=== PATIENT | male | born 1945 | race Caucasian/White ===

== ENCOUNTER 2019-09-22 09:09 | Outpatient (CLI) | payer MEDICARE, SELFPAY ==
--- NOTE | ~2019-09-22 | US_ITS ---
EXAMINATION: US venous doppler LE RT DATE: 09/22/2019 09:45 INDICATION: Right lower limb swelling. TECHNIQUE: Grayscale ultrasound images without and with compression and Doppler ultrasound images of the right lower extremity veins were obtained. COMPARISON: Ultrasound 01/22/2013 FINDINGS: The visualized portions of right common femoral vein, profunda (deep) femoral vein, femoral vein, pop liteal vein, peroneal veins, posterior tibial veins, and greater saphenous vein outflow are patent. IMPRESSION: 1. No deep venous thrombosis. Reviewed, dictated and finalized at location A.
== END 2019-09-22 09:10 | disposition home or self-care (01) ==
PROVIDERS: PCP Family Medicine; Visit Provider Internal Medicine Cardiovascular Disease
DX: M79.89 Other specified soft tissue disorders (principal); I51.89 Other ill-defined heart diseases; R60.0 Localized edema
CPT/HCPCS: 93971

== ENCOUNTER 2020-07-11 07:08 | Outpatient (CLI) | payer MEDICARE, SELFPAY ==
--- NOTE | ~2020-07-11 | XR_ITS ---
EXAMINATION: XR chest 2V DATE: 07/11/2020 07:24 INDICATION: Shortness of breath. TECHNIQUE: Frontal and lateral views of the chest were obtained. COMPARISON: Chest 2 views 07/10/2015 FINDINGS: The chest demonstrates clear lungs without pneumonia, pleural effusion, or pneumothorax. Th e heart size is normal. IMPRESSION: 1. No acute cardiopulmonary disease. Reviewed, dictated and finalized at location A. 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
== END 2020-07-11 07:09 | disposition home or self-care (01) ==
LOC: ANHIMG 07:10
PROVIDERS: PCP Family Medicine; Visit Provider Physician Assistant
DX: R06.02 Shortness of breath (principal)
CPT/HCPCS: 71046

== ENCOUNTER 2020-10-17 08:00 | Outpatient (RCR) | payer MEDICARE, SELFPAY ==
--- NOTE | 2020-08-04 10:09 | PTOPEVAL ---
PHYSICAL THERAPY EVALUATION AND PLAN OF CARE 08-04-20 Thank you for referring Odilon Lee to [facility], for the diagnosis of B LE lymphedema.? Larry is scheduled to be seen for therapy? 2 x/week for 4 weeks. Please review, sign, date and return this plan of care PACHECO. I agree with and certify that the following plan of care is medically necessary. Referring Physician Date Attending Provider: Tiffanie Forman MD PT Outpatient Evaluation Document 08/04/20 09:01 DOMINGO (Rec: 08/04/20 10:09 DOMINGO [id number]) Outpatient Past Medical History Past Medical History Source of Past Medical History Patient Neurological History Hx Neurological Disorders No Significant History Cardiovascular History Hx Hypertension Yes: meds Respiratory History Hx Chronic Obstructive Pulmonary Disease Yes: previous smoker (COPD) Gastrointestinal History Hx Hernia Yes: surgical repair hernia Hx Other Gastrointestinal Disorders Yes: part colon removed- non cancer;rupture L side abdomen? Genitourinary History Hx Genitourinary Disorders No Significant History Musculoskeletal History Hx Back Pain Yes: burning in trunk when lie in bed Hx Orthopedic Surgery Yes: R TKR 2008; R knee arthroscopy 3x; Hx Other Musculoskeletal Disorders Yes: B shoulders- rot cuff tears- limited ROM of shoulders Endocrine History Hx Endocrine Disorders No Significant History Other History Hx Other Medical Conditions Yes: obesity Evaluation Information Problem Diagnosis B LE lymphedema Onset Feb 2020 Subjective Information gradual increase in swelling Query Text:As Reported By Patient/ of legs; Family Previous Treatments Previous Treatments For This Problem no previous PT for lymphedema of legs Prior Level of Function Activity Level (Last 3 Months) Occupation retired Activity of Daily Living Ability Independent Indoor/Home Mobility Independent Community Mobility Independent Stairs Ability Independent Functional Cognition (Planning, Shopping Independent , Taking Medications) Cooking Yes Cleaning Yes Laundry Yes Shopping Yes Driving Yes Home Setting Living Situation With Spouse Support 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
--- NOTE | 2020-08-30 08:52 | PTOPEVAL ---
PHYSICAL THERAPY REEVALUATION AND UPDATED PLAN OF CARE 08-30-20 Refer to the clinical summary below for his status with today's reevaluation, compared to the initial evaluation. Continue PT treatment 2x/week for 4 weeks, or less, when L LE reduces and he is independent with and the compression garments are managing his lymphedema. Thank you for referring Odilon Lee to [facility].? Please review, sign, date and return this plan of care PACHECO. I agree with and certify that the following plan of care is medically necessary. Referring Physician Date Attending Provider: Tiffanie Forman MD Document 08/30/20 08:00 DOMINGO (Rec: 08/30/20 08:52 DOMINGO [id number]) Assessment Status Re-evaluation Subjective Information Larry reports: legs are better, Query Text:As Reported By Patient/ have cramps still- Family occassionally in bottom R foot ; doing lymph massage and wants to continue with therapy for his legs; have not ordered his knee high compression garment yet; Reviewed with him that he needs to order the compression garment, in order to progress his treatment and will need terminal operations manager to control his swelling; he voiced understanding and will order the knee high garment. Pain Assessment Timing of Pain Assessment Timing of Pain Assessment Assessment Self Report Self Report Pain Level 0 Pain Score Pain Score 0: Self Report Additional Pain Score Comments cramps in bottom of R foot 2-3 x/day, lasting 20 seconds, ease when stretch ankle/foot; Lymphedema Evaluation Skin Inspection Location Left Lower Extremity,Right Lower Extremity Palpation Findings Warm Skin Temperature Lymphedema Stage II Skin Inspection Comment R LE: slight redness over toes and lower leg; healed scab at 16 cm ~ 1 cm diameter; no redness over dorsum of foot; visible medial and lateral malleoli; lower leg tissue with good mobility/ without fibrosis or hardening of tissue; skin is not dry or flaking, except bottom of foot ; tenderness and spasm over mid-lateral lower leg;
--- NOTE | 2020-08-30 13:52 | PCPTNOTE ---
faxed request to for signature for 30-40 mmHg compression knee highs, for obtaining from [facility];
--- NOTE | 2020-09-06 11:38 | PCPTNOTE ---
order has not yet been received for signature by for compression garment; refaxed this AM;
--- NOTE | 2020-09-12 11:48 | PCPTNOTE ---
pt canceled today's appt; he came in early, at the wrong time and could not return later today, at the correct appointment time;
--- NOTE | 2020-09-28 08:58 | PTOPEVAL ---
PHYSICAL THERAPY RE-EVALUATION AND UPDATED PLAN OF CARE 09-28-20 Refer to the clinical summary below for today's status, compared to the last reevaluation. His lower legs have improved, but having issues finding a compression garment that is comfortable for him to tolerate wearing. Continue PT 1-2x/wk for 4 weeks, for further reduction of fibrotic tissue over R lower leg and for him to obtain an appropriate compression to manage his lymphedema and that is comfortable for him to wear. Thank you for referring Odilon Lee to [facility].? Please review, sign, date and return this plan of care PACHECO. I agree with and certify that the following plan of care is medically necessary. Referring Physician Date Attending Provider: Tiffanie Forman MD Assessment Status Re-evaluation Subjective Information Larry reports: fell asleep last Query Text:As Reported By Patient/ night with legs hanging down Family in chair- legs more swollen this morning; L leg is doing OK, but R leg more swollen and uncomfortable above ankle; only wearing velcro garment about half the time due to not comfortable-- burning and pressure squeezing on leg; can tolerate wearing compression anklet on L foot/ not wearing R one because have other thing on; have not been wearing foot piece (PAC band) had problems putting it on and hurt R foot; has been doing his self massage 1-2 x/ day and deep breathing more than that; have a new cream that skin gave him for legs--not sure what it is and have not started using it yet, just got from pharmacy yesterday; Pain Assessment Timing of Pain Assessment Timing of Pain Assessment Assessment Self Report Self Report Pain Level 0 Pain Score Pain Score 0: Self Report Lymphedema Evaluation Skin Inspection Location Left Lower Extremity,Right Lower Extremity Skin Observations Absence of Leg Hair,Dorsum Foot Swelling, Hyperpigmentation,Hyperplasia, Shiny, Dry, Pale Skin Palpation Findings Cool Skin Temperature Tissue Texture Firm Lymphedema Stage II Skin Inspection Comment R LE: redness over lower leg ~
--- NOTE | 2020-10-05 10:12 | PCPTNOTE ---
Pt called and cancelled today's appointment .
--- NOTE | 2020-10-17 08:59 | PTOPEVAL ---
PHYSICAL THERAPY DISCHARGE 10-17-20 Refer to the clinical summary below, for his discharge summary. Thank you for referring Odilon Lee to [facility].? Please review, sign, date and return this Discharge report PACHECO. I agree with and certify that the following plan of care is medically necessary. Referring Physician Date Attending Provider: Tiffanie Forman MD Document 10/17/20 08:05 DOMINGO (Rec: 10/17/20 08:59 DOMINGO [id number]) Assessment Status Discharge Subjective Information Larry reports: doing OK with leg Query Text:As Reported By Patient/ garments; knows how to do Family the lymph massage; is drinking lots of water; ready for discharge from PT treatments; Pain Assessment Timing of Pain Assessment Timing of Pain Assessment Assessment Self Report Self Report Pain Level 0 Pain Score Pain Score 0: Self Report Additional Pain Score Comments cramping in feet; continues to have back pain PRN--almost went to ER hurting so bad; this morning is doing OK with back; Lymphedema Evaluation Skin Inspection Location Left Lower Extremity,Right Lower Extremity Skin Observations Absence of Leg Hair,Dorsum Foot Swelling, Hyperpigmentation,Hyperplasia, Shiny, Dry, Pale Skin Palpation Findings Warm Skin Temperature Lymphedema Stage II Skin Inspection Comment minimal redness, dry, flaking skin throughout both lower legs; toes and bottom of feet red and flaking; reinforced use of lotion on legs--he has not been doing due to back pain and it increases with reaching down to legs; edema dorsum of feet and toes- no visible space between toes; pt to dept with R lower leg reduction garment intact and L lower leg with circaid juxtafit essentials lower leg piece- size L-X full calf, long length; applied correctly; - cut L garment due to leg
== END 2020-10-17 13:42 | disposition home or self-care (01) ==
LOC: ANHPT 08:00
PROVIDERS: PCP Family Medicine; Visit Provider Family Medicine
DX: I89.0 Lymphedema, not elsewhere classified (principal)
CPT/HCPCS: 29581; 97016; 97140; 97161

== ENCOUNTER 2021-03-19 09:00 | Outpatient (RCR) | payer MEDICARE, SELFPAY ==
--- NOTE | 2021-02-16 10:17 | PTOPEVAL ---
PHYSICAL THERAPY EVALUATION Thank you for referring Odilon Lee to [facility].? Larry was evaluated for the dx of right knee buckling/OA. The patient is scheduled to be seen for therapy? 2 x/week for 4 weeks. Please review, sign, date and return this plan of care PACHECO. I agree with and certify that the following plan of care is medically necessary. Referring Physician Date Attending Provider: Sun Sanford PA-C *PT Outpatient Evaluation Start: 02/16/21 08:47 Freq: Status: Active Protocol: Document 02/16/21 08:48 MLV (Rec: 02/16/21 09:45 MLV [id number]) Therapy Assessment Status Assessment Status Assessment Status Evaluation Evaluation Information Problem Diagnosis right knee pain; Onset 1 year ago Cause no new injury Additional Evaluation Detail Th patient reports increase in falls due to his right knee buckling; fallen at least 5 times in the last year. The patient reports no pain, just a sudden buckling of the right knee. The patient lives home with his and is generally sedentary because his doesn't like him to ever leave her. The patient also reports trouble with breathing for over a year and has gotten worse lately. Pt denies pain at knee or his back/other knee with activity or at rest. Pain Assessment Timing of Pain Assessment Timing of Pain Assessment Assessment Pain Scale Pain Scale Used Numeric (1 - 10) Self Report Pain Assessment Right Calf/Calves Reported Pain Level 0 Pain Description Cramping Radicular Pain Location cramps only at night or when bending knee too far Other Pain Description 9-10 cramping with knee flexion; Pain Behaviors Guarding,Moaning Pain Score Pain Score 0: Self Report Interventions Used Interventions Used By Clinicians Education,Electrical Stimulation,Ice,Position Change Pain Relief Interventions Used By Position Change Patient Cervical and Lumbar ROM Lumbar ROM Reason Not Measured WFL/Left,WFL/Right Lumbar Comments no pain with trunk motions Lower Extremity Range of Motion General Lower Extremity Range of Motion Gross Lower Extremity Range of Motion left k
--- NOTE | 2021-03-02 14:02 | PCPTNOTE ---
Patient called & cancelled scheduled appointment this date due to issues with his spouse.
--- NOTE | 2021-03-19 09:50 | PTOPEVAL ---
PHYSICAL THERAPY DISCHARGE Thank you for referring Odilon Lee to [facility].? The patient has completed 8 visits for the dx of right knee pain/instability. Goals are met, and PT DC'ed.. Please review, sign, date and return this plan of care PACHECO. I agree with and certify that the following plan of care is medically necessary. Referring Physician Date Attending Provider: Sun Sanford PA-C *PT Outpatient Discharge Start: 02/16/21 08:47 Freq: Status: Active Protocol: Document 03/19/21 09:35 MLV (Rec: 03/19/21 09:47 MLV [id number]) Therapy Assessment Status Assessment Status Assessment Status Discharge Evaluation Information Problem Diagnosis right knee pain; Onset 1 year ago Cause no new injury Additional Evaluation Detail Patient reports no recent occurrence of knees buckling and reports only a sense of weakness when challenging strength on high stepping. The pt states he is riding his stationary recumbent bike and doing his exercises w/o pain noted. The patient plans to continue his exercises and biking and see how his knee does before he decides if he needs further follow up with orthopedics. Pain Assessment Timing of Pain Assessment Timing of Pain Assessment Assessment Self Report Self Report Pain Level 0 Pain Score Pain Score 0: Self Report Lower Extremity Range of Motion General Lower Extremity Range of Motion Reason Not Measured WFL/Left,WFL/Right Gross Lower Extremity Range of Motion left knee 0-131', right knee 0 Comments -118' with flexion limited due to calf pain with motion. Ankle DF 6' phillip with right calf less painful to knee during motion; PF active motion 40' phillip. Lower Extremity Muscle Strength Testing General Lower Extremity Strength Gross Lower Extremity Strength phillip hips 4/5 isometric testing , knees 5/5 isometric, ankles 5/5 isometric. Patient 50%-75% less labored with calf raises in standing and with resisted hip motions repetitions. Pt experiences some muscle pain and visible fatigue with
== END 2021-03-20 11:49 | disposition home or self-care (01) ==
LOC: ANHPT 09:00
PROVIDERS: PCP Family Medicine; Visit Provider Physician Assistant
DX: M17.11 Unilateral primary osteoarthritis, right knee (principal)
CPT/HCPCS: 97014; 97110; 97116; 97162; G0283

== ENCOUNTER 2021-08-02 00:16 | Day surgery (SDC) | payer MEDICARE, SELFPAY ==
[2021-07-19 14:11] VITALS: BMI 32.8
--- NOTE | 2021-08-02 07:11 | WPDANESEPPF ---
Anes - Initial Pre Proc Eval Procedure: Operation Date: 08/02/21 10:30 Proposed Procedures p Colonoscopy - Hector Wolfe MD Date/Time: 08/02/21 07:11 Surgeon: Hector Wolfe MD Pre Op Diagnosis: occult GI bleed Patient Data Age: 76 Gender: M Height: 1.73 m Weight: 98 kg Allergies Allergy/AdvReac Type Severity Reaction Status Date / Time No Known Allergies Allergy Unknown Verified 08/02/21 09:55 Home Medications Medication Instructions Recorded Confirmed Type bumetanide 1 mg tablet 1 mg PO DAILY 07/06/20 07/19/21 History finasteride 5 mg tablet 5 mg PO DAILY 07/06/20 07/19/21 History losartan 100 mg tablet 100 mg PO DAILY 07/06/20 07/19/21 History metoprolol succinate 25 mg 25 mg PO DAILY 07/06/20 07/19/21 History tablet,extended release 24 hr potassium chloride 10 mEq 10 meq PO DAILY #90 tablet 08/28/20 07/19/21 Rx tablet,extended release albuterol sulfate 90 mcg/actuation 1 inh INHALATION Q4H PRN #8.5 g 04/09/21 07/19/21 Rx aerosol inhaler fluticasone propionate 50 1 spray INTRANASAL Q12H #16 g 04/09/21 07/19/21 Rx mcg/actuation nasal spray,suspension Patient hx anesthesia problems: none Family hx anesthesia problems: none Results Review: All pre-operative results and documents have been reviewed as part of the pre-operative evaluation. [facility] Past Medical History Medical History Change in bowel habit COPD (chronic obstructive pulmonary disease) CORBIN (dyspnea on exertion) Encounter for immunization Fecal occult blood test positive History of HI (myocardial infarction) Hyperlipidemia Hypertension Sleeps in sitting position due to orthopnea Surgical History Surgical History H/O umbilical hernia repair History of partial surgical removal of colon History of total right knee replacement Family History Family History Mother Carcinoma of colon Family history of malignant neoplasm of breast in first degree relative Breast cancer Sibling Malignant neoplasm of prostate Social History Social History Smoking packs per day: 1.5 Smoking cigarettes per day: 30.0 Years smoked: 52 Smoking pack-years: 78.00 Smoking status: Former smoker Tobacco type: cigarettes Smoking end date: 05/12/07 Alcohol intake: current Drinks per week: 30 Substance use: never Substance use type: does not use Living arrangements: with family Spiritual care concerns: No Anes - Eval Final PreProcedure Day of Procedure 08/02/21 07:11 Patient weight: obese Heart: regular rate and rhythm Lungs: clear to auscultation and normal air movement Airway: Mallampati scale class II Neurological: alert and oriented Last oral intake: >/= 8 hours ASA classification: IV Emergent: no Anesthetic plan: proceed Anesthesia type and monitoring: general GIVS and standard monitoring Results Review: All pre-operative results and documents have been reviewed as part of the pre-operative evaluation. Informed Consent: The patient's anesthetic plan and its attendant risks and benefits were discussed with the patient/family/POA. Questions were solicited and answers provided to the satisfaction of the patient/family/POA.
[2021-08-02 09:56] VITALS: BP 153/90; PULSE 107; RESP 28; TEMP 36.2; O2SAT 96
[2021-08-02] MEDS: LACTATED RINGERS 1,000 ML 150 ML IV CONT (10:11)
--- NOTE | 2021-08-02 10:16 | SUR.PREOP ---
DR CASTAÑEDA NOTIFIED PT EXTREMELY SHORT OF BREATH, 02 SATS RANGE FROM 88-99% ON ROOM AIR WHILE AT REST. PT STATES HE HAS BEEN SHORT OF BREATH FOR 4-5 MONTHS, DOCTOR IS WORKING HIM UP AND DOING SEVERAL TESTS. DENIES NEED FOR OXYGEN. PT ABLE TO COMMUNICATE EASILY. DR CALDERON PT.
--- NOTE | 2021-08-02 10:40 | WPDGICN ---
Assessment and Plan Assessment and plan (1) History of colon polyps: Code(s): Z86.010 - Personal history of colonic polyps Status: Acute Assessment and Plan: Patient has a history of colon polyps. Require required surgical resection of large cecal polyp several years ago. Now with occult blood in stool. Plan is for surveillance colonoscopy now. (2) Occult blood in stools: Code(s): R19.5 - Other fecal abnormalities Status: Acute Assessment and Plan: Occult blood in stool identified in primary care office. Given patient's prior history of large colon polyps. Colonoscopy will be performed to evaluate at this time. GI Consult Note Consult date/time: 08/02/21 10:40 HPI: Odilon Lee is a 76 year old male Presents for screening colonoscopy. Patient's current weight appetite bowel movements are normal. He denies abdominal pain. Recently seen in primary care office was found to have occult blood on rectal exam. Patient denies any obvious visible blood in his bowel movements. Patient's past history is significant for a large cecal colon polyps requiring surgical resection. Patient presents today for follow-up for these reasons. Review of Systems Review of Systems: All systems reviewed & are unremarkable except as noted in HPI and below PMFSH Past Medical History Medical History Change in bowel habit COPD (chronic obstructive pulmonary disease) CORBIN (dyspnea on exertion) Encounter for immunization Fecal occult blood test positive History of AL (myocardial infarction) Hyperlipidemia Hypertension Sleeps in sitting position due to orthopnea Surgical History Surgical History H/O umbilical hernia repair History of partial surgical removal of colon History of total right knee replacement Family History Family History Mother Carcinoma of colon Family history of malignant neoplasm of breast in first degree relative Breast cancer Sibling Malignant neoplasm of prostate Social History Social History Smoking packs per day: 1.5 Smoking cigarettes per day: 30.0 Years smoked: 52 Smoking pack-years: 78.00 Smoking status: Former smoker Tobacco type: cigarettes Smoking end date: 05/12/07 Alcohol intake: current Drinks per week: 30 Substance use: never Substance use type: does not use Living arrangements: with family Spiritual care concerns: No Meds Home Medications and Allergies Home Medications Medication Instructions Recorded Confirmed Type bumetanide 1 mg tablet 1 mg PO DAILY 07/06/20 07/19/21 History finasteride 5 mg tablet 5 mg PO DAILY 07/06/20 07/19/21 History losartan 100 mg tablet 100 mg PO DAILY 07/06/20 07/19/21 History metoprolol succinate 25 mg 25 mg PO DAILY 07/06/20 07/19/21 History tablet,extended release 24 hr potassium chloride 10 mEq 10 meq PO DAILY #90 tablet 08/28/20 07/19/21 Rx tablet,extended release albuterol sulfate 90 mcg/actuation 1 inh INHALATION Q4H PRN #8.5 g 04/09/21 07/19/21 Rx aerosol inhaler fluticasone propionate 50 1 spray INTRANASAL Q12H #16 g 04/09/21 07/19/21 Rx mcg/actuation nasal spray,suspension Allergies Allergy/AdvReac Type Severity Reaction Status Date / Time No Known Allergies Allergy Unknown Verified 08/02/21 09:55 Vital Signs Vital Signs - 24 hr 08/02/21 09:56 Temperature 97.1 F L Pulse Rate 107 H Respiratory Rate 28 H Blood Pressure 153/90 H Pulse Oximetry 96 Exam Narrative: Physical exam reveals patient be alert. Vital signs stable. HEENT exam is unremarkable. Patient is anicteric. Lungs are clear to auscultation and percussion. Heart is without murmur or extra sounds. Abdominal exam bowel sounds are present soft
[2021-08-02 12:21] VITALS: BP 116/63; PULSE 118; RESP 30; O2SAT 95
[2021-08-02 12:31] VITALS: BP 116/63; PULSE 105; RESP 28; O2SAT 98
[2021-08-02 12:41] VITALS: BP 117/76; PULSE 105; RESP 24; O2SAT 98
== END 2021-08-02 12:40 | disposition home or self-care (01) ==
PROVIDERS: PCP Family Medicine; Visit Provider Internal Medicine Gastroenterology
PROC: 0DJD8ZZ Inspection of Lower Intestinal Tract, Via Natural or Artificial Opening Endoscopic (ICD-10-PCS; CPT 45378; principal; 2021-08-02 10:30)
DX: Z12.11 Encounter for screening for malignant neoplasm of colon (principal); D12.3 Benign neoplasm of transverse colon; K64.8 Other hemorrhoids; R19.5 Other fecal abnormalities; Z98.0 Intestinal bypass and anastomosis status; Z90.49 Acquired absence of other specified parts of digestive tract; I10 Essential (primary) hypertension; E78.5 Hyperlipidemia, unspecified; J44.9 Chronic obstructive pulmonary disease, unspecified; I25.2 Old myocardial infarction; Z87.891 Personal history of nicotine dependence; Z79.51 Long term (current) use of inhaled steroids; E66.9 Obesity, unspecified; Z68.33 Body mass index [BMI] 33.0-33.9, adult
CPT/HCPCS: 45385; 88305; J2704; J7120

== ENCOUNTER 2021-08-21 08:17 | Outpatient (CLI) | payer MEDICARE, SELFPAY ==
--- NOTE | ~2021-08-21 | XR_ITS ---
EXAMINATION: XR chest 2V DATE: 08/21/2021 08:31 INDICATION: Shortness of breath TECHNIQUE: PA and lateral views of the chest are obtained. COMPARISON: 07/11/2020 FINDINGS: There are minimal airspace opacities of the right middle lobe. There is no pleural effusion or pneumothorax. The cardiomediastinal silhouette is normal. There are bridging osteophytes at multi ple levels in the spine, consistent with diffuse idiopathic skeletal hyperostosis (DISH). IMPRESSION: 1. Airspace opacities of the right middle lobe, likely pneumonia. Recommend followup radiographs in 1 0-14 days after appropriate therapy to evaluate for improvement/resolution. Reviewed, dictated and finalized at location A. IMPRESSION: 1. Airspace opacities of the right middle lobe, likely pneumonia. Recommend fol lowup radiographs in 10-14 days after appropriate therapy to evaluate for impro vement/resolution.
--- NOTE | ~2021-08-21 | US_ITS ---
EXAMINATION: US abdomen limited DATE: 08/21/2021 08:42 INDICATION: Hepatomegaly TECHNIQUE: Multiple grayscale and Doppler ultrasound images of the abdomen were obtained. COMPARISON: None available FINDINGS: Bowel gas obscures visualization of the pancreas. The liver is normal with normal echogenic ity and echotexture. No surface nodularity. Normal hepatopetal flow in the main portal vein. Stones a re present in the nondistended gallbladder. There is no gallbladder wall thickening or pericholecysti c fluid The normal common bile duct measures 4 mm. There was no sonographic Chopra sign. IMPRESSION: 1. Cholelithiasis without evidence of cholecystitis. Reviewed, dictated and finalized at location A.
== END 2021-08-21 08:18 | disposition home or self-care (01) ==
LOC: ANHIMG 08:18
PROVIDERS: PCP Family Medicine; Visit Provider Family Medicine
DX: R16.0 Hepatomegaly, not elsewhere classified (principal); Z72.89 Other problems related to lifestyle; R06.00 Dyspnea, unspecified; K80.20 Calculus of gallbladder without cholecystitis without obstruction; R91.8 Other nonspecific abnormal finding of lung field
CPT/HCPCS: 71046; 76705

== ENCOUNTER 2021-08-31 12:16 | Outpatient (CLI) | payer MEDICARE, SELFPAY ==
--- NOTE | ~2021-08-31 | XR_ITS ---
EXAMINATION: XR chest 2V DATE: 08/31/2021 12:36 INDICATION: Pneumonia, unspecified organism. TECHNIQUE: Frontal and lateral views of the chest were obtained on 3 radiographs. COMPARISON: Chest 2 views 08/21/2021, chest CT 01/10/2015 FINDINGS: There are airspace opacities in right middle lobe. No pleural effusion or pneumothorax. The heart size is normal. IMPRESSION: 1. Stable airspace opacities in right middle lobe, consistent with atelectasis versus pneumonia. Reviewed, dictated and finalized at location B.
== END 2021-08-31 12:17 | disposition home or self-care (01) ==
LOC: ANHIMG 12:19
PROVIDERS: PCP Family Medicine; Visit Provider Physician Assistant
DX: J18.9 Pneumonia, unspecified organism (principal); R91.8 Other nonspecific abnormal finding of lung field
CPT/HCPCS: 71046

== ENCOUNTER 2021-09-06 14:44 | Emergency (ER) | payer MEDICARE, SELFPAY ==
--- NOTE | ~2021-09-06 | XR_ITS ---
XR chest 1V portable DATE: 09/06/2021 15:14 INDICATION: Cough, shortness of breath. History of CHF, COPD, hypertension TECHNIQUE: Portable AP chest on 09/06/2021 at 1511 hours COMPARISON: 08/31/2021 PA and lateral chest FINDINGS: Stable middle lobe infiltrate and/or atelectasis since 08/31/2021. The lungs otherwise appea r clear. Normal heart size. Aortic calcification and unfolding. No pulmonary vascular congestion or pneumothorax. Osteopenia. Degenerative spurring of the thoracic spine. IMPRESSION: Persistent middle lobe infiltrate and/or atelectasis Reviewed, dictated and finalized at location A.
[2021-09-06 14:52] VITALS: BP 189/101; PULSE 90; RESP 24; TEMP 36.8; O2SAT 96
--- NOTE | 2021-09-06 14:56 | ECG_ITS ---
Measurements Intervals [place] Rate: 88 P: 49 [place]: 142 QRS: -29 QRSD: 102 T: 72 QT: 335 QTc: 406 Interpretive Statements SINUS RHYTHM BORDERLINE LEFT AXIS DEVIATION [QRS AXIS < -20] NO PREVIOUS ECG AVAILABLE FOR COMPARISON Electronically Signed On 09-06-2021 20:55:45 CDT by Shruthi Chiang M.D.
[2021-09-06 15:07] VITALS: RESP 33; O2SAT 95
[2021-09-06 15:23] LABS: Basophils Percent Auto 0.3 % (0.2-1.2); Eosinophils Absolute Auto 0.1 K/mm3 (0-0.3); Eosinophils Percent Auto 0.6 % (0-4.4); Hematocrit 51.5 % (42.0-52.0); Hemoglobin 17.7 g/dL (14.0-18.0); Immature Granulocyte Absolute 0.03 K/mm3 (0.00-0.031); Immature Granulocyte Percent A 0.3 % (0-0.5); Lymphocytes Absolute Auto 2.91 K/mm3 (0.9-3.2); Mean Corpuscular HGB Conc 34.4 g/dl (32-36); Mean Corpuscular Hemoglobin 32.5 pg (26-34); Mean Corpuscular Volume 94.5 fl (80-100); Monocytes Absolute Auto 1.1 K/mm3 (0.1-0.6); Monocytes Percent Auto 11.7 % (2.6-8.5); Neutrophils Absolute Auto 5.3 K/mm3 (1.3-6.7); Neutrophils Percent Auto 56.1 % (45.5-73.1); Platelet Count Result 258 k/mm3 (150-375); Red Blood Count 5.45 M/mm3 (4.6-6.20); Red Cell Distribution Width 15.1 % (11.5-14.5); White Blood Count 9.4 K/mm3 (4.5-10.0)
[2021-09-06 15:37] LABS: INR 1.1; Prothrombin Time 13.4 Seconds (11.1-14.7)
[2021-09-06 15:38] LABS: Alanine Aminotransferase 17 U/L (4-50); Albumin Level 4.4 g/dL (3.5-5.1); Alkaline Phosphatase 89 U/L (38-126); Anion Gap 5 mmol/L (8-16); Aspartate Amino Transferase 33 U/L (17-59); Blood Urea Nitrogen 18 mg/dL (9-20); Carbon Dioxide 32 mmol/L (22-30); Chloride 95 mmol/L (98-107); Estimated CRCL calculation 68 ml/min; Estimated Glomerular Filt Rate > 60; Glucose 91 mg/dL (65-110); Partial Thromboplastin Time 37.6 SECONDS (22.3-36.8); Potassium 4.5 mmol/L (3.4-5.0); Sodium 132 mmol/L (137-145)
[2021-09-06 15:50] LABS: NT Pro B Type Natriuretic Pept 111 pg/mL (5-100); Troponin I < 0.012 ng/mL (0.000-0.034)
--- NOTE | 2021-09-06 16:17 | ED.GENADULT ---
HPI - General Adult General Chief complaint: Recheck/Abnormal Lab/Rx Stated complaint: told me to come Time Seen by Provider: 09/06/21 14:55 History of Present Illness HPI narrative: Patient is a 76-year-old male who presents ER at the request of his PCP. Patient underwent a stress test yesterday. He had an abnormal perfusion scan. Patient has no chest pain. He has been having exertional dyspnea for months. No fevers or chills or sweats. Reports compliance with home medications. Related Data Home Medications Medication Instructions Recorded Confirmed bumetanide 1 mg tablet 1 mg PO DAILY 07/06/20 08/07/21 finasteride 5 mg tablet 5 mg PO DAILY 07/06/20 08/07/21 losartan 100 mg tablet 100 mg PO DAILY 07/06/20 08/07/21 metoprolol succinate 25 mg 25 mg PO DAILY 07/06/20 08/07/21 tablet,extended release 24 hr Allergies Allergy/AdvReac Type Severity Reaction Status Date / Time No Known Allergies Allergy Unknown Verified 09/06/21 15:09 Review of Systems Review of Systems: All systems reviewed & are unremarkable except as noted in HPI and below Constitutional: Constitutional: Denies chills, Denies fever(s) and Denies weakness ENT: Denies nasal congestion and Denies sore throat Cardiovascular: Cardiovascular: Denies chest pain, Denies rapid heart rate and Denies radiating jaw, neck or arm pain Respiratory: Respiratory: Denies cough and Denies dyspnea Comments: Dyspnea on exertion Gastrointestinal: Gastrointestinal: Denies abdominal pain, Denies nausea and Denies vomiting [facility] Past Medical History Medical History (Updated 09/06/21 @ 17:07 by Clay Farrell MD) Body mass index (BMI) of 30 to 39 in adult Change in bowel habit COPD (chronic obstructive pulmonary disease) CORBIN (dyspnea on exertion) Encounter for immunization Fecal occult blood test positive History of HI (myocardial infarction) Hyperlipidemia Hypertension Prediabetes Sleeps in sitting position due to orthopnea Surgical History Surgical History H/O umbilical hernia repair History of partial surgical removal of colon History of total right knee replacement Family History Family History Mother Carcinoma of colon Family history of malignant neoplasm of breast in first degree relative Breast cancer Sibling Malignant neoplasm of prostate Social History Social History Smoking packs per day: 1.5 Smoking cigarettes per day: 30.0 Years smoked: 52 Smoking pack-years: 78.00 Tobacco type: cigarettes Smoking end date: 05/12/07 Alcohol intake: current Drinks per week: 30 Substance use: never Substance use type: does not use Spiritual care concerns: No Exam Narrative: GENERAL: Well-appearing, well-nourished, and in no acute distress. HEAD: Normocephalic, atraumatic. EYES: PERRL and EOMI. ENT: Mucous membranes moist. CHEST: Clear to auscultation. No respiratory distress. HEART: Regular rate and rhythm. Normal peripheral pulses. ABDOMEN: Soft, nontender, nondistended. EXTREMITIES: Normal range of motion. Chronic lymphedema right lower extremity.. SKIN: Warm, dry, no rash. NEURO: Alert and oriented x3. PSYCH: Normal mood and affect. Course Course Emergency Course: Discussed case with [facility]. They do not feel patient needs admission and they typically schedule these as outpatient heart cath. The recommendation from them is to send the patient home and they will contact him to schedule his cath. Vital Signs Vital signs: Vital Signs Temperature 98.3 F 09/06/21 14:52 Pulse Rate 90 09/06/21 14:52 Respiratory Rate 24 H 09/06/21 14:52 Blood Pressure 189/101 H 09/06/21 14:52 Pulse Oximetry 96 09/06/21 14:52 Temperature 98.3 F 09/06/21 14:52 Pulse Rate 90 09/06/21 14:52 Respiratory Rate 33 H 09/06/21
[2021-09-06 17:30] VITALS: BP 144/76; PULSE 77; RESP 18; O2SAT 94
== END 2021-09-06 17:43 | disposition home or self-care (01) ==
PROVIDERS: Emergency Provider Emergency Medicine; PCP Family Medicine
DX: R94.39 Abnormal result of other cardiovascular function study (principal); J44.9 Chronic obstructive pulmonary disease, unspecified; I25.2 Old myocardial infarction; E78.5 Hyperlipidemia, unspecified; I10 Essential (primary) hypertension; R06.00 Dyspnea, unspecified; R73.03 Prediabetes; Z96.651 Presence of right artificial knee joint; Z87.891 Personal history of nicotine dependence
CPT/HCPCS: 36415; 71045; 80053; 83880; 84484; 85025; 85610; 85730; 93005; 99284

== ENCOUNTER 2021-09-18 00:12 | Day surgery (SDC) | payer MEDICARE, SELFPAY ==
[2021-09-18] VITALS (8 sets, daily range): BP systolic 127–171; BP diastolic 63–88; PULSE 73–86; RESP 22–24; TEMP 36.4–36.5; O2SAT 95–100; BMI 34.2
--- NOTE | 2021-09-18 09:44 | WPDMODSED ---
Moderate Sedation Note-Pt Data Patient Data Allergies Allergy/AdvReac Type Severity Reaction Status Date / Time No Known Allergies Allergy Unknown Verified 09/18/21 09:11 Home Medications Medication Instructions Recorded Confirmed Type bumetanide 1 mg tablet 1 mg PO DAILY 07/06/20 09/17/21 History finasteride 5 mg tablet 5 mg PO DAILY 07/06/20 09/17/21 History losartan 100 mg tablet 100 mg PO DAILY 07/06/20 09/17/21 History metoprolol succinate 25 mg 25 mg PO DAILY 07/06/20 09/17/21 History tablet,extended release 24 hr potassium chloride 10 mEq 10 meq PO DAILY #90 tablet 08/28/20 09/17/21 Rx tablet,extended release fluticasone propionate 50 1 spray INTRANASAL Q12H #16 g 04/09/21 09/17/21 Rx mcg/actuation nasal spray,suspension budesonide-formoterol HFA 160 2 puff INHALATION Q12H #10.2 g 08/07/21 09/17/21 Rx mcg-4.5 mcg/actuation aerosol inhaler albuterol sulfate 90 mcg/actuation 1 inh INHALATION Q4H PRN #8.5 g 08/30/21 09/17/21 Rx aerosol inhaler Current Medications: Active Medications Sodium Chloride (Normal Saline Iv) 500 mls @ 100 mls/hr IV CONT .Q5H ROBERT Sedation/Anesthesia: No previous sedation/anesthesia problems (including family history). [facility] Past Medical History Medical History Body mass index (BMI) of 30 to 39 in adult Change in bowel habit COPD (chronic obstructive pulmonary disease) CORBIN (dyspnea on exertion) Encounter for immunization Fecal occult blood test positive History of MN (myocardial infarction) Hyperlipidemia Hypertension Prediabetes Sleeps in sitting position due to orthopnea Surgical History Surgical History H/O umbilical hernia repair History of partial surgical removal of colon History of total right knee replacement Family History Family History Mother Carcinoma of colon Family history of malignant neoplasm of breast in first degree relative Breast cancer Sibling Malignant neoplasm of prostate Social History Social History Smoking packs per day: 1.5 Smoking cigarettes per day: 30.0 Years smoked: 52 Smoking pack-years: 78.00 Tobacco type: cigarettes Smoking end date: 05/12/07 Alcohol intake: current Drinks per week: 30 Substance use: never Substance use type: does not use Spiritual care concerns: No Mod Sed Physical Exam Physical Exam Pre Procedural Exam: Normal: Airway Hours since solid foods: 10 Hours since liquid intake: 10 Mallampati Classification: class II Internal Medicine - PN: Obj Da Vital Signs Vital Signs: Vital Signs - 24 hr 09/18/21 09:20 Temperature 36.5 C Pulse Rate 74 Respiratory Rate 24 H Blood Pressure 171/86 H Pulse Oximetry 97 Meds/Results Medications: Active Medications Generic Name Dose Route Start Last Admin Trade Name Freq PRN Reason Stop Dose Admin Sodium Chloride 500 mls @ 100 mls/hr 09/18/21 08:00 Normal Saline Iv IV CONT .Q5H [facility] ASA Classification/Sedation ASA Classification/Sedation ASA Class: III Emergent: No Risks: Risks, benefits and alternatives explained and patient/family accepted plan for sedation. Patient re-evaluated immediately prior to sedation.
--- NOTE | 2021-09-18 09:45 | WPDHPUPDATE1 ---
History and Physical Update Update Date/Time: 09/18/21 09:45 History and Physical has been reviewed, including an updated exam of the patient. There are NO changes in the patient's condition. Risks, benefits, and alternatives have been discussed and questions answered. Patient agrees to proceed with procedure.
--- NOTE | 2021-09-18 10:36 | PM.IMHP ---
H&P: HPI History of Present Illness Date/Time: 09/18/21 10:36 Chief complaint: Shortness of breath HPI: 76-year-old male with hypertension, CHF with preserved ejection fraction, COPD, history of tobacco abuse. Patient was referred by Dr. Chiang for cardiac catheterization in the setting of worsening shortness of breath and abnormal MPI. MPI from 09/05/2021 reportedly showed LVEF 58%, large, moderate to severe ischemia involving the apical, apical anterior, apical septal, mid anteroseptum, no infarction. Chief Complaint: shortness of breath PMFSH Past Medical History Medical History Body mass index (BMI) of 30 to 39 in adult Change in bowel habit COPD (chronic obstructive pulmonary disease) CORBIN (dyspnea on exertion) Encounter for immunization Fecal occult blood test positive History of MA (myocardial infarction) Hyperlipidemia Hypertension Prediabetes Sleeps in sitting position due to orthopnea Surgical History Surgical History H/O umbilical hernia repair History of partial surgical removal of colon History of total right knee replacement Family History Family History Mother Carcinoma of colon Family history of malignant neoplasm of breast in first degree relative Breast cancer Sibling Malignant neoplasm of prostate Social History Social History Smoking packs per day: 1.5 Smoking cigarettes per day: 30.0 Years smoked: 52 Smoking pack-years: 78.00 Tobacco type: cigarettes Smoking end date: 05/12/07 Alcohol intake: current Drinks per week: 30 Substance use: never Substance use type: does not use Spiritual care concerns: No Meds Home Medications and Allergies Home Medications Medication Instructions Recorded Confirmed Type bumetanide 1 mg tablet 1 mg PO DAILY 07/06/20 09/17/21 History finasteride 5 mg tablet 5 mg PO DAILY 07/06/20 09/17/21 History losartan 100 mg tablet 100 mg PO DAILY 07/06/20 09/17/21 History metoprolol succinate 25 mg 25 mg PO DAILY 07/06/20 09/17/21 History tablet,extended release 24 hr potassium chloride 10 mEq 10 meq PO DAILY #90 tablet 08/28/20 09/17/21 Rx tablet,extended release fluticasone propionate 50 1 spray INTRANASAL Q12H #16 g 04/09/21 09/17/21 Rx mcg/actuation nasal spray,suspension budesonide-formoterol HFA 160 2 puff INHALATION Q12H #10.2 g 08/07/21 09/17/21 Rx mcg-4.5 mcg/actuation aerosol inhaler albuterol sulfate 90 mcg/actuation 1 inh INHALATION Q4H PRN #8.5 g 08/30/21 09/17/21 Rx aerosol inhaler Allergies Allergy/AdvReac Type Severity Reaction Status Date / Time No Known Allergies Allergy Unknown Verified 09/18/21 09:11 Vital Signs Vital Signs - 24 hr 09/18/21 09:20 Temperature 36.5 C Pulse Rate 74 Respiratory Rate 24 H Blood Pressure 171/86 H Pulse Oximetry 97 Exam Narrative: PHYSICAL EXAMINATION: GENERAL: Alert, short of breath MENTAL STATUS: anxious EYES: Extraocular movements intact, no pallor EARS: External ears appear normal, hearing grossly normal NOSE: Normal and patent, no discharge MOUTH: Mucous membranes moist, tongue normal NECK: Supple, no JVD CHEST: diminished breath sounds HEART: Normal rate, regular rhythm ABDOMEN: Soft, nontender NEUROLOGICAL: Alert, oriented, normal speech MUSCULOSKELETAL: No major deformity, no amputation EXTREMITIES: edema SKIN: no rash on the exposed area, no cyanosis PSYCHIATRIC: Normal mood, appropriate affect Assessment and Plan Assessment and plan (1) Diastolic CHF: Code(s): I50.30 - Unspecified diastolic (congestive) heart failure Status: Acute
--- NOTE | 2021-09-18 10:45 | WPDCARDPROC ---
Cardiac Cath Procedure Note Date of procedure:: 09/18/21 Performing physician:: Samy Harrison MD Procedure Procedure note:: LEFT HEART CATHETERIZATION AND CORONARY ANGIOGRAM REPORT DATE OF PROCEDURE: 09/18/2021 INDICATION FOR PROCEDURE: shortness of breath BRIEF CLINICAL HISTORY:76-year-old male with hypertension, CHF with preserved ejection fraction, COPD, history of tobacco abuse. Patient was referred by Dr. Chiang for cardiac catheterization in the setting of worsening shortness of breath and abnormal MPI. MPI from 09/05/2021 reportedly showed LVEF 58%, large, moderate to severe ischemia involving the apical, apical anterior, apical septal, mid anteroseptum, no infarction. Benefits and risks of the procedure were discussed with the patient in depth, and informed consent was obtained prior to the procedure. Risks of the procedure include but are not limited to vascular complications including groin hematoma, retroperitoneal bleed, vessel perforation; periprocedural NM, cardiac arrhythmias, stroke, contrast induced nephropathy, and . After discussing all the benefits, risks and alternatives, patient was willing to proceed with the procedure. PROCEDURES PERFORMED: 1. Left heart catheterization- Selective left and right coronary angiogram; left ventriculogram and hemodynamic assessment 2. Selective right common femoral angiogram and deployment of Angio-Seal hemostatic device 3. Moderate sedation-CPT code 56074 MODERATE SEDATION: Midazolam 1 mg; fentanyl 25 mcg; Start time 1005 , Stop time 1024 ; Total [id number] time 19 minutes; Nidhi Fernandez RN was trained observer for moderate sedation. ACCESS SITE: Right common femoral artery PROCEDURE NOTE: After obtaining informed consent, patient was brought to catheterization lab and prepped and draped in a usual sterile manner. After local anesthesia with lidocaine, right common femoral artery access was taken with micropuncture needle followed by insertion of a 6 Hebrew sheath. Selective left and right coronary angiogram was performed using 5 Hebrew JL4 and JR4 catheters respectively. Orthogonal views were taken. Next, a 5 Hebrew pigtail catheter was advanced in the LV cavity and was flushed with normal saline. LV pressure measurement was performed. After this, left ventriculogram was performed. The catheter was flushed again, and gradient across the aortic valve was measured on the pullback of the catheter. Finally, selective right common femoral angiogram was performed followed by successful deployment of Angio-Seal vascular closure device. Patient tolerated procedure well without any immediate procedure related complications. FINDINGS: LEFT MAIN CORONARY: the left main coronary artery is a short vessel, no angiographically significant focal stenosis seen. No catheter dampening was seen. Good reflux of the contrast. The vessel bifurcates to LAD and dominant LCX. LEFT ANTERIOR DESCENDING ARTERY: The LAD is a medium caliber vessel in the proximal and mid segment, becomes smaller caliber, tortuous vessel in the distal segment. The vessel gives rise to medium caliber tortuous diagonal branch. No significant focal stenosis seen. LEFT CIRCUMFLEX ARTERY: Large caliber, dominant vessel. Vessel gives rise to medium caliber OM branches and LPDA without significant focal stenosis. RIGHT CORONARY ARTERY: A medium caliber, nondominant vessel, no significant focal stenosis. LEFT VENTRICULOGRAM: Frequent ventricular ectopy was seen during left ventriculogram, overall LV systolic function preserved with ejection fraction about 55%. LVEDP was elevated at 18 mmHg. HEMODYNAMIC ASSESSMENT: Opening pressure 127/66 mmHg , closing pressure 150/75 mmHg , LVEDP 18 mmHg , no significant gradient across aortic valve on the pullback of pigtail catheter. RIGHT COMMON FEMORAL ARTERY: Patent CONCLUSIONS: 1. No angiographically significant obstructive CAD. Dominant left coronary syste
== END 2021-09-18 14:25 | disposition home or self-care (01) ==
PROVIDERS: PCP Family Medicine; Visit Provider Internal Medicine Cardiovascular Disease
PROC: 4A023N7 Measurement of Cardiac Sampling and Pressure, Left Heart, Percutaneous Approach (ICD-10-PCS; CPT 93452; principal; 2021-09-18 09:30)
DX: R94.39 Abnormal result of other cardiovascular function study (principal); I11.0 Hypertensive heart disease with heart failure; I50.30 Unspecified diastolic (congestive) heart failure; I49.3 Ventricular premature depolarization; I77.1 Stricture of artery; J44.9 Chronic obstructive pulmonary disease, unspecified; I25.2 Old myocardial infarction; E78.5 Hyperlipidemia, unspecified; R73.03 Prediabetes; Z87.891 Personal history of nicotine dependence; Z79.82 Long term (current) use of aspirin
CPT/HCPCS: 93458; C1760; C1887; C1894; G0269; J2250; J3010; J7040

== ENCOUNTER 2021-09-29 09:17 | Outpatient (CLI) | payer MEDICARE, SELFPAY ==
--- NOTE | ~2021-09-29 | XR_ITS ---
EXAMINATION: XR chest 2V DATE: 09/29/2021 09:38 INDICATION: Dyspnea on exertion TECHNIQUE: PA and lateral views of the chest were obtained. COMPARISON: Chest radiograph dated 09/06/21 FINDINGS: Persistent mild opacities at the bilateral lung bases. No pleural effusion or pneumothorax. The cardi omediastinal silhouette is normal. IMPRESSION: 1. Persistent mild bibasilar opacities most likely atelectasis although differential includes pulmona ry edema or pneumonia. Reviewed, dictated and finalized at location A. IMPRESSION: 1. Persistent mild bibasilar opacities most likely atelectasis although differe ntial includes pulmonary edema or pneumonia.
== END 2021-09-29 09:18 | disposition home or self-care (01) ==
PROVIDERS: PCP Family Medicine; Visit Provider Internal Medicine Cardiovascular Disease
DX: R06.00 Dyspnea, unspecified (principal); R91.8 Other nonspecific abnormal finding of lung field
CPT/HCPCS: 71046

== ENCOUNTER 2021-10-23 12:42 | Outpatient (CLI) | payer MEDICARE, SELFPAY ==
--- NOTE | 2021-10-24 08:00 | WPDPFTINT ---
PFT Procedure Performed PFT Procedure Performed Plethysmography (Lung Vol) Diffusing Cap (DLCO) Flow Vol Loop Spirometry w/o Bronchodil PFT Interpretation This is a pulmonary function test with spirometry, plethysmography and diffusing capacity. The test was performed and results interpreted in accordance with the 2019 and 2005 ATS/ERS Task Force guidelines respectively using the Global Lung Function Initiative-2012 reference equations. Patient demonstrated good effort and cooperation. Reproducibility criteria were met. The quality of the spirometry maneuver was Grade B. Findings: Spirometry: There is decreased maximal expiratory airflow at low lung volumes with a mildly concave expiratory flow tracing. The contour the inspiratory flow tracing is normal. The FVC is 2.26 L, 61% predicted. The FEV1 is 1.55 L, 56% predicted. The FEV1: FVC ratio 69%. Plethysmography: The total lung capacity is 4.84 L, 73% predicted. The functional residual capacity is 3.26 L, 91% predicted. The residual volume is 2.58 L, 103% predicted. Diffusing capacity: The diffusing capacity unadjusted for hemoglobin and carboxyhemoglobin is 16.7, 71% predicted. The diffusing capacity adjusted for alveolar volume is 4.77, 125% predicted. Impression: There is a combined obstructive and restrictive ventilatory abnormality. There are no guidelines to assign the severity of obstruction and restriction with a combined abnormality. In my opinion, given the mildly concave expiratory flow tracing and mildly decreased FEV1:FVC ratio and mild restrictive abnormality I would state there is a mild obstructive abnormality and a mild restrictive abnormality resulting in a moderately severe decrease in FEV1. The diffusing capacity is normal. There are no prior studies for comparison
== END 2021-10-23 12:43 | disposition home or self-care (01) ==
PROVIDERS: PCP Family Medicine; Visit Provider Internal Medicine Cardiovascular Disease
DX: R06.00 Dyspnea, unspecified (principal); I51.89 Other ill-defined heart diseases; R94.2 Abnormal results of pulmonary function studies
CPT/HCPCS: 94375; 94726; 94729

== ENCOUNTER 2021-12-10 08:51 | Outpatient (CLI) | payer MEDICARE, SELFPAY ==
--- NOTE | ~2021-12-10 | XR_ITS ---
EXAM: XR cervical spine 4-5V DATE: 12/10/2021 09:20 HISTORY: NO INJURY NECK PAIN . COMPARISON: None available. FINDINGS: Exaggerated kyphosis centered at the cervicothoracic junction. Lower cervical spine and ce rvicothoracic junction poorly visualized in the lateral view. Craniocervical association and atlantoa xial joint are aligned, with moderate degenerative change. No prevertebral soft tissue swelling. Mini mal 2 mm retrolisthesis of C2 on C3, otherwise the vertebral bodies are aligned. Vertebral body heigh ts are maintained. Multilevel disc space narrowing in the cervical spine. Multilevel facet sclerosis in the mid and lower cervical spine. IMPRESSION: Limited lateral views. Lower cervical spine degenerative disc disease. Mid and lower cerv ical spine facet arthropathy. Grade 1 retrolisthesis of C2 on C3. Reviewed, dictated and finalized at location K. IMPRESSION: Limited lateral views. Lower cervical spine degenerative disc disea se. Mid and lower cervical spine facet arthropathy. Grade 1 retrolisthesis of C 2 on C3.
--- NOTE | ~2021-12-10 | CT_ITS ---
EXAMINATION: CT diagnostic chest wo con DATE: 12/10/2021 09:15 INDICATION: Dyspnea on exertion TECHNIQUE: Computed tomography (CT) of the chest was performed without intravenous contrast. Addition al 3D reconstructions utilizing coronal maximum intensity projection (MIP) were performed. Automated exposure control and iterative reconstruction technique were employed. The dose-length product was 51 0.80 mGy-cm. COMPARISON: 01/10/2019 FINDINGS: Mild emphysema. Is a new 12 x 8 mm right apical nodule has developed along the caudal aspect of an un changed unchanged 8 x 6 mm nodule. No interval change in a more linear nodule in the posterior right apex likely related to pleural parenchymal scarring. Bibasilar atelectasis along the diaphragm as wel l as some dependent atelectasis in the bilateral lower lobes. No pneumonia, pulmonary edema, pleural effusion or pneumothorax. Small calcified nodules in the left lower lobe along with calcified mediast inal lymph nodes consistent with old granulomatous disease. Heart size is normal. Atherosclerotic cor onary artery calcific location. No pericardial effusion. Thoracic aorta is normal in caliber. No path ologically enlarged thoracic lymphadenopathy. Calcified gallstones layering dependently in the fundus of the otherwise normal gallbladder. A few splenic calcifications consistent with old granulomatous disease. Prior partial proximal colectomy with right upper quadrant ileocolic anastomosis. There are bridging osteophytes at multiple levels in the spine, consistent with diffuse idiopathic skeletal hyp erostosis (DISH). IMPRESSION: 1. New 12 x 8 mm nodule at the right apex. The location immediately adjacent to the right subclavian artery would be challenging for biopsy and would recommend PET/CT for further evaluation. 2. Mild emphysema with scattered atelectasis in the bilateral lower lung zones.. Reviewed, dictated and finalized at location A. IMPRESSION: 1. New 12 x 8 mm nodule at the right apex. The location immediately adjacent to the right subclavian artery would be challenging for biopsy and would recommen d PET/CT for further evaluation. 2. Mild emphysema with scattered atelectasis in the bilateral lower lung zones. .
== END 2021-12-10 08:52 | disposition home or self-care (01) ==
PROVIDERS: PCP Family Medicine; Visit Provider Physician Assistant
DX: J44.9 Chronic obstructive pulmonary disease, unspecified (principal); R06.09 Other forms of dyspnea; R91.1 Solitary pulmonary nodule; M50.30 Other cervical disc degeneration, unspecified cervical region; M12.88 Other specific arthropathies, not elsewhere classified, other specified site; M53.82 Other specified dorsopathies, cervical region
CPT/HCPCS: 71250; 72050

== ENCOUNTER 2021-12-25 11:50 | Outpatient (CLI) | payer MEDICARE, SELFPAY ==
--- NOTE | ~2021-12-25 | PE_ITS ---
EXAMINATION: PET skull to mid thigh DATE: 12/25/2021 14:04 INDICATION: Right lung nodule. TECHNIQUE: Blood glucose level was 100 mg/dL. 9.386 mCi of 18-fluorodeoxyglucose (18-FDG) was adminis tered i.v. Low dose computed tomography (CT) images were acquired from the base of the brain to the p roximal thighs for attenuation correction and anatomic localization. Automated exposure control was e mployed. Dose-length product (DLP) was 996 mGy-cm. Positron emission tomography (PET) images were acq uired in the same distribution. COMPARISON: Chest CT 12/10/2021, 01/10/2015 FINDINGS: Head/neck: There is increased activity in the paraspinal muscles, glottis, nose, and oral cavity with out abnormal CT correlate, likely physiologic. There are no pathologically enlarged lymph nodes. Chest: There is a 14 mm nodule in right upper lobe with maximum SUV of 2.4. There is chronic focal sc arring in right upper lobe. There is mild atelectasis bilaterally. A calcified left lung nodule and c alcified left hilar lymph nodes consistent with old granulomatous disease. No pleural effusion. There are size is normal. There are coronary artery calcifications. No pericardial effusion. There is bila teral gynecomastia. Abdomen/pelvis/proximal thighs: The liver is normal. There are gallstones in the gallbladder, which i s normal in size. The spleen, pancreas, adrenal glands, and kidneys are normal. There is diffuse blad fab wall thickening, likely secondary to chronic outlet obstruction from the mildly enlarged prostate . There are no dilated loops of bowel. There are no pathologically enlarged lymph nodes. There is no free intraperitoneal fluid. There is increased activity in bone marrow without abnormal CT correlate, prebone marrow stimulation. IMPRESSION: 1. 14 mm nodule in right lung upper lobe with maximum SUV of 2.4. This finding is indeterminate for primary bronchogenic carcinoma. CT-guided biopsy is recommended. Reviewed, dictated and finalized at location A. IMPRESSION: 1. 14 mm nodule in right lung upper lobe with maximum SUV of 2.4. This finding is indeterminate for primary bronchogenic carcinoma. CT-guided biopsy is recom mended.
[2021-12-25 12:27] LABS: Glucose Point of Care 100 mg/dl (65-105)
== END 2021-12-25 11:51 | disposition home or self-care (01) ==
PROVIDERS: PCP Family Medicine; Visit Provider Physician Assistant
DX: R91.1 Solitary pulmonary nodule (principal)
CPT/HCPCS: 78815; A9552

== ENCOUNTER 2022-01-07 05:13 | Inpatient (IN) | payer MEDICARE, SELFPAY ==
[2022-01-07] VITALS (22 sets, daily range): BP systolic 105–145; BP diastolic 60–88; PULSE 80–118; RESP 15–41; TEMP 36.3–37.4; O2SAT 93–100; BMI 29.5
--- NOTE | 2022-01-07 | ECHO_ITS ---
Patient Info Name: Odilon Lee Age: 76 years : 1945 Gender: Male Ht: 68 in Wt: 194 lbs BSA: 2.08 m2 HR: 99 bpm BP: 145 / 88 mmHg Heart Rhythm: Sinus Rhythm Technical Quality: Poor Exam Date: 01/07/2022 4:04 PM Exam Location: [facility] Pulmonary Patient Status: Inpatient Admit Date: 01/07/2022 Staff Ordering Physician: Douglas [place] Records Management Officer: Tia Zaldivar RDCS Attending Provider: Thang Saenz MD Referring Physician: Chris SOLOMON; Exam Type: CA echo dop color flow w con Study Info Indications - edema sob Complete two-dimensional, color flow and Doppler transthoracic echocardiogram is performed with contrast to opacify the left ventricle and to improve the deliniation of the left ventricle endocardial borders. Reason for Poor Study: patient body habitus Summary 1. Left ventricular hypertrophy with normal size and hyperdynamic contractility. 2. Grade 1 diastolic noncompliance. 3. Mildly sclerotic aortic valve which is not stenotic. Left Ventricle Left ventricular chamber dimension is normal. Left ventricular systolic function is hyperdynamic, estimated at >70%. There is mild concentric increased left ventricular wall thickness. The left ventricular diastolic function is grade I diastolic dysfunction. Right Ventricle Right ventricular chamber dimension is normal. Left Atria Left atrial chamber dimension is normal. Right Atria Right atrial chamber dimension is normal. Aortic Valve The aortic valve is trileaflet. There is mild aortic valve sclerosis. Pulmonic Valve The pulmonic valve is not well visualized. Mitral Valve The mitral valve has normal leaflets. Tricuspid Valve The tricuspid valve leaflets are normal. Pericardium/Pleural The pericardium appears normal. Aorta The aortic root size at the sinus of Valsalva is normal. Left Ventricular Outflow Tract Name Value Normal LVOT 2D LVOT Diameter 2.11 cm LVOT Doppler LVOT Peak Gradient 4 mmHg LVOT Mean Gradient 2 mmHg LVOT VTI 23.78 cm LVOT VTI/AV VTI Ratio 1.25 LVOT Stroke Volume 82.77 ml LVOT CO 14.74 l/min LVOT CI 7.10 L/min/m2 Pulmonic Valve Name Value Normal PV Doppler PV Peak Gradient 3 mmHg Mitral Valve Name Value Normal MV Doppler MV Decel [place] 285.48 cm/s2 MV PHT 0 s MV Area (PHT)
--- NOTE | ~2022-01-07 | XR_ITS ---
EXAMINATION: XR chest 1V portable DATE: 01/09/2022 05:16 INDICATION: Shortness of breath. TECHNIQUE: A single frontal view of the chest was obtained. COMPARISON: Chest single view 01/07/2022, chest CT 01/07/2022 FINDINGS: The lung volumes are small. There is mild atelectasis at the lung bases. No pleural effusio n or pneumothorax. The heart size is normal. IMPRESSION: 1. Small lung volumes with mild atelectasis at the lung bases. Reviewed, dictated and finalized at location A.
--- NOTE | ~2022-01-07 | CT_ITS ---
EXAMINATION: CTA chest PE abdomen pel DATE: 01/07/2022 06:51 INDICATION: Chest pain, shortness of breath and abdominal distention. TECHNIQUE: Computed tomography (CT) pulmonary angiogram of the chest was performed with 100 mL Omnipa que-350 intravenous contrast. Additional 3D reconstructions utilizing coronal maximum intensity proje ction (MIP) were performed. CT of the abdomen and pelvis was performed with intravenous contrast util izing the same contrast bolus following a short delay. Automated exposure control and iterative recon struction technique were employed. The dose-length product was 1450.28 mGy-cm. COMPARISON: None FINDINGS: Chest: Excellent contrast opacification of the pulmonary arteries. There is mild streak artifact from dense contrast in the superior vena cava and right atrium. Mild scattered respiratory motion artifact which does not significantly limit evaluation. No pulmonary embolism. Mild emphysema. No interval change i n an 11 x 7 x 14 mm right upper lobe nodule. Additional small focus of chronic scarring in the right upper lobe. No change in more dependent and basilar atelectasis/scarring in the bilateral lower lobes . No new opacities to suggest pneumonia. No pulmonary edema or pleural effusion. A couple calcified n odules in the left lung along with calcified left hilar and mediastinal lymph nodes consistent with o ld granulomatous disease. Heart size is normal. Atherosclerotic coronary artery calcification. No per icardial effusion. Thoracic aorta is normal in caliber with no dissection. No pathologically enlarged thoracic lymphadenopathy. There are bridging osteophytes at multiple levels in the spine, consistent with diffuse idiopathic skeletal hyperostosis (DISH). Abdomen/pelvis: Calcified gallstones within the fundus of the partially decompressed otherwise normal-appearing gallb ladder. A few splenic calcific lesions consistent with old granulomatous disease. Liver, pancreas and bilateral adrenal glands are normal. Again seen is mild diffuse wall thickening of the distended melissa dder which along with mild bilateral hydronephrosis is likely related to chronic outlet obstruction f rom the mildly enlarged prostate. Postoperative change of prior partial proximal colectomy with ileoc olic anastomosis in the right abdomen. No dilated bowel to suggest obstruction. No free intraperitone al gas or fluid. No pathologically enlarged abdominal or pelvic lymphadenopathy. Moderate lumbar spon dylosis. IMPRESSION: 1. Unchanged atelectasis/scarring the bilateral lower lobes. No pulmonary embolism or other acute car diopulmonary disease. 2. Mild emphysema with 14 x 7 x 11 mm right apical nodule, indeterminate on prior PET/CT and for whic h CT guide biopsy would be recommended. 3. Diffuse mild bladder wall thickening and mild bilateral hydronephrosis post likely related to outl et obstruction from the mildly enlarged prostate. 4. Cholelithiasis. Reviewed, dictated and finalized at location A. IMPRESSION: 1. Unchanged atelectasis/scarring the bilateral lower lobes. No pulmonary embol ism or other acute cardiopulmonary disease. 2. Mild emphysema with 14 x 7 x 11 mm right apical nodule, indeterminate on celestina or PET/CT and for which CT guide biopsy would be recommended. 3. Diffuse mild bladder wall thickening and mild bilateral hydronephrosis post likely related to outlet obstruction from the mildly enlarged prostate. 4. Cholelithiasis.
--- NOTE | ~2022-01-07 | US_ITS ---
EXAMINATION: US abdomen limited DATE: 01/12/2022 08:25 INDICATION: Right upper quadrant abdominal pain. TECHNIQUE: Multiple grayscale and Doppler ultrasound images of the abdomen were obtained. COMPARISON: Ultrasound 08/21/2021, CT 01/07/2022 FINDINGS: The visualized portions of the head and body of the pancreas are normal. The liver is jonas l without focal lesion. There is normal flow in main portal vein. The gallbladder is normal in size a nd contains gallstones. Gallbladder wall thickening is noted. There was no sonographic Chopra sign. T he common duct is normal and measures 5 mm. IMPRESSION: 1. Cholelithiasis. Gallbladder wall thickening may be secondary to chronic cholecystitis. Reviewed, dictated and finalized at location A. IMPRESSION: 1. Cholelithiasis. Gallbladder wall thickening may be secondary to chronic chol ecystitis.
--- NOTE | ~2022-01-07 | XR_ITS ---
EXAMINATION: XR chest 1V portable Exam Date/Time: 01/13/2022 13:25 CDT HISTORY: dyspnea Comparison: 01/09/2022. RESULT: Lines, tubes, and devices: None. Lungs and pleura: Low lung volumes with persistent streaky bibasilar linear opacities. Cardiomediastinal silhouette: Stable. Other: No acute osseous or upper abdominal finding. IMPRESSION: Persistent low lung volumes and bibasilar scar/atelectasis. No significant interval change. Reviewed, dictated and finalized at location K. IMPRESSION: Persistent low lung volumes and bibasilar scar/atelectasis. No significant inte rval change.
--- NOTE | ~2022-01-07 | XR_ITS ---
EXAMINATION: XR chest 1V portable DATE: 01/17/2022 09:06 INDICATION: Shortness of breath. TECHNIQUE: A single frontal view of the chest was obtained. COMPARISON: Chest single view 01/13/2022, chest CT 01/07/2022 FINDINGS: There is mild atelectasis at the lung bases. No pleural effusion or pneumothorax. The heart size is normal. IMPRESSION: 1. Mild atelectasis at the lung bases. Reviewed, dictated and finalized at location A.
--- NOTE | ~2022-01-07 | XR_ITS ---
EXAMINATION: XR chest 1V portable DATE: 01/07/2022 05:58 INDICATION: Chest pain and shortness of breath TECHNIQUE: frontal view of the chest was obtained. COMPARISON: Chest radiograph dated 09/29/2021 FINDINGS: Lung volumes are decreased. Mild opacities at the bilateral lung bases. No pleural effusion or pneumo thorax. The cardiomediastinal silhouette is normal. IMPRESSION: 1. Small lung volumes with bibasilar opacities which could represent atelectasis or pneumonia. Reviewed, dictated and finalized at location A. IMPRESSION: 1. Small lung volumes with bibasilar opacities which could represent atelectasi s or pneumonia.
--- NOTE | 2022-01-07 05:16 | ECG_ITS ---
Measurements Intervals [place] Rate: 99 P: 54 VA: 154 QRS: -4 QRSD: 108 T: 69 QT: 328 QTc: 422 Interpretive Statements REDUCED DATA QUALITY BECAUSE OF BASELINE ARTIFACT SINUS RHYTHM WITH FREQUENT VENTRICULAR PREMATURE COMPLEXES NONSPECIFIC T-WAVE ABNORMALITY ABNORMAL RHYTHM ECG COMPARED TO ECG 09/06/2021 14:54:37 PVCS ARE NOW SEEN Electronically Signed On 01-07-2022 16:58:10 CDT by Thang Gaffney M.D.
[2022-01-07] MEDS: IPRATROPIUM BR 0.02% INH SOLN 0.5 MG/2.5 ML VIAL INHALATION (05:35)
[2022-01-07] MEDS: ALBUTEROL SULFATE NEB 2.5 MG/3 ML INH 5 MG INHALATION (05:35)
[2022-01-07 05:40] LABS: Basophils Percent Auto 0.3 % (0.2-1.2); Eosinophils Percent Auto 0.4 % (0-4.4); Hematocrit 45.5 % (42.0-52.0); Hemoglobin 15.1 g/dL (14.0-18.0); Immature Granulocyte Absolute 0.02 K/mm3 (0.00-0.031); Immature Granulocyte Percent A 0.3 % (0-0.5); Lymphocytes Percent Auto 35.2 % (18.3-44.2); Mean Corpuscular HGB Conc 33.2 g/dl (32-36); Mean Corpuscular Hemoglobin 30.5 pg (26-34); Mean Corpuscular Volume 91.9 fl (80-100); Mean Platelet Volume 10.2 fl (7.4-10.4); Monocytes Absolute Auto 0.8 K/mm3 (0.1-0.6); Monocytes Percent Auto 10.3 % (2.6-8.5); Neutrophils Absolute Auto 4.1 K/mm3 (1.3-6.7); Neutrophils Percent Auto 53.5 % (45.5-73.1); Platelet Count Result 206 k/mm3 (150-375); Red Blood Count 4.95 M/mm3 (4.6-6.20); Red Cell Distribution Width 13.8 % (11.5-14.5); White Blood Count 7.7 K/mm3 (4.5-10.0)
[2022-01-07 05:46] LABS: INR 1.1; Prothrombin Time 13.4 Seconds (11.1-14.7)
[2022-01-07 05:47] LABS: Partial Thromboplastin Time 33.4 SECONDS (22.3-36.8)
[2022-01-07 05:48] LABS: Alanine Aminotransferase 21 U/L (6-50); Albumin Level 3.6 g/dL (3.5-5.1); Alkaline Phosphatase 82 U/L (38-126); Anion Gap 3 mmol/L (8-16); Aspartate Amino Transferase 29 U/L (17-59); Bilirubin,Total 1.1 mg/dL (0.2-1.3); Blood Urea Nitrogen 13 mg/dL (9-20); Calcium 8.8 mg/dL (8.4-10.2); Carbon Dioxide 27 mmol/L (22-30); Chloride 95 mmol/L (98-107); Estimated CRCL calculation 72 ml/min; Estimated Glomerular Filt Rate > 60; Glucose 101 mg/dL (65-110); Lipase 136 U/L (23-300); Potassium 4.2 mmol/L (3.4-5.0); Sodium 125 mmol/L (137-145)
--- NOTE | 2022-01-07 05:49 | PC.NURSE ---
RN verified with ERP to admin nitro with BP of 127/67
[2022-01-07] MEDS: BUMETANIDE INJ 1 MG/4 ML VIAL IV PUSH (05:57)
[2022-01-07] MEDS: NITROGLYCERIN SL 0.4 MG TABLET SUBLINGUAL (05:57)
[2022-01-07 05:59] LABS: NT Pro B Type Natriuretic Pept 196 pg/mL (5-100); Troponin I < 0.012 ng/mL (0.000-0.034)
--- NOTE | 2022-01-07 06:02 | ED.GENADULT ---
HPI - General Adult General Chief complaint: Shortness of Breath/Dyspnea Stated complaint: SOB Time Seen by Provider: 01/07/22 05:20 History of Present Illness HPI narrative: Patient 76-year-old gentleman presents the emergency department with chief complaint of shortness of breath. Patient reports that he has history of COPD CHF and also was recently diagnosed with a spot on his lungs and scheduled to have a biopsy tomorrow. Patient states that last night he started getting more short of breath and ended up calling EMS. Patient reports that he does have significant peripheral edema on his lower extremities the patient denies fever denies cough. Patient reports symptoms are worse with exertion. Patient reports that he is not on oxygen at home. Patient reports his symptoms were improved when EMS placed him on oxygen. Related Data Home Medications Medication Instructions Recorded Confirmed bumetanide 1 mg tablet 2 mg PO DAILY 07/06/20 01/07/22 finasteride 5 mg tablet 10 mg PO DAILY 07/06/20 01/07/22 losartan 100 mg tablet 100 mg PO DAILY 07/06/20 01/07/22 metoprolol succinate 25 mg 25 mg PO DAILY 07/06/20 01/07/22 tablet,extended release 24 hr (Toprol XL) atorvastatin 20 mg tablet 20 mg PO DAILY 11/23/21 01/07/22 tamsulosin 0.4 mg capsule 0.4 mg PO HS 01/02/22 01/07/22 Allergies Allergy/AdvReac Type Severity Reaction Status Date / Time No Known Allergies Allergy Unknown Verified 01/02/22 15:05 Review of Systems Review of Systems: A 10 system review of systems was completed on the patient and is negative except for what is stated in the HPI. Nursing and ancillary documentation was reviewed. COUNT INCLUDES THE [facility] Past Medical History Medical History Body mass index (BMI) of 30 to 39 in adult Change in bowel habit COPD (chronic obstructive pulmonary disease) CORBIN (dyspnea on exertion) Encounter for immunization Fecal occult blood test positive History of [place] (myocardial infarction) Hyperlipidemia Hypertension Prediabetes Pulmonary nodule Sleeps in sitting position due to orthopnea Surgical History Surgical History H/O umbilical hernia repair History of partial surgical removal of colon History of total right knee replacement Family History Family History Mother Carcinoma of colon Family history of malignant neoplasm of breast in first degree relative Breast cancer Sibling Malignant neoplasm of prostate Social History Social History (Updated 01/07/22 @ 14:38 by TATO Sánchez) Social History: patient lives at home with his however his is in a rehab for breaking her ankle. Patient states that his daughter Maria Luisa is his surrogate. Patient has 1 cat. Patient wishes to be a full code at this time. 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 HEAD: Normocephalic, atraumatic. EYES: PERRLA and EOMI. ENT: Nares clear, no rhinorrhea or epistaxis. Mucous membranes moist. NECK: Supple. CHEST: Clear to auscultation. No respiratory distress. HEART: Regular rate and rhythm. No murmur heard. Normal peripheral pulses. ABDOMEN: Soft, nontender, nondistended, normal active bowel sounds. EXTREMITIES: Normal rang
[2022-01-07 08:40] LABS: Troponin I < 0.012 ng/mL (0.000-0.034)
[2022-01-07] MEDS: methylPREDNISolone SOD SUCC 125 MG VIAL IV PUSH (10:22)
[2022-01-07 10:50] LABS: SARS-CoV-2 RNA PCR Negative
[2022-01-07 12:20] LABS: Troponin I < 0.012 ng/mL (0.000-0.034)
--- NOTE | 2022-01-07 12:40 | ADMGEN ---
This patient, Odilon Lee, was admitted to [facility] Surg Room 314-01. Patient/family oriented to hospital policies and general routines including ID bracelet, bed and alarms, visiting hours, pain management, procedures, bathroom and other care routines, personal items, smoking policy, room service/diet, and visiting hours. Information on how to activate the Rapid Response Team has been discussed. Patient/Family are encouraged to report perceived risks to care and to ask questions if they do not understand what they are told or what they should do.
--- NOTE | 2022-01-07 13:00 | PM.IMHP ---
H&P: HPI History of Present Illness Date/Time: 01/07/22 1300 Chief Complaint: Shortness of breath Narrative: Patient is a 76 year old male with a past medical history of COPD, CHF, HTN, HLD who presented to the ED with complaints of increased shortness of breath. Patient stated that he had pneumonia several months ago and that is when all of this really had started. He has been having problems for the last couple of months, however, it has worsened over the last month. He stated that today was the worst though. He denies having a cough or wheezes. patient did state that he has chronic swelling in his legs and ankles and does use compression stockings on most days. He also stated that he is having burning sensation that started today and feels like someone squeezing his shoulders together. He does feel weak and lightheaded and dizzy. He did state that he feels like his appetite has decreased however he states when he is sits down to eat anything he is very short of breath just can eat. He does have some visual disturbances however it seems as if he just needs glasses. His other problem is that he has not been able to urinate lately. He states that he has that pressure however nothing comes out. He he does admit to taking his medications as prescribed. He denies any chest pain, nausea, vomiting, diarrhea, headache. He did state that he does have some constipation however he stated he had a bowel movement yesterday. Patient is being admitted to the hospitalist service as an observation Review of Systems Review of Systems: All systems reviewed & are unremarkable except as noted in HPI and below PMFSH Past Medical History Medical History Body mass index (BMI) of 30 to 39 in adult Change in bowel habit COPD (chronic obstructive pulmonary disease) CORBIN (dyspnea on exertion) Encounter for immunization Fecal occult blood test positive History of CT (myocardial infarction) Hyperlipidemia Hypertension Prediabetes Pulmonary nodule Sleeps in sitting position due to orthopnea Surgical History Surgical History H/O umbilical hernia repair History of partial surgical removal of colon History of total right knee replacement Family History Family History Mother Carcinoma of colon Family history of malignant neoplasm of breast in first degree relative Breast cancer Sibling Malignant neoplasm of prostate Social History Social History (Updated 01/07/22 @ 14:38 by TATO Sánchez) Social History: patient lives at home with his however his is in a rehab for breaking her ankle. Patient states that his daughter Maria Luisa is his surrogate. Patient has 1 cat. Patient wishes to be a full code at this time. 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 Gender identity (if verbalized by the patient): Male Sexual Orientation (if Verbalized by the Patient): Straight or Heterosexual Spiritual care concerns: No Agree to blood products: Yes Meds Home Medications and Allergies Home Medications Medication Instructions Recorded Confirmed Type bumetanide 1 mg tablet 2 mg PO DAILY 07/06/20 01/07/22 History finasteride 5 mg tablet 10 mg PO DAILY 07/06/20 01/07/22 History losartan 100 mg tablet 100 mg PO DAILY 07/06/20 01/07/22 History metoprolol succinate 25 mg 25 mg PO DAILY 07/06/20 01/07/22 History tablet,extended release 24 hr (Toprol XL) potassium chloride 10 mEq 10 meq PO DAILY #90 tabs 08/28/20 01/07/22 Rx tablet,extended release albuterol sulfa
[2022-01-07] MEDS: POTASSIUM CHLORIDE 10 MEQ TABLET.ER PO (15:13)
[2022-01-07] MEDS: METOPROLOL SUCCINATE EXT REL 25 MG TABCR PO (15:14)
[2022-01-07] MEDS: FINASTERIDE 5 MG TABLET 10 MG PO (15:14)
[2022-01-07] MEDS: LOSARTAN POTASSIUM 100 MG TABLET PO (15:15)
[2022-01-07] MEDS: ATORVASTATIN 20 MG TABLET PO (15:15)
[2022-01-07 15:33] LABS: Alveolar/Arterial O2 Gradient 28.8 mmHg; Base Excess ABG 2.2 mEq/l (+/-2.0); Carboxyhemoglobin 0.6 % THb (0-2.0); HCO3 ABG 27.1 mEq/l (22.0-26.0); Methemoglobin ABG 0.5 %THb (0-1.5); Oxygen Content ABG 21.8 %vol (16.0-22.0); Oxygen Saturation ABG 94.3 % (95.0-100.0); Oxyhemoglobin 93.1 % THb (90.0-100.0); PCO2 ABG 42.7 mmHg (35.0-45.0); PO2 ABG 69.8 mmHg (80.0-100.0); PO2 FiO2 Ratio Arterial Blood 3.32 %; Reduced Hemoglobin 5.8 %THb (0-5.0); Total Hemoglobin 16.7 g/dL (12.0-18.0)
[2022-01-07 15:34] LABS: Device NASAL CANNULA; Fractional Inspired Oxygen 28 %; Modified Allen's Test Pass; Site Drawn RIGHT RADIAL
[2022-01-07] MEDS: PERFLUTREN LIPID MICROSPHERES 1.5 ML VIAL DILUTED TO 10 ML TOTAL VOLUME IV PUSH (16:26)
--- NOTE | 2022-01-07 16:26 | IVDEFINITY ---
Prior to administration of IV Definity the patient was educated on the risks and benefits of the imaging enhancing agent including potential adverse side effects. The patient verbalized understanding. Allergies were verified. No exclusion criteria were identified and at least one of the following inclusion criteria were met: 1) physician request, 2) patient technically difficult to image (per the [place] [employer] of Echocardiography guidelines of two or more segments not discernable within the apical view), or 3) questionable left ventricular function. ?
[2022-01-07] MEDS: SODIUM CHLORIDE 0.9% IV 1,000 ML 75 ML IV CONT (17:02)
[2022-01-07] MEDS: BUMETANIDE 1 MG TABLET PO (17:03)
[2022-01-07] MEDS: methylPREDNISolone SOD SUCC 40 MG VIAL IV PUSH (17:04)
[2022-01-07] MEDS: TAMSULOSIN HCL 0.4 MG CAPSULE PO (20:39)
[2022-01-08] VITALS (18 sets, daily range): BP systolic 94–113; BP diastolic 55–66; PULSE 69–110; RESP 18–32; TEMP 36.1–36.4; O2SAT 92–97
[2022-01-08] MEDS: SODIUM CHLORIDE 0.9% IV 1,000 ML 75 ML IV CONT (05:36)
[2022-01-08 05:45] LABS: Basophils Percent Auto 0.1 % (0.2-1.2); Hematocrit 48.3 % (42.0-52.0); Hemoglobin 15.8 g/dL (14.0-18.0); Immature Granulocyte Absolute 0.05 K/mm3 (0.00-0.031); Immature Granulocyte Percent A 0.5 % (0-0.5); Lymphocytes Absolute Auto 0.56 K/mm3 (0.9-3.2); Lymphocytes Percent Auto 5.3 % (18.3-44.2); Mean Corpuscular HGB Conc 32.7 g/dl (32-36); Mean Corpuscular Hemoglobin 30.3 pg (26-34); Mean Corpuscular Volume 92.5 fl (80-100); Mean Platelet Volume 10.5 fl (7.4-10.4); Monocytes Absolute Auto 0.4 K/mm3 (0.1-0.6); Monocytes Percent Auto 3.4 % (2.6-8.5); Neutrophils Absolute Auto 9.7 K/mm3 (1.3-6.7); Neutrophils Percent Auto 90.7 % (45.5-73.1); Platelet Count Result 228 k/mm3 (150-375); Red Blood Count 5.22 M/mm3 (4.6-6.20); Red Cell Distribution Width 13.9 % (11.5-14.5); White Blood Count 10.7 K/mm3 (4.5-10.0)
[2022-01-08 05:58] LABS: INR 1.1; Prothrombin Time 13.5 Seconds (11.1-14.7)
[2022-01-08 05:59] LABS: Alanine Aminotransferase 19 U/L (6-50); Albumin Level 3.4 g/dL (3.5-5.1); Alkaline Phosphatase 74 U/L (38-126); Anion Gap 6 mmol/L (8-16); Aspartate Amino Transferase 23 U/L (17-59); Bilirubin,Total 0.5 mg/dL (0.2-1.3); Blood Urea Nitrogen 16 mg/dL (9-20); Calcium 8.3 mg/dL (8.4-10.2); Carbon Dioxide 35 mmol/L (22-30); Chloride 91 mmol/L (98-107); Estimated CRCL calculation 82 ml/min; Estimated Glomerular Filt Rate > 60; Glucose 140 mg/dL (65-110); Magnesium 2.1 mg/dL (1.6-2.3); Partial Thromboplastin Time 32.5 SECONDS (22.3-36.8); Potassium 4.1 mmol/L (3.4-5.0); Sodium 132 mmol/L (137-145)
[2022-01-08 06:13] LABS: D Dimer 0.42 ug/mL (<0.48)
[2022-01-08 07:38] LABS: INR 1.1; Prothrombin Time 13.6 Seconds (11.1-14.7)
[2022-01-08 10:42] LABS: Appearance Urine Clear (Clear); Bilirubin Urine Negative (Negative); Blood Urine 2+ (Negative); Color Urine Yellow (Yellow); Glucose Urine UA Negative (Negative); Ketones Urine 1+ mg/dL (Negative); Leukocyte Esterase Ur 2+ LEU/UL (Negative); Nitrate Urine Negative (Negative); Protein Urine Negative (Negative); Specific Grav Ur 1.015 (1.001-1.035); Urobilinogen Urine 0.2 mg/dL (<2.0)
--- NOTE | 2022-01-08 10:45 | PM.IMPN ---
Progress Note: A&P Assessment and Plan (1) Acute respiratory failure: Code(s): J96.00 - Acute respiratory failure, unspecified whether with hypoxia or hypercapnia Status: Acute Assessment and Plan: patient unable to eat, finish sentences, lay flat supplemental oxygen provided wean to maintain saturation greater than 90% CT of the chest shows emphysema incentive spirometer and [place] Therapy ABG pH 7.420, CO2 42.7, O2 69.8, HCO3 27.1, Sat 94.3 on 2 L Seems to be doing better remains on 2L at this time (2) Hyponatremia: Code(s): E87.1 - Hypo-osmolality and hyponatremia Status: Acute Assessment and Plan: sodium 125 upon admission, currently 132 urine studies trend urine output normal saline at 75 an hour, DC after procedure trend labs (3) BPH (benign prostatic hyperplasia): Code(s): N40.0 - Benign prostatic hyperplasia without lower urinary tract symptoms Status: Acute Assessment and Plan: CT indicates urinary retention with bilateral hydronephrosis urinary catheter inserted continue home tamsulosin and finasteride Trend urine output bladder scan p.r.n. (4) Pulmonary nodule: Code(s): R91.1 - Solitary pulmonary nodule Status: Acute Assessment and Plan: Biopsy cancelled due to oxygen need PT INR ok for procedure to be done CT scan revealed no significant change from 1st recognition (5) Pneumonia: Code(s): J18.9 - Pneumonia, unspecified organism Status: Acute Assessment and Plan: chest x-ray indicates bibasilar opacities CTA indicates atelectasis or scarring of the bilateral lower lobes azithromycin and ceftriaxone added for impaired therapy white blood cell count 10.7 trend labs adjust therapy as indicated Chest xray ordered for tomorrow (6) CHF (congestive heart failure): Code(s): I50.9 - Heart failure, unspecified Status: Acute Assessment and Plan: no pulmonary edema noted on the CT 2 to 4+ pitting edema on the bilateral lower extremities continue home Bumex 1 mg p.o. b.i.d. Christiano mac BNP slightly elevated at 196 does not appear to be in exacerbation however this is chronic diastolic heart failure trend urine output urinary catheter for accurate I&Os and obstruction daily weights Echo EF >70% with grade 1 DD (7) COPD (chronic obstructive pulmonary disease): Code(s): J44.9 - Chronic obstructive pulmonary disease, unspecified Status: Acute Assessment and Plan: Emphysema on the ct scan Hold home inhalers Start neb treatments Trend SPO2 Not convinced this is an exacerbation since he denies increase sputum or wheezes Supplemental oxygen Methylprednisone 40mg IV BID Consider Pulm consult Wean oxygen to maintain saturation >90% (8) Alcohol use: Code(s): Z72.89 - Other problems related to lifestyle Status: Acute Assessment and Plan: Drinks roughly 35 drinks a week Thiamine and folic acid ordered CIWA protocol Librium 10mg Q6 PRN Valium for CIWA >13 Trend score (9) Hyperlipidemia: Code(s): E78.5 - Hyperlipidemia, unspecified Status: Acute Assessment and Plan: continue home atorvastatin 20 mg p.o. daily (10) Hypertension: Code(s): I10 - Essential (primary) hypertension Status: Acute Assessment and Plan: current blood pressure 105/65 continue home losartan 100 mg p.o. daily, metoprolol 25 mg p.o. daily trend blood pressure adjust therapy as indicated (11) Bilateral hydronephrosis: Code(s): N13.30 - Unspecified hydronephrosis Status: Acute Assessment and Plan: CT shows urinary retention with bilateral hydronephrosis urinary catheter ordered trend urine output consider urology continue
--- NOTE | 2022-01-08 10:45 | P.PNIM_ITS ---
Progress Note: A&P Assessment and Plan (1) Acute respiratory failure: Code(s): J96.00 - Acute respiratory failure, unspecified whether with hypoxia or hypercapnia Status: Acute Assessment and Plan: * patient unable to eat, finish sentences, lay flat * supplemental oxygen provided * wean to maintain saturation greater than 90% * CT of the chest shows emphysema * incentive spirometer and Cornet Therapy * ABG pH 7.420, CO2 42.7, O2 69.8, HCO3 27.1, Sat 94.3 on 2 L * Seems to be doing better * remains on 2L at this time (2) Hyponatremia: Code(s): E87.1 - Hypo-osmolality and hyponatremia Status: Acute Assessment and Plan: * sodium 125 upon admission, currently 132 * urine studies * trend urine output * normal saline at 75 an hour, DC after procedure * trend labs (3) BPH (benign prostatic hyperplasia): Code(s): N40.0 - Benign prostatic hyperplasia without lower urinary tract symptoms Status: Acute Assessment and Plan: * CT indicates urinary retention with bilateral hydronephrosis * urinary catheter inserted * continue home tamsulosin and finasteride * Trend urine output * bladder scan p.r.n. (4) Pulmonary nodule: Code(s): R91.1 - Solitary pulmonary nodule Status: Acute Assessment and Plan: * Biopsy cancelled due to oxygen need * PT INR ok for procedure to be done * CT scan revealed no significant change from 1st recognition (5) Pneumonia: Code(s): J18.9 - Pneumonia, unspecified organism Status: Acute Assessment and Plan: * chest x-ray indicates bibasilar opacities * CTA indicates atelectasis or scarring of the bilateral lower lobes * azithromycin and ceftriaxone added for impaired therapy * white blood cell count 10.7 * trend labs * adjust therapy as indicated * Chest xray ordered for tomorrow (6) CHF (congestive heart failure): Code(s): I50.9 - Heart failure, unspecified Status: Acute Assessment and Plan: * no pulmonary edema noted on the CT * 2 to 4+ pitting edema on the bilateral lower extremities * continue home Bumex 1 mg p.o. b.i.d. * Christiano mac * BNP slightly elevated at 196 * does not appear to be in exacerbation however this is chronic diastolic heart failure * trend urine output * urinary catheter for accurate I&Os and obstruction * daily weights * Echo EF >70% with grade 1 DD (7) COPD (chronic obstructive pulmonary disease): Code(s): J44.9 - Chronic obstructive pulmonary disease, unspecified Status: Acute Assessment and Plan: * Emphysema on the ct scan * Hold home inhalers * Start neb treatments * Trend SPO2 * Not convinced this is an exacerbation since he denies increase sputum or wheezes * Supplemental oxygen * Methylprednisone 40mg IV BID * Consider Pulm consult * Wean oxygen to maintain saturation >90% (8) Alcohol use: Code(s): Z72.89 - Other problems related to lifestyle Status: Acute Assessment and Plan: * Drinks roughly 35 drinks a week * Thiamine and folic acid ordered * CIWA protocol * Librium 10mg Q6 PRN * Valium for CIWA >13 * Trend score (9) Hyperlipidemia: Code(s): E78.5 - Hyperlipidemia, unspecified Status: Acute Assessment and Arianna
[2022-01-08 10:48] LABS: Bacteria Urine Trace /hpf; Mucus Urine Rare /lpf; RBC Urine 21-50 /hpf (0-2); Squamous Epithelial Cell Urine Rare /hpf (Few)
[2022-01-08 10:56] LABS: Add Urine Microscopic? YES
[2022-01-08] MEDS: POTASSIUM CHLORIDE 10 MEQ TABLET.ER PO (11:44)
[2022-01-08] MEDS: FINASTERIDE 5 MG TABLET 10 MG PO (11:44)
[2022-01-08] MEDS: methylPREDNISolone SOD SUCC 40 MG VIAL IV PUSH (11:44)
[2022-01-08] MEDS: THIAMINE HCL 100 MG TABLET PO (11:44)
[2022-01-08] MEDS: BUMETANIDE 1 MG TABLET PO (11:44)
[2022-01-08] MEDS: ATORVASTATIN 20 MG TABLET PO (11:44)
[2022-01-08] MEDS: FOLIC ACID 1 MG TABLET PO (11:45)
[2022-01-08] MEDS: METOPROLOL SUCCINATE EXT REL 25 MG TABCR PO (11:45)
[2022-01-08] MEDS: LOSARTAN POTASSIUM 100 MG TABLET PO (11:45)
[2022-01-08] MEDS: IPRATROPIUM BR 0.02% INH SOLN 0.5 MG/2.5 ML VIAL INHALATION ×2 (14:20→20:09)
[2022-01-08] MEDS: ALBUTEROL SULFATE NEB 2.5 MG/3 ML INH 1.25 MG INHALATION ×2 (14:20→20:08)
[2022-01-08 19:07] LABS: Mean Platelet Volume 10.3 fl (7.4-10.4); Platelet Count Result 255 k/mm3 (150-375)
[2022-01-08] MEDS: TAMSULOSIN HCL 0.4 MG CAPSULE PO (20:19)
[2022-01-09] VITALS (18 sets, daily range): BP systolic 84–125; BP diastolic 56–82; PULSE 70–104; RESP 16–36; TEMP 36.6–36.9; O2SAT 94
[2022-01-09] MEDS: IPRATROPIUM BR 0.02% INH SOLN 0.5 MG/2.5 ML VIAL INHALATION ×4 (01:02→20:22)
[2022-01-09] MEDS: ALBUTEROL SULFATE NEB 2.5 MG/3 ML INH 1.25 MG INHALATION ×4 (01:02→20:21)
[2022-01-09 06:32] LABS: Basophils Percent Auto 0.1 % (0.2-1.2); Hematocrit 48.2 % (42.0-52.0); Hemoglobin 16.2 g/dL (14.0-18.0); Immature Granulocyte Absolute 0.05 K/mm3 (0.00-0.031); Immature Granulocyte Percent A 0.4 % (0-0.5); Lymphocytes Absolute Auto 1.71 K/mm3 (0.9-3.2); Lymphocytes Percent Auto 13.1 % (18.3-44.2); Mean Corpuscular HGB Conc 33.6 g/dl (32-36); Mean Corpuscular Hemoglobin 31.8 pg (26-34); Mean Corpuscular Volume 94.5 fl (80-100); Mean Platelet Volume 10.6 fl (7.4-10.4); Monocytes Percent Auto 7.6 % (2.6-8.5); Neutrophils Absolute Auto 10.3 K/mm3 (1.3-6.7); Neutrophils Percent Auto 78.8 % (45.5-73.1); Platelet Count Result 242 k/mm3 (150-375)
[2022-01-09 06:49] LABS: Alanine Aminotransferase 21 U/L (6-50); Albumin Level 3.8 g/dL (3.5-5.1); Alkaline Phosphatase 74 U/L (38-126); Anion Gap -1 mmol/L (8-16); Aspartate Amino Transferase 25 U/L (17-59); Bilirubin,Total 0.5 mg/dL (0.2-1.3); Blood Urea Nitrogen 18 mg/dL (9-20); Calcium 8.5 mg/dL (8.4-10.2); Carbon Dioxide 37 mmol/L (22-30); Chloride 91 mmol/L (98-107); Estimated CRCL calculation 72 ml/min; Estimated Glomerular Filt Rate > 60; Glucose 120 mg/dL (65-110); Magnesium 2.4 mg/dL (1.6-2.3); Potassium 3.7 mmol/L (3.4-5.0); Sodium 127 mmol/L (137-145)
--- NOTE | 2022-01-09 09:15 | P.PNIM_ITS ---
Progress Note: A&P Assessment and Plan (1) Acute respiratory failure: Code(s): J96.00 - Acute respiratory failure, unspecified whether with hypoxia or hypercapnia Status: Acute Assessment and Plan: * Continues to have increase work of breathing with accessory muscle use, unable to complete sentences, tripod positioning * supplemental oxygen, has been weaned to RA * wean to maintain saturation greater than 90% * CT of the chest shows emphysema * incentive spirometer and Cornet Therapy * ABG pH 7.420, CO2 42.7, O2 69.8, HCO3 27.1, Sat 94.3 on 2 L * Seems to be doing better (2) Hyponatremia: Code(s): E87.1 - Hypo-osmolality and hyponatremia Status: Acute Assessment and Plan: * sodium 125 upon admission, currently 127 * urine studies * trend urine output * Consider restarting fluids * trend labs (3) BPH (benign prostatic hyperplasia): Code(s): N40.0 - Benign prostatic hyperplasia without lower urinary tract symptoms Status: Acute Assessment and Plan: * CT indicates urinary retention with bilateral hydronephrosis * urinary catheter inserted * continue home tamsulosin and finasteride * Trend urine output * bladder scan p.r.n. (4) Pulmonary nodule: Code(s): R91.1 - Solitary pulmonary nodule Status: Acute Assessment and Plan: * Biopsy cancelled due to oxygen need * PT INR ok for procedure to be done * CT scan revealed no significant change from 1st recognition * will need to have outpatient biopsy (5) Pneumonia: Code(s): J18.9 - Pneumonia, unspecified organism Status: Acute Assessment and Plan: * chest x-ray indicates bibasilar opacities * CTA indicates atelectasis or scarring of the bilateral lower lobes * azithromycin and ceftriaxone added for impaired therapy * white blood cell count 13.0 * WBC trending up probably related to steroids * trend labs * adjust therapy as indicated * Chest xray Small lung volumes with mild atelectasis at the lung bases.\ * IS therapy as well (6) CHF (congestive heart failure): Code(s): I50.9 - Heart failure, unspecified Status: Acute Assessment and Plan: * no pulmonary edema noted on the CT * 1+ pitting edema on the bilateral lower extremities today * continue home Bumex 1 mg p.o. b.i.d. if BP can tolerate * Christiano hose * BNP slightly elevated at 196 * does not appear to be in exacerbation however this is chronic diastolic heart failure * trend urine output * urinary catheter for accurate I&Os and obstruction * daily weights * Echo EF >70% with grade 1 DD (7) COPD (chronic obstructive pulmonary disease): Code(s): J44.9 - Chronic obstructive pulmonary disease, unspecified Status: Acute Assessment and Plan: * Emphysema on the ct scan * Hold home inhalers * Start neb treatments * Trend SPO2 * Not convinced this is an exacerbation since he denies increase sputum or wheezes * Supplemental oxygen * Methylprednisone 40mg IV daily continued * Consider Pulm consult * Wean oxygen to maintain saturation >90% (8) Alcohol use: Code(s): Z72.89 - Other problems related to lifestyle Status: Acute Assessment and Plan: * Drinks roughly 35 drinks a week * Thiamine and folic acid ordered * ANNEL protoc
--- NOTE | 2022-01-09 09:15 | PM.IMPN ---
Progress Note: A&P Assessment and Plan (1) Acute respiratory failure: Code(s): J96.00 - Acute respiratory failure, unspecified whether with hypoxia or hypercapnia Status: Acute Assessment and Plan: Continues to have increase work of breathing with accessory muscle use, unable to complete sentences, tripod positioning supplemental oxygen, has been weaned to RA wean to maintain saturation greater than 90% CT of the chest shows emphysema incentive spirometer and Cornet Therapy ABG pH 7.420, CO2 42.7, O2 69.8, HCO3 27.1, Sat 94.3 on 2 L Seems to be doing better (2) Hyponatremia: Code(s): E87.1 - Hypo-osmolality and hyponatremia Status: Acute Assessment and Plan: sodium 125 upon admission, currently 127 urine studies trend urine output Consider restarting fluids trend labs (3) BPH (benign prostatic hyperplasia): Code(s): N40.0 - Benign prostatic hyperplasia without lower urinary tract symptoms Status: Acute Assessment and Plan: CT indicates urinary retention with bilateral hydronephrosis urinary catheter inserted continue home tamsulosin and finasteride Trend urine output bladder scan p.r.n. (4) Pulmonary nodule: Code(s): R91.1 - Solitary pulmonary nodule Status: Acute Assessment and Plan: Biopsy cancelled due to oxygen need PT INR ok for procedure to be done CT scan revealed no significant change from 1st recognition will need to have outpatient biopsy (5) Pneumonia: Code(s): J18.9 - Pneumonia, unspecified organism Status: Acute Assessment and Plan: chest x-ray indicates bibasilar opacities CTA indicates atelectasis or scarring of the bilateral lower lobes azithromycin and ceftriaxone added for impaired therapy white blood cell count 13.0 WBC trending up probably related to steroids trend labs adjust therapy as indicated Chest xray Small lung volumes with mild atelectasis at the lung bases.\ IS therapy as well (6) CHF (congestive heart failure): Code(s): I50.9 - Heart failure, unspecified Status: Acute Assessment and Plan: no pulmonary edema noted on the CT 1+ pitting edema on the bilateral lower extremities today continue home Bumex 1 mg p.o. b.i.d. if BP can tolerate Christiano hose BNP slightly elevated at 196 does not appear to be in exacerbation however this is chronic diastolic heart failure trend urine output urinary catheter for accurate I&Os and obstruction daily weights Echo EF >70% with grade 1 DD (7) COPD (chronic obstructive pulmonary disease): Code(s): J44.9 - Chronic obstructive pulmonary disease, unspecified Status: Acute Assessment and Plan: Emphysema on the ct scan Hold home inhalers Start neb treatments Trend SPO2 Not convinced this is an exacerbation since he denies increase sputum or wheezes Supplemental oxygen Methylprednisone 40mg IV daily continued Consider Pulm consult Wean oxygen to maintain saturation >90% (8) Alcohol use: Code(s): Z72.89 - Other problems related to lifestyle Status: Acute Assessment and Plan: Drinks roughly 35 drinks a week Thiamine and folic acid ordered CIWA protocol Librium 10mg Q6 PRN Valium for CIWA >13 Trend score (9) Hyperlipidemia: Code(s): E78.5 - Hyperlipidemia, unspecified Status: Acute Assessment and Plan: continue home atorvastatin 20 mg p.o. daily (10) Hypertension: Code(s): I10 - Essential (primary) hypertension Status: Acute Assessment and Plan: current blood pressure 125/82 continue home losartan 100 mg p.o. daily, metoprolol 25 mg p.o. daily trend blood pressure adjust therapy as indicated (11) Bilateral hydronephrosis: Code(s): N13.30
[2022-01-09] MEDS: ATORVASTATIN 20 MG TABLET PO (10:09)
[2022-01-09] MEDS: FINASTERIDE 5 MG TABLET 10 MG PO (10:09)
[2022-01-09] MEDS: BUMETANIDE 1 MG TABLET PO ×2 (10:09→17:15)
[2022-01-09] MEDS: ENOXAPARIN 40 MG/0.4 ML SYRINGE SUB-Q (10:09)
[2022-01-09] MEDS: POTASSIUM CHLORIDE 10 MEQ TABLET.ER PO (10:10)
[2022-01-09] MEDS: METOPROLOL SUCCINATE EXT REL 25 MG TABCR PO (10:10)
[2022-01-09] MEDS: FOLIC ACID 1 MG TABLET PO (10:10)
[2022-01-09] MEDS: THIAMINE HCL 100 MG TABLET PO (10:10)
[2022-01-09] MEDS: LOSARTAN POTASSIUM 100 MG TABLET PO (10:11)
[2022-01-09] MEDS: methylPREDNISolone SOD SUCC 40 MG VIAL IV PUSH (10:11)
[2022-01-09 17:39] LABS: Creatinine Urine 158.9 mg/dL; Urea Random Urine 1131 MG/DL
[2022-01-09 17:46] LABS: Sodium Urine Random < 5 meq/L
[2022-01-09] MEDS: TAMSULOSIN HCL 0.4 MG CAPSULE PO (21:42)
[2022-01-10] VITALS (19 sets, daily range): BP systolic 110–116; BP diastolic 60–80; PULSE 70–105; RESP 16–20; TEMP 36.6–37.1; O2SAT 93–100
--- NOTE | 2022-01-10 00:14 | PC.NURSE ---
Discontinued CIWA assessments after 24 hours with a score of <8.
[2022-01-10] MEDS: ALBUTEROL SULFATE NEB 2.5 MG/3 ML INH 1.25 MG INHALATION ×4 (02:18→19:54)
[2022-01-10] MEDS: IPRATROPIUM BR 0.02% INH SOLN 0.5 MG/2.5 ML VIAL INHALATION ×4 (02:18→19:54)
[2022-01-10 06:22] LABS: Basophils Percent Auto 0.2 % (0.2-1.2); Hematocrit 46.9 % (42.0-52.0); Hemoglobin 15.7 g/dL (14.0-18.0); Immature Granulocyte Absolute 0.04 K/mm3 (0.00-0.031); Immature Granulocyte Percent A 0.4 % (0-0.5); Lymphocytes Absolute Auto 1.72 K/mm3 (0.9-3.2); Lymphocytes Percent Auto 15.7 % (18.3-44.2); Mean Corpuscular HGB Conc 33.5 g/dl (32-36); Mean Corpuscular Volume 92.5 fl (80-100); Mean Platelet Volume 10.3 fl (7.4-10.4); Monocytes Absolute Auto 1.1 K/mm3 (0.1-0.6); Monocytes Percent Auto 10.2 % (2.6-8.5); Neutrophils Absolute Auto 8.1 K/mm3 (1.3-6.7); Neutrophils Percent Auto 73.5 % (45.5-73.1); Platelet Count Result 209 k/mm3 (150-375); Red Blood Count 5.07 M/mm3 (4.6-6.20); Red Cell Distribution Width 14.1 % (11.5-14.5)
[2022-01-10 06:30] LABS: Alanine Aminotransferase 17 U/L (6-50); Albumin Level 3.3 g/dL (3.5-5.1); Alkaline Phosphatase 69 U/L (38-126); Anion Gap 6 mmol/L (8-16); Aspartate Amino Transferase 26 U/L (17-59); Bilirubin,Total 0.4 mg/dL (0.2-1.3); Blood Urea Nitrogen 21 mg/dL (9-20); Calcium 8.4 mg/dL (8.4-10.2); Carbon Dioxide 35 mmol/L (22-30); Chloride 91 mmol/L (98-107); Estimated CRCL calculation 64 ml/min; Estimated Glomerular Filt Rate > 60; Glucose 109 mg/dL (65-110); Magnesium 2.5 mg/dL (1.6-2.3); Potassium 3.5 mmol/L (3.4-5.0); Sodium 132 mmol/L (137-145)
[2022-01-10] MEDS: LOSARTAN POTASSIUM 100 MG TABLET PO (09:02)
[2022-01-10] MEDS: BUMETANIDE 1 MG TABLET PO ×2 (09:02→17:36)
[2022-01-10] MEDS: FOLIC ACID 1 MG TABLET PO (09:02)
[2022-01-10] MEDS: POTASSIUM CHLORIDE 10 MEQ TABLET.ER PO (09:02)
[2022-01-10] MEDS: ATORVASTATIN 20 MG TABLET PO (09:03)
[2022-01-10] MEDS: ENOXAPARIN 40 MG/0.4 ML SYRINGE SUB-Q (09:03)
[2022-01-10] MEDS: THIAMINE HCL 100 MG TABLET PO (09:03)
[2022-01-10] MEDS: FINASTERIDE 5 MG TABLET 10 MG PO (09:04)
[2022-01-10] MEDS: METOPROLOL SUCCINATE EXT REL 25 MG TABCR PO (09:04)
[2022-01-10] MEDS: methylPREDNISolone SOD SUCC 40 MG VIAL IV PUSH (09:05)
--- NOTE | 2022-01-10 10:06 | PCNFU ---
Nutrition Follow-Up Complete: Suboptimal po intake related to GI discomfort as evidenced by pt report and noted wt loss prior to admission Goal:PO intake 50% or greater most meals. Pt is meeting current goal. Continue with same goal Pt current nutrition is Heart healthy, Ensure compact BID. Nutrition recommendation: Continue with current plan of care. Last recorded weight is 87.6 kg - stable at this time. Bowel Motility: Pt reports being constipated Labs Reviewed: Alb: 3.3, Na:132, BUN:21 Meds Noted: Lovenox, Bumex, KCL, solumedrol Skin: WNL Additional Notes: Pt continues on a heart healthy diet, intake improved to 50-75% most meals. Ensure compact in place BID. Agree with diet order. Monitor intake, wt, labs. Follow up in 7 days.
--- NOTE | 2022-01-10 13:55 | P.PNIM_ITS ---
Progress Note: A&P Assessment and Plan (1) Acute respiratory failure: Code(s): J96.00 - Acute respiratory failure, unspecified whether with hypoxia or hypercapnia Status: Acute Assessment and Plan: * Breathing has some interval improvement as compared to yesterday's exam in comparison. * supplemental oxygen, has been weaned to RA * wean to maintain saturation greater than 90% * CT of the chest shows emphysema * incentive spirometer and Cornet Therapy * Currently on day #4 of abx therapy. * Anticipate that patient will be able to discharge tomorrow. (2) Hyponatremia: Code(s): E87.1 - Hypo-osmolality and hyponatremia Status: Resolved Assessment and Plan: * Sodium level is 132 today. (3) BPH (benign prostatic hyperplasia): Code(s): N40.0 - Benign prostatic hyperplasia without lower urinary tract symptoms Status: Acute Assessment and Plan: * CT indicates urinary retention with bilateral hydronephrosis * Posey catheter order to be removed in preparation for likely discharge tomorrow in the setting of retention for a voiding trial. (4) Pulmonary nodule: Code(s): R91.1 - Solitary pulmonary nodule Status: Acute Assessment and Plan: * Biopsy cancelled due to oxygen need * PT INR ok for procedure to be done * CT scan revealed no significant change from 1st recognition * will need to have outpatient biopsy (5) Pneumonia: Code(s): J18.9 - Pneumonia, unspecified organism Status: Acute Assessment and Plan: * chest x-ray indicates bibasilar opacities * CTA indicates atelectasis or scarring of the bilateral lower lobes * azithromycin and ceftriaxone added for impaired therapy * white blood cell count now near normal at 11.0. * WBC trending up probably related to steroids * trend labs * adjust therapy as indicated * Chest xray Small lung volumes with mild atelectasis at the lung bases.\ * IS therapy as well * Day #4 of IV abx. * Will need follow up with PCP at discharge. (6) CHF (congestive heart failure): Code(s): I50.9 - Heart failure, unspecified Status: Acute Assessment and Plan: * no pulmonary edema noted on the CT * 1+ pitting edema on the bilateral lower extremities today * continue home Bumex 1 mg p.o. b.i.d. if BP can tolerate * Christiano mac * BNP slightly elevated at 196 * does not appear to be in exacerbation however this is chronic diastolic heart failure * trend urine output * daily weights * Echo EF >70% with grade 1 DD * 01/10/22: Edema still remains, 1+ pitting without any open areas or weeping. (7) COPD (chronic obstructive pulmonary disease): Code(s): J44.9 - Chronic obstructive pulmonary disease, unspecified Status: Acute Assessment and Plan: * Pt. does not appear to be in acute COPD exacerbation. His symptoms and appearance most closely resemble PNA. * Emphysema on the ct scan * Hold home inhalers * Start neb treatments * Trend SPO2 * Not convinced this is an exacerbation since he denies increase sputum or wheezes * Supplemental oxygen * Methylprednisone 40mg IV daily discontinued and oral Prednisone 40 mg scheduled to start in AM for easier transition to oral prednisone dosing for home. (8) Alcohol use: Code(s): Z72.89 - Other problems related to lifestyle Status: Acute Assessment and Plan: * Drinks roughly 35 drinks a week * Thiamine and folic acid ordered * [facility] protocol * Librium 10mg Q
--- NOTE | 2022-01-10 13:55 | PM.IMPN ---
Progress Note: A&P Assessment and Plan (1) Acute respiratory failure: Code(s): J96.00 - Acute respiratory failure, unspecified whether with hypoxia or hypercapnia Status: Acute Assessment and Plan: Breathing has some interval improvement as compared to yesterday's exam in comparison. supplemental oxygen, has been weaned to RA wean to maintain saturation greater than 90% CT of the chest shows emphysema incentive spirometer and Cornet Therapy Currently on day #4 of abx therapy. Anticipate that patient will be able to discharge tomorrow. (2) Hyponatremia: Code(s): E87.1 - Hypo-osmolality and hyponatremia Status: Resolved Assessment and Plan: Sodium level is 132 today. (3) BPH (benign prostatic hyperplasia): Code(s): N40.0 - Benign prostatic hyperplasia without lower urinary tract symptoms Status: Acute Assessment and Plan: CT indicates urinary retention with bilateral hydronephrosis Posey catheter order to be removed in preparation for likely discharge tomorrow in the setting of retention for a voiding trial. (4) Pulmonary nodule: Code(s): R91.1 - Solitary pulmonary nodule Status: Acute Assessment and Plan: Biopsy cancelled due to oxygen need PT INR ok for procedure to be done CT scan revealed no significant change from 1st recognition will need to have outpatient biopsy (5) Pneumonia: Code(s): J18.9 - Pneumonia, unspecified organism Status: Acute Assessment and Plan: chest x-ray indicates bibasilar opacities CTA indicates atelectasis or scarring of the bilateral lower lobes azithromycin and ceftriaxone added for impaired therapy white blood cell count now near normal at 11.0. WBC trending up probably related to steroids trend labs adjust therapy as indicated Chest xray Small lung volumes with mild atelectasis at the lung bases.\ IS therapy as well Day #4 of IV abx. Will need follow up with PCP at discharge. (6) CHF (congestive heart failure): Code(s): I50.9 - Heart failure, unspecified Status: Acute Assessment and Plan: no pulmonary edema noted on the CT 1+ pitting edema on the bilateral lower extremities today continue home Bumex 1 mg p.o. b.i.d. if BP can tolerate Christiano hose BNP slightly elevated at 196 does not appear to be in exacerbation however this is chronic diastolic heart failure trend urine output daily weights Echo EF >70% with grade 1 DD 01/10/22: Edema still remains, 1+ pitting without any open areas or weeping. (7) COPD (chronic obstructive pulmonary disease): Code(s): J44.9 - Chronic obstructive pulmonary disease, unspecified Status: Acute Assessment and Plan: Pt. does not appear to be in acute COPD exacerbation. His symptoms and appearance most closely resemble PNA. Emphysema on the ct scan Hold home inhalers Start neb treatments Trend SPO2 Not convinced this is an exacerbation since he denies increase sputum or wheezes Supplemental oxygen Methylprednisone 40mg IV daily discontinued and oral Prednisone 40 mg scheduled to start in AM for easier transition to oral prednisone dosing for home. (8) Alcohol use: Code(s): Z72.89 - Other problems related to lifestyle Status: Acute Assessment and Plan: Drinks roughly 35 drinks a week Thiamine and folic acid ordered CIWA protocol Librium 10mg Q6 PRN Valium for CIWA >13 Trend score (9) Hyperlipidemia: Code(s): E78.5 - Hyperlipidemia, unspecified Status: Acute Assessment and Plan: continue home atorvastatin 20 mg p.o. daily (10) Hypertension: Code(s): I10 - Essential (primary) hypertension Status: Acute Assessment and Plan: current blood pressure is well controlled. continue home losartan 100 mg p.o. daily, metoprolol 25 mg p.o. daily trend blood pressure
[2022-01-10] MEDS: DOCUSATE SODIUM 100 MG CAPSULE PO (17:47)
[2022-01-10] MEDS: TAMSULOSIN HCL 0.4 MG CAPSULE PO (20:08)
[2022-01-11] VITALS (20 sets, daily range): BP systolic 85–126; BP diastolic 57–70; PULSE 72–98; RESP 16–22; TEMP 36.6–36.9; O2SAT 91–96
[2022-01-11] MEDS: IPRATROPIUM BR 0.02% INH SOLN 0.5 MG/2.5 ML VIAL INHALATION ×4 (01:39→20:22)
[2022-01-11] MEDS: ALBUTEROL SULFATE NEB 2.5 MG/3 ML INH 1.25 MG INHALATION ×4 (01:39→20:21)
[2022-01-11 06:49] LABS: Basophils Percent Auto 0.1 % (0.2-1.2); Eosinophils Percent Auto 0.1 % (0-4.4); Hematocrit 49.1 % (42.0-52.0); Hemoglobin 15.9 g/dL (14.0-18.0); Immature Granulocyte Absolute 0.03 K/mm3 (0.00-0.031); Immature Granulocyte Percent A 0.3 % (0-0.5); Lymphocytes Absolute Auto 2.23 K/mm3 (0.9-3.2); Lymphocytes Percent Auto 21.6 % (18.3-44.2); Mean Corpuscular HGB Conc 32.4 g/dl (32-36); Mean Corpuscular Hemoglobin 30.2 pg (26-34); Mean Corpuscular Volume 93.2 fl (80-100); Mean Platelet Volume 10.2 fl (7.4-10.4); Neutrophils Percent Auto 67.9 % (45.5-73.1); Platelet Count Result 224 k/mm3 (150-375); Red Blood Count 5.27 M/mm3 (4.6-6.20); Red Cell Distribution Width 13.9 % (11.5-14.5); White Blood Count 10.3 K/mm3 (4.5-10.0)
[2022-01-11 07:08] LABS: Alanine Aminotransferase 20 U/L (6-50); Albumin Level 3.6 g/dL (3.5-5.1); Alkaline Phosphatase 70 U/L (38-126); Aspartate Amino Transferase 25 U/L (17-59); Bilirubin,Total 0.7 mg/dL (0.2-1.3); Blood Urea Nitrogen 22 mg/dL (9-20); Calcium 8.1 mg/dL (8.4-10.2); Carbon Dioxide > 40 mmol/L (22-30); Chloride 87 mmol/L (98-107); Estimated CRCL calculation 72 ml/min; Estimated Glomerular Filt Rate > 60; Glucose 108 mg/dL (65-110); Magnesium 2.5 mg/dL (1.6-2.3); Potassium 3.4 mmol/L (3.4-5.0); Sodium 133 mmol/L (137-145)
[2022-01-11] MEDS: predniSONE 20 MG TABLET 40 MG PO (08:36)
[2022-01-11] MEDS: ATORVASTATIN 20 MG TABLET PO (08:37)
[2022-01-11] MEDS: FINASTERIDE 5 MG TABLET 10 MG PO (08:38)
[2022-01-11] MEDS: FOLIC ACID 1 MG TABLET PO (08:38)
[2022-01-11] MEDS: ENOXAPARIN 40 MG/0.4 ML SYRINGE SUB-Q (08:38)
[2022-01-11] MEDS: BUMETANIDE 1 MG TABLET PO ×2 (08:38→15:59)
[2022-01-11] MEDS: LOSARTAN POTASSIUM 100 MG TABLET PO (08:39)
[2022-01-11] MEDS: METOPROLOL SUCCINATE EXT REL 25 MG TABCR PO (08:39)
[2022-01-11] MEDS: THIAMINE HCL 100 MG TABLET PO (08:40)
[2022-01-11] MEDS: POTASSIUM CHLORIDE 10 MEQ TABLET.ER PO (08:40)
[2022-01-11 13:50] LABS: Osmolality, Urine 592 mOsm/kg (50-1200)
--- NOTE | 2022-01-11 14:06 | ECG_ITS ---
Measurements Intervals [place] Rate: 74 P: 50 NH: 148 QRS: -3 QRSD: 101 T: 90 QT: 353 QTc: 392 Interpretive Statements SINUS RHYTHM BORDERLINE ST-T WAVE ABNORMALITY- HIGH LATERAL LEADS BASELINE ARTIFACT- I BORDERLINE ECG COMPARED TO ECG 01/07/2022 05:23:09 NO SIGNIFICANT CHANGES Electronically Signed On 01-11-2022 14:40:16 CDT by Isaac Varela D.O.
--- NOTE | 2022-01-11 14:10 | P.PNIM_ITS ---
Progress Note: A&P Assessment and Plan (1) Acute respiratory failure: Code(s): J96.00 - Acute respiratory failure, unspecified whether with hypoxia or hypercapnia Status: Acute Assessment and Plan: * Patient reports subjective improvement, adequate sats on RA * CT of the chest shows emphysema and pulmonary nodule. * incentive spirometer and Cornet Therapy * Continue antibiotic therapy for pneumonia * Continue to monitor * stable (2) Hyponatremia: Code(s): E87.1 - Hypo-osmolality and hyponatremia Status: Resolved Assessment and Plan: * Sodium level is 133. * stable (3) Bilateral hydronephrosis: Code(s): N13.30 - Unspecified hydronephrosis Status: Acute Assessment and Plan: * CT shows urinary retention with bilateral hydronephrosis * unit narrowing catheter was placed upon admission. Voiding trial was attempted the patient had PVR greater than 700 while on finasteride and tamsulosin. He reports seeing a urologist outpatient and recently started on tamsulosin. * 01/11/2022 Posey catheter reinserted, patient will be discharged with catheter and follow-up with Urology in 1-[address] for monitoring of hydronephrosis (4) BPH (benign prostatic hyperplasia): Qualifiers: Lower urinary tract symptom presence: symptoms present Lower urinary tract symptom detail: urinary retention Qualified Code(s): N40.1 - Benign pro static hyperplasia with lower urinary tract symptoms; R33.8 - Other retention of urine Code(s): N40.0 - Benign prostatic hyperplasia without lower urinary tract symptoms Status: Chronic Assessment and Plan: * CT indicates urinary retention with bilateral hydronephrosis * patient failed voiding trial. PVR today greater than 700 mL in Posey reinserted * continue tamsulosin and finasteride. Patient to follow up with Urology outpatient. He reports more recently starting tamsulosin within the past 2 weeks. (5) Pneumonia: Qualifiers: Pneumonia type: due to unspecified organism Laterality: bilateral Lung location: lower lobe of lung Qualified Code(s): J18.9 - Pneumonia, unspecified organism Code(s): J18.9 - Pneumonia, unspecified organism Status: Acute Assessment and Plan: * chest x-ray indicates bibasilar opacities * CTA indicates atelectasis or scarring of the bilateral lower lobes * azithromycin and ceftriaxone IV empiric therapy started 01/06 - 01/10; 01/11 transition to oral cefuroxime 500 mg p.o. b.i.d. x3 more days. * Leukocytosis improving and afebrile. * consider repeat chest x-ray if patient's breathing worsens. * Continue management for COPD exacerbation (6) COPD (chronic obstructive pulmonary disease): Code(s): J44.9 - Chronic obstructive pulmonary disease, unspecified Status: Acute Assessment and Plan: * patient presented to the hospital with acute shortness of breath. Chest x- ray consistent with bibasilar opacities concerning for pneumonia and CT scan shows emphysema. Patient treated with empiric antibiotics as above. * may be underlying acute COPD exacerbation contributing to dyspnea * Continue neb treatments scheduled * supplemental oxygen as needed to keep O2 sats greater than 90% * 01/10/2022 Methylprednisone 40mg IV daily discontinued and oral Prednisone 40 mg started for 01/11/2022 will continue x5 days total (7) Pulmonary nodule: Code(s): R91.1 - Solitary pulmonary nodule Status: Acute Assessment and Plan:
--- NOTE | 2022-01-11 14:10 | PM.IMPN ---
Progress Note: A&P Assessment and Plan (1) Acute respiratory failure: Code(s): J96.00 - Acute respiratory failure, unspecified whether with hypoxia or hypercapnia Status: Acute Assessment and Plan: Patient reports subjective improvement, adequate sats on RA CT of the chest shows emphysema and pulmonary nodule. incentive spirometer and Cornet Therapy Continue antibiotic therapy for pneumonia Continue to monitor stable (2) Hyponatremia: Code(s): E87.1 - Hypo-osmolality and hyponatremia Status: Resolved Assessment and Plan: Sodium level is 133. stable (3) Bilateral hydronephrosis: Code(s): N13.30 - Unspecified hydronephrosis Status: Acute Assessment and Plan: CT shows urinary retention with bilateral hydronephrosis unit narrowing catheter was placed upon admission. Voiding trial was attempted the patient had PVR greater than 700 while on finasteride and tamsulosin. He reports seeing a urologist outpatient and recently started on tamsulosin. 01/11/2022 Posey catheter reinserted, patient will be discharged with catheter and follow-up with Urology in 1-[address] for monitoring of hydronephrosis (4) BPH (benign prostatic hyperplasia): Qualifiers: Lower urinary tract symptom presence: symptoms present Lower urinary tract symptom detail: urinary retention Qualified Code(s): N40.1 - Benign prostatic hyperplasia with lower urinary tract symptoms; R33.8 - Other retention of urine Code(s): N40.0 - Benign prostatic hyperplasia without lower urinary tract symptoms Status: Chronic Assessment and Plan: CT indicates urinary retention with bilateral hydronephrosis patient failed voiding trial. PVR today greater than 700 mL in Posey reinserted continue tamsulosin and finasteride. Patient to follow up with Urology outpatient. He reports more recently starting tamsulosin within the past 2 weeks. (5) Pneumonia: Qualifiers: Pneumonia type: due to unspecified organism Laterality: bilateral Lung location: lower lobe of lung Qualified Code(s): J18.9 - Pneumonia, unspecified organism Code(s): J18.9 - Pneumonia, unspecified organism Status: Acute Assessment and Plan: chest x-ray indicates bibasilar opacities CTA indicates atelectasis or scarring of the bilateral lower lobes azithromycin and ceftriaxone IV empiric therapy started 01/06 - 01/10; 01/11 transition to oral cefuroxime 500 mg p.o. b.i.d. x3 more days. Leukocytosis improving and afebrile. consider repeat chest x-ray if patient's breathing worsens. Continue management for COPD exacerbation (6) COPD (chronic obstructive pulmonary disease): Code(s): J44.9 - Chronic obstructive pulmonary disease, unspecified Status: Acute Assessment and Plan: patient presented to the hospital with acute shortness of breath. Chest x-ray consistent with bibasilar opacities concerning for pneumonia and CT scan shows emphysema. Patient treated with empiric antibiotics as above. may be underlying acute COPD exacerbation contributing to dyspnea Continue neb treatments scheduled supplemental oxygen as needed to keep O2 sats greater than 90% 01/10/2022 Methylprednisone 40mg IV daily discontinued and oral Prednisone 40 mg started for 01/11/2022 will continue x5 days total (7) Pulmonary nodule: Code(s): R91.1 - Solitary pulmonary nodule Status: Acute Assessment and Plan: Biopsy deferred due to oxygen need PT INR ok for procedure to be done CT scan revealed no significant change from 1st recognition will need to have outpatient biopsy- patient has been educated on the need for this outpatient. (8) CHF (congestive heart failure): Qualifiers: Heart failure type: diastolic Heart failure chronicity: chronic Qualified Code(s): I50.32 - Chronic diastolic (congestiv
[2022-01-11 14:51] LABS: NT Pro B Type Natriuretic Pept 138 pg/mL (5-100)
[2022-01-11] MEDS: BISACODYL 10 MG SUPPOSITORY RECTAL (15:02)
[2022-01-11 15:28] LABS: Creatine Kinase 40 U/L (55-170); Troponin I < 0.012 ng/mL (0.000-0.034)
[2022-01-11] MEDS: BELLADONNA ALK/PHENOB ELIX 10 ML, MAG HYDROX/ALUMINUM HYD/SIMETH 30 ML, LIDOCAINE HCL 2... PO (15:51)
[2022-01-11] MEDS: PANTOPRAZOLE SODIUM IV 40 MG VIAL IV PUSH (15:52)
[2022-01-11 16:02] LABS: Lipase 53 U/L (23-300)
[2022-01-11 17:51] LABS: Troponin I < 0.012 ng/mL (0.000-0.034)
[2022-01-11 20:53] LABS: Troponin I < 0.012 ng/mL (0.000-0.034)
[2022-01-11] MEDS: TAMSULOSIN HCL 0.4 MG CAPSULE PO (21:30)
[2022-01-11] MEDS: CEFUROXIME AXETIL 250 MG TABLET 500 MG PO (21:30)
[2022-01-12] VITALS (19 sets, daily range): BP systolic 96–123; BP diastolic 50–72; PULSE 75–112; RESP 18–26; TEMP 36.3–37.1; O2SAT 88–96
[2022-01-12] MEDS: ALBUTEROL SULFATE NEB 2.5 MG/3 ML INH 1.25 MG INHALATION ×4 (01:21→20:20)
[2022-01-12] MEDS: IPRATROPIUM BR 0.02% INH SOLN 0.5 MG/2.5 ML VIAL INHALATION ×4 (01:21→20:20)
[2022-01-12 06:08] LABS: Basophils Percent Auto 0.2 % (0.2-1.2); Eosinophils Percent Auto 0.2 % (0-4.4); Hematocrit 47.5 % (42.0-52.0); Hemoglobin 15.7 g/dL (14.0-18.0); Immature Granulocyte Absolute 0.04 K/mm3 (0.00-0.031); Immature Granulocyte Percent A 0.4 % (0-0.5); Lymphocytes Absolute Auto 2.28 K/mm3 (0.9-3.2); Lymphocytes Percent Auto 23.1 % (18.3-44.2); Mean Corpuscular HGB Conc 33.1 g/dl (32-36); Mean Corpuscular Hemoglobin 30.3 pg (26-34); Mean Corpuscular Volume 91.7 fl (80-100); Mean Platelet Volume 10.3 fl (7.4-10.4); Monocytes Percent Auto 9.7 % (2.6-8.5); Neutrophils Absolute Auto 6.6 K/mm3 (1.3-6.7); Neutrophils Percent Auto 66.4 % (45.5-73.1); Platelet Count Result 229 k/mm3 (150-375); Red Blood Count 5.18 M/mm3 (4.6-6.20); Red Cell Distribution Width 13.8 % (11.5-14.5); White Blood Count 9.9 K/mm3 (4.5-10.0)
[2022-01-12 06:14] LABS: Alanine Aminotransferase 20 U/L (6-50); Albumin Level 3.5 g/dL (3.5-5.1); Alkaline Phosphatase 65 U/L (38-126); Anion Gap 6 mmol/L (8-16); Aspartate Amino Transferase 22 U/L (17-59); Bilirubin,Total 0.8 mg/dL (0.2-1.3); Blood Urea Nitrogen 24 mg/dL (9-20); Carbon Dioxide 39 mmol/L (22-30); Chloride 87 mmol/L (98-107); Estimated CRCL calculation 64 ml/min; Estimated Glomerular Filt Rate > 60; Glucose 98 mg/dL (65-110); Potassium 3.4 mmol/L (3.4-5.0); Sodium 132 mmol/L (137-145)
[2022-01-12] MEDS: predniSONE 20 MG TABLET 40 MG PO (09:28)
[2022-01-12] MEDS: FINASTERIDE 5 MG TABLET 10 MG PO (09:29)
[2022-01-12] MEDS: ATORVASTATIN 20 MG TABLET PO (09:29)
[2022-01-12] MEDS: POTASSIUM CHLORIDE 10 MEQ TABLET.ER PO (09:29)
[2022-01-12] MEDS: BUMETANIDE 1 MG TABLET PO ×2 (09:29→16:22)
[2022-01-12] MEDS: FOLIC ACID 1 MG TABLET PO (09:30)
[2022-01-12] MEDS: THIAMINE HCL 100 MG TABLET PO (09:30)
[2022-01-12] MEDS: CEFUROXIME AXETIL 250 MG TABLET 500 MG PO ×2 (09:30→21:26)
[2022-01-12] MEDS: ENOXAPARIN 40 MG/0.4 ML SYRINGE SUB-Q (09:31)
[2022-01-12] MEDS: METOPROLOL SUCCINATE EXT REL 25 MG TABCR PO (09:31)
[2022-01-12] MEDS: LOSARTAN POTASSIUM 50 MG TABLET PO (09:31)
[2022-01-12] MEDS: polyethylene glycoL 3350 17 GM POWD.PACK PO (09:32)
[2022-01-12] MEDS: PANTOPRAZOLE SODIUM IV 40 MG VIAL IV PUSH (09:32)
--- NOTE | 2022-01-12 12:50 | P.PNIM_ITS ---
Progress Note: A&P Assessment and Plan (1) Acute respiratory failure: Code(s): J96.00 - Acute respiratory failure, unspecified whether with hypoxia or hypercapnia Status: Acute Assessment and Plan: * Patient reports subjective improvement, adequate sats on RA * CT of the chest shows emphysema and pulmonary nodule. * incentive spirometer and Cornet Therapy * Continue antibiotic therapy for pneumonia * Resolved (2) Hyponatremia: Code(s): E87.1 - Hypo-osmolality and hyponatremia Status: Resolved Assessment and Plan: * Stable. (3) Bilateral hydronephrosis: Code(s): N13.30 - Unspecified hydronephrosis Status: Acute Assessment and Plan: * CT shows urinary retention with bilateral hydronephrosis * unit narrowing catheter was placed upon admission. Voiding trial was attempted the patient had PVR greater than 700 while on finasteride and tamsulosin. He reports seeing a urologist outpatient and recently started on tamsulosin. * 01/11/2022 Posey catheter reinserted, patient will be discharged with catheter and follow-up with Urology in 1-[address] for monitoring of hydronephrosis (4) BPH (benign prostatic hyperplasia): Qualifiers: Lower urinary tract symptom detail: urinary retention Lower urinary tract symptom presence: symptoms present Qualified Code(s): N40.1 - Benign prostatic hyperplasia with lower urinary tract symptoms; R33.8 - Other retention of urine Code(s): N40.0 - Benign prostatic hyperplasia without lower urinary tract symptoms Status: Chronic Assessment and Plan: * CT indicates urinary retention with bilateral hydronephrosis * patient failed voiding trial. PVR greater than 700 mL in Posey reinserted 01/11/22 * continue tamsulosin and finasteride. Patient to follow up with Urology outpatient. He reports more recently starting tamsulosin within the past 2 weeks. (5) Pneumonia: Qualifiers: Laterality: bilateral Lung location: lower lobe of lung Pneumonia type: due to unspecified organism Qualified Code(s): J18.9 - Pneumonia, unspecified organism Code(s): J18.9 - Pneumonia, unspecified organism Status: Acute Assessment and Plan: * chest x-ray indicates bibasilar opacities * CTA indicates atelectasis or scarring of the bilateral lower lobes * azithromycin and ceftriaxone IV empiric therapy started 01/06 - 01/10; 01/11 transition to oral cefuroxime 500 mg p.o. b.i.d. x3 more days. * Leukocytosis improving and afebrile. * consider repeat chest x-ray if patient's breathing worsens. * Continue management for COPD exacerbation * Stable. (6) COPD (chronic obstructive pulmonary disease): Code(s): J44.9 - Chronic obstructive pulmonary disease, unspecified Status: Acute Assessment and Plan: * patient presented to the hospital with acute shortness of breath. Chest x-r ay consistent with bibasilar opacities concerning for pneumonia and CT scan shows emphysema. Patient treated with empiric antibiotics as above. * may be underlying acute COPD exacerbation contributing to dyspnea * Continue neb treatments scheduled * supplemental oxygen as needed to keep O2 sats greater than 90% * 01/10/2022 Methylprednisone 40mg IV daily discontinued and oral Prednisone 40 mg started for 01/11/2022 will continue x5 days total * 01/12/22 stable. (7) Pulmonary nodule: Code(s): R91.1 - Solitary pulmonary nodule Status: Acute Assessment and Plan: * Biopsy deferred
--- NOTE | 2022-01-12 12:50 | PM.IMPN ---
Progress Note: A&P Assessment and Plan (1) Acute respiratory failure: Code(s): J96.00 - Acute respiratory failure, unspecified whether with hypoxia or hypercapnia Status: Acute Assessment and Plan: Patient reports subjective improvement, adequate sats on RA CT of the chest shows emphysema and pulmonary nodule. incentive spirometer and Cornet Therapy Continue antibiotic therapy for pneumonia Resolved (2) Hyponatremia: Code(s): E87.1 - Hypo-osmolality and hyponatremia Status: Resolved Assessment and Plan: Stable. (3) Bilateral hydronephrosis: Code(s): N13.30 - Unspecified hydronephrosis Status: Acute Assessment and Plan: CT shows urinary retention with bilateral hydronephrosis unit narrowing catheter was placed upon admission. Voiding trial was attempted the patient had PVR greater than 700 while on finasteride and tamsulosin. He reports seeing a urologist outpatient and recently started on tamsulosin. 01/11/2022 Posey catheter reinserted, patient will be discharged with catheter and follow-up with Urology in 1-[address] for monitoring of hydronephrosis (4) BPH (benign prostatic hyperplasia): Qualifiers: Lower urinary tract symptom detail: urinary retention Lower urinary tract symptom presence: symptoms present Qualified Code(s): N40.1 - Benign prostatic hyperplasia with lower urinary tract symptoms; R33.8 - Other retention of urine Code(s): N40.0 - Benign prostatic hyperplasia without lower urinary tract symptoms Status: Chronic Assessment and Plan: CT indicates urinary retention with bilateral hydronephrosis patient failed voiding trial. PVR greater than 700 mL in Posey reinserted 01/11/22 continue tamsulosin and finasteride. Patient to follow up with Urology outpatient. He reports more recently starting tamsulosin within the past 2 weeks. (5) Pneumonia: Qualifiers: Laterality: bilateral Lung location: lower lobe of lung Pneumonia type: due to unspecified organism Qualified Code(s): J18.9 - Pneumonia, unspecified organism Code(s): J18.9 - Pneumonia, unspecified organism Status: Acute Assessment and Plan: chest x-ray indicates bibasilar opacities CTA indicates atelectasis or scarring of the bilateral lower lobes azithromycin and ceftriaxone IV empiric therapy started 01/06 - 01/10; 01/11 transition to oral cefuroxime 500 mg p.o. b.i.d. x3 more days. Leukocytosis improving and afebrile. consider repeat chest x-ray if patient's breathing worsens. Continue management for COPD exacerbation Stable. (6) COPD (chronic obstructive pulmonary disease): Code(s): J44.9 - Chronic obstructive pulmonary disease, unspecified Status: Acute Assessment and Plan: patient presented to the hospital with acute shortness of breath. Chest x-ray consistent with bibasilar opacities concerning for pneumonia and CT scan shows emphysema. Patient treated with empiric antibiotics as above. may be underlying acute COPD exacerbation contributing to dyspnea Continue neb treatments scheduled supplemental oxygen as needed to keep O2 sats greater than 90% 01/10/2022 Methylprednisone 40mg IV daily discontinued and oral Prednisone 40 mg started for 01/11/2022 will continue x5 days total 01/12/22 stable. (7) Pulmonary nodule: Code(s): R91.1 - Solitary pulmonary nodule Status: Acute Assessment and Plan: Biopsy deferred due to oxygen need PT INR ok for procedure to be done CT scan revealed no significant change from 1st recognition will need to have outpatient biopsy- patient has been educated on the need for this outpatient. (8) CHF (congestive heart failure): Qualifiers: Heart failure chronicity: chronic Heart failure type: diastolic Qualified Code(s): I50.32 - Chronic diastolic (congestive) heart failure
[2022-01-12] MEDS: POTASSIUM CHLORIDE 20 MEQ TABLET PO (15:59)
[2022-01-12] MEDS: TAMSULOSIN HCL 0.4 MG CAPSULE PO (21:26)
[2022-01-13] VITALS (16 sets, daily range): BP systolic 97–122; BP diastolic 61–73; PULSE 66–100; RESP 16–22; TEMP 35.7–36.3; O2SAT 94–96
[2022-01-13] MEDS: ALBUTEROL SULFATE NEB 2.5 MG/3 ML INH 1.25 MG INHALATION ×4 (03:03→20:34)
[2022-01-13] MEDS: IPRATROPIUM BR 0.02% INH SOLN 0.5 MG/2.5 ML VIAL INHALATION ×4 (03:03→20:34)
[2022-01-13 06:32] LABS: Potassium 3.6 mmol/L (3.4-5.0)
[2022-01-13] MEDS: predniSONE 20 MG TABLET 40 MG PO (08:50)
[2022-01-13] MEDS: ATORVASTATIN 20 MG TABLET PO (08:50)
[2022-01-13] MEDS: CEFUROXIME AXETIL 250 MG TABLET 500 MG PO (08:51)
[2022-01-13] MEDS: BUMETANIDE 1 MG TABLET PO (08:51)
[2022-01-13] MEDS: ENOXAPARIN 40 MG/0.4 ML SYRINGE SUB-Q (08:54)
[2022-01-13] MEDS: FINASTERIDE 5 MG TABLET 10 MG PO (08:54)
[2022-01-13] MEDS: FOLIC ACID 1 MG TABLET PO (08:55)
[2022-01-13] MEDS: METOPROLOL SUCCINATE EXT REL 25 MG TABCR PO (08:56)
[2022-01-13] MEDS: LOSARTAN POTASSIUM 50 MG TABLET PO (08:56)
[2022-01-13] MEDS: PANTOPRAZOLE SODIUM IV 40 MG VIAL IV PUSH (09:01)
[2022-01-13] MEDS: polyethylene glycoL 3350 17 GM POWD.PACK PO (09:02)
[2022-01-13] MEDS: POTASSIUM CHLORIDE 10 MEQ TABLET.ER 20 MEQ PO (09:03)
[2022-01-13] MEDS: THIAMINE HCL 100 MG TABLET PO (09:04)
--- NOTE | 2022-01-13 12:06 | P.PNIM_ITS ---
Progress Note: A&P Assessment and Plan (1) Acute respiratory failure: Code(s): J96.00 - Acute respiratory failure, unspecified whether with hypoxia or hypercapnia Status: Acute Assessment and Plan: * Patient reports subjective improvement, adequate sats on RA * CT of the chest shows emphysema and pulmonary nodule. * incentive spirometer and Cornet Therapy * Continue antibiotic therapy for pneumonia * Patient with 2L O2 now and c/o SOB - check cxr (2) Hyponatremia: Code(s): E87.1 - Hypo-osmolality and hyponatremia Status: Resolved Assessment and Plan: * Sodium 132. Monitor. (3) Bilateral hydronephrosis: Code(s): N13.30 - Unspecified hydronephrosis Status: Acute Assessment and Plan: * CT shows urinary retention with bilateral hydronephrosis * unit narrowing catheter was placed upon admission. Voiding trial was attempted the patient had PVR greater than 700 while on finasteride and tamsul osin. He reports seeing a urologist outpatient and recently started on tamsulosin. * 01/11/2022 Posey catheter reinserted, patient will be discharged with catheter and follow-up with Urology in 1-[address] for monitoring of hydronephrosis (4) BPH (benign prostatic hyperplasia): Qualifiers: Lower urinary tract symptom detail: urinary retention Lower urinary tract symptom presence: symptoms present Qualified Code(s): N40.1 - Benign prostatic hyperplasia with lower urinary tract symptoms; R33.8 - Other retention of urine Code(s): N40.0 - Benign prostatic hyperplasia without lower urinary tract symptoms Status: Chronic Assessment and Plan: * CT indicates urinary retention with bilateral hydronephrosis * patient failed voiding trial. PVR greater than 700 mL in Posey reinserted 01/11/22 * continue tamsulosin and finasteride. Patient to follow up with Urology outpatient. He reports more recently starting tamsulosin 2 weeks prior to admission. (5) Pneumonia: Qualifiers: Laterality: bilateral Lung location: lower lobe of lung Pneumonia type: due to unspecified organism Qualified Code(s): J18.9 - Pneumonia, unspecified organism Code(s): J18.9 - Pneumonia, unspecified organism Status: Acute Assessment and Plan: * chest x-ray indicates bibasilar opacities * CTA indicates atelectasis or scarring of the bilateral lower lobes * azithromycin and ceftriaxone IV empiric therapy started 01/06 - 01/10; 01/11- 01/13 oral cefuroxime 500 mg p.o. b.i.d. 01/13/22 stopped start levaquin & metronidazole for acute worsening of chronic cholecystitis. * No leukocytosis and afebrile. * 01/13/22 Repeat CXR pending * Continue management for COPD exacerbation (6) COPD (chronic obstructive pulmonary disease): Code(s): J44.9 - Chronic obstructive pulmonary disease, unspecified Status: Acute Assessment and Plan: * patient presented to the hospital with acute shortness of breath. Chest x- ray consistent with bibasilar opacities concerning for pneumonia and CT scan shows emphysema. Patient treated with empiric antibiotics as above. * may be underlying acute COPD exacerbation contributing to dyspnea * Continue neb treatments scheduled * supplemental oxygen as needed to keep O2 sats greater than 90% * 01/10/2022 Methylprednisone 40mg IV daily discontinued and oral Prednisone 40 mg started for 01/11/2022 will continue x5 days total * 01/12/22 stable. * 01/13/22 as above. Prednisone completed. (7) Pulmonary nodule: Code(s):
--- NOTE | 2022-01-13 12:06 | PM.IMPN ---
Progress Note: A&P Assessment and Plan (1) Acute respiratory failure: Code(s): J96.00 - Acute respiratory failure, unspecified whether with hypoxia or hypercapnia Status: Acute Assessment and Plan: Patient reports subjective improvement, adequate sats on RA CT of the chest shows emphysema and pulmonary nodule. incentive spirometer and Cornet Therapy Continue antibiotic therapy for pneumonia Patient with 2L O2 now and c/o SOB - check cxr (2) Hyponatremia: Code(s): E87.1 - Hypo-osmolality and hyponatremia Status: Resolved Assessment and Plan: Sodium 132. Monitor. (3) Bilateral hydronephrosis: Code(s): N13.30 - Unspecified hydronephrosis Status: Acute Assessment and Plan: CT shows urinary retention with bilateral hydronephrosis unit narrowing catheter was placed upon admission. Voiding trial was attempted the patient had PVR greater than 700 while on finasteride and tamsulosin. He reports seeing a urologist outpatient and recently started on tamsulosin. 01/11/2022 Posey catheter reinserted, patient will be discharged with catheter and follow-up with Urology in 1-[address] for monitoring of hydronephrosis (4) BPH (benign prostatic hyperplasia): Qualifiers: Lower urinary tract symptom detail: urinary retention Lower urinary tract symptom presence: symptoms present Qualified Code(s): N40.1 - Benign prostatic hyperplasia with lower urinary tract symptoms; R33.8 - Other retention of urine Code(s): N40.0 - Benign prostatic hyperplasia without lower urinary tract symptoms Status: Chronic Assessment and Plan: CT indicates urinary retention with bilateral hydronephrosis patient failed voiding trial. PVR greater than 700 mL in Posey reinserted 01/11/22 continue tamsulosin and finasteride. Patient to follow up with Urology outpatient. He reports more recently starting tamsulosin 2 weeks prior to admission. (5) Pneumonia: Qualifiers: Laterality: bilateral Lung location: lower lobe of lung Pneumonia type: due to unspecified organism Qualified Code(s): J18.9 - Pneumonia, unspecified organism Code(s): J18.9 - Pneumonia, unspecified organism Status: Acute Assessment and Plan: chest x-ray indicates bibasilar opacities CTA indicates atelectasis or scarring of the bilateral lower lobes azithromycin and ceftriaxone IV empiric therapy started 01/06 - 01/10; 01/11-01/13 oral cefuroxime 500 mg p.o. b.i.d. 01/13/22 stopped start levaquin & metronidazole for acute worsening of chronic cholecystitis. No leukocytosis and afebrile. 01/13/22 Repeat CXR pending Continue management for COPD exacerbation (6) COPD (chronic obstructive pulmonary disease): Code(s): J44.9 - Chronic obstructive pulmonary disease, unspecified Status: Acute Assessment and Plan: patient presented to the hospital with acute shortness of breath. Chest x-ray consistent with bibasilar opacities concerning for pneumonia and CT scan shows emphysema. Patient treated with empiric antibiotics as above. may be underlying acute COPD exacerbation contributing to dyspnea Continue neb treatments scheduled supplemental oxygen as needed to keep O2 sats greater than 90% 01/10/2022 Methylprednisone 40mg IV daily discontinued and oral Prednisone 40 mg started for 01/11/2022 will continue x5 days total 01/12/22 stable. 01/13/22 as above. Prednisone completed. (7) Pulmonary nodule: Code(s): R91.1 - Solitary pulmonary nodule Status: Acute Assessment and Plan: Biopsy deferred due to oxygen need PT INR ok for procedure to be done CT scan revealed no significant change from 1st recognition will need to have outpatient biopsy- patient has been educated on the need for this outpatient. (8) CHF (congestive heart failure): Qualifiers: Heart failure chronicity
[2022-01-13 12:31] LABS: Basophils Percent Auto 0.2 % (0.2-1.2); Eosinophils Percent Auto 0.2 % (0-4.4); Hematocrit 45.4 % (42.0-52.0); Hemoglobin 15.2 g/dL (14.0-18.0); Immature Granulocyte Absolute 0.02 K/mm3 (0.00-0.031); Immature Granulocyte Percent A 0.2 % (0-0.5); Lymphocytes Absolute Auto 2.27 K/mm3 (0.9-3.2); Lymphocytes Percent Auto 23.4 % (18.3-44.2); Mean Corpuscular HGB Conc 33.5 g/dl (32-36); Mean Corpuscular Hemoglobin 32.6 pg (26-34); Mean Corpuscular Volume 97.4 fl (80-100); Mean Platelet Volume 10.8 fl (7.4-10.4); Monocytes Absolute Auto 1.1 K/mm3 (0.1-0.6); Monocytes Percent Auto 10.9 % (2.6-8.5); Neutrophils Absolute Auto 6.3 K/mm3 (1.3-6.7); Neutrophils Percent Auto 65.1 % (45.5-73.1); Platelet Count Result 196 k/mm3 (150-375); Red Blood Count 4.66 M/mm3 (4.6-6.20); Red Cell Distribution Width 14.2 % (11.5-14.5); White Blood Count 9.7 K/mm3 (4.5-10.0)
--- NOTE | 2022-01-13 12:33 | PCPTNOTE ---
pt refused PT due to SOB, abdominal pressure and pain; stated dr told him they are checking his gall bladder. Reinforced with pt to perform LE exercises as able when in bed or sitting. He has written HEP.
[2022-01-13 12:39] LABS: Alanine Aminotransferase 21 U/L (6-50); Albumin Level 3.1 g/dL (3.5-5.1); Alkaline Phosphatase 62 U/L (38-126); Anion Gap 3 mmol/L (8-16); Aspartate Amino Transferase 24 U/L (17-59); Bilirubin,Total 0.6 mg/dL (0.2-1.3); Blood Urea Nitrogen 27 mg/dL (9-20); Calcium 8.6 mg/dL (8.4-10.2); Carbon Dioxide 37 mmol/L (22-30); Chloride 92 mmol/L (98-107); Estimated CRCL calculation 72 ml/min; Estimated Glomerular Filt Rate > 60; Glucose 96 mg/dL (65-110); Potassium 3.5 mmol/L (3.4-5.0); Sodium 132 mmol/L (137-145)
--- NOTE | 2022-01-13 13:23 | PM.CNGS ---
Assessment and Plan Assessment and plan (1) Cholecystitis with cholelithiasis: Code(s): K80.10 - Calculus of gallbladder with chronic cholecystitis without obstruction Status: Acute Assessment and Plan: long discussion with patient regarding cholecystectomy, patient would like to proceed with cholecystectomy as soon as possible, will start low fat diet for now and plan for cholecystectomy early next week (2) Acute exacerbation of chronic obstructive pulmonary disease: Code(s): J44.1 - Chronic obstructive pulmonary disease with (acute) exacerbation Status: Acute Assessment and Plan: improved, management per primary team (3) Diastolic CHF: Code(s): I50.30 - Unspecified diastolic (congestive) heart failure Status: Acute Assessment and Plan: stable, management per primary team (4) Body mass index (BMI) of 30 to 39 in adult: Status: Acute Assessment and Plan: dietary and lifestyle modifications (5) Hypertension: Qualifiers: Hypertension type: primary hypertension Qualified Code(s): I10 - Essential (primary) hypertension Code(s): I10 - Essential (primary) hypertension Status: Chronic Assessment and Plan: stable, management per primary team History of Present Illness Consult details Consult date: 01/13/22 Reason for consult: gallstones Requesting physician: Yanique Price, AMADOR Narrative: The patient is a 76-year-old male with multiple medical issues including COPD, recently found to have chronic cholecystitis with cholelithiasis. The patient was being worked up for a variety of medical issues and started complaining of some postprandial upper abdominal pain. Workup, including imaging, is significant for gallbladder wall thickening, cholelithiasis. Patient reports that over the last month he has been experiencing postprandial epigastric and right upper quadrant abdominal pain. The patient reports associated bloating, nausea, poor appetite. Review of Systems Constitutional: Constitutional: Reports as per HPI, Denies anorexia, Denies chills, Reports fatigue, Denies fever(s), Reports lethargy, Reports malaise, Reports poor appetite, Reports weakness, Denies weight gain and Denies weight loss Eyes: Eyes: Reports no additional eye complaints ENT: Reports system reviewed and no additional complaints, except as documented Cardiovascular: Cardiovascular: Denies chest pain, Reports dyspnea and Reports dyspnea on exertion Respiratory: Respiratory: Reports dyspnea and Reports dyspnea on exertion Gastrointestinal: Gastrointestinal: Reports as per HPI, Reports abdominal pain, Reports bloating, Reports GI cramping, Reports early satiety and Reports nausea Genitourinary: Genitourinary: Reports no additional male genitourinary complaints Musculoskeletal: Musculoskeletal: Reports no additional musculoskeletal complaints Integumentary/Breasts: Skin/Breast: Reports system reviewed and no additional complaints, except as docu Neurologic: Reports system reviewed and no additional complaints, except as documented Psychiatric: Psychiatric: Reports no additional psychiatric complaints Endocrine: Endocrine: Reports no additional endocrine complaints Hematologic/Lymphatic: Hematologic/Lymphatic: Reports no additional hematologic/lymphatic complaints Allergic/Immunologic: Allergic/Immunologic: Reports no additional allergic/immunologic complaints [facility] Past Medical History Medical History Body mass index (BMI) of 30 to 39 in adult Change in bowel habit COPD (chronic obstructive pulmonary disease) CORBIN (dyspnea on exertion) Encounter for immunization Fecal occult blood test positive History of [place] (myocardial infarction) Hyperlipidemia Hypertension Prediabetes Pulmonary nodule Sleeps in sitting position due to orthopnea Surgical History Surgical History (Reviewed 01/13/22 @ 13:27 b
[2022-01-13] MEDS: metroNIDAZOLE 500 MG/ISO 100ML 500 MG/100 ML BAG 100 MG IVPB ×2 (14:49→23:20)
[2022-01-13] MEDS: TAMSULOSIN HCL 0.4 MG CAPSULE PO (20:43)
[2022-01-14] VITALS (10 sets, daily range): BP systolic 91–123; BP diastolic 62–78; PULSE 65–88; RESP 16–20; TEMP 36.1–36.6; O2SAT 90–99
[2022-01-14] MEDS: ALBUTEROL SULFATE NEB 2.5 MG/3 ML INH 1.25 MG INHALATION ×2 (03:06→08:26)
[2022-01-14] MEDS: IPRATROPIUM BR 0.02% INH SOLN 0.5 MG/2.5 ML VIAL INHALATION ×2 (03:07→08:26)
[2022-01-14] MEDS: metroNIDAZOLE 500 MG/ISO 100ML 500 MG/100 ML BAG 100 MG IVPB ×3 (05:26→21:57)
[2022-01-14 06:04] LABS: Hematocrit 47.8 % (42.0-52.0); Mean Corpuscular HGB Conc 31.4 g/dl (32-36); Mean Corpuscular Hemoglobin 29.9 pg (26-34); Mean Corpuscular Volume 95.2 fl (80-100); Mean Platelet Volume 10.2 fl (7.4-10.4); Platelet Count Result 182 k/mm3 (150-375); Red Blood Count 5.02 M/mm3 (4.6-6.20); Red Cell Distribution Width 13.7 % (11.5-14.5); White Blood Count 9.6 K/mm3 (4.5-10.0)
[2022-01-14 06:21] LABS: Alanine Aminotransferase 28 U/L (6-50); Alkaline Phosphatase 65 U/L (38-126); Aspartate Amino Transferase 29 U/L (17-59); Bilirubin,Total 0.6 mg/dL (0.2-1.3); Blood Urea Nitrogen 22 mg/dL (9-20); Calcium 8.1 mg/dL (8.4-10.2); Carbon Dioxide > 40 mmol/L (22-30); Chloride 90 mmol/L (98-107); Estimated CRCL calculation 72 ml/min; Estimated Glomerular Filt Rate > 60; Glucose 96 mg/dL (65-110); Phosphorus 3.2 mg/dL (2.5-4.5); Potassium 3.7 mmol/L (3.4-5.0); Sodium 136 mmol/L (137-145)
[2022-01-14] MEDS: POTASSIUM CHLORIDE 10 MEQ TABLET.ER 20 MEQ PO (08:23)
[2022-01-14] MEDS: PANTOPRAZOLE SODIUM IV 40 MG VIAL IV PUSH (08:23)
[2022-01-14] MEDS: THIAMINE HCL 100 MG TABLET PO (08:23)
[2022-01-14] MEDS: FINASTERIDE 5 MG TABLET 10 MG PO (08:23)
[2022-01-14] MEDS: METOPROLOL SUCCINATE EXT REL 25 MG TABCR PO (08:24)
[2022-01-14] MEDS: ATORVASTATIN 20 MG TABLET PO (08:24)
[2022-01-14] MEDS: polyethylene glycoL 3350 17 GM POWD.PACK PO (08:24)
[2022-01-14] MEDS: LOSARTAN POTASSIUM 50 MG TABLET PO (08:24)
[2022-01-14] MEDS: FOLIC ACID 1 MG TABLET PO (08:24)
--- NOTE | 2022-01-14 12:06 | P.PNIM_ITS ---
Progress Note: A&P Assessment and Plan (1) Acute respiratory failure: Code(s): J96.00 - Acute respiratory failure, unspecified whether with hypoxia or hypercapnia Status: Acute Assessment and Plan: * Patient reports subjective improvement, adequate sats on RA * CT of the chest shows emphysema and pulmonary nodule. * incentive spirometer and Cornet Therapy * Continue antibiotic therapy for pneumonia * Patient with 2L O2 now and c/o SOB - 02/01/2022 repeat cxr- continues to show low lung volumes but otherwise unchanged. * Continue to monitor respiratory status (2) Bilateral hydronephrosis: Code(s): N13.30 - Unspecified hydronephrosis Status: Acute Assessment and Plan: * CT shows urinary retention with bilateral hydronephrosis * unit narrowing catheter was placed upon admission. Voiding trial was attempted the patient had PVR greater than 700 while on finasteride and tamsulosin. He reports seeing a urologist outpatient and recently started on tamsulosin. * 01/11/2022 Posey catheter reinserted, patient will be discharged with catheter and follow-up with Urology in 1-[address] for monitoring of hydronephrosis * stable (3) BPH (benign prostatic hyperplasia): Qualifiers: Lower urinary tract symptom detail: urinary retention Lower urinary tract symptom presence: symptoms present Qualified Code(s): N40.1 - Benign prostatic hyperplasia with lower urinary tract symptoms; R33.8 - Other retention of urine Code(s): N40.0 - Benign prostatic hyperplasia without lower urinary tract symptoms Status: Acute Assessment and Plan: Chronic with acute urinary retention this hospital stay. * CT indicates urinary retention with bilateral hydronephrosis * patient failed voiding trial. PVR greater than 700 mL in Posey reinserted 01/11/22 * continue tamsulosin and finasteride. Patient to follow up with Urology outpatient. He reports more recently starting tamsulosin 2 weeks prior to admission. * continue Posey catheter at discharge. The patient can follow-up with his urologist outpatient for removal in a few weeks. (4) Pneumonia: Qualifiers: Laterality: bilateral Lung location: lower lobe of lung Pneumonia type: due to unspecified organism Qualified Code(s): J18.9 - Pneumonia, unspecified organism Code(s): J18.9 - Pneumonia, unspecified organism Status: Acute Assessment and Plan: chest x-ray indicates bibasilar opacities. CTA indicates atelectasis or scarring of the bilateral lower lobes * azithromycin and ceftriaxone IV empiric therapy started 01/06 - 01/10; 01/11-01/13 oral cefuroxime 500 mg p.o. b.i.d. * 01/13/22 stopped cefuroxime d/t starting levaquin & metronidazole for acute worsening of chronic cholecystitis. * No leukocytosis and afebrile. * 01/13/22 Repeat CXR- continues to show low lung volumes and essentially unchanged from previous * Continue management for COPD exacerbation (5) Cholelithiasis: Qualifiers: Biliary obstruction: without biliary obstruction Cholecystitis presence: without cholecystitis Cholelithiasis location: gallbladder Qualified Code(s): K80.20 - Calculus of gallbladder without cholecystitis without obstruction Code(s): K80.20 - Calculus of gallbladder without cholecystitis without obstruction Status: Acute Assessment and Plan: * noted on CT scan, incidental finding. Patient now with epigastric and right upper quadrant pain. * 01/12/22 right upper quadrant ultrasound evidence of cholelithiasis with gallbla
--- NOTE | 2022-01-14 12:06 | PM.IMPN ---
Progress Note: A&P Assessment and Plan (1) Acute respiratory failure: Code(s): J96.00 - Acute respiratory failure, unspecified whether with hypoxia or hypercapnia Status: Acute Assessment and Plan: Patient reports subjective improvement, adequate sats on RA CT of the chest shows emphysema and pulmonary nodule. incentive spirometer and Cornet Therapy Continue antibiotic therapy for pneumonia Patient with 2L O2 now and c/o SOB - 02/01/2022 repeat cxr- continues to show low lung volumes but otherwise unchanged. Continue to monitor respiratory status (2) Bilateral hydronephrosis: Code(s): N13.30 - Unspecified hydronephrosis Status: Acute Assessment and Plan: CT shows urinary retention with bilateral hydronephrosis unit narrowing catheter was placed upon admission. Voiding trial was attempted the patient had PVR greater than 700 while on finasteride and tamsulosin. He reports seeing a urologist outpatient and recently started on tamsulosin. 01/11/2022 Posey catheter reinserted, patient will be discharged with catheter and follow-up with Urology in 1-[address] for monitoring of hydronephrosis stable (3) BPH (benign prostatic hyperplasia): Qualifiers: Lower urinary tract symptom detail: urinary retention Lower urinary tract symptom presence: symptoms present Qualified Code(s): N40.1 - Benign prostatic hyperplasia with lower urinary tract symptoms; R33.8 - Other retention of urine Code(s): N40.0 - Benign prostatic hyperplasia without lower urinary tract symptoms Status: Acute Assessment and Plan: Chronic with acute urinary retention this hospital stay. CT indicates urinary retention with bilateral hydronephrosis patient failed voiding trial. PVR greater than 700 mL in Posey reinserted 01/11/22 continue tamsulosin and finasteride. Patient to follow up with Urology outpatient. He reports more recently starting tamsulosin 2 weeks prior to admission. continue Posey catheter at discharge. The patient can follow-up with his urologist outpatient for removal in a few weeks. (4) Pneumonia: Qualifiers: Laterality: bilateral Lung location: lower lobe of lung Pneumonia type: due to unspecified organism Qualified Code(s): J18.9 - Pneumonia, unspecified organism Code(s): J18.9 - Pneumonia, unspecified organism Status: Acute Assessment and Plan: chest x-ray indicates bibasilar opacities. CTA indicates atelectasis or scarring of the bilateral lower lobes azithromycin and ceftriaxone IV empiric therapy started 01/06 - 01/10; 01/11-01/13 oral cefuroxime 500 mg p.o. b.i.d. 01/13/22 stopped cefuroxime d/t starting levaquin & metronidazole for acute worsening of chronic cholecystitis. No leukocytosis and afebrile. 01/13/22 Repeat CXR- continues to show low lung volumes and essentially unchanged from previous Continue management for COPD exacerbation (5) Cholelithiasis: Qualifiers: Biliary obstruction: without biliary obstruction Cholecystitis presence: without cholecystitis Cholelithiasis location: gallbladder Qualified Code(s): K80.20 - Calculus of gallbladder without cholecystitis without obstruction Code(s): K80.20 - Calculus of gallbladder without cholecystitis without obstruction Status: Acute Assessment and Plan: noted on CT scan, incidental finding. Patient now with epigastric and right upper quadrant pain. 01/12/22 right upper quadrant ultrasound evidence of cholelithiasis with gallbladder wall thickening concerning for chronic cholelithiasis. 01/13/22 Consult General Surgery, as patient is now c/o bloating, diaphoresis, RUQ pain after eating. Make NPO. Start IV Levaquin 750 mg Q24 hours and IV Metronidazole 500 mg Q8 hours. 01/14/2022 NPO after midnight for cholecystectomy; hold lovenox preop (6) COPD (chronic obstructive pulmonary disease): Qualifiers:
--- NOTE | 2022-01-14 12:23 | PM.PNGS ---
Progress Note: A&P Assessment and Plan (1) Cholecystitis with cholelithiasis: Code(s): K80.10 - Calculus of gallbladder with chronic cholecystitis without obstruction Status: Acute Assessment and Plan: cont to have symptoms, will plan for cholecystectomy tomorrow Subjective Subjective Date/Time Seen: 01/14/22 12:33 pm still c/o upper abd pain, martha after eating, teodora low fat diet Review of Systems Review of Systems: All systems reviewed & are unremarkable except as noted in HPI and below Exam Const: General: cooperative, comfortable, no acute distress and tired appearing Resp: Auscultation: clear to auscultation bilaterally Cardio: Rate: regular rate Rhythm: regular rhythm GI: Inspection: normal to inspection and distended GI Palp: Yes abdominal tenderness, Yes Soft to palpation, Yes Tenderness to palpation present (GI), No Guarding due to palpation present (GI) and No Rigid due to palpation Objective Data Vital Signs Vital Signs: Vital Signs - 24 hr 01/13/22 13:19 01/13/22 13:31 01/13/22 14:00 Temperature 36.2 C L Pulse Rate 68 66 79 Respiratory Rate 20 20 22 H Blood Pressure 111/61 Pulse Oximetry 95 Oxygen Delivery Oxygen Flow Rate Fraction of Inspired Oxygen 01/13/22 16:49 01/13/22 16:53 01/13/22 20:35 Temperature Pulse Rate 83 Respiratory Rate 16 Blood Pressure 97/65 L 97/65 L Pulse Oximetry 96 Oxygen Delivery Nasal Cannula Oxygen Flow Rate 1 Fraction of Inspired Oxygen 01/13/22 20:35 01/13/22 20:56 01/13/22 21:13 Temperature 36.3 C L Pulse Rate 83 83 86 Respiratory Rate 16 16 18 Blood Pressure 110/67 Pulse Oximetry 94 Oxygen Delivery Oxygen Flow Rate Fraction of Inspired Oxygen 01/13/22 20:00 01/14/22 03:07 01/14/22 05:44 Temperature 36.1 C L Pulse Rate 86 75 88 Respiratory Rate 18 16 18 Blood Pressure 123/78 Pulse Oximetry 94 96 Oxygen Delivery Nasal Cannula Oxygen Flow Rate 2 Fraction of Inspired Oxygen 2 01/14/22 08:24 01/14/22 08:27 01/14/22 08:31 Temperature Pulse Rate 88 85 Respiratory Rate 20 Blood Pressure Pulse Oximetry 90 Oxygen Delivery Room Air Oxygen Flow Rate Fraction of Inspired Oxygen 01/14/22 08:41 01/14/22 08:00 Temperature Pulse Rate 82 Respiratory Rate 18 Blood Pressure Pulse Oximetry 92 Oxygen Delivery Nasal Cannula Oxygen Flow Rate 1 Fraction of Inspired Oxygen Intake/Output Intake/Output: Intake & Output 01/11/22 01/12/22 01/13/22 01/14/22 23:59 23:59 23:59 23:59 Intake Total 2300 540 1100 780 Output Total 2150 1850 1825 400 Balance 150 1310 -725 380 Meds/Results Medications: Active Medications Generic Name Dose Route Start Last Admin Trade Name Freq PRN Reason Stop Dose Admin Albuterol 1.25 mg 01/08/22 14:00 01/14/22 08:26 Albuterol Sulfate Neb 2.5 Mg/3 Ml Inh INHALATION 1.25 mg Q6HRT ROBERT Administration Atorvastatin Calcium 20 mg 01/07/22 09:00 01/14/22 08:24 Atorvastatin 20 Mg Tablet PO 20 mg DAILY ROBERT Administration Bumetanide 1 mg 01/07/22 17:00 01/13/22 16:48 Bumetanide 1 Mg Tablet PO Not Given BID ROBERT Chlordiazepoxide HCl 10 mg 01/08/22 08:35 Chlordiazepoxide (*Crx) 10 Mg Capsule PO Q6H PRN Anxiety Diazepam 5 mg 01/08/22 13:30 Diazepam Inj (*Crx) 10 Mg/2 Ml Syringe IV PUSH Q6H PRN Alcohol Withdrawal Docusate Sodium 100 mg 01/10/22 17:40 01/10/22 17:47 Docusate Sodium 100 Mg Capsule PO 100 mg Q12H PRN Administration Constipation Enoxaparin Sodium 40 mg 01/08/22 09:00 01/13/22 08:54 Enoxaparin 40 Mg/0.4 Ml Syringe SUB-Q 40 mg DAILY ROBERT Administration Finasteride 10 mg 01/07/22 09:00 01/14/22 08:23 Finasteride 5 Mg Tablet PO 10 mg DAILY ROBERT Administration Folic Acid 1 mg 01/08/22 09:00 01/14/22 08:24 Folic Acid 1 Mg Tablet PO 1 mg DAILY ROBERT Administration Levofloxacin/Dextrose
[2022-01-14] MEDS: FLUTICASONE/UMECLIDIN/VILANTER 100-62.5-25 MCG ELLIPTA 1 PUFF INHALATION (15:26)
[2022-01-14] MEDS: SENNA/DOCUSATE SODIUM TABLET 1 TAB PO (17:55)
[2022-01-14] MEDS: TAMSULOSIN HCL 0.4 MG CAPSULE PO (21:58)
[2022-01-15] VITALS (9 sets, daily range): BP systolic 110–129; BP diastolic 72–80; PULSE 80–89; RESP 16–18; TEMP 36.5–36.9; O2SAT 91–97
[2022-01-15] MEDS: metroNIDAZOLE 500 MG/ISO 100ML 500 MG/100 ML BAG 100 MG IVPB ×3 (05:49→22:58)
[2022-01-15 05:55] LABS: Hematocrit 45.4 % (42.0-52.0); Hemoglobin 14.8 g/dL (14.0-18.0); Mean Corpuscular HGB Conc 32.6 g/dl (32-36); Mean Corpuscular Hemoglobin 30.2 pg (26-34); Mean Corpuscular Volume 92.7 fl (80-100); Mean Platelet Volume 10.1 fl (7.4-10.4); Platelet Count Result 187 k/mm3 (150-375); Red Cell Distribution Width 13.5 % (11.5-14.5); White Blood Count 9.2 K/mm3 (4.5-10.0)
[2022-01-15 06:02] LABS: INR 1.1; Prothrombin Time 13.5 Seconds (11.1-14.7)
[2022-01-15 06:03] LABS: Partial Thromboplastin Time 32.8 SECONDS (22.3-36.8)
[2022-01-15 06:08] LABS: Alanine Aminotransferase 36 U/L (6-50); Albumin Level 2.8 g/dL (3.5-5.1); Alkaline Phosphatase 59 U/L (38-126); Anion Gap 1 mmol/L (8-16); Aspartate Amino Transferase 37 U/L (17-59); Bilirubin,Total 0.8 mg/dL (0.2-1.3); Blood Urea Nitrogen 18 mg/dL (9-20); Calcium 8.1 mg/dL (8.4-10.2); Carbon Dioxide 36 mmol/L (22-30); Chloride 93 mmol/L (98-107); Estimated CRCL calculation 82 ml/min; Estimated Glomerular Filt Rate > 60; Glucose 86 mg/dL (65-110); Potassium 3.9 mmol/L (3.4-5.0); Sodium 130 mmol/L (137-145)
--- NOTE | 2022-01-15 08:20 | P.PNIM_ITS ---
Progress Note: A&P Assessment and Plan (1) Acute respiratory failure: Code(s): J96.00 - Acute respiratory failure, unspecified whether with hypoxia or hypercapnia Status: Acute Assessment and Plan: Patient reports subjective improvement, adequate sats on RA * CT of the chest shows emphysema and pulmonary nodule. * incentive spirometer and Cornet Therapy * Continue antibiotic therapy for for acute vs chronic cholecystectomy- Levaquin will cover resp pathogens. * Patient with 2L O2 now and c/o SOB - 01/12/2022 repeat cxr- continues to show low lung volumes but otherwise unchanged. * Continue to monitor respiratory status - wean O2 * 01/14/22 Trelegy added. * He will need home O2 eval if unable to wean prior to discharge. (2) Bilateral hydronephrosis: Code(s): N13.30 - Unspecified hydronephrosis Status: Acute Assessment and Plan: * CT shows urinary retention with bilateral hydronephrosis * catheter was placed upon admission. Voiding trial was attempted the patient had PVR greater than 700 while on finasteride and tamsulosin. He reports seeing a urologist outpatient and recently started on tamsulosin. * 01/11/2022 Posey catheter reinserted, patient will be discharged with catheter and follow-up with Urology in 1-[address] for monitoring of hydronephrosis * stable (3) BPH (benign prostatic hyperplasia): Qualifiers: Lower urinary tract symptom detail: urinary retention Lower urinary tract symptom presence: symptoms present Qualified Code(s): N40.1 - Benign prostatic hyperplasia with lower urinary tract symptoms; R33.8 - Other retention of urine Code(s): N40.0 - Benign prostatic hyperplasia without lower urinary tract symptoms Status: Acute Assessment and Plan: Chronic with acute urinary retention this hospital stay. * CT indicates urinary retention with bilateral hydronephrosis * patient failed voiding trial. PVR greater than 700 mL in Posey reinserted 01/11/22 * continue tamsulosin and finasteride. Patient to follow up with Urology outpatient. He reports more recently starting tamsulosin 2 weeks prior to admission. * continue Posey catheter at discharge. The patient can follow-up with his urologist outpatient for removal in a few weeks. (4) Pneumonia: Qualifiers: Laterality: bilateral Lung location: lower lobe of lung Pneumonia type: due to unspecified organism Qualified Code(s): J18.9 - Pneumonia, un specified organism Code(s): J18.9 - Pneumonia, unspecified organism Status: Acute Assessment and Plan: chest x-ray indicates bibasilar opacities. CTA indicates atelectasis or scarring of the bilateral lower lobes * azithromycin and ceftriaxone IV empiric therapy started 01/06 - 01/10; 01/11-01/13 oral cefuroxime 500 mg p.o. b.i.d. * 01/13/22 stopped cefuroxime d/t starting levaquin & metronidazole for acute worsening of chronic cholecystitis. * No leukocytosis and afebrile. * 01/13/22 Repeat CXR- continues to show low lung volumes and essentially unchanged from previous * Continue management for COPD exacerbation (5) Cholelithiasis: Qualifiers: Biliary obstruction: without biliary obstruction Cholecystitis presence: without cholecystitis Cholelithiasis location: gallbladder Qualified Code(s): K80.20 - Calculus of gallbladder without cholecystitis without obstruction Code(s): K80.20 - Calculus of gallbladder without cholecystitis without obstruction Status: Acute Assessment and Plan: * noted on CT scan, incidental finding.
--- NOTE | 2022-01-15 08:20 | PM.IMPN ---
Progress Note: A&P Assessment and Plan (1) Acute respiratory failure: Code(s): J96.00 - Acute respiratory failure, unspecified whether with hypoxia or hypercapnia Status: Acute Assessment and Plan: Patient reports subjective improvement, adequate sats on RA CT of the chest shows emphysema and pulmonary nodule. incentive spirometer and Cornet Therapy Continue antibiotic therapy for for acute vs chronic cholecystectomy- Levaquin will cover resp pathogens. Patient with 2L O2 now and c/o SOB - 01/12/2022 repeat cxr- continues to show low lung volumes but otherwise unchanged. Continue to monitor respiratory status - wean O2 01/14/22 Trelegy added. He will need home O2 eval if unable to wean prior to discharge. (2) Bilateral hydronephrosis: Code(s): N13.30 - Unspecified hydronephrosis Status: Acute Assessment and Plan: CT shows urinary retention with bilateral hydronephrosis catheter was placed upon admission. Voiding trial was attempted the patient had PVR greater than 700 while on finasteride and tamsulosin. He reports seeing a urologist outpatient and recently started on tamsulosin. 01/11/2022 Posey catheter reinserted, patient will be discharged with catheter and follow-up with Urology in 1-[address] for monitoring of hydronephrosis stable (3) BPH (benign prostatic hyperplasia): Qualifiers: Lower urinary tract symptom detail: urinary retention Lower urinary tract symptom presence: symptoms present Qualified Code(s): N40.1 - Benign prostatic hyperplasia with lower urinary tract symptoms; R33.8 - Other retention of urine Code(s): N40.0 - Benign prostatic hyperplasia without lower urinary tract symptoms Status: Acute Assessment and Plan: Chronic with acute urinary retention this hospital stay. CT indicates urinary retention with bilateral hydronephrosis patient failed voiding trial. PVR greater than 700 mL in Posey reinserted 01/11/22 continue tamsulosin and finasteride. Patient to follow up with Urology outpatient. He reports more recently starting tamsulosin 2 weeks prior to admission. continue Posey catheter at discharge. The patient can follow-up with his urologist outpatient for removal in a few weeks. (4) Pneumonia: Qualifiers: Laterality: bilateral Lung location: lower lobe of lung Pneumonia type: due to unspecified organism Qualified Code(s): J18.9 - Pneumonia, unspecified organism Code(s): J18.9 - Pneumonia, unspecified organism Status: Acute Assessment and Plan: chest x-ray indicates bibasilar opacities. CTA indicates atelectasis or scarring of the bilateral lower lobes azithromycin and ceftriaxone IV empiric therapy started 01/06 - 01/10; 01/11-01/13 oral cefuroxime 500 mg p.o. b.i.d. 01/13/22 stopped cefuroxime d/t starting levaquin & metronidazole for acute worsening of chronic cholecystitis. No leukocytosis and afebrile. 01/13/22 Repeat CXR- continues to show low lung volumes and essentially unchanged from previous Continue management for COPD exacerbation (5) Cholelithiasis: Qualifiers: Biliary obstruction: without biliary obstruction Cholecystitis presence: without cholecystitis Cholelithiasis location: gallbladder Qualified Code(s): K80.20 - Calculus of gallbladder without cholecystitis without obstruction Code(s): K80.20 - Calculus of gallbladder without cholecystitis without obstruction Status: Acute Assessment and Plan: noted on CT scan, incidental finding. Patient now with epigastric and right upper quadrant pain. 01/12/22 right upper quadrant ultrasound evidence of cholelithiasis with gallbladder wall thickening concerning for chronic cholelithiasis. 01/13/22 Consult General Surgery, as patient is now c/o bloating, diaphoresis, RUQ pain after eating. Make NPO. Start IV Levaquin 750 mg Q24 hours and IV Metronidazole 500 mg Q8 hours.
[2022-01-15] MEDS: FLUTICASONE/UMECLIDIN/VILANTER 100-62.5-25 MCG ELLIPTA 1 PUFF INHALATION (08:39)
[2022-01-15] MEDS: METOPROLOL SUCCINATE EXT REL 25 MG TABCR PO (10:04)
[2022-01-15] MEDS: PANTOPRAZOLE SODIUM IV 40 MG VIAL IV PUSH (10:05)
--- NOTE | 2022-01-15 16:34 | PM.PNGS ---
Progress Note: A&P Assessment and Plan (1) Cholecystitis with cholelithiasis: Code(s): K80.10 - Calculus of gallbladder with chronic cholecystitis without obstruction Status: Acute Assessment and Plan: will plan for OR tomorrow, low fat diet for now, NPO p MN Subjective Subjective Date/Time Seen: 01/15/22 16:34 feels ok, still c/o bloating, nausea, upper abd discomfort, teodora some low fat diet but poor appetite Review of Systems Review of Systems: All systems reviewed & are unremarkable except as noted in HPI and below Exam Const: General: cooperative, no acute distress and ill appearing Resp: Auscultation: diminished lung sounds Cardio: Rate: regular rate Rhythm: regular rhythm GI: Inspection: normal to inspection and distended GI Palp: Yes abdominal tenderness, Yes Soft to palpation, Yes Tenderness to palpation present (GI), No Guarding due to palpation present (GI) and No Rigid due to palpation Objective Data Vital Signs Vital Signs: Vital Signs - 24 hr 01/14/22 21:46 01/14/22 20:40 01/15/22 06:00 Temperature 36.6 C 36.8 C Pulse Rate 76 76 83 Respiratory Rate 17 17 17 Blood Pressure 114/71 129/80 Pulse Oximetry 96 96 96 Oxygen Delivery Room Air Oxygen Flow Rate Fraction of Inspired Oxygen 2 01/15/22 08:41 01/15/22 08:42 01/15/22 08:45 Temperature Pulse Rate 89 89 89 Respiratory Rate 16 18 16 Blood Pressure Pulse Oximetry 91 Oxygen Delivery Nasal Cannula Oxygen Flow Rate 1 Fraction of Inspired Oxygen 01/15/22 08:00 01/15/22 14:00 Temperature 36.9 C Pulse Rate 89 83 Respiratory Rate 16 16 Blood Pressure 110/72 Pulse Oximetry 91 97 Oxygen Delivery Nasal Cannula Oxygen Flow Rate 2 Fraction of Inspired Oxygen 2 Intake/Output Intake/Output: Intake & Output 01/12/22 01/13/22 01/14/22 01/15/22 23:59 23:59 23:59 23:59 Intake Total 540 1100 1610 100 Output Total 1850 1825 9396 606 Balance -4463 -742 460 -298 Meds/Results Medications: Active Medications Generic Name Dose Route Start Last Admin Trade Name Freq PRN Reason Stop Dose Admin Albuterol 1.25 mg 01/14/22 12:39 Albuterol Sulfate Neb 2.5 Mg/3 Ml Inh INHALATION Q6HRT PRN Shortness Of Breath Or Wheezing Atorvastatin Calcium 20 mg 01/07/22 09:00 01/14/22 08:24 Atorvastatin 20 Mg Tablet PO 20 mg DAILY ROBERT Administration Bumetanide 1 mg 01/07/22 17:00 01/13/22 16:48 Bumetanide 1 Mg Tablet PO Not Given BID ROBERT Chlordiazepoxide HCl 10 mg 01/08/22 08:35 Chlordiazepoxide (*Crx) 10 Mg Capsule PO Q6H PRN Anxiety Diazepam 5 mg 01/08/22 13:30 Diazepam Inj (*Crx) 10 Mg/2 Ml Syringe IV PUSH Q6H PRN Alcohol Withdrawal Docusate Sodium 100 mg 01/10/22 17:40 01/10/22 17:47 Docusate Sodium 100 Mg Capsule PO 100 mg Q12H PRN Administration Constipation Enoxaparin Sodium 40 mg 01/08/22 09:00 01/13/22 08:54 Enoxaparin 40 Mg/0.4 Ml Syringe SUB-Q 40 mg DAILY ROBERT Administration Finasteride 10 mg 01/07/22 09:00 01/14/22 08:23 Finasteride 5 Mg Tablet PO 10 mg DAILY ROBERT Administration Fluticasone/Umeclidinium/Vilanterol 1 puff 01/14/22 13:00 01/15/22 08:39 Fluticasone/Umeclidin/Vilanter 100-62.5-25 Mcg Ellipta INHALATION 1 puff DAILYRT ROBERT Administration Folic Acid 1 mg 01/08/22 09:00 01/14/22 08:24 Folic Acid 1 Mg Tablet PO 1 mg DAILY ROBERT Administration Levofloxacin/Dextrose 750 mg in 150 mls @ 100 mls/hr 01/13/22 12:00 01/15/22 12:48 Levaquin 750 Mg/D5w 150 Ml IVPB 100 mls/hr NOON ROBERT Administration Metronidazole 500 mg in 100 mls @ 100 mls/hr 01/13/22 14:00 01/15/22 15:33 Flagyl 500 Mg/Iso Soln 100 Ml IVPB 100 mls/hr Q8HR ROBERT Administration Lactated Ringer's 1,000 mls @ 30 mls/hr 01/15/22 11:05 Lr - Lactated Ringers Iv IV CONT .Q24H [facility] Ipratropium [place] 0.5 mg 01/14/22 12:39 Ipratropium Br 0.02% Inh Soln 0.5 Mg/2.5 Ml
[2022-01-15] MEDS: LACTATED RINGERS 1,000 ML 30 ML IV CONT (20:37)
[2022-01-15] MEDS: TAMSULOSIN HCL 0.4 MG CAPSULE PO (20:37)
[2022-01-16] VITALS (28 sets, daily range): BP systolic 97–143; BP diastolic 58–112; PULSE 76–102; RESP 16–37; TEMP 35.7–36.6; O2SAT 94–100
[2022-01-16] MEDS: metroNIDAZOLE 500 MG/ISO 100ML 500 MG/100 ML BAG 100 MG IVPB ×3 (05:47→22:26)
[2022-01-16 05:57] LABS: Hematocrit 47.2 % (42.0-52.0); Hemoglobin 15.2 g/dL (14.0-18.0); Mean Corpuscular HGB Conc 32.2 g/dl (32-36); Mean Corpuscular Hemoglobin 29.8 pg (26-34); Mean Corpuscular Volume 92.5 fl (80-100); Mean Platelet Volume 9.9 fl (7.4-10.4); Platelet Count Result 178 k/mm3 (150-375); Red Cell Distribution Width 13.3 % (11.5-14.5); White Blood Count 9.5 K/mm3 (4.5-10.0)
[2022-01-16 06:07] LABS: Alanine Aminotransferase 42 U/L (6-50); Albumin Level 3.2 g/dL (3.5-5.1); Alkaline Phosphatase 64 U/L (38-126); Anion Gap 10 mmol/L (8-16); Aspartate Amino Transferase 44 U/L (17-59); Bilirubin,Total 0.8 mg/dL (0.2-1.3); Blood Urea Nitrogen 21 mg/dL (9-20); Carbon Dioxide 32 mmol/L (22-30); Chloride 90 mmol/L (98-107); Estimated CRCL calculation 73 ml/min; Estimated Glomerular Filt Rate > 60; Glucose 94 mg/dL (65-110); Potassium 4.1 mmol/L (3.4-5.0); Sodium 132 mmol/L (137-145)
--- NOTE | 2022-01-16 08:07 | PC.NURSE ---
Spoke with Natalie is pre-op. She states it is okay for patient to receive metoprolol 25 mg before surgery, but to hold the rest of his medications until after. Will give other medications as ordered after surgery today
[2022-01-16] MEDS: METOPROLOL SUCCINATE EXT REL 25 MG TABCR PO (08:12)
[2022-01-16] MEDS: FLUTICASONE/UMECLIDIN/VILANTER 100-62.5-25 MCG ELLIPTA 1 PUFF INHALATION (08:27)
--- NOTE | 2022-01-16 09:30 | PM.IMPN ---
Progress Note: A&P Assessment and Plan (1) Acute respiratory failure: Code(s): J96.00 - Acute respiratory failure, unspecified whether with hypoxia or hypercapnia Status: Acute Assessment and Plan: Patient reports subjective improvement, adequate sats on RA CT of the chest shows emphysema and pulmonary nodule. incentive spirometer and Cornet Therapy Continue antibiotic therapy for for acute vs chronic cholecystectomy- Levaquin will cover resp pathogens. Patient with 2L O2 now and c/o SOB - 01/12/2022 repeat cxr- continues to show low lung volumes but otherwise unchanged. Continue to monitor respiratory status - wean O2 01/14/22 Trelegy added. He will need home O2 eval if unable to wean prior to discharge. (2) Bilateral hydronephrosis: Code(s): N13.30 - Unspecified hydronephrosis Status: Acute Assessment and Plan: CT shows urinary retention with bilateral hydronephrosis Catheter was placed upon admission. Voiding trial was attempted the patient had PVR greater than 700 while on finasteride and tamsulosin. He reports seeing a urologist outpatient and recently started on tamsulosin. 01/11/2022 Posey catheter reinserted, patient will be discharged with catheter and follow-up with Urology in 1-[address] for monitoring of hydronephrosis Stable (3) BPH (benign prostatic hyperplasia): Qualifiers: Lower urinary tract symptom detail: urinary retention Lower urinary tract symptom presence: symptoms present Qualified Code(s): N40.1 - Benign prostatic hyperplasia with lower urinary tract symptoms; R33.8 - Other retention of urine Code(s): N40.0 - Benign prostatic hyperplasia without lower urinary tract symptoms Status: Acute Assessment and Plan: Chronic with acute urinary retention this hospital stay. CT indicates urinary retention with bilateral hydronephrosis patient failed voiding trial. PVR greater than 700 mL in Posey reinserted 01/11/22 continue tamsulosin and finasteride. Patient to follow up with Urology outpatient. He reports more recently starting tamsulosin 2 weeks prior to admission. continue Posey catheter at discharge. The patient can follow-up with his urologist outpatient for removal in a few weeks. (4) Pneumonia: Qualifiers: Laterality: bilateral Lung location: lower lobe of lung Pneumonia type: due to unspecified organism Qualified Code(s): J18.9 - Pneumonia, unspecified organism Code(s): J18.9 - Pneumonia, unspecified organism Status: Acute Assessment and Plan: chest x-ray indicates bibasilar opacities. CTA indicates atelectasis or scarring of the bilateral lower lobes azithromycin and ceftriaxone IV empiric therapy started 01/06 - 01/10; 01/11-01/13 oral cefuroxime 500 mg p.o. b.i.d. 01/13/22 stopped cefuroxime d/t starting Levaquin & metronidazole for acute worsening of chronic cholecystitis. No leukocytosis and afebrile. 01/13/22 Repeat CXR- continues to show low lung volumes and essentially unchanged from previous Continue management for COPD exacerbation (5) Cholelithiasis: Qualifiers: Biliary obstruction: without biliary obstruction Cholecystitis presence: without cholecystitis Cholelithiasis location: gallbladder Qualified Code(s): K80.20 - Calculus of gallbladder without cholecystitis without obstruction Code(s): K80.20 - Calculus of gallbladder without cholecystitis without obstruction Status: Acute Assessment and Plan: POD [address] scan, incidental finding. Patient now with epigastric and right upper quadrant pain. 01/12/22 right upper quadrant ultrasound evidence of cholelithiasis with gallbladder wall thickening concerning for chronic cholelithiasis. 01/13/22 Consult General Surgery, as patient is now c/o bloating, diaphoresis, RUQ pain after eating. Make NPO. Start IV Levaquin 750 mg Q24 hours and IV Metronidazo
--- NOTE | 2022-01-16 09:30 | P.PNIM_ITS ---
Progress Note: A&P Assessment and Plan (1) Acute respiratory failure: Code(s): J96.00 - Acute respiratory failure, unspecified whether with hypoxia or hypercapnia Status: Acute Assessment and Plan: * Patient reports subjective improvement, adequate sats on RA * CT of the chest shows emphysema and pulmonary nodule. * incentive spirometer and Cornet Therapy * Continue antibiotic therapy for for acute vs chronic cholecystectomy- Levaquin will cover resp pathogens. * Patient with 2L O2 now and c/o SOB - 01/12/2022 repeat cxr- continues to show low lung volumes but otherwise unchanged. * Continue to monitor respiratory status - wean O2 * 01/14/22 Trelegy added. * He will need home O2 eval if unable to wean prior to discharge. (2) Bilateral hydronephrosis: Code(s): N13.30 - Unspecified hydronephrosis Status: Acute Assessment and Plan: * CT shows urinary retention with bilateral hydronephrosis * Catheter was placed upon admission. Voiding trial was attempted the patient had PVR greater than 700 while on finasteride and tamsulosin. He reports see ing a urologist outpatient and recently started on tamsulosin. * 01/11/2022 Posey catheter reinserted, patient will be discharged with catheter and follow-up with Urology in 1-[address] for monitoring of hydronephrosis * Stable (3) BPH (benign prostatic hyperplasia): Qualifiers: Lower urinary tract symptom detail: urinary retention Lower urinary tract symptom presence: symptoms present Qualified Code(s): N40.1 - Benign pros tatic hyperplasia with lower urinary tract symptoms; R33.8 - Other retention of urine Code(s): N40.0 - Benign prostatic hyperplasia without lower urinary tract symptoms Status: Acute Assessment and Plan: * Chronic with acute urinary retention this hospital stay. * CT indicates urinary retention with bilateral hydronephrosis * patient failed voiding trial. PVR greater than 700 mL in Posey reinserted 01/11/22 * continue tamsulosin and finasteride. Patient to follow up with Urology outpatient. He reports more recently starting tamsulosin 2 weeks prior to admission. * continue Posey catheter at discharge. The patient can follow-up with his urologist outpatient for removal in a few weeks. (4) Pneumonia: Qualifiers: Laterality: bilateral Lung location: lower lobe of lung Pneumonia type: due to unspecified organism Qualified Code(s): J18.9 - Pneumonia, unspecified organism Code(s): J18.9 - Pneumonia, unspecified organism Status: Acute Assessment and Plan: * chest x-ray indicates bibasilar opacities. * CTA indicates atelectasis or scarring of the bilateral lower lobes * azithromycin and ceftriaxone IV empiric therapy started 01/06 - 01/10; 01/11-01/13 oral cefuroxime 500 mg p.o. b.i.d. * 01/13/22 stopped cefuroxime d/t starting Levaquin & metronidazole for acute worsening of chronic cholecystitis. * No leukocytosis and afebrile. * 01/13/22 Repeat CXR- continues to show low lung volumes and essentially unchanged from previous * Continue management for COPD exacerbation (5) Cholelithiasis: Qualifiers: Biliary obstruction: without biliary obstruction Cholecystitis presence: without cholecystitis Cholelithiasis location: gallbladder Qualified Code(s): K80.20 - Calculus of gallbladder without cholecystitis without ob struction Code(s): K80.20 - Calculus of gallbladder without cholecystitis without obstruction Status: Acute Assessment and Plan:
[2022-01-16] MEDS: LACTATED RINGERS 1,000 ML 30 ML IV CONT (10:10)
--- NOTE | 2022-01-16 10:13 | WPDANESEPPF ---
Anes - Initial Pre Proc Eval Procedure: Operation Date: 01/16/22 11:00 Proposed Procedures p Laparoscopic Cholecystectomy - Anamika Izquierdo MD Date/Time: 01/16/22 10:13 Surgeon: TATO Boothe Pre Op Diagnosis: COPD exacerbation Patient Data Age: 76 Gender: M Height: 1.73 m Weight: 91.3 kg Last Vital Signs Temp 36.2 C L 01/16/22 08:10 Pulse 80 01/16/22 08:12 Resp 16 01/16/22 08:10 BP 110/68 01/16/22 08:10 Pulse Ox 94 01/16/22 08:27 O2 Del Method Nasal Cannula 01/16/22 08:27 O2 Flow Rate 2 01/16/22 08:27 FiO2 2 01/15/22 08:00 Allergies Allergy/AdvReac Type Severity Reaction Status Date / Time No Known Allergies Allergy Unknown Verified 01/02/22 15:05 Home Medications Medication Instructions Recorded Confirmed Type bumetanide 1 mg tablet 2 mg PO DAILY 07/06/20 01/07/22 History finasteride 5 mg tablet 10 mg PO DAILY 07/06/20 01/07/22 History losartan 100 mg tablet 100 mg PO DAILY 07/06/20 01/07/22 History metoprolol succinate 25 mg 25 mg PO DAILY 07/06/20 01/07/22 History tablet,extended release 24 hr (Toprol XL) potassium chloride 10 mEq 10 meq PO DAILY #90 tabs 08/28/20 01/07/22 Rx tablet,extended release albuterol sulfate 90 mcg/actuation See Rx Instructions .Route 10/25/21 01/07/22 Rx aerosol inhaler .COMPLEX #8.5 grams atorvastatin 20 mg tablet 20 mg PO DAILY 11/23/21 01/07/22 History budesonide 160 mcg-glycopyr 9 2 inh inhalation BID #10.7 grams 12/31/21 01/07/22 Rx mcg-formot 4.8 mcg/actuation HFA inhaler (Breztri Aerosphere) tamsulosin 0.4 mg capsule 0.4 mg PO HS 01/02/22 01/07/22 History Laboratory Tests 01/16/22 01/16/22 05:44 05:44 WBC 9.5 K/mm3 K/mm3 (4.5-10.0) RBC 5.10 M/mm3 M/mm3 (4.6-6.20) Hgb 15.2 g/dL g/dL (14.0-18.0) Hct 47.2 % % (42.0-52.0) MCV 92.5 fl fl (80-100) MCH 29.8 pg pg (26-34) MCHC 32.2 g/dl g/dl (32-36) RDW 13.3 % % (11.5-14.5) Plt Count 178 k/mm3 k/mm3 (150-375) MPV 9.9 fl fl (7.4-10.4) Sodium 132 mmol/L L mmol/L (137-145) Potassium 4.1 mmol/L mmol/L (3.4-5.0) Chloride 90 mmol/L L mmol/L (98-107) Carbon Dioxide 32 mmol/L H mmol/L (22-30) Anion Gap 10 mmol/L mmol/L (8-16) BUN 21 mg/dL H mg/dL (9-20) Creatinine 0.80 mg/dL mg/dL (0.7-1.3) Estim Creat Clear Calc 73 ml/min ml/min Estimated GFR > 60 (59 - ) Glucose 94 mg/dL mg/dL (65-110) Calcium 8.0 mg/dL L mg/dL (8.4-10.2) Total Bilirubin 0.8 mg/dL mg/dL (0.2-1.3) AST 44 U/L U/L (17-59) ALT 42 U/L U/L (6-50) Alkaline Phosphatase 64 U/L U/L (38-126) Total Protein 6.0 g/dL L g/dL (6.3-8.2) Albumin 3.2 g/dL L g/dL (3.5-5.1) Patient hx anesthesia problems: none Family hx anesthesia problems: none Results Review: All pre-operative results and documents have been reviewed as part of the pre-operative evaluation. [facility] Past Medical History Medical History Body mass index (BMI) of 30 to 39 in adult Change in bowel habit COPD (chronic obstructive pulmonary disease) CORBIN (dyspnea on exertion) Encounter for immunization Fecal occult blood test positive History of MN (myocardial infarction) Hyperlipidemia Hypertension Prediabetes Pulmonary nodule Sleeps in sitting position due to orthopnea Surgical History Surgical History H/O umbilical hernia repair History of partial surgical removal of colon History of total right knee replacement Family History Family History Mother Carcinoma of colon Family history of malignant neoplasm of breast in first degree relative Breast cancer Sibling Malignant neoplasm of prostate Social History Social History
--- NOTE | 2022-01-16 10:13 | WPDHPUPDATE1 ---
History and Physical Update Update Date/Time: 01/16/22 10:13 History and Physical has been reviewed, including an updated exam of the patient. There are NO changes in the patient's condition. Risks, benefits, and alternatives have been discussed and questions answered. Patient agrees to proceed with procedure.
[2022-01-16] MEDS: BUPIVACAINE/EPINEPHRINE 0.25% 50 ML VIAL 30 ML INFILTRATE (11:00)
--- NOTE | 2022-01-16 11:30 | W.PM.PROC2 ---
Procedure Note - Detailed Date of Procedure 01/16/22 Pre-op Diagnosis cholecystitis, cholelithiasis Post-op Diagnosis Same Procedure Performed Laparoscopic cholecystectomy Surgeon Anamika Izquierdo MD Anesthesia General Indications 76-year-old female presented to the hospital complaining of postprandial right upper quadrant abdominal pain associated with nausea and vomiting. Workup including imaging significant for cholecystitis, cholelithiasis. Findings Cholecystitis with cholelithiasis Description of Procedure The patient was taken to the operating room placed in the supine position. After adequate induction of general anesthesia, the patient was prepped and draped in normal sterile fashion. A time-out was then performed to verify the patient's identity as well as the procedure being performed. I then made a 5 mm incision in the infraumbilical region. Through this, a Veress needle was placed into the peritoneal cavity and CO2 gas was then insufflated. After adequate pneumoperitoneum was achieved, the Veress needle was removed and a 5 mm optiview trocar was placed through this incision under direct visualization. I then placed the laparoscope through this trocar site and under direct visualization placed a further 12 mm subxiphoid port as well as 2 additional 5 mm ports in the right upper abdomen. There was noted to be adhesions to the anterior abdominal wall but we were able to visualize around these attachments. The gallbladder was then identified and was noted to be moderately inflamed, contracted, distended, and full of gallstones. I was able to place a grasper at the dome of the gallbladder and this was retracted anterior and cephalad up over the liver. A 2nd retractor was then placed at the infundibulum and retracted laterally, this allowed visualization of the triangle of Calot. I began by taking down the omental attachments to the gallbladder. I then was able to visualize the cystic duct in its entirety from its proximal insertion into the gallbladder, to its distal junction with the common hepatic/common bile duct junction. At this point, I carefully skeletonized the proximal cystic duct with the [place] dissector. I then clipped and transected the proximal cystic duct. Next I visualized the cystic artery. Again the artery was skeletonized, clipped, and transected. I then used the Bovie cautery to take down the peritoneal attachments of the gallbladder off the liver bed. This was somewhat difficult given the amount of inflammation in the posterior space. Once the gallbladder specimen was completely detached, an endo-pouch was placed through the 12 mm port site. I then placed the gallbladder specimen into the Endo pouch and removed the endo-pouch from the 12 mm port site. The specimen will now be sent to pathology for further review. I then copiously irrigated the right upper quadrant. Hemostasis was noted in the liver bed, the clips were noted to be in good position on both the cystic duct stump and the cystic artery stump. No other pathology was noted in the right upper quadrant. I then moved the laparoscope to the subxiphoid port. No iatrogenic injury or other pathology was noted in the lower abdomen. I then closed the 12 mm trocar site under direct visualization using the Chato cone and 0 Vicryl suture. At this point, the abdomen was desufflated and all ports removed. All port sites were then closed with 4.O Monocryl subcuticular sutures. Dermabond was placed on each incision. The patient tolerated the procedure well, was extubated in the operating room postoperative and will be transferred to the recovery room in stable condition Estimated Blood Loss 5 Drains No Packing No Pathology Yes Complications No immediate complications Condition Stable Disposition PACU [facility] Billing Surgery - Charge Forward: Surgery Billing
--- NOTE | 2022-01-16 11:48 | SUR.PHASEI ---
1135- PT ARRIVED TO PACU AT 1120. SITTING UP IN BED. LABORED BREATHING. RESP. RATE 38, OXYGEN LEVELS 93%. ON SIMPLE FACE MASK AT 10 L. PT STATED HE NEEDED TO SIT UP AND CAN NOT BREATH. DR. ROSA AT BEDSIDE. CALLED [facility] FOR PRN TREATMENT. PT UP TO RECLINER X 2 NURSES. TREATMENT GIVEN PER [facility].
--- NOTE | 2022-01-16 11:52 | PCPTNOTE ---
The patient treatment was not able to be completed on 01/16/22 due to patient out of room for procedure. Will plan to continue treatment per plan of care.
[2022-01-16] MEDS: fentaNYL CITRATE INJ (*CRX) 100 MCG/2 ML VIAL 25 MCG IV PUSH ×2 (12:00→12:08)
[2022-01-16] MEDS: FOLIC ACID 1 MG TABLET PO (14:00)
[2022-01-16] MEDS: THIAMINE HCL 100 MG TABLET PO (14:00)
[2022-01-16] MEDS: ATORVASTATIN 20 MG TABLET PO (14:00)
[2022-01-16] MEDS: FINASTERIDE 5 MG TABLET 10 MG PO (14:00)
[2022-01-16] MEDS: POTASSIUM CHLORIDE 10 MEQ TABLET.ER 20 MEQ PO (14:00)
[2022-01-16] MEDS: PANTOPRAZOLE SODIUM IV 40 MG VIAL IV PUSH (14:00)
--- NOTE | 2022-01-16 14:45 | PC.NURSE ---
This patient, Odilon Lee, was received from [facility] on 01/16/22 at 1330. Patient/family oriented to unit policies and routines. Report received from Patrizia
[2022-01-16] MEDS: SENNA/DOCUSATE SODIUM TABLET 1 TAB PO (17:00)
[2022-01-16] MEDS: TAMSULOSIN HCL 0.4 MG CAPSULE PO (22:28)
[2022-01-17] VITALS (18 sets, daily range): BP systolic 90–105; BP diastolic 58–65; PULSE 63–96; RESP 16–18; TEMP 36.1–36.9; O2SAT 93–100
[2022-01-17] MEDS: metroNIDAZOLE 500 MG/ISO 100ML 500 MG/100 ML BAG 100 MG IVPB (06:08)
[2022-01-17 06:14] LABS: Hematocrit 48.7 % (42.0-52.0); Hemoglobin 15.3 g/dL (14.0-18.0); Mean Corpuscular HGB Conc 31.4 g/dl (32-36); Mean Corpuscular Hemoglobin 30.4 pg (26-34); Mean Corpuscular Volume 96.8 fl (80-100); Mean Platelet Volume 10.3 fl (7.4-10.4); Platelet Count Result 189 k/mm3 (150-375); Red Blood Count 5.03 M/mm3 (4.6-6.20); Red Cell Distribution Width 13.7 % (11.5-14.5); White Blood Count 11.8 K/mm3 (4.5-10.0)
[2022-01-17 06:24] LABS: Alanine Aminotransferase 54 U/L (6-50); Albumin Level 3.3 g/dL (3.5-5.1); Alkaline Phosphatase 68 U/L (38-126); Anion Gap 6 mmol/L (8-16); Aspartate Amino Transferase 61 U/L (17-59); Bilirubin,Total 0.5 mg/dL (0.2-1.3); Blood Urea Nitrogen 20 mg/dL (9-20); Calcium 8.1 mg/dL (8.4-10.2); Carbon Dioxide 33 mmol/L (22-30); Chloride 93 mmol/L (98-107); Estimated CRCL calculation 81 ml/min; Estimated Glomerular Filt Rate > 60; Glucose 112 mg/dL (65-110); Magnesium 2.3 mg/dL (1.6-2.3); Potassium 4.9 mmol/L (3.4-5.0); Sodium 132 mmol/L (137-145)
[2022-01-17] MEDS: FLUTICASONE/UMECLIDIN/VILANTER 100-62.5-25 MCG ELLIPTA 1 PUFF INHALATION (07:16)
[2022-01-17] MEDS: ENOXAPARIN 40 MG/0.4 ML SYRINGE SUB-Q (08:05)
[2022-01-17] MEDS: FOLIC ACID 1 MG TABLET PO (08:05)
[2022-01-17] MEDS: FINASTERIDE 5 MG TABLET 10 MG PO (08:05)
[2022-01-17] MEDS: BUMETANIDE 1 MG TABLET PO (08:05)
[2022-01-17] MEDS: ATORVASTATIN 20 MG TABLET PO (08:05)
[2022-01-17] MEDS: LOSARTAN POTASSIUM 50 MG TABLET PO (08:05)
[2022-01-17] MEDS: PANTOPRAZOLE SODIUM IV 40 MG VIAL IV PUSH (08:06)
[2022-01-17] MEDS: THIAMINE HCL 100 MG TABLET PO (08:06)
[2022-01-17] MEDS: SENNA/DOCUSATE SODIUM TABLET 1 TAB PO ×2 (08:06→17:07)
[2022-01-17] MEDS: polyethylene glycoL 3350 17 GM POWD.PACK PO (08:06)
[2022-01-17] MEDS: POTASSIUM CHLORIDE 10 MEQ TABLET.ER 20 MEQ PO (08:06)
[2022-01-17] MEDS: METOPROLOL SUCCINATE EXT REL 25 MG TABCR PO (08:08)
--- NOTE | 2022-01-17 09:00 | PM.IMPN ---
Progress Note: A&P Assessment and Plan (1) Acute respiratory failure: Code(s): J96.00 - Acute respiratory failure, unspecified whether with hypoxia or hypercapnia Status: Acute Assessment and Plan: Patient reports subjective improvement, adequate sats on RA CT of the chest shows emphysema and pulmonary nodule. incentive spirometer and Cornet Therapy Continue antibiotic therapy for for acute vs chronic cholecystectomy- Levaquin will cover resp pathogens. Patient with 2L O2 now and c/o SOB - 01/12/2022 repeat cxr- continues to show low lung volumes but otherwise unchanged. Continue to monitor respiratory status - wean O2 to maintain saturation 01/14/22 Trelegy added. He will need home O2 eval if unable to wean prior to discharge. (2) Bilateral hydronephrosis: Code(s): N13.30 - Unspecified hydronephrosis Status: Acute Assessment and Plan: CT shows urinary retention with bilateral hydronephrosis Catheter was placed upon admission. Voiding trial was attempted the patient had PVR greater than 700 while on finasteride and tamsulosin. He reports seeing a urologist outpatient and recently started on tamsulosin. 01/11/2022 Posey catheter reinserted, patient will be discharged with catheter and follow-up with Urology in 1-[address] for monitoring of hydronephrosis Stable (3) BPH (benign prostatic hyperplasia): Qualifiers: Lower urinary tract symptom presence: symptoms present Lower urinary tract symptom detail: urinary retention Qualified Code(s): N40.1 - Benign prostatic hyperplasia with lower urinary tract symptoms; R33.8 - Other retention of urine Code(s): N40.0 - Benign prostatic hyperplasia without lower urinary tract symptoms Status: Acute Assessment and Plan: Chronic with acute urinary retention this hospital stay. CT indicates urinary retention with bilateral hydronephrosis patient failed voiding trial. PVR greater than 700 mL in Posey reinserted 01/11/22 continue tamsulosin and finasteride. Patient to follow up with Urology outpatient. He reports more recently starting tamsulosin 2 weeks prior to admission. continue Posey catheter at discharge. The patient can follow-up with his urologist outpatient for removal in a few weeks. (4) Pneumonia: Qualifiers: Pneumonia type: due to unspecified organism Laterality: bilateral Lung location: lower lobe of lung Qualified Code(s): J18.9 - Pneumonia, unspecified organism Code(s): J18.9 - Pneumonia, unspecified organism Status: Acute Assessment and Plan: chest x-ray indicates bibasilar opacities. CTA indicates atelectasis or scarring of the bilateral lower lobes azithromycin and ceftriaxone IV empiric therapy started 01/06 - 01/10; 01/11-01/13 oral cefuroxime 500 mg p.o. b.i.d. 01/13/22 stopped cefuroxime d/t starting Levaquin & metronidazole for acute worsening of chronic cholecystitis. No leukocytosis and afebrile. 01/13/22 Repeat CXR- continues to show low lung volumes and essentially unchanged from previous Continue management for COPD exacerbation (5) Cholelithiasis: Qualifiers: Cholelithiasis location: gallbladder Cholecystitis presence: without cholecystitis Biliary obstruction: without biliary obstruction Qualified Code(s): K80.20 - Calculus of gallbladder without cholecystitis without obstruction Code(s): K80.20 - Calculus of gallbladder without cholecystitis without obstruction Status: Acute Assessment and Plan: POD [address] scan, incidental finding. Patient now with epigastric and right upper quadrant pain. 01/12/22 right upper quadrant ultrasound evidence of cholelithiasis with gallbladder wall thickening concerning for chronic cholelithiasis. 01/13/22 Consult General Surgery, as patient is now c/o bloating, diaphoresis, RUQ pain after eating. Make NPO. Start IV Levaquin 750 mg Q24
--- NOTE | 2022-01-17 09:00 | P.PNIM_ITS ---
Progress Note: A&P Assessment and Plan (1) Acute respiratory failure: Code(s): J96.00 - Acute respiratory failure, unspecified whether with hypoxia or hypercapnia Status: Acute Assessment and Plan: * Patient reports subjective improvement, adequate sats on RA * CT of the chest shows emphysema and pulmonary nodule. * incentive spirometer and Cornet Therapy * Continue antibiotic therapy for for acute vs chronic cholecystectomy- Levaquin will cover resp pathogens. * Patient with 2L O2 now and c/o SOB - 01/12/2022 repeat cxr- continues to show low lung volumes but otherwise unchanged. * Continue to monitor respiratory status - wean O2 to maintain saturation * 01/14/22 Trelegy added. * He will need home O2 eval if unable to wean prior to discharge. (2) Bilateral hydronephrosis: Code(s): N13.30 - Unspecified hydronephrosis Status: Acute Assessment and Plan: * CT shows urinary retention with bilateral hydronephrosis * Catheter was placed upon admission. Voiding trial was attempted the patient had PVR greater than 700 while on finasteride and tamsulosin. He reports seeing a urologist outpatient and recently started on tamsulosin. * 01/11/2022 Posey catheter reinserted, patient will be discharged with catheter and follow-up with Urology in 1-[address] for monitoring of hydronephrosis * Stable (3) BPH (benign prostatic hyperplasia): Qualifiers: Lower urinary tract symptom presence: symptoms present Lower urinary tract symptom detail: urinary retention Qualified Code(s): N40.1 - Benign prostatic hyperplasia with lower urinary tract symptoms; R33.8 - Other retention of urine Code(s): N40.0 - Benign prostatic hyperplasia without lower urinary tract symptoms Status: Acute Assessment and Plan: * Chronic with acute urinary retention this hospital stay. * CT indicates urinary retention with bilateral hydronephrosis * patient failed voiding trial. PVR greater than 700 mL in Posey reinserted 01/11/22 * continue tamsulosin and finasteride. Patient to follow up with Urology outpatient. He reports more recently starting tamsulosin 2 weeks prior to admission. * continue Posey catheter at discharge. The patient can follow-up with his urologist outpatient for removal in a few weeks. (4) Pneumonia: Qualifiers: Pneumonia type: due to unspecified organism Laterality: bilateral Lung location: lower lobe of lung Qualified Code(s): J18.9 - Pneumonia, unspecified organism Code(s): J18.9 - Pneumonia, unspecified organism Status: Acute Assessment and Plan: * chest x-ray indicates bibasilar opacities. * CTA indicates atelectasis or scarring of the bilateral lower lobes * azithromycin and ceftriaxone IV empiric therapy started 01/06 - 01/10; 01/11-01/13 oral cefuroxime 500 mg p.o. b.i.d. * 01/13/22 stopped cefuroxime d/t starting Levaquin & metronidazole for acute worsening of chronic cholecystitis. * No leukocytosis and afebrile. * 01/13/22 Repeat CXR- continues to show low lung volumes and essentially unchanged from previous * Continue management for COPD exacerbation (5) Cholelithiasis: Qualifiers: Cholelithiasis location: gallbladder Cholecystitis presence: without cholecystitis Biliary obstruction: without biliary obstruction Qualified Code(s): K80.20 - Calculus of gallbladder without cholecystitis without obstruction Code(s): K80.20 - Calculus of gallbladder without cholecystitis without obstruction Status: Acute Ass
--- NOTE | 2022-01-17 09:49 | PM.PNGS ---
Progress Note: A&P Assessment and Plan (1) Cholecystitis with cholelithiasis: Code(s): K80.10 - Calculus of gallbladder with chronic cholecystitis without obstruction Status: Acute Assessment and Plan: doing well, cont diet, encourage OOB/IS, ok to dc from surgical standpoint once medically stable Subjective Subjective Date/Time Seen: 01/17/22 09:49 feels pretty good, teodora low fat diet, breathing improved Review of Systems Review of Systems: All systems reviewed & are unremarkable except as noted in HPI and below Exam Const: General: cooperative, comfortable, no acute distress and ill appearing Resp: Auscultation: diminished lung sounds Cardio: Rate: regular rate Rhythm: regular rhythm GI: Inspection: normal to inspection, distended and incision GI Palp: Yes abdominal tenderness, Yes Soft to palpation, Yes Tenderness to palpation present (GI), No Guarding due to palpation present (GI) and No Rigid due to palpation Objective Data Vital Signs Vital Signs: Vital Signs - 24 hr 01/16/22 10:09 01/16/22 11:26 01/16/22 11:41 Temperature 36.5 C 36.6 C Pulse Rate 76 96 95 Respiratory Rate 20 25 H 35 H Blood Pressure 128/67 143/112 H 127/98 H Pulse Oximetry 100 98 100 Oxygen Delivery Nasal Cannula Simple Face Mask Simple Face Mask Oxygen Flow Rate 2 10 10 Fraction of Inspired Oxygen 01/16/22 11:56 01/16/22 12:11 01/16/22 11:45 Temperature Pulse Rate 91 93 94 Respiratory Rate 33 H 31 H 30 H Blood Pressure 129/98 H 103/64 Pulse Oximetry 100 98 Oxygen Delivery Simple Face Mask Simple Face Mask Oxygen Flow Rate 10 8 Fraction of Inspired Oxygen 01/16/22 12:00 01/16/22 12:26 01/16/22 12:41 Temperature Pulse Rate 90 97 98 Respiratory Rate 35 H 37 H 31 H Blood Pressure 104/66 99/63 L Pulse Oximetry 95 95 Oxygen Delivery Nasal Cannula Nasal Cannula Oxygen Flow Rate 4 4 Fraction of Inspired Oxygen 01/16/22 12:56 01/16/22 13:11 01/16/22 14:48 Temperature Pulse Rate 100 102 H Respiratory Rate 30 H Blood Pressure 97/63 L Pulse Oximetry 95 96 99 Oxygen Delivery Nasal Cannula Nasal Cannula Oxygen Flow Rate 4 4 Fraction of Inspired Oxygen 01/16/22 14:00 01/16/22 15:24 01/16/22 16:00 Temperature 36.3 C L 36.3 C L Pulse Rate 97 98 83 Respiratory Rate 22 H 22 H Blood Pressure 103/67 102/67 Pulse Oximetry 96 97 Oxygen Delivery Oxygen Flow Rate Fraction of Inspired Oxygen 01/16/22 16:53 01/16/22 16:55 01/16/22 19:55 Temperature 36.6 C Pulse Rate 80 89 Respiratory Rate 16 18 Blood Pressure 102/60 99/69 L Pulse Oximetry 98 98 99 Oxygen Delivery Nasal Cannula Oxygen Flow Rate 3 Fraction of Inspired Oxygen 01/16/22 22:00 01/16/22 20:00 01/16/22 20:00 Temperature 36.6 C Pulse Rate 88 77 88 Respiratory Rate 19 19 Blood Pressure 103/61 Pulse Oximetry 95 95 Oxygen Delivery Nasal Cannula Oxygen Flow Rate 2 Fraction of Inspired Oxygen 2 01/17/22 00:00 01/17/22 04:00 01/17/22 05:45 Temperature 36.9 C Pulse Rate 87 82 86 Respiratory Rate 17 Blood Pressure 101/65 Pulse Oximetry 100 Oxygen Delivery Oxygen Flow Rate Fraction of Inspired Oxygen 01/17/22 07:18 01/17/22 07:18 01/17/22 07:23 Temperature Pulse Rate 80 85 85 Respiratory Rate 16 18 18 Blood Pressure Pulse Oximetry 95 Oxygen Delivery Nasal Cannula Oxygen Flow Rate 3 Fraction of Inspired Oxygen 01/17/22 07:35 01/17/22 08:08 01/17/22 08:00 Temperature 36.1 C L Pulse Rate 88 77 Respiratory Rate 16 Blood Pressure 105/58 L Pulse Oximetry 99 95 Oxygen Delivery Nasal Cannula Oxygen Flow Rate 2 Fraction of Inspired Oxygen Intake/Output Intake/Output: Intake & Output 01/14/22 01/15/22 01/16/22 01/17/22 23:59 23:59 23:59 23:59 Intake Total 1610 833 675 240 Output Total 9595 8707 656 600 Balance 678 -556 -75 -712 Meds/Results Medications: Active Medications Gener
--- NOTE | 2022-01-17 11:29 | PCPTNOTE ---
Addendum entered by Pema Deluca, PT 01/17/22 16:41: Attempted PT re-eval at 16:00 and patient refused stating they say I get to go home today. Hospitalist contacted and aware of refusal both times today. Per hospitalist, discharge destination must be figured out prior to discharge. RN made aware of refusals. Will Follow. Original Note: Attempted PT evaluation, pt stated I can't. Pt explained he just got back to bed and is SOB - RN aware. Pt requested therapist return this afternoon. Will Follow.
[2022-01-17] MEDS: HYDROcodone/acetaminophen (*CRX) 5-325 MG TABLET 1 TAB PO ×3 (12:15→22:41)
[2022-01-17] MEDS: IPRATROPIUM BR 0.02% INH SOLN 0.5 MG/2.5 ML VIAL INHALATION (13:06)
[2022-01-17] MEDS: ALBUTEROL SULFATE NEB 2.5 MG/3 ML INH 1.25 MG INHALATION (13:06)
--- NOTE | 2022-01-17 13:09 | P.DS_ITS ---
DS: Admitting Diagnosis Discharge Date 01/17/22 0900 Admitting Diagnosis Acute respiratory failure, hydronephrosis, urinary retention, PNA, Cholecystitis with cholelithiasis DS: Discharge Diagnosis Discharge Diagnosis (1) Acute respiratory failure: Code(s): J96.00 - Acute respiratory failure, unspecified whether with hypoxia or hypercapnia Status: Acute Assessment and Plan: * Patient reports subjective improvement, adequate sats on RA * CT of the chest shows emphysema and pulmonary nodule. * incentive spirometer and Cornet Therapy * Continue antibiotic therapy for for acute vs chronic cholecystectomy- Levaquin will cover resp pathogens. * Patient with 2L O2 now and c/o SOB - 01/12/2022 repeat cxr- continues to show low lung volumes but otherwise unchanged. * Continue to monitor respiratory status - wean O2 * 01/14/22 Trelegy added. * He will need home O2 eval if unable to wean prior to discharge. (2) Bilateral hydronephrosis: Code(s): N13.30 - Unspecified hydronephrosis Status: Acute Assessment and Plan: * CT shows urinary retention with bilateral hydronephrosis * Catheter was placed upon admission. Voiding trial was attempted the patient had PVR greater than 700 while on finasteride and tamsulosin. He reports seeing a urologist outpatient and recently started on tamsulosin. * 01/11/2022 Posey catheter reinserted, patient will be discharged with catheter and follow-up with Urology in 1-[address] for monitoring of hydronephrosis * Stable (3) BPH (benign prostatic hyperplasia): Qualifiers: Lower urinary tract symptom detail: urinary retention Lower urinary tract symptom presence: symptoms present Qualified Code(s): N40.1 - Benign prostatic hyperplasia with lower urinary tract symptoms; R33.8 - Other retention of urine Code(s): N40.0 - Benign prostatic hyperplasia without lower urinary tract symptoms Status: Acute Assessment and Plan: * Chronic with acute urinary retention this hospital stay. * CT indicates urinary retention with bilateral hydronephrosis * patient failed voiding trial. PVR greater than 700 mL in Posey reinserted 01/11/22 * continue tamsulosin and finasteride. Patient to follow up with Urology outpatient. He reports more recently starting tamsulosin 2 weeks prior to a dmission. * continue Posey catheter at discharge. The patient can follow-up with his urologist outpatient for removal in a few weeks. (4) Pneumonia: Qualifiers: Laterality: bilateral Lung location: lower lobe of lung Pneumonia type: due to unspecified organism Qualified Code(s): J18.9 - Pneumonia, unspecified organism Code(s): J18.9 - Pneumonia, unspecified organism Status: Acute Assessment and Plan: * chest x-ray indicates bibasilar opacities. * CTA indicates atelectasis or scarring of the bilateral lower lobes * azithromycin and ceftriaxone IV empiric therapy started 01/06 - 01/10; 01/11-01/13 oral cefuroxime 500 mg p.o. b.i.d. * 01/13/22 stopped cefuroxime d/t starting Levaquin & metronidazole for acute worsening of chronic cholecystitis. * No leukocytosis and afebrile. * 01/13/22 Repeat CXR- continues to show low lung volumes and essentially unc hanged from previous * Continue management for COPD exacerbation (5) Cholelithiasis: Qualifiers: Biliary obstruction: without biliary obstruction Cholecystitis presence: without cholecystitis Cholelithiasis location: gallbladder Qualified Code(s): K80.20 - Calculus of gallblad
--- NOTE | 2022-01-17 13:09 | PM.DS ---
DS: Admitting Diagnosis Discharge Date 01/17/22 0900 Admitting Diagnosis Acute respiratory failure, hydronephrosis, urinary retention, PNA, Cholecystitis with cholelithiasis DS: Discharge Diagnosis Discharge Diagnosis (1) Acute respiratory failure: Code(s): J96.00 - Acute respiratory failure, unspecified whether with hypoxia or hypercapnia Status: Acute Assessment and Plan: Patient reports subjective improvement, adequate sats on RA CT of the chest shows emphysema and pulmonary nodule. incentive spirometer and Cornet Therapy Continue antibiotic therapy for for acute vs chronic cholecystectomy- Levaquin will cover resp pathogens. Patient with 2L O2 now and c/o SOB - 01/12/2022 repeat cxr- continues to show low lung volumes but otherwise unchanged. Continue to monitor respiratory status - wean O2 01/14/22 Trelegy added. He will need home O2 eval if unable to wean prior to discharge. (2) Bilateral hydronephrosis: Code(s): N13.30 - Unspecified hydronephrosis Status: Acute Assessment and Plan: CT shows urinary retention with bilateral hydronephrosis Catheter was placed upon admission. Voiding trial was attempted the patient had PVR greater than 700 while on finasteride and tamsulosin. He reports seeing a urologist outpatient and recently started on tamsulosin. 01/11/2022 Posey catheter reinserted, patient will be discharged with catheter and follow-up with Urology in 1-[address] for monitoring of hydronephrosis Stable (3) BPH (benign prostatic hyperplasia): Qualifiers: Lower urinary tract symptom detail: urinary retention Lower urinary tract symptom presence: symptoms present Qualified Code(s): N40.1 - Benign prostatic hyperplasia with lower urinary tract symptoms; R33.8 - Other retention of urine Code(s): N40.0 - Benign prostatic hyperplasia without lower urinary tract symptoms Status: Acute Assessment and Plan: Chronic with acute urinary retention this hospital stay. CT indicates urinary retention with bilateral hydronephrosis patient failed voiding trial. PVR greater than 700 mL in Posey reinserted 01/11/22 continue tamsulosin and finasteride. Patient to follow up with Urology outpatient. He reports more recently starting tamsulosin 2 weeks prior to admission. continue Posey catheter at discharge. The patient can follow-up with his urologist outpatient for removal in a few weeks. (4) Pneumonia: Qualifiers: Laterality: bilateral Lung location: lower lobe of lung Pneumonia type: due to unspecified organism Qualified Code(s): J18.9 - Pneumonia, unspecified organism Code(s): J18.9 - Pneumonia, unspecified organism Status: Acute Assessment and Plan: chest x-ray indicates bibasilar opacities. CTA indicates atelectasis or scarring of the bilateral lower lobes azithromycin and ceftriaxone IV empiric therapy started 01/06 - 01/10; 01/11-01/13 oral cefuroxime 500 mg p.o. b.i.d. 01/13/22 stopped cefuroxime d/t starting Levaquin & metronidazole for acute worsening of chronic cholecystitis. No leukocytosis and afebrile. 01/13/22 Repeat CXR- continues to show low lung volumes and essentially unchanged from previous Continue management for COPD exacerbation (5) Cholelithiasis: Qualifiers: Biliary obstruction: without biliary obstruction Cholecystitis presence: without cholecystitis Cholelithiasis location: gallbladder Qualified Code(s): K80.20 - Calculus of gallbladder without cholecystitis without obstruction Code(s): K80.20 - Calculus of gallbladder without cholecystitis without obstruction Status: Acute Assessment and Plan: POD [address] scan, incidental finding. Patient now with epigastric and right upper quadrant pain. 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
--- NOTE | 2022-01-17 13:27 | WPDANESPN ---
Anes - Prog Note Post-Op Date/Time: 01/17/22 13:27 Vital Signs: Last Vital Signs Temp 36.1 C L 01/17/22 07:35 Pulse 83 01/17/22 12:00 Resp 16 01/17/22 07:35 BP 105/58 L 01/17/22 07:35 Pulse Ox 95 01/17/22 08:00 O2 Del Method Nasal Cannula 01/17/22 08:00 O2 Flow Rate 2 01/17/22 08:00 FiO2 2 01/16/22 20:00 Pain Score (VAS): 3-4 (oral medication controlling pain at an acceptable level) I/O: Intake & Output 01/16/22 01/17/22 01/17/22 23:59 07:59 15:59 Intake Total 425 100 240 Output Total 400 600 500 Balance 25 500 -260 Laboratory Tests 01/17/22 05:49 01/17/22 05:49 01/17/22 01/17/22 05:49 05:49 WBC 11.8 H RBC 5.03 Hgb 15.3 Hct 48.7 MCV 96.8 MCH 30.4 MCHC 31.4 L RDW 13.7 Plt Count 189 MPV 10.3 Sodium 132 L Potassium 4.9 Chloride 93 L Carbon Dioxide 33 H Anion Gap 6 L BUN 20 Creatinine 0.70 Estim Creat Clear Calc 81 Estimated GFR > 60 Glucose 112 H Calcium 8.1 L Magnesium 2.3 Total Bilirubin 0.5 AST 61 H ALT 54 H Alkaline Phosphatase 68 Total Protein 6.0 L Albumin 3.3 L Patient Feedback: Patient satisfied with anesthetic care.
--- NOTE | 2022-01-17 14:24 | PCRCNOTE ---
HOME O2 EVAL COMPLETE, NO REQUIREMENTS
[2022-01-17] MEDS: AMOXICILLIN/CLAVULANATE K 875-125 MG TAB 1 TABLET PO (20:23)
[2022-01-17] MEDS: TAMSULOSIN HCL 0.4 MG CAPSULE PO (20:23)
[2022-01-18] VITALS (12 sets, daily range): BP systolic 94–106; BP diastolic 55–71; PULSE 89–124; RESP 18–22; TEMP 36.1–36.3; O2SAT 90–96
[2022-01-18 05:45] LABS: Hematocrit 43.4 % (42.0-52.0); Hemoglobin 14.1 g/dL (14.0-18.0); Mean Corpuscular HGB Conc 32.5 g/dl (32-36); Mean Corpuscular Hemoglobin 29.7 pg (26-34); Mean Corpuscular Volume 91.4 fl (80-100); Mean Platelet Volume 10.1 fl (7.4-10.4); Platelet Count Result 167 k/mm3 (150-375); Red Blood Count 4.75 M/mm3 (4.6-6.20); Red Cell Distribution Width 13.3 % (11.5-14.5); White Blood Count 8.1 K/mm3 (4.5-10.0)
[2022-01-18 07:50] LABS: Alanine Aminotransferase 46 U/L (6-50); Albumin Level 2.8 g/dL (3.5-5.1); Alkaline Phosphatase 74 U/L (38-126); Anion Gap 7 mmol/L (8-16); Aspartate Amino Transferase 44 U/L (17-59); Bilirubin,Total 0.6 mg/dL (0.2-1.3); Blood Urea Nitrogen 16 mg/dL (9-20); Carbon Dioxide 33 mmol/L (22-30); Chloride 92 mmol/L (98-107); Estimated CRCL calculation 72 ml/min; Estimated Glomerular Filt Rate > 60; Glucose 89 mg/dL (65-110); Potassium 4.1 mmol/L (3.4-5.0); Sodium 132 mmol/L (137-145)
[2022-01-18] MEDS: FLUTICASONE/UMECLIDIN/VILANTER 100-62.5-25 MCG ELLIPTA 1 PUFF INHALATION (08:10)
[2022-01-18] MEDS: ATORVASTATIN 20 MG TABLET PO (08:54)
[2022-01-18] MEDS: FOLIC ACID 1 MG TABLET PO (08:54)
[2022-01-18] MEDS: BUMETANIDE 1 MG TABLET PO ×2 (08:54→16:21)
[2022-01-18] MEDS: SENNA/DOCUSATE SODIUM TABLET 1 TAB PO ×2 (08:54→16:20)
[2022-01-18] MEDS: LOSARTAN POTASSIUM 50 MG TABLET PO (08:54)
[2022-01-18] MEDS: FINASTERIDE 5 MG TABLET 10 MG PO (08:54)
[2022-01-18] MEDS: AMOXICILLIN/CLAVULANATE K 875-125 MG TAB 1 TABLET PO ×2 (08:54→20:04)
[2022-01-18] MEDS: polyethylene glycoL 3350 17 GM POWD.PACK PO (08:55)
[2022-01-18] MEDS: POTASSIUM CHLORIDE 10 MEQ TABLET.ER 20 MEQ PO (08:55)
[2022-01-18] MEDS: THIAMINE HCL 100 MG TABLET PO (08:55)
[2022-01-18] MEDS: ENOXAPARIN 40 MG/0.4 ML SYRINGE SUB-Q (08:55)
[2022-01-18] MEDS: PANTOPRAZOLE SODIUM IV 40 MG VIAL IV PUSH (08:55)
[2022-01-18] MEDS: METOPROLOL SUCCINATE EXT REL 25 MG TABCR PO (09:16)
--- NOTE | 2022-01-18 10:15 | P.PNIM_ITS ---
Progress Note: A&P Assessment and Plan (1) Acute respiratory failure: Code(s): J96.00 - Acute respiratory failure, unspecified whether with hypoxia or hypercapnia Status: Acute Assessment and Plan: * Patient reports subjective improvement, adequate sats on RA * CT of the chest shows emphysema and pulmonary nodule. * incentive spirometer and Cornet Therapy * Continue antibiotic therapy for for acute vs chronic cholecystectomy- Levaquin will cover resp pathogens. * Patient with 2L O2 now and c/o SOB - 01/17/2022 repeat cxr- Mild atelectasis at the lung bases. * Continue to monitor respiratory status - wean O2 to maintain saturation * 01/14/22 Trelegy added. * home O2 evaluation was performed and he did not need any oxygen (2) Bilateral hydronephrosis: Code(s): N13.30 - Unspecified hydronephrosis Status: Acute Assessment and Plan: * CT shows urinary retention with bilateral hydronephrosis * Catheter was placed upon admission. Voiding trial was attempted the patient had PVR greater than 700 while on finasteride and tamsulosin. He reports seeing a urologist outpatient and recently started on tamsulosin. * 01/11/2022 Posey catheter reinserted, patient will be discharged with catheter and follow-up with Urology in 1-2 weeks. * Consider repeat CT for monitoring of hydronephrosis * Stable (3) BPH (benign prostatic hyperplasia): Qualifiers: Lower urinary tract symptom presence: symptoms present Lower urinary tract symptom detail: urinary retention Qualified Code(s): N40.1 - Benign prostatic hyperplasia with lower urinary tract symptoms; R33.8 - Other retention of urine Code(s): N40.0 - Benign prostatic hyperplasia without lower urinary tract symptoms Status: Acute Assessment and Plan: * Chronic with acute urinary retention this hospital stay. * CT indicates urinary retention with bilateral hydronephrosis * patient failed voiding trial. PVR greater than 700 mL in Posey reinserted 01/11/22 * continue tamsulosin and finasteride. Patient to follow up with Urology outpatient. He reports more recently starting tamsulosin 2 weeks prior to admission. * continue Posey catheter at discharge. The patient can follow-up with his urologist outpatient for removal in a few weeks. (4) Pneumonia: Qualifiers: Pneumonia type: due to unspecified organism Laterality: bilateral Lung location: lower lobe of lung Qualified Code(s): J18.9 - Pneumonia, unspecified organism Code(s): J18.9 - Pneumonia, unspecified organism Status: Acute Assessment and Plan: * Resolved * chest x-ray indicates bibasilar opacities. * CTA indicates atelectasis or scarring of the bilateral lower lobes * azithromycin and ceftriaxone IV empiric therapy started 01/06 - 01/10; 01/11-01/13 oral cefuroxime 500 mg p.o. b.i.d. * 01/13/22 stopped cefuroxime d/t starting Levaquin & metronidazole for acute worsening of chronic cholecystitis. * No leukocytosis and afebrile. * 01/13/22 Repeat CXR- continues to show low lung volumes and essentially unchanged from previous * Continue management for COPD exacerbation (5) Cholelithiasis: Qualifiers: Cholelithiasis location: gallbladder Cholecystitis presence: without cholecystitis Biliary obstruction: without biliary obstruction Qualified Code(s): K80.20 - Calculus of gallbladder without cholecystitis without obstruction Code(s): K80.20 - Calculus of gallbladder without cholecystitis without obstruction Status: Acute Assessment
--- NOTE | 2022-01-18 10:15 | PM.IMPN ---
Progress Note: A&P Assessment and Plan (1) Acute respiratory failure: Code(s): J96.00 - Acute respiratory failure, unspecified whether with hypoxia or hypercapnia Status: Acute Assessment and Plan: Patient reports subjective improvement, adequate sats on RA CT of the chest shows emphysema and pulmonary nodule. incentive spirometer and Cornet Therapy Continue antibiotic therapy for for acute vs chronic cholecystectomy- Levaquin will cover resp pathogens. Patient with 2L O2 now and c/o SOB - 01/17/2022 repeat cxr- Mild atelectasis at the lung bases. Continue to monitor respiratory status - wean O2 to maintain saturation 01/14/22 Trelegy added. home O2 evaluation was performed and he did not need any oxygen (2) Bilateral hydronephrosis: Code(s): N13.30 - Unspecified hydronephrosis Status: Acute Assessment and Plan: CT shows urinary retention with bilateral hydronephrosis Catheter was placed upon admission. Voiding trial was attempted the patient had PVR greater than 700 while on finasteride and tamsulosin. He reports seeing a urologist outpatient and recently started on tamsulosin. 01/11/2022 Posey catheter reinserted, patient will be discharged with catheter and follow-up with Urology in 1-[address] for monitoring of hydronephrosis Stable (3) BPH (benign prostatic hyperplasia): Qualifiers: Lower urinary tract symptom presence: symptoms present Lower urinary tract symptom detail: urinary retention Qualified Code(s): N40.1 - Benign prostatic hyperplasia with lower urinary tract symptoms; R33.8 - Other retention of urine Code(s): N40.0 - Benign prostatic hyperplasia without lower urinary tract symptoms Status: Acute Assessment and Plan: Chronic with acute urinary retention this hospital stay. CT indicates urinary retention with bilateral hydronephrosis patient failed voiding trial. PVR greater than 700 mL in Posey reinserted 01/11/22 continue tamsulosin and finasteride. Patient to follow up with Urology outpatient. He reports more recently starting tamsulosin 2 weeks prior to admission. continue Posey catheter at discharge. The patient can follow-up with his urologist outpatient for removal in a few weeks. (4) Pneumonia: Qualifiers: Pneumonia type: due to unspecified organism Laterality: bilateral Lung location: lower lobe of lung Qualified Code(s): J18.9 - Pneumonia, unspecified organism Code(s): J18.9 - Pneumonia, unspecified organism Status: Acute Assessment and Plan: Resolved chest x-ray indicates bibasilar opacities. CTA indicates atelectasis or scarring of the bilateral lower lobes azithromycin and ceftriaxone IV empiric therapy started 01/06 - 01/10; 01/11-01/13 oral cefuroxime 500 mg p.o. b.i.d. 01/13/22 stopped cefuroxime d/t starting Levaquin & metronidazole for acute worsening of chronic cholecystitis. No leukocytosis and afebrile. 01/13/22 Repeat CXR- continues to show low lung volumes and essentially unchanged from previous Continue management for COPD exacerbation (5) Cholelithiasis: Qualifiers: Cholelithiasis location: gallbladder Cholecystitis presence: without cholecystitis Biliary obstruction: without biliary obstruction Qualified Code(s): K80.20 - Calculus of gallbladder without cholecystitis without obstruction Code(s): K80.20 - Calculus of gallbladder without cholecystitis without obstruction Status: Acute Assessment and Plan: POD [address] scan, incidental finding. Patient now with epigastric and right upper quadrant pain. 01/12/22 right upper quadrant ultrasound evidence of cholelithiasis with gallbladder wall thickening concerning for chronic cholelithiasis. 01/13/22 Consult General Surgery, as patient is now c/o bloating, diaphoresis, RUQ pain after eating. Make NPO. Start IV Levaquin 750 mg Q24 hours and IV
[2022-01-18] MEDS: DOCUSATE SODIUM 100 MG CAPSULE PO (10:33)
[2022-01-18] MEDS: HYDROcodone/acetaminophen (*CRX) 5-325 MG TABLET 1 TAB PO ×2 (10:33→20:07)
--- NOTE | 2022-01-18 10:51 | PM.PNGS ---
Progress Note: A&P Assessment and Plan (1) Cholecystitis with cholelithiasis: Code(s): K80.10 - Calculus of gallbladder with chronic cholecystitis without obstruction Status: Acute Assessment and Plan: doing well, ok to dc home, f/u 2 wks Subjective Subjective Date/Time Seen: 01/18/22 10:51 feels ok, SOB improved, no abd pain, teodora diet Review of Systems Review of Systems: All systems reviewed & are unremarkable except as noted in HPI and below Exam Const: General: cooperative, comfortable and ill appearing GI: Inspection: normal to inspection, distended and incision GI Palp: No abdominal tenderness and Yes Soft to palpation Objective Data Vital Signs Vital Signs: Vital Signs - 24 hr 01/17/22 12:00 01/17/22 13:56 01/17/22 13:50 Temperature 36.3 C L Pulse Rate 83 81 77 Respiratory Rate 16 Blood Pressure 90/62 L Pulse Oximetry 96 96 Oxygen Delivery Room Air 01/17/22 13:55 01/17/22 14:05 01/17/22 14:32 Temperature Pulse Rate 96 80 Respiratory Rate Blood Pressure 100/60 Pulse Oximetry 95 93 Oxygen Delivery Room Air Room Air 01/17/22 16:00 01/17/22 20:00 01/17/22 20:00 Temperature Pulse Rate 80 80 Respiratory Rate Blood Pressure Pulse Oximetry Oxygen Delivery Room Air 01/17/22 21:13 01/17/22 23:03 01/18/22 03:11 Temperature 36.5 C Pulse Rate 63 82 102 H Respiratory Rate 18 Blood Pressure 100/61 Pulse Oximetry 95 Oxygen Delivery 01/18/22 05:47 01/18/22 08:12 01/18/22 09:16 Temperature 36.3 C L Pulse Rate 100 97 124 H Respiratory Rate 18 Blood Pressure 105/57 L Pulse Oximetry 90 96 Oxygen Delivery Room Air Intake/Output Intake/Output: Intake & Output 01/15/22 01/16/22 01/17/22 01/18/22 23:59 23:59 23:59 23:59 Intake Total 710 825 750 440 Output Total 6580 146 3718 400 Balance -640 75 -500 40 Meds/Results Medications: Active Medications Generic Name Dose Route Start Last Admin Trade Name Freq PRN Reason Stop Dose Admin Hydrocodone Bitart/Acetaminophen 1 tab 01/16/22 13:24 01/18/22 10:33 Hydrocodone/Acetaminophen (*Crx) 5-325 Mg Tablet PO 1 tab Q4H PRN Administration Pain Rated 4-6 Albuterol 1.25 mg 01/14/22 12:39 01/17/22 13:06 Albuterol Sulfate Neb 2.5 Mg/3 Ml Inh INHALATION 1.25 mg Q6HRT PRN Administration Shortness Of Breath Or Wheezing Amoxicillin/Clavulanate Potassium 1 tablet 01/17/22 21:00 01/18/22 08:54 Amoxicillin/Clavulanate K 875-125 Mg Tab PO 1 tablet Q12HR ROBERT Administration Atorvastatin Calcium 20 mg 01/07/22 09:00 01/18/22 08:54 Atorvastatin 20 Mg Tablet PO 20 mg DAILY ROBERT Administration Bumetanide 1 mg 01/07/22 17:00 01/18/22 08:54 Bumetanide 1 Mg Tablet PO 1 mg BID ROBERT Administration Docusate Sodium 100 mg 01/10/22 17:40 01/18/22 10:33 Docusate Sodium 100 Mg Capsule PO 100 mg Q12H PRN Administration Constipation Enoxaparin Sodium 40 mg 01/08/22 09:00 01/18/22 08:55 Enoxaparin 40 Mg/0.4 Ml Syringe SUB-Q 40 mg DAILY ROBERT Administration Finasteride 10 mg 01/07/22 09:00 01/18/22 08:54 Finasteride 5 Mg Tablet PO 10 mg DAILY ROBERT Administration Fluticasone/Umeclidinium/Vilanterol 1 puff 01/14/22 13:00 01/18/22 08:10 Fluticasone/Umeclidin/Vilanter 100-62.5-25 Mcg Ellipta INHALATION 1 puff DAILYRT ROBERT Administration Folic Acid 1 mg 01/08/22 09:00 01/18/22 08:54 Folic Acid 1 Mg Tablet PO 1 mg DAILY ROBERT Administration Ipratropium [place] 0.5 mg 01/14/22 12:39 01/17/22 13:06 Ipratropium Br 0.02% Inh Soln 0.5 Mg/2.5 Ml Vial INHALATION 0.5 mg Q6HRT PRN Administration Shortness Of Breath Or Wheezing Losartan Potassium 50 mg 01/12/22 09:00 01/18/22 08:54 Losartan Potassium 50 Mg Tablet PO 50 mg DAILY ROBERT Administration Metoprolol Succinate 25 mg 01/07/22 09:00 01/18/22 09:16 Metoprolol Succinate Ext Rel 25 Mg Tabcr PO 25
--- NOTE | 2022-01-18 13:42 | PCNFU ---
Nutrition Follow-Up Complete: Suboptimal po intake related to GI discomfort as evidenced by pt report and noted wt loss prior to admission Goal:PO intake 50% or greater most meals. - Goal is being met Pt current nutrition is Heart healthy, Ensure compact BID. Meal intakes: 75,50,0,10.. Nutrition recommendation: Continue current diet and supplement orders Last recorded weight is 86.7 kg. Bowel Motility: Last BM recorded was 01/12/22 Labs Reviewed:Alb 2.8, Na 132 Meds Noted: Lovenox, solumedrol, Bumex Skin: WNL Additional Notes: Had lap quentin 01/15/22, tolerating diet. Okayed to discharge by surgery. No recommendations. Continue current care plan. Monitor intake, wt, labs. Follow up in 5 days.
--- NOTE | 2022-01-18 15:47 | PCPTNOTE ---
Attempted PT re-evaluation 2x this date (once in AM and once in PM). Patient refused both time due to pain, feeling tired and now requiring oxygen. RN aware. Will follow.
[2022-01-18] MEDS: TAMSULOSIN HCL 0.4 MG CAPSULE PO (20:04)
[2022-01-19] VITALS (11 sets, daily range): BP systolic 98–111; BP diastolic 63–73; PULSE 90–108; RESP 16–20; TEMP 35.9–36.3; O2SAT 93–96
[2022-01-19 06:55] LABS: Hematocrit 48.6 % (42.0-52.0); Hemoglobin 15.7 g/dL (14.0-18.0); Mean Corpuscular HGB Conc 32.3 g/dl (32-36); Mean Corpuscular Hemoglobin 29.5 pg (26-34); Mean Corpuscular Volume 91.4 fl (80-100); Mean Platelet Volume 10.2 fl (7.4-10.4); Platelet Count Result 206 k/mm3 (150-375); Red Blood Count 5.32 M/mm3 (4.6-6.20); Red Cell Distribution Width 13.5 % (11.5-14.5); White Blood Count 8.8 K/mm3 (4.5-10.0)
[2022-01-19 06:57] LABS: Alanine Aminotransferase 45 U/L (6-50); Albumin Level 3.3 g/dL (3.5-5.1); Alkaline Phosphatase 92 U/L (38-126); Anion Gap 6 mmol/L (8-16); Aspartate Amino Transferase 39 U/L (17-59); Bilirubin,Total 0.8 mg/dL (0.2-1.3); Blood Urea Nitrogen 15 mg/dL (9-20); Calcium 8.4 mg/dL (8.4-10.2); Carbon Dioxide 33 mmol/L (22-30); Chloride 92 mmol/L (98-107); Estimated CRCL calculation 72 ml/min; Estimated Glomerular Filt Rate > 60; Glucose 100 mg/dL (65-110); Potassium 3.8 mmol/L (3.4-5.0); Sodium 131 mmol/L (137-145)
[2022-01-19] MEDS: POTASSIUM CHLORIDE 10 MEQ TABLET.ER 20 MEQ PO (08:00)
[2022-01-19] MEDS: ATORVASTATIN 20 MG TABLET PO (08:00)
[2022-01-19] MEDS: BUMETANIDE 1 MG TABLET PO ×2 (08:00→16:19)
[2022-01-19] MEDS: AMOXICILLIN/CLAVULANATE K 875-125 MG TAB 1 TABLET PO ×2 (08:00→20:22)
[2022-01-19] MEDS: FINASTERIDE 5 MG TABLET 10 MG PO (08:00)
[2022-01-19] MEDS: THIAMINE HCL 100 MG TABLET PO (08:00)
[2022-01-19] MEDS: SENNA/DOCUSATE SODIUM TABLET 1 TAB PO ×2 (08:00→16:19)
[2022-01-19] MEDS: FOLIC ACID 1 MG TABLET PO (08:00)
[2022-01-19] MEDS: METOPROLOL SUCCINATE EXT REL 25 MG TABCR PO (08:01)
[2022-01-19] MEDS: ENOXAPARIN 40 MG/0.4 ML SYRINGE SUB-Q (08:01)
[2022-01-19] MEDS: polyethylene glycoL 3350 17 GM POWD.PACK PO (08:01)
[2022-01-19] MEDS: LOSARTAN POTASSIUM 50 MG TABLET PO (08:02)
--- NOTE | 2022-01-19 09:56 | PC.NURSE ---
okayed for patient to keep IV out.
--- NOTE | 2022-01-19 11:31 | PCRCNOTE ---
Window of time for administration has passed. See next scheduled administration.
--- NOTE | 2022-01-19 13:22 | P.PNIM_ITS ---
Progress Note: A&P Assessment and Plan (1) Acute respiratory failure: Code(s): J96.00 - Acute respiratory failure, unspecified whether with hypoxia or hypercapnia Status: Acute Assessment and Plan: * Patient reports subjective improvement, adequate sats on RA * CT of the chest shows emphysema and pulmonary nodule. * incentive spirometer and Cornet Therapy * Continue antibiotic therapy for for acute vs chronic cholecystectomy- Levaquin will cover resp pathogens. * Patient with 2L O2 now and c/o SOB - 01/17/2022 repeat cxr- Mild atelectasis at the lung bases. * Continue to monitor respiratory status - wean O2 to maintain saturation * 01/14/22 Trelegy added. * home O2 evaluation was performed and he did not need any oxygen - 01/19/22: Pt. continues to have some dyspnea. He was placed back on oxygen today after working with PT. Oxygen saturations are ranging 92-95% with 1L oxygen. His respiratory rate is normal. He likely has a new baseline for his Chronic Respiratory Failure. (2) Bilateral hydronephrosis: Code(s): N13.30 - Unspecified hydronephrosis Status: Acute Assessment and Plan: * CT shows urinary retention with bilateral hydronephrosis * Catheter was placed upon admission. Voiding trial was attempted the patient had PVR greater than 700 while on finasteride and tamsulosin. He reports seeing a urologist outpatient and recently started on tamsulosin. * 01/11/2022 Posey catheter reinserted, patient will be discharged with catheter and follow-up with Urology in 1-2 weeks. * Consider repeat CT for monitoring of hydronephrosis * Stable - 01/19/22: Urinary catheter is still in place and at discharge, will follow up with Urology in 1-2 weeks. (3) BPH (benign prostatic hyperplasia): Qualifiers: Lower urinary tract symptom presence: symptoms present Lower urinary tract symptom detail: urinary retention Qualified Code(s): N40.1 - Benign prostatic hyperplasia with lower urinary tract symptoms; R33.8 - Other retention of urine Code(s): N40.0 - Benign prostatic hyperplasia without lower urinary tract symptoms Status: Acute Assessment and Plan: * Chronic with acute urinary retention this hospital stay. * CT indicates urinary retention with bilateral hydronephrosis * patient failed voiding trial. PVR greater than 700 mL in Posey reinserted 01/11/22 * continue tamsulosin and finasteride. Patient to follow up with Urology outpatient. He reports more recently starting tamsulosin 2 weeks prior to admission. * continue Posey catheter at discharge. The patient can follow-up with his urologist outpatient for removal in a few weeks. (4) Pneumonia: Qualifiers: Pneumonia type: due to unspecified organism Laterality: bilateral Lung location: lower lobe of lung Qualified Code(s): J18.9 - Pneumonia, unspecified organism Code(s): J18.9 - Pneumonia, unspecified organism Status: Acute Assessment and Plan: * Resolved * chest x-ray indicates bibasilar opacities. * CTA indicates atelectasis or scarring of the bilateral lower lobes * azithromycin and ceftriaxone IV empiric therapy started 01/06 - 01/10; 01/11-01/13 oral cefuroxime 500 mg p.o. b.i.d. * 01/13/22 stopped cefuroxime d/t starting Levaquin & metronidazole for acute worsening of chronic cholecystitis. * No leukocytosis and afebrile. * 01/13/22 Repeat CXR- continues to show low lung volumes and essentially unchanged from previous * Continue management for COPD exacerbation - 01/19/22: Pt. is on day #3 of Augmentin therapy f
--- NOTE | 2022-01-19 13:22 | PM.IMPN ---
Progress Note: A&P Assessment and Plan (1) Acute respiratory failure: Code(s): J96.00 - Acute respiratory failure, unspecified whether with hypoxia or hypercapnia Status: Acute Assessment and Plan: Patient reports subjective improvement, adequate sats on RA CT of the chest shows emphysema and pulmonary nodule. incentive spirometer and Cornet Therapy Continue antibiotic therapy for for acute vs chronic cholecystectomy- Levaquin will cover resp pathogens. Patient with 2L O2 now and c/o SOB - 01/17/2022 repeat cxr- Mild atelectasis at the lung bases. Continue to monitor respiratory status - wean O2 to maintain saturation 01/14/22 Trelegy added. home O2 evaluation was performed and he did not need any oxygen - 01/19/22: Pt. continues to have some dyspnea. He was placed back on oxygen today after working with PT. Oxygen saturations are ranging 92-95% with 1L oxygen. His respiratory rate is normal. He likely has a new baseline for his Chronic Respiratory Failure. (2) Bilateral hydronephrosis: Code(s): N13.30 - Unspecified hydronephrosis Status: Acute Assessment and Plan: CT shows urinary retention with bilateral hydronephrosis Catheter was placed upon admission. Voiding trial was attempted the patient had PVR greater than 700 while on finasteride and tamsulosin. He reports seeing a urologist outpatient and recently started on tamsulosin. 01/11/2022 Posey catheter reinserted, patient will be discharged with catheter and follow-up with Urology in 1-[address]. [address] for monitoring of hydronephrosis Stable - 01/19/22: Urinary catheter is still in place and at discharge, will follow up with Urology in 1-2 weeks. (3) BPH (benign prostatic hyperplasia): Qualifiers: Lower urinary tract symptom presence: symptoms present Lower urinary tract symptom detail: urinary retention Qualified Code(s): N40.1 - Benign prostatic hyperplasia with lower urinary tract symptoms; R33.8 - Other retention of urine Code(s): N40.0 - Benign prostatic hyperplasia without lower urinary tract symptoms Status: Acute Assessment and Plan: Chronic with acute urinary retention this hospital stay. CT indicates urinary retention with bilateral hydronephrosis patient failed voiding trial. PVR greater than 700 mL in Posey reinserted 01/11/22 continue tamsulosin and finasteride. Patient to follow up with Urology outpatient. He reports more recently starting tamsulosin 2 weeks prior to admission. continue Posey catheter at discharge. The patient can follow-up with his urologist outpatient for removal in a few weeks. (4) Pneumonia: Qualifiers: Pneumonia type: due to unspecified organism Laterality: bilateral Lung location: lower lobe of lung Qualified Code(s): J18.9 - Pneumonia, unspecified organism Code(s): J18.9 - Pneumonia, unspecified organism Status: Acute Assessment and Plan: Resolved chest x-ray indicates bibasilar opacities. CTA indicates atelectasis or scarring of the bilateral lower lobes azithromycin and ceftriaxone IV empiric therapy started 01/06 - 01/10; 01/11-01/13 oral cefuroxime 500 mg p.o. b.i.d. 01/13/22 stopped cefuroxime d/t starting Levaquin & metronidazole for acute worsening of chronic cholecystitis. No leukocytosis and afebrile. 01/13/22 Repeat CXR- continues to show low lung volumes and essentially unchanged from previous Continue management for COPD exacerbation - 01/19/22: Pt. is on day #3 of Augmentin therapy for respiratory infection treatment as well as it being appropriate for his Acute Cholecystitis. (5) Cholelithiasis: Qualifiers: Cholelithiasis location: gallbladder Cholecystitis presence: without cholecystitis Biliary obstruction: without biliary obstruction Qualified Code(s): K80.20 - Calculus of gallbladder without cholecystitis without obstruction Code(s): K80.20
[2022-01-19] MEDS: TAMSULOSIN HCL 0.4 MG CAPSULE PO (20:21)
[2022-01-19] MEDS: HYDROcodone/acetaminophen (*CRX) 5-325 MG TABLET 1 TAB PO (20:21)
[2022-01-20] VITALS: PULSE 101
[2022-01-20 04:00] VITALS: PULSE 88
[2022-01-20 06:00] VITALS: BP 105/69; PULSE 93; RESP 16; TEMP 36.2; O2SAT 92
[2022-01-20 08:00] VITALS: PULSE 102; PULSE 52; O2SAT 99
[2022-01-20] MEDS: FLUTICASONE/UMECLIDIN/VILANTER 100-62.5-25 MCG ELLIPTA 1 PUFF INHALATION (08:07)
[2022-01-20] MEDS: FOLIC ACID 1 MG TABLET PO (08:36)
[2022-01-20] MEDS: ENOXAPARIN 40 MG/0.4 ML SYRINGE SUB-Q (08:36)
[2022-01-20] MEDS: polyethylene glycoL 3350 17 GM POWD.PACK PO (08:36)
[2022-01-20] MEDS: POTASSIUM CHLORIDE 10 MEQ TABLET.ER 20 MEQ PO (08:36)
[2022-01-20 08:37] VITALS: PULSE 52
[2022-01-20] MEDS: METOPROLOL SUCCINATE EXT REL 25 MG TABCR PO (08:37)
[2022-01-20] MEDS: AMOXICILLIN/CLAVULANATE K 875-125 MG TAB 1 TABLET PO (08:37)
[2022-01-20] MEDS: SENNA/DOCUSATE SODIUM TABLET 1 TAB PO (08:37)
[2022-01-20] MEDS: BUMETANIDE 1 MG TABLET PO (08:37)
[2022-01-20] MEDS: PANTOPRAZOLE 40 MG TABLET PO (08:37)
[2022-01-20] MEDS: THIAMINE HCL 100 MG TABLET PO (08:37)
[2022-01-20] MEDS: ATORVASTATIN 20 MG TABLET PO (08:37)
[2022-01-20] MEDS: FINASTERIDE 5 MG TABLET 10 MG PO (08:37)
[2022-01-20] MEDS: LOSARTAN POTASSIUM 50 MG TABLET PO (08:37)
--- NOTE | 2022-01-20 09:01 | PM.DS ---
DS: Admitting Diagnosis Discharge Date 01/20/2022 Admitting Diagnosis Acute respiratory failure Hyponatremia BPH Pulmonary nodule PNA CHF COPD Alcohol use HLD HTN Bilateral Hydronephrosis DS: Discharge Diagnosis Discharge Diagnosis (1) Acute respiratory failure: Code(s): J96.00 - Acute respiratory failure, unspecified whether with hypoxia or hypercapnia Status: Acute Assessment and Plan: Patient reports subjective improvement, adequate sats on RA CT of the chest shows emphysema and pulmonary nodule. incentive spirometer and Cornet Therapy Continue antibiotic therapy for for acute vs chronic cholecystectomy- Levaquin will cover resp pathogens. Patient with 2L O2 now and c/o SOB - 01/17/2022 repeat cxr- Mild atelectasis at the lung bases. Continue to monitor respiratory status - wean O2 to maintain saturation 01/14/22 Trelegy added. home O2 evaluation was performed and he did not need any oxygen - 01/19/22: Pt. continues to have some dyspnea. He was placed back on oxygen today after working with PT. Oxygen saturations are ranging 92-95% with 1L oxygen. His respiratory rate is normal. He likely has a new baseline for his Chronic Respiratory Failure. -01/20/22: Date of discharge - Pt. with stable respiratory pattern. He had home oxygen evaluation and does not appear to need supplemental oxygen at home. He is stable for discharge at this time. (2) Bilateral hydronephrosis: Code(s): N13.30 - Unspecified hydronephrosis Status: Acute Assessment and Plan: CT shows urinary retention with bilateral hydronephrosis Catheter was placed upon admission. Voiding trial was attempted the patient had PVR greater than 700 while on finasteride and tamsulosin. He reports seeing a urologist outpatient and recently started on tamsulosin. 01/11/2022 Posey catheter reinserted, patient will be discharged with catheter and follow-up with Urology in 1-[address]. [address] for monitoring of hydronephrosis Stable - 01/19/22: Urinary catheter is still in place and at discharge, will follow up with Urology in 1-2 weeks. -01/20/22: OK to discharge today with catheter in place with a leg bag storage. Pt. will follow up with Urology in 1-2 weeks. (3) BPH (benign prostatic hyperplasia): Qualifiers: Lower urinary tract symptom detail: urinary retention Lower urinary tract symptom presence: symptoms present Qualified Code(s): N40.1 - Benign prostatic hyperplasia with lower urinary tract symptoms; R33.8 - Other retention of urine Code(s): N40.0 - Benign prostatic hyperplasia without lower urinary tract symptoms Status: Acute Assessment and Plan: Chronic with acute urinary retention this hospital stay. CT indicates urinary retention with bilateral hydronephrosis patient failed voiding trial. PVR greater than 700 mL in Posey reinserted 01/11/22 continue tamsulosin and finasteride. Patient to follow up with Urology outpatient. He reports more recently starting tamsulosin 2 weeks prior to admission. continue Posey catheter at discharge. The patient can follow-up with his urologist outpatient for removal in a few weeks. 01/20/22: Date of discharge - See plan for follow up with Urologist in problem #2. (4) Pneumonia: Qualifiers: Laterality: bilateral Lung location: lower lobe of lung Pneumonia type: due to unspecified organism Qualified Code(s): J18.9 - Pneumonia, unspecified organism Code(s): J18.9 - Pneumonia, unspecified organism Status: Acute Assessment and Plan: Resolved chest x-ray indicates bibasilar opacities. CTA indicates atelectasis or scarring of the bilateral lower lobes azithromycin and ceftriaxone IV empiric therapy started 01/06 - 01/10; 01/11-01/13 oral cefuroxime 500 mg p.o. b.i.d. 01/13/22 stopped cefuroxime d/t starting Levaquin & metronidazole for acute worsening of chronic cholecystitis. No leukocytos
[2022-01-20 10:42] VITALS: O2SAT 98
== END 2022-01-20 11:18 | disposition home health service (06) | DRG 988 ==
LOC: ANHED 10:47 → ANH3MEDSUR 11:57
PROVIDERS: Emergency Medicine; Nurse Practitioner; Nurse Practitioner Family; Radiology Diagnostic Radiology; Surgery; Admitting Provider Chiropractor; Emergency Provider Emergency Medicine; PCP Family Medicine; Visit Provider Nurse Practitioner Adult Health
PROC: 0FT44ZZ Resection of Gallbladder, Percutaneous Endoscopic Approach (ICD-10-PCS; CPT 47562; principal; 2022-01-16 11:00)
DX: J18.9 Pneumonia, unspecified organism (principal); E87.1 Hypo-osmolality and hyponatremia; N13.30 Unspecified hydronephrosis; I50.32 Chronic diastolic (congestive) heart failure; K80.10 Calculus of gallbladder with chronic cholecystitis without obstruction; J43.9 Emphysema, unspecified; N40.1 Benign prostatic hyperplasia with lower urinary tract symptoms; R33.8 Other retention of urine; K21.9 Gastro-esophageal reflux disease without esophagitis; Z20.822 Contact with and (suspected) exposure to COVID-19; K59.00 Constipation, unspecified; E78.5 Hyperlipidemia, unspecified; R91.1 Solitary pulmonary nodule; I11.0 Hypertensive heart disease with heart failure; Z96.651 Presence of right artificial knee joint; Z72.89 Other problems related to lifestyle; Z87.891 Personal history of nicotine dependence; I25.2 Old myocardial infarction
CPT/HCPCS: 36415; 36600; 71045; 71275; 74177; 76705; 80053; 81001; 82375; 82550; 82553; 82570; 82805; 83050; 83690; 83735; 83880; 83935; 84100; 84132; 84300; 84484; 84540; 85025; 85027; 85049; 85380; 85610; 85730; 87040; 87086; 88304; 93005; 93306; 94618; 94640; 96361; 96365; 96366; 96367; 96372; 96375; 96376; 97110; 97161; 97165; 97530; 99285; A9270; C8929; C9113; C9803; G0378; J0330; J0456; J0696; J1100; J1650; J1956; J2370; J2405; J2704; J2710; J2920; J2930; J3010; J7030; J7120; J7512; Q9957; Q9967; U0003; U0005

== ENCOUNTER 2022-01-27 06:41 | Inpatient (IN) | payer MEDICARE, SELFPAY ==
[2022-01-27] VITALS (30 sets, daily range): BP systolic 109–134; BP diastolic 62–85; PULSE 92–122; RESP 12–39; TEMP 36.2–36.8; O2SAT 95–99
--- NOTE | ~2022-01-27 | XR_ITS ---
EXAMINATION: XR chest 1V portable DATE: 02/04/2022 05:32 INDICATION: Right-sided pneumothorax. TECHNIQUE: A single frontal view of the chest was obtained. COMPARISON: Chest single view 02/03/2022 FINDINGS: The lung volumes are small. There are airspace opacities in the mid and lower lung zones wi th a basilar predominance. No pleural effusion. There is a small right apical pneumothorax. The heart size is normal. IMPRESSION: 1. Small right apical pneumothorax. 2. Small lung volumes with airspace opacities in the mid and lower lung zones, likely atelectasis. Reviewed, dictated and finalized at location A.
--- NOTE | ~2022-01-27 | US_ITS ---
EXAMINATION: [facility] DATE: 02/11/2022 17:41 INDICATION: Intermittent edema. TECHNIQUE: Grayscale ultrasound images without and with compression and Doppler ultrasound images of the bilateral upper extremity veins were obtained. COMPARISON: None.. FINDINGS: The visualized portions of the bilateral internal jugular vein, subclavian vein, axillary vein, brach ial veins, basilic vein, cephalic vein, radial vein, and ulnar vein are patent. IMPRESSION: 1. No deep venous thrombosis. Reviewed, dictated and finalized at location K.
--- NOTE | ~2022-01-27 | XR_ITS ---
XR chest 1V portable 02/01/2022 17:49 Indication: Post right lung biopsy. Right pneumothorax. Procedure: AP portable chest Comparison: Comparison to multiple prior studies sequentially, with oldest reviewed study dated 01/30. Findings: Stable small right apical pneumothorax. Bibasilar airspace disease is present. Small right pleural effusion. Stable cardiomediastinal silhouette. No acute osseous abnormality. Impression: 1: Stable small right apical pneumothorax. 2: Persistent unchanged bibasilar airspace disease which may represent atelectasis or pneumonia. 3: Small right pleural effusion. Reviewed, dictated and finalized at location A. Impression: 1: Stable small right apical pneumothorax. 2: Persistent unchanged bibasilar airspace disease which may represent atelecta sis or pneumonia. 3: Small right pleural effusion.
--- NOTE | ~2022-01-27 | XR_ITS ---
EXAMINATION: XR sniff test with CXR2V DATE: 01/31/2022 12:02 INDICATION: Diaphragm paralysis. TECHNIQUE: I performed fluoroscopy of the chest while the patient performed normal respiration, deep respiration, and forceful sniffing. The number of images was 1218. Fluoroscopy exposure time was 0.7 seconds. Frontal and lateral views of the chest were obtained. COMPARISON: chest CT 01/27/22 FINDINGS: SNIFF TEST: There is symmetric decreased mobility of the diaphragm. No paradoxical motion. CHEST TWO VIEWS: The lung volumes are small. There is mild atelectasis at the lung bases. No pleural effusion or pneumothorax. The heart size is normal. IMPRESSION: 1. Small lung volumes with mild atelectasis at the lung bases. 2. Symmetric decreased mobility of the diaphragm with breathing tasks. No paradoxical motion. Reviewed, dictated and finalized at location A. IMPRESSION: 1. Small lung volumes with mild atelectasis at the lung bases. 2. Symmetric decreased mobility of the diaphragm with breathing tasks. No parad oxical motion.
--- NOTE | ~2022-01-27 | CT_ITS ---
EXAMINATION: CTA chest PE protocol DATE: 01/27/2022 09:18 INDICATION: Shortness of breath. TECHNIQUE: Computed tomography angiography (CTA) of the chest was performed with 100 mL Omnipaque-350 intravenous contrast timed to evaluate the pulmonary arteries. Coronal maximum intensity projection 3D-reconstructions were created by the technologist. Automated exposure control and iterative reconst ruction technique were employed. The dose-length product was 741.41 mGy-cm. COMPARISON: CT chest 01/07/2022, PET/CT 12/25/21 FINDINGS: The lung volumes are small. There is mild atelectasis in the inferior lungs. Calcified left lung nodules and calcified hilar lymph nodes are consistent with old granulomas disc disease. There is an 11 mm nodule in right upper lobe. No pleural effusion. The heart size is normal. No pericardial effusion. There is no pulmonary embolus. There are changes of cholecystectomy. There are changes of ileocolic anastomosis. There is mild thoracic spondylosis. IMPRESSION: 1. No pulmonary embolus. 2. Mild atelectasis in the inferior lungs. 3. 11 mm pulmonary nodule suspicious for primary bronchogenic carcinoma. CT-guided biopsy is recommen ded. Reviewed, dictated and finalized at location A. IMPRESSION: 1. No pulmonary embolus. 2. Mild atelectasis in the inferior lungs. 3. 11 mm pulmonary nodule suspicious for primary bronchogenic carcinoma. CT-meenakshi ded biopsy is recommended.
--- NOTE | ~2022-01-27 | XR_ITS ---
EXAMINATION: XR chest 1V DATE: 02/01/2022 15:16 INDICATION: Right lung nodule status post percutaneous biopsy. TECHNIQUE: A single frontal view of the chest was obtained. COMPARISON: Chest single view 02/01/2021 FINDINGS: The lung volumes are small. There is mild atelectasis at the lung bases. There is a nodule in right upper lobe. No pleural effusion or pneumothorax. The heart size is normal. IMPRESSION: 1. Nodule in right lung upper lobe suspicious for primary bronchogenic carcinoma. 2. Small lung volumes with mild atelectasis at the lung bases. Reviewed, dictated and finalized at location A. IMPRESSION: 1. Nodule in right lung upper lobe suspicious for primary bronchogenic carcinom a. 2. Small lung volumes with mild atelectasis at the lung bases.
--- NOTE | ~2022-01-27 | US_ITS ---
EXAMINATION:US venous doppler LE BI INDICATION:Leg edema. TECHNIQUE: Multiple grayscale, color flow and Doppler images of the right and left lower extremity de ep venous systems were obtained and reviewed. COMPARISON:Ultrasound dated 09/22/2019 FINDINGS: The common femoral, superficial femoral and popliteal veins demonstrate normal respiratory variation, augmentation and compressibility. Color flow is also seen within the posterior tibial, pe roneal, greater saphenous and profunda veins. IMPRESSION: 1: No lower extremity deep venous thrombosis. Reviewed, dictated and finalized at location A.
--- NOTE | ~2022-01-27 | XR_ITS ---
EXAMINATION: XR chest 1V portable Exam Date/Time: 01/28/2022 20:48 CDT HISTORY: SOB; hx of HTN, COPD, CHF, prev smoker Comparison: X-ray chest 01/27/2022, CTPA 01/27/2022. RESULT: Lines, tubes, and devices: Cholecystectomy clips. Lungs and pleura: Low lung volumes. Increased linear and subsegmental opacities in the right lung ba se. Right lateral costophrenic angle blunting. Cardiomediastinal silhouette: Stable. Other: No acute osseous or upper abdominal finding. IMPRESSION: Increasing right basilar atelectasis/consolidation. Small right pleural effusion. Reviewed, dictated and finalized at location K. IMPRESSION: Increasing right basilar atelectasis/consolidation. Small right pleural effusio n.
--- NOTE | ~2022-01-27 | XR_ITS ---
EXAMINATION: XR chest 1V portable DATE: 01/30/2022 05:43 INDICATION: Hypoxia. TECHNIQUE: A single frontal view of the chest was obtained. COMPARISON: Chest single view 01/28/2022, chest CT 01/27/2022 FINDINGS: The lung volumes are small. There is mild atelectasis at the lung bases. No pleural effusio n or pneumothorax. The heart size is normal. Surgical clips in the right upper quadrant are likely fr om cholecystectomy. IMPRESSION: 1. Small lung volumes with mild atelectasis at the lung bases. Reviewed, dictated and finalized at location A.
--- NOTE | ~2022-01-27 | XR_ITS ---
EXAMINATION: XR chest 1V portable DATE: 01/27/2022 07:23 INDICATION: Shortness of breath. Chest pain. TECHNIQUE: A single frontal view of the chest was obtained on 2 radiographs. COMPARISON: Chest single view 01/17/2022, chest CT 01/07/2022 FINDINGS: There is mild atelectasis in the lower lung zones. No pleural effusion or pneumothorax. The heart size is normal. Surgical clips in the right upper quadrant are likely from cholecystectomy. IMPRESSION: 1. Mild atelectasis in the lower lung zones. Reviewed, dictated and finalized at location A.
--- NOTE | ~2022-01-27 | XR_ITS ---
XR chest 1V portable 02/03/2022 06:15 Indication: Right pneumothorax Procedure: AP portable chest Comparison: Comparison to multiple prior studies sequentially, with oldest reviewed study dated 02/01. Findings: Near complete resolution of right pneumothorax. Bibasilar airspace disease. Small right ple ural effusion. Cardiomediastinal silhouette stable. There is atherosclerosis of the aorta. No acute o sseous abnormality. Impression: 1: Near-complete resolution of right pneumothorax. 2: Bibasilar airspace disease, pneumonia versus atelectasis. 3: Small right pleural effusion. Reviewed, dictated and finalized at location A. Impression: 1: Near-complete resolution of right pneumothorax. 2: Bibasilar airspace disease, pneumonia versus atelectasis. 3: Small right pleural effusion.
--- NOTE | ~2022-01-27 | XR_ITS ---
XR chest 1V portable 02/02/2022 06:04 Indication: Right pneumothorax post biopsy. Procedure: AP portable chest Comparison: Comparison to multiple prior studies sequentially, with oldest reviewed study dated 01/30. Findings: Small residual right apical pneumothorax. Bilateral airspace disease, possibly edema. Small right pleural effusion. Stable cardiomediastinal silhouette. Impression: 1: Developing bilateral airspace disease which may represent mild edema. 2: Small right apical pneumothorax. 3: Small right pleural effusion. Reviewed, dictated and finalized at location A. Impression: 1: Developing bilateral airspace disease which may represent mild edema. 2: Small right apical pneumothorax. 3: Small right pleural effusion.
--- NOTE | ~2022-01-27 | XR_ITS ---
EXAMINATION: XR chest 1V portable DATE: 02/06/2022 05:56 INDICATION: Pneumothorax. TECHNIQUE: A single frontal view of the chest was obtained. COMPARISON: Chest single view 02/04/2022 FINDINGS: The lung volumes are small. There are small pleural effusions. There are airspace opacities at the lung bases. No pneumothorax. The heart size is normal. IMPRESSION: 1. Small pleural effusions. 2. Airspace opacities at the lung bases, likely atelectasis. Reviewed, dictated and finalized at location A.
--- NOTE | ~2022-01-27 | XR_ITS ---
EXAMINATION: XR chest 1V portable DATE: 02/08/2022 05:54 INDICATION: Respiratory failure TECHNIQUE: frontal view of the chest was obtained. COMPARISON: Chest radiograph dated 02/06/2022 FINDINGS: Right rotation of the patient. Lung volumes remain small. Opacities in bilateral lung bases with blun ting at the costophrenic angles. No pneumothorax. Heart size is normal. IMPRESSION: 1. No interval change in bibasilar opacities consistent with small pleural effusions and associated a telectasis versus pneumonia. Reviewed, dictated and finalized at location A. IMPRESSION: 1. No interval change in bibasilar opacities consistent with small pleural effu sions and associated atelectasis versus pneumonia.
--- NOTE | ~2022-01-27 | CT_ITS ---
EXAMINATION: CT biopsy lung w/imaging DATE: 02/01/2022 15:18 INDICATION: Right lung nodule. TECHNIQUE: The procedure including the risks, benefits, and alternatives and possibility of chest tub e placement were discussed with the patient. Risks discussed included infection, hemorrhage, approxim ately 1/3 risk of pneumothorax, approximately 1/10 risk of pneumothorax severe enough to warrant ches t tube placement, and rarely . The patient understood the risks and agreed to proceed. The patie nt was placed prone. The skin overlying the right chest was prepped and draped in sterile fashion. Anesthetic was administered with 1% lidocaine subcutaneously. A 19 gauge outer needle was advanced u nder CT guidance to the lesion of interest. A 20 gauge core biopsy needle was then used to obtain 3 c ore biopsy specimens. The needle was removed and the entry site was cleaned and dressed. The mA was a djusted according to patient size. Iterative reconstruction technique was employed. The dose-length p roduct was 235.86 mGy-cm. There were no immediate complications. FINDINGS: CT images demonstrate the outer needle tip adjacent to an 11 mm nodule in right lung upper lobe. IMPRESSION: 1. CT-guided core needle biopsy of an 11 mm nodule in right lung upper lobe. Reviewed, dictated and finalized at location A.
--- NOTE | ~2022-01-27 | XR_ITS ---
XR chest 1V portable 02/01/2022 16:16 Indication: Post lung biopsy Procedure: AP portable chest Comparison: Comparison to multiple prior studies sequentially, with oldest reviewed study dated 01/27. Findings: There is bibasilar airspace disease. No significant effusion or pneumothorax. No acute osse ous abnormality. No acute osseous abnormality. Nonspecific bowel gas pattern in the upper abdomen. Impression: 1: Bibasilar airspace disease which may represent atelectasis or pneumonia. Reviewed, dictated and finalized at location A. Impression: 1: Bibasilar airspace disease which may represent atelectasis or pneumonia.
--- NOTE | 2022-01-27 06:56 | ECG_ITS ---
Measurements Intervals [place] Rate: 90 P: 53 CO: 144 QRS: -5 QRSD: 121 T: 84 QT: 340 QTc: 416 Interpretive Statements SINUS RHYTHM VENTRICULAR PREMATURE COMPLEX INCOMPLETE LEFT BUNDLE BRANCH BLOCK ST-T WAVE ABNORMALITY IN ANTEROLATERAL LEADS- CONSIDER ISCHEMIA BASELINE ARTIFACT- I, II, III, AVR, AVL, AVF, V1-V6 ABNORMAL ECG COMPARED TO ECG 01/11/2022 14:20:35 INCOMPLETE LEFT BUNDLE BRANCH BLOCK NOW PRESENT ST-T WAVE ABNORMALITY IN ANTEROLATERAL LEADS- CONSIDER ISCHEMIA NOW PRESENT Electronically Signed On 01-27-2022 21:34:07 CDT by Isaac Varela D.O.
[2022-01-27 07:39] LABS: Alveolar/Arterial O2 Gradient 119.4 mmHg; Base Excess ABG 6.7 mEq/l (+/-2.0); Carboxyhemoglobin 0.5 % THb (0-2.0); Fractional Inspired Oxygen 36 %; HCO3 ABG 31.7 mEq/l (22.0-26.0); Methemoglobin ABG 0.4 %THb (0-1.5); Oxygen Content ABG 20.3 %vol (16.0-22.0); Oxygen Saturation ABG 96.6 % (95.0-100.0); Oxyhemoglobin 95.4 % THb (90.0-100.0); PCO2 ABG 46.3 mmHg (35.0-45.0); PO2 ABG 83.6 mmHg (80.0-100.0); PO2 FiO2 Ratio Arterial Blood 2.32 %; Reduced Hemoglobin 3.7 %THb (0-5.0); Total Hemoglobin 15.1 g/dL (12.0-18.0); pH ABG 7.454 (7.350-7.450)
[2022-01-27 07:41] LABS: Device NASAL CANNULA; Site Drawn LEFT BRACHIAL
--- NOTE | 2022-01-27 07:48 | ED.SOB ---
HPI - SOB/Dyspnea General Chief Complaint: Shortness of Breath/Dyspnea Stated Complaint: calf pain, SOB, dk urine in bustamante catheter Time Seen by Provider: 01/27/22 07:05 Source: patient, EMS, RN notes reviewed and old records reviewed Mode of arrival: EMS History of Present Illness HPI Narrative: THis is a 76 year old male with history of COPD, CHF, hypertension who presents from home for evaluation of shortness of breath suddenly this morning. Nursing reports patient was 70% on room air and it increased to 96% on 2 L NC. Patient feels better on oxygen. He denies any chest pain, nausea, vomiting , fever or abdominal pain. Patient has history of bilateral leg edema. EMS reported calf pain but patient states he does not know if he is having calf pain. He does reports pain to his penis due to have bustamante catheter in place. Bustamante catheter has been in place for 3 weeks and it was changed on Friday. Urine has been noted to be dark. He had cholecystectomy performed 01/16/22. Related Data Home Medications Medication Instructions Recorded Confirmed finasteride 5 mg tablet 10 mg PO DAILY 07/06/20 01/27/22 losartan 100 mg tablet 100 mg PO DAILY 07/06/20 01/27/22 metoprolol succinate 25 mg 25 mg PO DAILY 07/06/20 01/27/22 tablet,extended release 24 hr (Toprol XL) atorvastatin 20 mg tablet 20 mg PO DAILY 11/23/21 01/27/22 tamsulosin 0.4 mg capsule 0.4 mg PO HS 01/02/22 01/27/22 spironolactone 25 mg tablet 25 mg PO DAILY 01/27/22 01/27/22 Allergies Allergy/AdvReac Type Severity Reaction Status Date / Time No Known Allergies Allergy Unknown Verified 01/02/22 15:05 Review of Systems Review of Systems: All systems reviewed & are unremarkable except as noted in HPI and below Constitutional: Constitutional: Denies chills, Denies fatigue and Denies fever(s) ENT: Denies nasal congestion Cardiovascular: Cardiovascular: Denies chest pain Respiratory: Respiratory: Reports dyspnea Gastrointestinal: Gastrointestinal: Denies abdominal pain, Denies nausea and Denies vomiting Genitourinary: Genitourinary: Reports penile discharge Musculoskeletal: Musculoskeletal: Denies back pain [facility] Past Medical History Medical History (Updated 01/27/22 @ 18:21 by Maria Victoria Knight MD) Alcohol abuse Alpha 1-antitrypsin PiMS phenotype Benign prostate hyperplasia Chronic obstructive pulmonary disease Diastolic congestive heart failure Former smoker Hyperlipidemia Hypertension Myocardial infarction Prediabetes Pulmonary nodule Surgical History Surgical History (Updated 01/27/22 @ 13:23 by Oma Reed PA-C) History of colonoscopy with polypectomy History of incisional hernia repair With mesh. History of right hemicolectomy For cecal polyp. History of total right knee replacement Family History Family History Mother Carcinoma of colon Family history of malignant neoplasm of breast in first degree relative Breast cancer Sibling Malignant neoplasm of prostate Social History Social History (Updated 01/27/22 @ 13:28 by Oma Reed PA-C) Social History: The patient lives in [place] with his and 1 cat. 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 He smoked a pack cigarettes a day for nearly 50 years and quit in 2005. He drinks about 5 beers a day. No illicit substance use. Surrogate medical decision maker: Kae Lee, spouse. Code status: Full code. Spiritual care concerns: No Agree to blood products: Yes Exam Const: General: alert and ill appearing Nutritional Appearance: obese Orientation/consciousness: patient oriented x3 Eyes: EOM: EOMs intact bilaterally Resp: Effort & Inspection: tachypneic Auscultation: clear to auscultation bilaterally Cardio: Rate: regular rate Rhythm: regular rhythm Heart sounds: no murmurs GI: GI Palp: Yes Soft to palpation, Yes Tenderness to palpation present (GI) (mild tenderness at inci
[2022-01-27 08:00] LABS: Basophils Percent Auto 0.6 % (0.2-1.2); Eosinophils Absolute Auto 0.2 K/mm3 (0-0.3); Eosinophils Percent Auto 2.8 % (0-4.4); Hematocrit 45.3 % (42.0-52.0); Hemoglobin 14.8 g/dL (14.0-18.0); Immature Granulocyte Absolute 0.02 K/mm3 (0.00-0.031); Immature Granulocyte Percent A 0.3 % (0-0.5); Lymphocytes Absolute Auto 1.22 K/mm3 (0.9-3.2); Lymphocytes Percent Auto 18.2 % (18.3-44.2); Mean Corpuscular HGB Conc 32.7 g/dl (32-36); Mean Corpuscular Hemoglobin 30.2 pg (26-34); Mean Corpuscular Volume 92.4 fl (80-100); Mean Platelet Volume 10.6 fl (7.4-10.4); Monocytes Absolute Auto 0.8 K/mm3 (0.1-0.6); Monocytes Percent Auto 11.2 % (2.6-8.5); Neutrophils Absolute Auto 4.5 K/mm3 (1.3-6.7); Neutrophils Percent Auto 66.9 % (45.5-73.1); Platelet Count Result 186 k/mm3 (150-375); Red Cell Distribution Width 13.6 % (11.5-14.5); White Blood Count 6.7 K/mm3 (4.5-10.0)
[2022-01-27 08:08] LABS: Alanine Aminotransferase 31 U/L (6-50); Albumin Level 3.4 g/dL (3.5-5.1); Alkaline Phosphatase 95 U/L (38-126); Anion Gap 9 mmol/L (8-16); Aspartate Amino Transferase 34 U/L (17-59); Bilirubin,Total 0.7 mg/dL (0.2-1.3); Blood Urea Nitrogen 16 mg/dL (9-20); Calcium 9.2 mg/dL (8.4-10.2); Carbon Dioxide 33 mmol/L (22-30); Chloride 92 mmol/L (98-107); Estimated CRCL calculation 84 ml/min; Estimated Glomerular Filt Rate > 60; Glucose 103 mg/dL (65-110); Potassium 3.5 mmol/L (3.4-5.0); Sodium 134 mmol/L (137-145)
[2022-01-27 08:11] LABS: Appearance Urine Cloudy (Clear); Bilirubin Urine 1+ (Negative); Blood Urine 3+ (Negative); Color Urine Amber (Yellow); Glucose Urine UA Negative (Negative); Ketones Urine Trace mg/dL (Negative); Leukocyte Esterase Ur 1+ LEU/UL (Negative); Nitrate Urine Positive (Negative); Protein Urine 1+ mg/dL (Negative); Specific Grav Ur 1.025 (1.001-1.035); Urobilinogen Urine 0.2 mg/dL (<2.0); pH Urine 5.5 (5.0-9.0)
[2022-01-27 08:22] LABS: SARS-CoV-2 RNA PCR Negative
[2022-01-27 08:23] LABS: NT Pro B Type Natriuretic Pept 452 pg/mL (5-100); Troponin I 0.044 ng/mL (0.000-0.034)
[2022-01-27 08:36] LABS: Calcium Oxalate Crystals Urine Many /hpf; Mucus Urine Heavy /lpf; RBC Urine >75 /hpf (0-2); Squamous Epithelial Cell Urine Moderate /hpf (Few); WBC Urine 51-75 /hpf
[2022-01-27 08:41] LABS: Add Urine Microscopic? YES
[2022-01-27 09:22] LABS: INR 1.1; Prothrombin Time 13.4 Seconds (11.1-14.7)
[2022-01-27 09:24] LABS: Partial Thromboplastin Time 33.2 SECONDS (22.3-36.8)
[2022-01-27] MEDS: FUROSEMIDE INJ 40 MG/4 ML VIAL IV PUSH (10:07)
[2022-01-27] MEDS: ALBUTEROL SULFATE NEB 2.5 MG/3 ML INH 5 MG INHALATION ×2 (11:11→20:20)
[2022-01-27] MEDS: IPRATROPIUM BR 0.02% INH SOLN 0.5 MG/2.5 ML VIAL INHALATION ×2 (11:11→20:20)
--- NOTE | 2022-01-27 11:15 | PC.NURSE ---
Gertrude daughter phone number [facility] line [phone] work [phone]
--- NOTE | 2022-01-27 12:16 | ADMGEN ---
This patient, Odilon Lee, was admitted to IMU Room 214-01. at 11:26 from ED. Report taken from JANE FAY. Patient/family oriented to hospital policies and general routines including ID bracelet, bed and alarms, visiting hours, pain management, procedures, bathroom and other care routines, personal items, smoking policy, room service/diet, and visiting hours. Information on how to activate the Rapid Response Team has been discussed. Patient/Family are encouraged to report perceived risks to care and to ask questions if they do not understand what they are told or what they should do.
--- NOTE | 2022-01-27 13:15 | PM.IMHP ---
H&P: HPI History of Present Illness Date/Time: 01/27/22 13:15 Chief Complaint: Severe pain related to Posey catheter. Narrative: This is a 76-year-old male with COPD, hypertension, and hyperlipidemia who presented to the emergency department earlier this morning via EMS from home for evaluation of severe pain related to Posey catheter. He was recently hospitalized with abdominal pain and he had a laparoscopic cholecystectomy. Postoperatively he had issues with urinary retention and he was discharged home with a Posey catheter after failing a voiding trial. He has had discomfort at the tip of the penis related to the catheter however this morning he was wakened from sleep with severe pain which initially led to him calling 911. He thinks that the catheter is anchored to tightly and that it is causing friction and at times the catheter is getting pulled due as there is not much slack. He was not feeling any more short of breath than usual when he called 911 however he does admit that he has chronic conversational dyspnea and as the patient puts it the audio operator asked me 10,000 questions and so did EMS so I got short of breath. This was not his main complaint which brought him to the ER, however his SpO2 was in the 70s on room air on EMS arrival. CTA of the chest done on arrival showed no evidence of pulmonary embolism. An 11 millimeter pulmonary nodule suspicious for primary bronchogenic carcinoma was again noted and patient reports that he is supposed to have a biopsy in the upcoming weeks. In any event he was noted to have marked lower extremity edema and in conjunction with the shortness of breath he is being admitted for further treatment for presumed CHF exacerbation. He has also been started on antibiotics for what appears to be urinary tract infection. At the time my evaluation he is resting comfortably and he feels like he is at his baseline. He reports chills but he has not had fever or sweats. Again, he does not feel any more short of breath than he does at baseline. He has an occasional cough which is not new. He has not had chest pain or pleuritic pain. No nausea, vomiting, or diarrhea. He has not noticed any hematuria. No suprapubic discomfort or low back pain. Review of Systems Review of Systems: Twelve systems were reviewed. No fever. No headache. No sinus congestion or sore throat. He does occasionally have issues with constipation. He is doing well postoperatively since his cholecystectomy and has no complaints in that regard. He is occasionally lightheaded upon standing. No syncope or near syncope. he has chronic orthopnea which is unchanged. It is not unusual for him to have lower extremity edema which he says is worse recently as he has been sitting more than usual. No history of venous thromboembolism. He is typically able to go to the store to get groceries though he does get short of breath when loading groceries and putting them away. Since his surgery he has not been out of the home to shop and is having them delivered. He has never had signs or symptoms of alcohol withdrawal or alcohol withdrawal seizures. Except as documented, all other systems were reviewed and are negative. [facility] Past Medical History Medical History Alcohol abuse Alpha 1-antitrypsin PiMS phenotype Benign prostate hyperplasia Chronic obstructive pulmonary disease Diastolic congestive heart failure Former smoker Hyperlipidemia Hypertension Myocardial infarction Prediabetes Pulmonary nodule Surgical History Surgical History (Updated 01/27/22 @ 13:23 by Oma Reed PA-C) History of colonoscopy with polypectomy History of incisional hernia repair With mesh. History of right hemicolectomy For cecal polyp. History of total right knee replacement Family History Family History Mother Carcinoma of colon Family history of malignan
[2022-01-27 14:25] LABS: Magnesium 1.9 mg/dL (1.6-2.3)
[2022-01-27 14:50] LABS: Troponin I 0.045 ng/mL (0.000-0.034)
[2022-01-27] MEDS: BUMETANIDE 1 MG TABLET PO (17:44)
[2022-01-27] MEDS: FOLIC ACID 1 MG TABLET PO (17:45)
[2022-01-27] MEDS: THERAPEUTIC MULTIVITAMINS/MINERALS TAB (*BKC) 1 TABLET PO (17:45)
[2022-01-27] MEDS: ENOXAPARIN 40 MG/0.4 ML SYRINGE SUB-Q (17:45)
[2022-01-27] MEDS: THIAMINE HCL 100 MG TABLET PO (17:45)
[2022-01-27] MEDS: ALBUTEROL SULFATE (*SP) AEROSOL 1 PUFF 2 PUFF INHALATION (17:52)
[2022-01-27] MEDS: AMOXICILLIN/CLAVULANATE K 875-125 MG TAB 1 TABLET PO (20:25)
[2022-01-27] MEDS: TAMSULOSIN HCL 0.4 MG CAPSULE PO (20:25)
[2022-01-28] VITALS (28 sets, daily range): BP systolic 72–112; BP diastolic 38–65; PULSE 75–125; RESP 12–24; TEMP 36.3–37.1; O2SAT 94–99; BMI 27.8
[2022-01-28] MEDS: ALBUTEROL SULFATE NEB 2.5 MG/3 ML INH 5 MG INHALATION ×4 (02:33→21:01)
[2022-01-28] MEDS: IPRATROPIUM BR 0.02% INH SOLN 0.5 MG/2.5 ML VIAL INHALATION ×4 (02:33→21:02)
[2022-01-28 05:35] LABS: Basophils Absolute Auto 0.1 K/mm3 (0.0-0.1); Basophils Percent Auto 0.7 % (0.2-1.2); Eosinophils Absolute Auto 0.3 K/mm3 (0-0.3); Eosinophils Percent Auto 3.5 % (0-4.4); Hematocrit 43.9 % (42.0-52.0); Immature Granulocyte Absolute 0.01 K/mm3 (0.00-0.031); Immature Granulocyte Percent A 0.1 % (0-0.5); Lymphocytes Absolute Auto 1.41 K/mm3 (0.9-3.2); Lymphocytes Percent Auto 19.7 % (18.3-44.2); Mean Corpuscular HGB Conc 31.9 g/dl (32-36); Mean Corpuscular Hemoglobin 29.7 pg (26-34); Mean Corpuscular Volume 93.2 fl (80-100); Mean Platelet Volume 10.6 fl (7.4-10.4); Monocytes Absolute Auto 0.8 K/mm3 (0.1-0.6); Monocytes Percent Auto 10.9 % (2.6-8.5); Neutrophils Absolute Auto 4.7 K/mm3 (1.3-6.7); Neutrophils Percent Auto 65.1 % (45.5-73.1); Platelet Count Result 190 k/mm3 (150-375); Red Blood Count 4.71 M/mm3 (4.6-6.20); Red Cell Distribution Width 13.8 % (11.5-14.5); White Blood Count 7.2 K/mm3 (4.5-10.0)
[2022-01-28 05:44] LABS: Alanine Aminotransferase 28 U/L (6-50); Alkaline Phosphatase 91 U/L (38-126); Anion Gap 8 mmol/L (8-16); Aspartate Amino Transferase 32 U/L (17-59); Bilirubin,Total 0.5 mg/dL (0.2-1.3); Blood Urea Nitrogen 13 mg/dL (9-20); Calcium 7.8 mg/dL (8.4-10.2); Carbon Dioxide 36 mmol/L (22-30); Chloride 89 mmol/L (98-107); Estimated CRCL calculation 72 ml/min; Estimated Glomerular Filt Rate > 60; Glucose 118 mg/dL (65-110); Potassium 3.2 mmol/L (3.4-5.0); Sodium 133 mmol/L (137-145)
[2022-01-28] MEDS: POTASSIUM CHLORIDE 20 MEQ TABLET 40 MEQ PO (09:09)
[2022-01-28] MEDS: ENOXAPARIN 40 MG/0.4 ML SYRINGE SUB-Q (09:10)
[2022-01-28] MEDS: SPIRONOLACTONE 25 MG TABLET PO (09:10)
[2022-01-28] MEDS: METOPROLOL SUCCINATE EXT REL 25 MG TABCR PO (09:10)
[2022-01-28] MEDS: ATORVASTATIN 20 MG TABLET PO (09:10)
[2022-01-28] MEDS: FINASTERIDE 5 MG TABLET 10 MG PO (09:10)
[2022-01-28] MEDS: THERAPEUTIC MULTIVITAMINS/MINERALS TAB (*BKC) 1 TABLET PO (09:10)
[2022-01-28] MEDS: LOSARTAN POTASSIUM 100 MG TABLET PO (09:10)
[2022-01-28] MEDS: FOLIC ACID 1 MG TABLET PO (09:10)
[2022-01-28] MEDS: THIAMINE HCL 100 MG TABLET PO (09:10)
[2022-01-28] MEDS: BUMETANIDE 1 MG TABLET PO (09:10)
[2022-01-28] MEDS: POTASSIUM CHLORIDE 10 MEQ TABLET.ER PO (09:10)
--- NOTE | 2022-01-28 10:11 | PM.IMPN ---
Progress Note: A&P Assessment and Plan (1) Acute respiratory failure with hypoxia: Code(s): J96.01 - Acute respiratory failure with hypoxia Status: Acute Assessment and Plan: Patient reports he has chronic conversational dyspnea. He denies feeling SOB but states it was be pain related to his Posey catheter that prompted his presentation to the ED. He was SOB when speaking with the field operator. He has had home O2 evaluation in the past and not required home O2. He is followed by Dr. Ray and was recently given a prescription for new inhaler which he has yet to receive. He was treated for PNA at last hospitalization and discharged on Augmentin for 7 more days. CTA chest here showing no PE and mild atelectasis. Doubt PNA. Continue nebulizer treatments. Continue Trelegy. Wean oxygen as tolerated. Add incentive spirometry (2) Elevated troponin: Code(s): R77.8 - Other specified abnormalities of plasma proteins Status: Acute Assessment and Plan: Troponins are mildly elevated and have remained flat. EKG showing iLBBB, ST-T wave changes in the anterolateral leads. These EKG findings are new but no complaints of chest pain. Echo 01/07/22 shows normal LV size, hyperdynamic contractility with EF>70%, LVH, and grade 1 diastolic dysfunction. CTA chest negative for PE this admission. Could be a type 2 PR related to hypoxia. Concern for underlying ischemia since he has EKG changes but had normal LHC on 09/18/21 so unlikely ischemia. Continue to monitor on tele. (3) Diastolic congestive heart failure: Code(s): I50.30 - Unspecified diastolic (congestive) heart failure Status: Acute Assessment and Plan: He reports increasing lower extremity edema recently. He was given a dose of furosemide 40mg IV x1 in the ER and was continued with p.o. diuretics. Venous Doppler ultrasounds of the lower legs ordered to rule out DVT. Change Bumex to IV. (4) Abnormal urinalysis: Code(s): R82.90 - Unspecified abnormal findings in urine Status: Acute Assessment and Plan: Urine is positive for nitrates and leukocyte esterase with 51-75 WBC however he is afebrile and has a normal WBC count. More than likely this indicates colonization as his history does not suggest acute infection. It sounds as though the pain he was experiencing at the tip of his penis may very well be related to the catheter getting pulled on his shorts in the middle of the night; he feels as though it is anchored too tightly and he does not have enough room to move. Abx on hold (he just finished his Augmentin). Follow up on UCx results (5) Alcohol abuse: Code(s): F10.10 - Alcohol abuse, uncomplicated Status: Acute Assessment and Plan: No issues with alcohol withdrawal last admisison. Continue CIWA protocol. Continue thiamine and folic acid supplementation. He was educated about the benefits of abstaining from alcohol. (6) Urine retention: Code(s): R33.9 - Retention of urine, unspecified Status: Acute Assessment and Plan: Patient has found to have urine retention and bilateral hydronephrosis last admission. He had a voidnig trial last week but failed. He is requesting Posey be removed again. He understands that we may need to put it back in. Will remove Foely and see how he does. Continue Flomax and Proscar. Plan DVT prophylaxis: Lovenox Code status: Full Diet: Heart healthy Subjective Date/time seen: 01/28/22 10:11 Interval history: 76yo male with COPD, CHF and HTN who was recently discharged from [place] who returns for shortness of breath. He was hospitalized here from 12/29-01/20 for acute respiratory failure, urine retention (now has chronic Posey), PNA, alcohol abuse, cholelithiasis s/p CCY 01/16 and pulmonary nodule among others. He continues to drink alcohol. He has not followed up with pulmonary for the lung biopsy yet. He did see urology on 01/24 and had Posey re
--- NOTE | 2022-01-28 14:55 | PCNSR ---
On 01/28/22, the student, Timoteo Orta, provided care and completed [facility] documentation on this patient. I have reviewed the student's documentation and agree with the findings.
[2022-01-28] MEDS: FLUTICASONE/UMECLIDIN/VILANTER 100-62.5-25 MCG ELLIPTA 1 PUFF INHALATION (15:24)
[2022-01-28] MEDS: polyethylene glycoL 3350 17 GM POWD.PACK PO (18:22)
[2022-01-28] MEDS: SODIUM CHLORIDE 0.9% IV 500 ML IV CONT ×2 (18:22→19:20)
[2022-01-28] MEDS: SODIUM CHLORIDE 0.9% IV 1,000 ML 75 ML IV CONT (18:22)
[2022-01-28] MEDS: SODIUM CHLORIDE 0.9% IV 500 ML 999 ML IV CONT (20:55)
[2022-01-28 21:02] LABS: Basophils Absolute Auto 0.1 K/mm3 (0.0-0.1); Basophils Percent Auto 0.7 % (0.2-1.2); Eosinophils Absolute Auto 0.3 K/mm3 (0-0.3); Eosinophils Percent Auto 4.6 % (0-4.4); Hematocrit 39.3 % (42.0-52.0); Hemoglobin 12.7 g/dL (14.0-18.0); Immature Granulocyte Absolute 0.01 K/mm3 (0.00-0.031); Immature Granulocyte Percent A 0.1 % (0-0.5); Lymphocytes Absolute Auto 1.83 K/mm3 (0.9-3.2); Lymphocytes Percent Auto 25.4 % (18.3-44.2); Mean Corpuscular HGB Conc 32.3 g/dl (32-36); Mean Corpuscular Hemoglobin 30.2 pg (26-34); Mean Corpuscular Volume 93.3 fl (80-100); Mean Platelet Volume 10.3 fl (7.4-10.4); Monocytes Absolute Auto 0.9 K/mm3 (0.1-0.6); Monocytes Percent Auto 11.8 % (2.6-8.5); Neutrophils Absolute Auto 4.1 K/mm3 (1.3-6.7); Neutrophils Percent Auto 57.4 % (45.5-73.1); Platelet Count Result 177 k/mm3 (150-375); Red Blood Count 4.21 M/mm3 (4.6-6.20); Red Cell Distribution Width 13.9 % (11.5-14.5); White Blood Count 7.2 K/mm3 (4.5-10.0)
[2022-01-28 21:17] LABS: Alanine Aminotransferase 21 U/L (6-50); Albumin Level 2.7 g/dL (3.5-5.1); Alkaline Phosphatase 73 U/L (38-126); Anion Gap 6 mmol/L (8-16); Aspartate Amino Transferase 24 U/L (17-59); Bilirubin,Total 0.4 mg/dL (0.2-1.3); Blood Urea Nitrogen 13 mg/dL (9-20); Calcium 7.8 mg/dL (8.4-10.2); Carbon Dioxide 36 mmol/L (22-30); Chloride 91 mmol/L (98-107); Estimated CRCL calculation 72 ml/min; Estimated Glomerular Filt Rate > 60; Glucose 119 mg/dL (65-110); Magnesium 1.9 mg/dL (1.6-2.3); Potassium 3.5 mmol/L (3.4-5.0); Sodium 133 mmol/L (137-145)
[2022-01-28 21:20] LABS: CRP 1.4 mg/dL (<1.0)
[2022-01-28 21:23] LABS: NT Pro B Type Natriuretic Pept 369 pg/mL (5-100)
[2022-01-28] MEDS: MIDODRINE HCL 10 MG TABLET PO (21:47)
[2022-01-28 21:48] LABS: Cortisol Random 7.66 ug/dL
[2022-01-28 21:57] LABS: Procalcitonin 0.2 ng/mL
[2022-01-28 22:16] LABS: Troponin I 0.051 ng/mL (0.000-0.034)
--- NOTE | 2022-01-28 22:24 | ECG_ITS ---
Measurements Intervals Pyatt Rate: 84 P: 48 NV: 152 QRS: -4 QRSD: 108 T: 216 QT: 342 QTc: 406 Interpretive Statements SINUS RHYTHM VENTRICULAR PREMATURE COMPLEX ST-T WAVE ABNORMALITY IN ANTEROLATERAL LEADS- CONSIDER ISCHEMIA BASELINE ARTIFACT- I, II, III, AVR, AVL, AVF ABNORMAL ECG COMPARED TO ECG 01/27/2022 07:02:03 NO SIGNIFICANT CHANGES Electronically Signed On 01-29-2022 6:48:15 CDT by Isaac Varela D.O.
[2022-01-29] VITALS (23 sets, daily range): BP systolic 97–111; BP diastolic 41–64; PULSE 67–100; RESP 14–24; TEMP 36.1–37.1; O2SAT 90–100
--- NOTE | 2022-01-29 | ECHO_ITS ---
Patient Info Name: Odilon Lee Age: 76 years : 1945 Gender: Male Ht: 68 in Wt: 183 lbs BSA: 2.01 m2 HR: 98 bpm BP: 97 / 41 mmHg Heart Rhythm: Sinus Rhythm Technical Quality: Fair Exam Date: 01/29/2022 1:30 PM Exam Location: [facility] Patient Status: Inpatient Admit Date: 01/27/2022 Staff Ordering Physician: Nish Martins MD Pain Management Nurse: Christiane Hidalgo RDCS Attending Provider: Tessa Esparza DO Exam Type: CA echo limited w contrast Study Info Indications - HX OF HYPOTENSION - ELEVATED TROPONIN Limited two-dimensional transthoracic echocardiogram is performed with contrast. Contrast/Agitated Saline Contrast/Ag. Saline: Definity Amount: 3.00 ml Administered By: Christiane Hidalgo RDCS Existing IV Access: Yes IV Access Condition: patent with no signs of infiltration Summary 1. Mild left ventricular enlargement with normal left ventricular thickness. Good contractility of all segments with ejection fraction 59%. No segmental wall motion abnormalities noted. Diastolic function could be assessed with this limited study. 2. Limited echo study with IV contrast to assess left ventricular function. Valves were not interrogated in any detail. 3. No pericardial effusion. 4. Normal sinus rhythm. Left Ventricle Left ventricular chamber dimension is mildly enlarged. Left ventricular systolic function is normal, estimated at Empty. There is no increased left ventricular wall thickness. Left ventricular septal wall motion is normal. The left ventricular diastolic function is indeterminate. Right Ventricle Right ventricular chamber dimension is normal. Right ventricular systolic function is normal. Left Atria Left atrial chamber dimension is normal. Right Atria Right atrial chamber dimension is normal. Aortic Valve The aortic valve is trileaflet. There is no aortic valve sclerosis. There is no aortic valve stenosis. There is no aortic valve regurgitation. Pulmonic Valve The pulmonic valve is normal. There is no pulmonic valve stenosis. There is no pulmonic regurgitation. Mitral Valve The mitral valve has normal leaflets. There is no mitral valve stenosis. There is no mitral valve regurgitation. Tricuspid Valve The tricuspid valve leaflets are normal. There is no significant tricuspid valve stenosis. There is no tricuspid valve regurgitation. No pulmonary hypertension, estimated pulmonary arterial systolic pressure is Empty. Pericardium/Pleural The pericardium appears normal. There is no pericardial effusion. Inferior Vena Cava Not well visualized inferior vena cava with >50% collapse upon inspiration consistent with Empty right atrial pressure, Empty. Aorta The aortic root size at the sinus of Valsalva is normal. The prox ascending aorta size is normal. Ventricles Name Value Normal LV Dimensions 2D/MM IVS Diastole Thickness (MM) 1.0 cm 0.6-1.0 LVID Diastole (MM) 7.5 cm 4.2-5.8 LVIW Diastolic Thickness (MM) 1.0 cm 0.6-1.0 LVID Systole (MM) 4.9 cm 2.5-4.0 LV Mass (MM Cubed) 370.64 g 88
[2022-01-29] MEDS: ALBUTEROL SULFATE NEB 2.5 MG/3 ML INH 5 MG INHALATION ×4 (02:07→20:30)
[2022-01-29] MEDS: IPRATROPIUM BR 0.02% INH SOLN 0.5 MG/2.5 ML VIAL INHALATION ×4 (02:08→20:30)
[2022-01-29 04:56] LABS: Basophils Absolute Auto 0.1 K/mm3 (0.0-0.1); Basophils Percent Auto 0.8 % (0.2-1.2); Eosinophils Absolute Auto 0.4 K/mm3 (0-0.3); Eosinophils Percent Auto 6.5 % (0-4.4); Hematocrit 41.7 % (42.0-52.0); Hemoglobin 13.1 g/dL (14.0-18.0); Immature Granulocyte Absolute 0.02 K/mm3 (0.00-0.031); Immature Granulocyte Percent A 0.3 % (0-0.5); Lymphocytes Absolute Auto 1.52 K/mm3 (0.9-3.2); Lymphocytes Percent Auto 22.9 % (18.3-44.2); Mean Corpuscular HGB Conc 31.4 g/dl (32-36); Mean Corpuscular Hemoglobin 30.3 pg (26-34); Mean Corpuscular Volume 96.5 fl (80-100); Mean Platelet Volume 10.3 fl (7.4-10.4); Monocytes Absolute Auto 0.7 K/mm3 (0.1-0.6); Monocytes Percent Auto 10.6 % (2.6-8.5); Neutrophils Absolute Auto 3.9 K/mm3 (1.3-6.7); Neutrophils Percent Auto 58.9 % (45.5-73.1); Platelet Count Result 176 k/mm3 (150-375); Red Blood Count 4.32 M/mm3 (4.6-6.20); Red Cell Distribution Width 13.8 % (11.5-14.5); White Blood Count 6.6 K/mm3 (4.5-10.0)
[2022-01-29 05:09] LABS: Albumin Level 2.6 g/dL (3.5-5.1); Anion Gap 1 mmol/L (8-16); Blood Urea Nitrogen 10 mg/dL (9-20); Calcium 7.5 mg/dL (8.4-10.2); Carbon Dioxide 36 mmol/L (22-30); Chloride 94 mmol/L (98-107); Estimated CRCL calculation 83 ml/min; Estimated Glomerular Filt Rate > 60; Glucose 111 mg/dL (65-110); Phosphorus 3.1 mg/dL (2.5-4.5); Potassium 3.9 mmol/L (3.4-5.0); Sodium 131 mmol/L (137-145)
[2022-01-29] MEDS: SODIUM CHLORIDE 0.9% IV 1,000 ML 125 ML IV CONT (05:19)
[2022-01-29] MEDS: FLUTICASONE/UMECLIDIN/VILANTER 100-62.5-25 MCG ELLIPTA 1 PUFF INHALATION (08:06)
[2022-01-29] MEDS: ATORVASTATIN 20 MG TABLET PO (08:25)
[2022-01-29] MEDS: MIDODRINE HCL 10 MG TABLET PO ×3 (08:25→16:55)
[2022-01-29] MEDS: POTASSIUM CHLORIDE 10 MEQ TABLET.ER PO (08:25)
[2022-01-29] MEDS: THIAMINE HCL 100 MG TABLET PO (08:25)
[2022-01-29] MEDS: FOLIC ACID 1 MG TABLET PO (08:25)
[2022-01-29] MEDS: THERAPEUTIC MULTIVITAMINS/MINERALS TAB (*BKC) 1 TABLET PO (08:25)
[2022-01-29] MEDS: FINASTERIDE 5 MG TABLET 10 MG PO (08:25)
[2022-01-29] MEDS: polyethylene glycoL 3350 17 GM POWD.PACK PO (08:26)
[2022-01-29] MEDS: ENOXAPARIN 40 MG/0.4 ML SYRINGE SUB-Q (08:26)
--- NOTE | 2022-01-29 11:43 | PM.IMPN ---
Progress Note: A&P Assessment and Plan (1) Hypotension: Code(s): I95.9 - Hypotension, unspecified Status: Acute Assessment and Plan: Called to the room for low BP on 01/28. Fluid bolus ordered and his anti-HTN and diuretics were held. He received a total of 1U and started on maintenance fluids. He was asymptomatic but manual BP was 77/48. Etiology unclear. Consider cardiogenic with the mildly elevated troponins. Consider sepsis. No PE by CTA. Home meds reviewed and compared to discharge meds from 01/20; Aldactone is new. Cheetah showed he was fluid responsive so repeat bolus given. midodrine started. BCx collected and abx started. EKG showing no change. Troponin flat. Cortisol okay. Continue Midodrine. Stop IV fluids. Check cXR in the morning. Continue abx at least until BCx negative for 2 days. (2) Acute respiratory failure with hypoxia: Code(s): J96.01 - Acute respiratory failure with hypoxia Status: Acute Assessment and Plan: Patient reports he has chronic conversational dyspnea. He was SOB when speaking with the shrink pit operator. He has had home O2 evaluation in the past and not required home O2. He is followed by Dr. Ray and was recently given a prescription for new inhaler which he has yet to receive. He was treated for PNA at last hospitalization and discharged on Augmentin for 7 more days. CTA chest here showing no PE and mild atelectasis. Doubt PNA. Continue nebulizer treatments. Continue Trelegy. Wean oxygen as tolerated. (3) Elevated troponin: Code(s): R77.8 - Other specified abnormalities of plasma proteins Status: Acute Assessment and Plan: Troponins are mildly elevated and have remained flat. EKG showing iLBBB, ST-T wave changes in the anterolateral leads. These EKG findings are new but no complaints of chest pain. Echo 01/07/22 shows normal LV size, hyperdynamic contractility with EF>70%, LVH, and grade 1 diastolic dysfunction. CTA chest negative for PE this admission. Could be a type 2 [place] related to hypoxia. Concern for underlying ischemia since he has EKG changes but had normal heart cath on 09/18/21 so unlikely ischemia. Continue to monitor on tele. (4) Diastolic congestive heart failure: Code(s): I50.30 - Unspecified diastolic (congestive) heart failure Status: Acute Assessment and Plan: He reports increasing lower extremity edema recently. He was given a dose of furosemide 40mg IV x1 in the ER and was continued with p.o. diuretics. Venous Doppler ultrasounds of the lower legs negative for DVT. Diuretics held due to HoTN. (5) Alcohol abuse: Code(s): F10.10 - Alcohol abuse, uncomplicated Status: Acute Assessment and Plan: No issues with alcohol withdrawal last admisison. CIWA scores are low. Continue CIWA protocol. Continue thiamine and folic acid supplementation. He was educated about the benefits of abstaining from alcohol. (6) Urine retention: Code(s): R33.9 - Retention of urine, unspecified Status: Acute Assessment and Plan: Patient has found to have urine retention and bilateral hydronephrosis last admission. He had a voidnig trial last week but failed. He requested the Posey be removed again. His was unable to void so Posey reinserted. Continue Proscar. Flomax held due to HoTN (7) Abnormal urinalysis: Code(s): R82.90 - Unspecified abnormal findings in urine Status: Acute Assessment and Plan: Urine is positive for nitrates and leukocyte esterase with 51-75 WBC however he is afebrile and has a normal WBC count. UCx negativ. UTI ruled out. Still has urine retention so Posey replaced today. Plan DVT prophylaxis: Lovenox Code status: Full Diet: Heart healthy Subjective Date/time seen: 01/29/22 11:43 Interval history: 76yo male with COPD, CHF and HTN who was recently discharged from [place] who returns for shortness of breath. Patient's blood pressure cli
[2022-01-29] MEDS: PERFLUTREN LIPID MICROSPHERES 1.5 ML VIAL DILUTED TO 10 ML TOTAL VOLUME IV PUSH (13:15)
[2022-01-30] VITALS (21 sets, daily range): BP systolic 107–118; BP diastolic 55–73; PULSE 73–98; RESP 16–35; TEMP 36.2–36.4; O2SAT 91–100
[2022-01-30] MEDS: IPRATROPIUM BR 0.02% INH SOLN 0.5 MG/2.5 ML VIAL INHALATION ×4 (02:38→20:30)
[2022-01-30] MEDS: ALBUTEROL SULFATE NEB 2.5 MG/3 ML INH 5 MG INHALATION ×3 (02:38→14:35)
[2022-01-30 05:33] LABS: Hematocrit 43.3 % (42.0-52.0); Hemoglobin 13.4 g/dL (14.0-18.0); Mean Corpuscular HGB Conc 30.9 g/dl (32-36); Mean Corpuscular Volume 97.1 fl (80-100); Mean Platelet Volume 10.4 fl (7.4-10.4); Platelet Count Result 185 k/mm3 (150-375); Red Blood Count 4.46 M/mm3 (4.6-6.20); White Blood Count 6.6 K/mm3 (4.5-10.0)
[2022-01-30 06:06] LABS: Albumin Level 2.7 g/dL (3.5-5.1); Anion Gap 5 mmol/L (8-16); Blood Urea Nitrogen 9 mg/dL (9-20); Calcium 7.9 mg/dL (8.4-10.2); Carbon Dioxide 35 mmol/L (22-30); Chloride 96 mmol/L (98-107); Estimated CRCL calculation 72 ml/min; Estimated Glomerular Filt Rate > 60; Glucose 107 mg/dL (65-110); Magnesium 2.2 mg/dL (1.6-2.3); Phosphorus 2.7 mg/dL (2.5-4.5); Potassium 4.3 mmol/L (3.4-5.0); Sodium 136 mmol/L (137-145)
[2022-01-30] MEDS: FLUTICASONE/UMECLIDIN/VILANTER 100-62.5-25 MCG ELLIPTA 1 PUFF INHALATION (08:01)
[2022-01-30] MEDS: FOLIC ACID 1 MG TABLET PO (09:04)
[2022-01-30] MEDS: FINASTERIDE 5 MG TABLET 10 MG PO (09:04)
[2022-01-30] MEDS: ENOXAPARIN 40 MG/0.4 ML SYRINGE SUB-Q (09:04)
[2022-01-30] MEDS: THERAPEUTIC MULTIVITAMINS/MINERALS TAB (*BKC) 1 TABLET PO (09:04)
[2022-01-30] MEDS: MIDODRINE HCL 10 MG TABLET PO ×3 (09:04→16:19)
[2022-01-30] MEDS: polyethylene glycoL 3350 17 GM POWD.PACK PO (09:04)
[2022-01-30] MEDS: THIAMINE HCL 100 MG TABLET PO (09:04)
[2022-01-30] MEDS: POTASSIUM CHLORIDE 10 MEQ TABLET.ER PO (09:04)
[2022-01-30] MEDS: ATORVASTATIN 20 MG TABLET PO (09:05)
[2022-01-30 10:34] LABS: Vancomycin Trough 12.3 ug/mL (10.0-20.0)
--- NOTE | 2022-01-30 13:17 | PM.IMPN ---
Progress Note: A&P Assessment and Plan (1) Hypotension: Code(s): I95.9 - Hypotension, unspecified Status: Acute Assessment and Plan: Called to the room for low BP on 01/28. Fluid bolus ordered and his anti-HTN and diuretics were held. He received a total of 1U and started on maintenance fluids. He was asymptomatic but manual BP was 77/48. Etiology unclear. Consider cardiogenic with the mildly elevated troponins. Consider sepsis. No PE by CTA. Home meds reviewed and compared to discharge meds from 01/20; Aldactone is new. Cheetah showed he was fluid responsive so repeat bolus given. midodrine started. BCx collected and abx started. EKG showing no change. Troponin flat. Cortisol okay. Continue Midodrine. Stop IV fluids. Check cXR in the morning. Continue abx at least until BCx negative for 2 days. (2) Acute respiratory failure with hypoxia: Code(s): J96.01 - Acute respiratory failure with hypoxia Status: Acute Assessment and Plan: Patient reports he has chronic conversational dyspnea. 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 He has had home O2 evaluation in the past and not required home O2. He is followed by Dr. Ray and was recently given a prescription for new inhaler which he has yet to receive. He was treated for PNA at last hospitalization and discharged on Augmentin for 7 more days. CTA chest here showing no PE and mild atelectasis. Doubt PNA. Continue nebulizer treatments. Continue Trelegy. Wean oxygen as tolerated. Still having significant hypoxia today. Will have Pulmonary evaluate the patient (3) Elevated troponin: Code(s): R77.8 - Other specified abnormalities of plasma proteins Status: Acute Assessment and Plan: Troponins are mildly elevated and have remained flat. EKG showing iLBBB, ST-T wave changes in the anterolateral leads. These EKG findings are new but no complaints of chest pain. Echo 01/07/22 shows normal LV size, hyperdynamic contractility with EF>70%, LVH, and grade 1 diastolic dysfunction. CTA chest negative for PE this admission. Could be a type 2 NH related to hypoxia. Concern for underlying ischemia since he has EKG changes but had normal heart cath on 09/18/21 so unlikely ischemia. Continue to monitor on tele. (4) Diastolic congestive heart failure: Code(s): I50.30 - Unspecified diastolic (congestive) heart failure Status: Acute Assessment and Plan: He reports increasing lower extremity edema recently. He was given a dose of furosemide 40mg IV x1 in the ER and was continued with p.o. diuretics. Venous Doppler ultrasounds of the lower legs negative for DVT. Diuretics held due to HoTN. (5) Alcohol abuse: Code(s): F10.10 - Alcohol abuse, uncomplicated Status: Acute Assessment and Plan: No issues with alcohol withdrawal last admisison. CIWA scores are low. Continue CIWA protocol. Continue thiamine and folic acid supplementation. He was educated about the benefits of abstaining from alcohol. (6) Urine retention: Code(s): R33.9 - Retention of urine, unspecified Status: Acute Assessment and Plan: Patient has found to have urine retention and bilateral hydronephrosis last admission. He had a voidnig trial last week but failed. He requested the Posey be removed again. His was unable to void so Posey reinserted. Continue Proscar. Flomax held due to HoTN (7) Abnormal urinalysis: Code(s): R82.90 - Unspecified abnormal findings in urine Status: Acute Assessment and Plan: Urine is positive for nitrates and leukocyte esterase with 51-75 WBC however he is afebrile and has a normal WBC count. UCx negativ. UTI ruled out. Still has urine retention so Posey replaced today. Plan DVT prophylaxis: Lovenox Code status: Full Diet: Heart healthy Subjective Date/time seen: 01/30/22 13:17 Still complaining of shortness of breath. Still on 4-6 L of oxygen per nasal cannula
--- NOTE | 2022-01-30 16:39 | PM.CNPUL ---
Assessment and Plan Assessment and plan (1) SOB (shortness of breath): Code(s): R06.02 - Shortness of breath Status: Acute Assessment and Plan: 76-year-old with a history of tobacco use, 49 pack years, quit in 2006, mild apical predominant centrilobular emphysema on CT angiogram of the chest on 01/27/2022, normal chest x-ray on 07/11/2020 with progressively elevated hemidiaphragms on 08/21/2021, 09/10/2021 and 01/30/2022. combined mild obstructive and mild restrictive abnormality resulting in a moderately severe decrease in FEV1 with a normal diffusing capacity on PFTs from 10/24/2021. diastolic dysfunction. recent hospitalization for COPD exacerbation, pneumonia, urinary retention requiring bustamante and status post laparoscopic cholecystectomy on 01/18/2021. The patient had a home O2 assessment on 01/17/2022 and required no oxygen. 11 mm spiculated nodule with an indeterminate PET scan awaiting lung biopsy. The patient tells me that he has had 1-2 year history of lower extremity edema, 1 year history of worsening dyspnea on exertion from 1-2 blocks to now a quarter of a block, 3 month history of shortness of breath with the inability to lay flat requiring him to sleep in a recliner. etiology of patient's shortness of breath include COPD, diaphragmatic dysfunction, and fluid overload. patient does have mild apical predominant centrilobular emphysema on his CT scan and a mild obstructive abnormality on his PFTs. I will increase his nebulized albuterol and ipratropium from q.6 hours to q.[address] him on nebulized budesonide for now. He has no wheezing. He has no change in his phlegm and I do not think he has a COPD exacerbation. do not feel a need for systemic corticosteroids. Since he is on maximal dose albuterol and ipratropium as well as inhaled corticosteroids I will discontinue the trilogy. Patient has progressively smaller lung volumes on his chest x-rays with a normal DLCO and no evidence of her interstitial lung disease on his CT scan. His PFTs do show a mild restrictive abnormality. in addition patient did have a recent laparoscopic cholecystectomy on 01/18/2021 and this can impair normal diaphragmatic function. I will order a sniff test. Currently he is off oxygen and I will order an overnight oximetry on room air to assess his oxygen requirements at night. Patient has been having lower blood pressure and he is now on midodrine and is Bumex has been held. I will check a BNP in the morning. Patient had an elevated IgE on 08/20/2021 at 6232 and I will repeat this. He had no eosinophils on admission with a white blood cell count of 6.7 and 2.8% eosinophils = 188/uL. Discussed with Dr. Saenz, will follow with you. History of Present Illness History of Present Illness Consult date: 01/30/22 Chief complaint: Acute Respiratory Failure withe Hypoxia/CHF/UTI Narrative: 01/30/2022: This is a new pulmonary consult for hypoxemia. 76-year-old with a history of tobacco use, 49 pack years, quit in 2006, mild apical predominant centrilobular emphysema on CT angiogram of the chest on 01/27/2022, normal chest x-ray on 07/11/2020 with progressively elevated hemidiaphragms on 08/21/2021, 09/10/2021 and 01/30/2022. combined mild obstructive and mild restrictive abnormality resulting in a moderately severe decrease in FEV1 with a normal diffusing capacity on PFTs from 10/24/2021. diastolic dysfunction. recent hospitalization for COPD exacerbation, pneumonia, urinary retention requiring bustamante and status post laparoscopic cholecystectomy on 01/18/2021. The patient had a home O2 assessment on 01/17/2022 and required no oxygen. 11 mm spiculated nodule with an indeterminate PET scan awaiting lung biopsy. Patient states he smoked tobacco from age [age] at 1 pack per day. He has no exposure to secondhand smoke. 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 Christelle
[2022-01-30] MEDS: ALBUTEROL SULFATE NEB 2.5 MG/3 ML INH INHALATION (20:30)
[2022-01-30] MEDS: BUDESONIDE RESPULE NEB 0.5 MG/2 ML AMP INHALATION (20:30)
[2022-01-31] VITALS (19 sets, daily range): BP systolic 122–141; BP diastolic 67–84; PULSE 75–102; RESP 20–36; TEMP 36.2–36.6; O2SAT 90–100
[2022-01-31] MEDS: ALBUTEROL SULFATE NEB 2.5 MG/3 ML INH INHALATION ×2 (04:23→08:32)
[2022-01-31] MEDS: IPRATROPIUM BR 0.02% INH SOLN 0.5 MG/2.5 ML VIAL INHALATION ×2 (04:23→08:32)
[2022-01-31 05:04] LABS: Estimated CRCL calculation 72 ml/min; Estimated Glomerular Filt Rate > 60
[2022-01-31 05:12] LABS: NT Pro B Type Natriuretic Pept 966 pg/mL (5-100)
[2022-01-31] MEDS: BUDESONIDE RESPULE NEB 0.5 MG/2 ML AMP INHALATION (08:32)
[2022-01-31 08:43] LABS: Alveolar/Arterial O2 Gradient 36.1 mmHg; Base Excess ABG 7.6 mEq/l (+/-2.0); Fractional Inspired Oxygen 21 %; HCO3 ABG 30.7 mEq/l (22.0-26.0); Oxygen Content ABG 20.2 %vol (16.0-22.0); Oxygen Saturation ABG 95.4 % (95.0-100.0); Oxyhemoglobin 94.6 % THb (90.0-100.0); PCO2 ABG 37.8 mmHg (35.0-45.0); PO2 ABG 68.4 mmHg (80.0-100.0); PO2 FiO2 Ratio Arterial Blood 3.26 %; Total Hemoglobin 15.2 g/dL (12.0-18.0)
[2022-01-31 08:44] LABS: Modified Allen's Test Pass; Site Drawn RIGHT RADIAL; pH ABG 7.527 (7.350-7.450)
[2022-01-31] MEDS: FLUTICASONE/UMECLIDIN/VILANTER 100-62.5-25 MCG ELLIPTA 1 PUFF INHALATION (08:56)
--- NOTE | 2022-01-31 09:50 | PCOTNOTE ---
Attempted to see pt. for occupational therapy evaluation. Pt. currently with respiratory therapy adjusting to BiPap and is unable to be seen at this time. Nursing alerted. Will follow.
--- NOTE | 2022-01-31 10:38 | PM.PNPUL ---
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 Elevated serum bicarbonate levels of greater than 32 since 09/06/2021 consistent with chronic hypercarbic respiratory failure. Patient has PFTs on 10/23/2021 with a restrictive ventilatory abnormality (TLC 4.84 L, 73%, FEV: FVC ratio of 69% and FEV1 of 1.55 L, 56% predicted).? Patient has been unable to lie flat for last three months. On 01/31 he has respiratory paradox on physical examination.? I placed him on noninvasive ventilation and he had immediate relief of his subjective rest shortness of breath. Patient has diaphragmatic paralysis and I will initiate Noninvasive ventilation to prevent further deterioration and future hospitalizations. He has no mediastinal abnormalities, no history of neck trauma, surgeries or stenosis. Patient does have a right upper lobe 11 mm lung nodule and I will send serologic markers for paraneoplastic conditions and myesthenia (SHADE-1 Ab, Anti Hu Ab and Acetylcholine receptor Ab).? the patient had a recent laparoscopic cholecystectomy on 01/18/2021 and may have diaphragmatic weakness from this operation. I have ordered a sniff test today and gave the clinical details to the radiologist. He could not tolerate the pressures of the straight BiPAP mode and I switched him to an AVAPS and adjusted the settings for comfort. Patient tolerated respiratory rate of 14, tidal volume 500, EPAP 4, minimal inspiratory pressure 5, maximal inspiratory pressure 25, inspiratory time 0.8, rise of 5 which is machines slowest. I will check an overnight oximetry on room air and an ABG in the morning prior to removal. Will follow with you. (2) Chronic obstructive pulmonary disease: Code(s): J44.9 - Chronic obstructive pulmonary disease, unspecified Status: Acute Assessment and Plan: patient does have mild apical predominant centrilobular emphysema on his CT scan and a mild obstructive abnormality on his PFTs.? I will increase his nebulized albuterol and ipratropium from q.6 hours to q.4 hours.? I will place him on nebulized budesonide for now. He has no wheezing. ? He has no change in his phlegm and I do not think he has a COPD exacerbation.? do not feel a need for systemic corticosteroids. Patient had an elevated IgE on 08/20/2021 at 6232 and I will repeat this.? He had no eosinophils on admission with a white blood cell count of 6.7 and 2.8% eosinophils = 188/uL. 01/31: Patient has no wheezing on exam is and I will place him on trelegy 100 inhaler and discontinue his nebulizers. He did does not require antibiotics from a pulmonary perspective. Subjective Date/time seen: 01/31/22 10:38 Interval history: 01/30/2022:? This is a new pulmonary consult for hypoxemia. ? 76-year-old with a history of tobacco use, 49 pack years, quit in 2006,? mild apical predominant centrilobular emphysema on CT angiogram of the chest on 01/27/2022,? normal chest x-ray on 07/11/2020 with progressively elevated hemidiaphragms on 08/21/2021, 09/10/2021 and 01/30/2022.? combined? mild obstructive and mild restrictive abnormality resulting in a moderately severe decrease in FEV1 with a normal diffusing capacity on PFTs from 10/24/2021.? diastolic dysfunction.? recent hospitalization for COPD exacerbation, pneumonia, urinary retention requiring bustamante and status post laparoscopic cholecystectomy on 01/18/2021.? The patient had a home O2 assessment on 01/17/2022 and required no oxygen.? 11 mm spiculated nodule with an indeterminate PET scan awaiting lung biopsy. ? Patient states he smoked tobacco from age [age] at 1 pack per day.? He has no exposure to secondhand smoke.? 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
--- NOTE | 2022-01-31 10:48 | PCNFU ---
Nutrition Follow-Up Complete: acute malnutrition related to poor appetite, secondary to increased COPD energy needs, as evidence by 21% wt loss in 3-4 months Goal: meet 50-75% intake and drink nutritional supplement TID Pt has met goal. no new goal Pt current nutrition is heart healthy diet. Nutrition recommendation: Ensure compact TID (protein: 9g, calories: 220) Last recorded weight is 86.1 kg up 3kg from admissions. Bowel Motility: BM on 01/31 Labs Reviewed:No recent labs Meds Noted:mulitivitamin, folic acid, B1, lovenox, bumex, lipitor Skin:WNL Additional Notes: Pt is eating a lot better and improved appetite, consuming 70% of meals. Is drinking ensure, but did say he is drinking half of nutritional supplement and dumping the rest. Switching pt to ensure comact 4oz (TID). Agree with diet orders. Follow up in 7 days monitor appetite, food and supplement intake, wt and labs
[2022-01-31] MEDS: ATORVASTATIN 20 MG TABLET PO (10:59)
[2022-01-31] MEDS: MIDODRINE HCL 10 MG TABLET PO ×2 (10:59→18:23)
[2022-01-31] MEDS: FOLIC ACID 1 MG TABLET PO (11:00)
[2022-01-31] MEDS: THIAMINE HCL 100 MG TABLET PO (11:00)
[2022-01-31] MEDS: FINASTERIDE 5 MG TABLET 10 MG PO (11:00)
[2022-01-31] MEDS: POTASSIUM CHLORIDE 10 MEQ TABLET.ER PO (11:00)
[2022-01-31] MEDS: THERAPEUTIC MULTIVITAMINS/MINERALS TAB (*BKC) 1 TABLET PO (11:00)
[2022-01-31] MEDS: ENOXAPARIN 40 MG/0.4 ML SYRINGE SUB-Q (11:01)
--- NOTE | 2022-01-31 11:23 | PCNSR ---
On 01/31/22, the student, Timoteo Orta, provided care and completed [facility]. I have reviewed the student's documentation and agree with the findings.
--- NOTE | 2022-01-31 11:52 | PM.IMPN ---
Progress Note: A&P Assessment and Plan (1) Hypotension: Code(s): I95.9 - Hypotension, unspecified Status: Acute Assessment and Plan: Resolved. Likely from volume depletion. Blood pressure looks good now. He is asymptomatic. Hold diuretic. Continue midodrine. (2) Acute respiratory failure with hypoxia: Code(s): J96.01 - Acute respiratory failure with hypoxia Status: Acute Assessment and Plan: Appreciate Pulmonary input. Awaiting sniff test. ApneaLink noted. Question related to diaphragmatic paralysis. Await Pulmonary recommendations I do not think the patient has sepsis or underlying pulmonary infection at this time. I will stop antibiotics. (3) Elevated troponin: Code(s): R77.8 - Other specified abnormalities of plasma proteins Status: Acute Assessment and Plan: no further workup needed at this time. (4) Diastolic congestive heart failure: Code(s): I50.30 - Unspecified diastolic (congestive) heart failure Status: Acute Assessment and Plan: Lasix and diuretics on hold. (5) Alcohol abuse: Code(s): F10.10 - Alcohol abuse, uncomplicated Status: Acute Assessment and Plan: Monitor (6) Urine retention: Code(s): R33.9 - Retention of urine, unspecified Status: Acute Assessment and Plan: Patient has found to have urine retention and bilateral hydronephrosis last admission. He had a voidnig trial last week but failed. He requested the Posey be removed again. His was unable to void so Posey reinserted. Continue Proscar. Flomax held due to HoTN (7) Abnormal urinalysis: Code(s): R82.90 - Unspecified abnormal findings in urine Status: Acute Assessment and Plan: Urine is positive for nitrates and leukocyte esterase with 51-75 WBC however he is afebrile and has a normal WBC count. UCx negativ. UTI ruled out. Still has urine retention so Posey replaced today. Subjective Date/time seen: 01/31/22 11:52 patient is not on oxygen. Reports some mild shortness of breath but overall he is improved from yesterday some. Exam Narrative: AF 97.9 110/64 90 16 100% 4L (placed on 4L so he can lay flat for Posey placement) Gen - NARD lying semi-recumbent in bed Chest - decreased BS in the bases with bronchial breath sounds and egophony. CV - RRR S1/S2. Tele showing PVCs with bigeminy Abd -soft. Positive bowel sounds. Bladder is distended. Tender to the lower abdomen Ext -trace pedal edema Psych - Nml mood and affect Skin - Warm and dry Objective Data Vital Signs Vital Signs: Vital Signs - 24 hr 01/30/22 12:00 01/30/22 12:00 01/30/22 12:00 Temperature 97.5 F L Pulse Rate 85 95 85 Respiratory Rate 24 H Blood Pressure 107/55 L Pulse Oximetry 97 95 Oxygen Delivery Nasal Cannula Oxygen Flow Rate 4 01/30/22 14:35 01/30/22 14:35 01/30/22 14:55 Temperature Pulse Rate 74 78 Respiratory Rate 20 20 Blood Pressure Pulse Oximetry 98 Oxygen Delivery Nasal Cannula Oxygen Flow Rate 4 01/30/22 14:00 01/30/22 15:57 01/30/22 16:00 Temperature 97.3 F L Pulse Rate 88 76 Respiratory Rate 18 Blood Pressure 110/73 Pulse Oximetry 96 95 Oxygen Delivery Nasal Cannula Oxygen Flow Rate 4 01/30/22 16:00 01/30/22 18:00 01/30/22 20:34 Temperature Pulse Rate 78 90 92 Respiratory Rate 20 Blood Pressure Pulse Oximetry Oxygen Delivery Oxygen Flow Rate 01/30/22 20:00 01/30/22 20:39 01/30/22 20:45 Temperature Pulse Rate 92 88 Respiratory Rate 20 20 Blood Pressure Pulse Oximetry 95 93 Oxygen Delivery Room Air Room Air Oxygen Flow Rate 01/30/22 20:00 01/30/22 20:00 01/30/22 22:00 Temperature 97.3 F L Pulse Rate 98 86 91 Respiratory Rate 20 Blood Pressure 113/61 Pulse Oximetry 91 Oxygen Delivery Oxygen Flow Rate 01/31/22 00:00 01/31/22 00:00 01/11
--- NOTE | 2022-01-31 11:55 | PCPTNOTE ---
Attempted to see patient for PT at this time, however patient out of room for testing.
--- NOTE | 2022-01-31 12:55 | PC.NURSE ---
On 01/31/22, the student, [Minerva Cohen], provided care and completed [facility] documentation on this patient. I have reviewed the student's documentation and agree with the findings.
[2022-01-31] MEDS: TAMSULOSIN HCL 0.4 MG CAPSULE PO (21:05)
[2022-02-01] VITALS (14 sets, daily range): BP systolic 108–139; BP diastolic 66–85; PULSE 81–124; RESP 18–28; TEMP 36.4–37.1; O2SAT 91–100
[2022-02-01 05:22] LABS: Alveolar/Arterial O2 Gradient 33.4 mmHg; Base Excess ABG 6.9 mEq/l (+/-2.0); Device OTHER DEVICE; Fractional Inspired Oxygen 21 %; HCO3 ABG 32.3 mEq/l (22.0-26.0); Modified Allen's Test Pass; Oxygen Content ABG 22.2 %vol (16.0-22.0); Oxygen Saturation ABG 91.7 % (95.0-100.0); Oxyhemoglobin 91.4 % THb (90.0-100.0); PCO2 ABG 47.4 mmHg (35.0-45.0); PO2 ABG 59.6 mmHg (80.0-100.0); PO2 FiO2 Ratio Arterial Blood 2.84 %; Site Drawn LEFT RADIAL; Total Hemoglobin 17.3 g/dL (12.0-18.0); pH ABG 7.451 (7.350-7.450)
[2022-02-01 05:35] LABS: Potassium 4.1 mmol/L (3.4-5.0)
[2022-02-01] MEDS: FLUTICASONE/UMECLIDIN/VILANTER 100-62.5-25 MCG ELLIPTA 1 PUFF INHALATION (08:21)
[2022-02-01] MEDS: FINASTERIDE 5 MG TABLET 10 MG PO (08:55)
[2022-02-01] MEDS: THIAMINE HCL 100 MG TABLET PO (08:56)
[2022-02-01] MEDS: THERAPEUTIC MULTIVITAMINS/MINERALS TAB (*BKC) 1 TABLET PO (08:56)
[2022-02-01] MEDS: POTASSIUM CHLORIDE 10 MEQ TABLET.ER PO (08:56)
[2022-02-01] MEDS: ATORVASTATIN 20 MG TABLET PO (08:56)
[2022-02-01] MEDS: FOLIC ACID 1 MG TABLET PO (08:56)
--- NOTE | 2022-02-01 10:06 | PM.IMPN ---
Progress Note: A&P Assessment and Plan (1) Hypotension: Code(s): I95.9 - Hypotension, unspecified Status: Acute Assessment and Plan: Resolved. Likely from volume depletion. Blood pressure looks good now. He is asymptomatic. Hold diuretic. Will hold midodrine and see how his blood pressure response. (2) Acute respiratory failure with hypoxia: Code(s): J96.01 - Acute respiratory failure with hypoxia Status: Acute Assessment and Plan: Diaphragmatic paralysis, bilateral appreciate Pulmonary help (3) Elevated troponin: Code(s): R77.8 - Other specified abnormalities of plasma proteins Status: Acute Assessment and Plan: no further workup needed at this time. (4) Diastolic congestive heart failure: Code(s): I50.30 - Unspecified diastolic (congestive) heart failure Status: Acute Assessment and Plan: Lasix and diuretics on hold. appears compensated (5) Alcohol abuse: Code(s): F10.10 - Alcohol abuse, uncomplicated Status: Acute Assessment and Plan: Monitor (6) Urine retention: Code(s): R33.9 - Retention of urine, unspecified Status: Acute Assessment and Plan: Posey, monitor (7) Abnormal urinalysis: Code(s): R82.90 - Unspecified abnormal findings in urine Status: Acute Assessment and Plan: UTI ruled out (8) Pulmonary nodule: Code(s): R91.1 - Solitary pulmonary nodule Status: Acute Subjective Date/time seen: 02/01/22 10:06 patient has no new complaints. Exam Narrative: AF 97.9 110/64 90 16 100% 4L (placed on 4L so he can lay flat for Posey placement) Gen - NARD lying semi-recumbent in bed Chest - decreased BS in the bases with bronchial breath sounds and egophony. CV - RRR S1/S2. Tele showing PVCs with bigeminy Abd -soft. Positive bowel sounds. Bladder is distended. Tender to the lower abdomen Ext -trace pedal edema Psych - Nml mood and affect Skin - Warm and dry Objective Data Vital Signs Vital Signs: Vital Signs - 24 hr 01/31/22 10:25 01/31/22 12:00 01/31/22 12:00 Temperature 97.4 F L Pulse Rate 90 Respiratory Rate 22 H Blood Pressure 132/79 Pulse Oximetry 98 Oxygen Delivery Room Air Room Air Fraction of Inspired Oxygen 01/31/22 12:00 01/31/22 14:00 01/31/22 16:00 Temperature 97.9 F Pulse Rate 100 78 99 Respiratory Rate 20 Blood Pressure 125/79 Pulse Oximetry 99 Oxygen Delivery Fraction of Inspired Oxygen 01/31/22 16:00 01/31/22 16:00 01/31/22 18:00 Temperature Pulse Rate 89 101 H Respiratory Rate Blood Pressure Pulse Oximetry Oxygen Delivery Room Air Fraction of Inspired Oxygen 01/31/22 19:56 01/31/22 20:00 01/31/22 20:00 Temperature 97.8 F Pulse Rate 75 75 75 Respiratory Rate 22 H 22 H Blood Pressure 130/67 Pulse Oximetry 94 94 Oxygen Delivery Room Air Fraction of Inspired Oxygen 01/31/22 22:00 02/01/22 00:00 02/01/22 00:00 Temperature 98.5 F Pulse Rate 92 92 89 Respiratory Rate 22 H 28 H Blood Pressure 118/71 Pulse Oximetry 94 96 Oxygen Delivery BiPAP Fraction of Inspired Oxygen 30 01/31/22 22:20 02/01/22 00:00 02/01/22 02:00 Temperature Pulse Rate 90 81 88 Respiratory Rate 24 H Blood Pressure Pulse Oximetry 97 Oxygen Delivery BiPAP Fraction of Inspired Oxygen 02/01/22 04:00 02/01/22 04:00 01/31/22 22:20 Temperature Pulse Rate 87 87 Respiratory Rate 28 H Blood Pressure Pulse Oximetry 96 94 Oxygen Delivery BiPAP Room Air Fraction of Inspired Oxygen 30 02/01/22 02:25 02/01/22 05:05 02/01/22 06:00 Temperature Pulse Rate 83 86 93 Respiratory Rate 18 18 Blood Pressure Pulse Oximetry 94 92 Oxygen Delivery BiPAP BiPAP Fraction of Inspired Oxygen 02/01/22 04:00 02/01/22 08:24 02/01/22 08:00 Temperature 97.6 F 97.5 F L Pulse Rate
--- NOTE | 2022-02-01 10:29 | PM.PNPUL ---
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 Elevated serum bicarbonate levels of greater than 32 since 09/06/2021 consistent with chronic hypercarbic respiratory failure. Patient has PFTs on 10/23/2021 with a restrictive ventilatory abnormality (TLC 4.84 L, 73%, FEV: FVC ratio of 69% and FEV1 of 1.55 L, 56% predicted).? Patient has been unable to lie flat for last three months. On 01/31 he has respiratory paradox on physical examination.? I placed him on noninvasive ventilation and he had immediate relief of his subjective rest shortness of breath. Patient has diaphragmatic paralysis and I will initiate Noninvasive ventilation to prevent further deterioration and future hospitalizations. He has no mediastinal abnormalities, no history of neck trauma, surgeries or stenosis. Patient does have a right upper lobe 11 mm lung nodule and I will send serologic markers for paraneoplastic conditions and myesthenia (SHADE-1 Ab, Anti Hu Ab and Acetylcholine receptor Ab).? the patient had a recent laparoscopic cholecystectomy on 01/18/2021 and may have diaphragmatic weakness from this operation. I have ordered a sniff test today and gave the clinical details to the radiologist. He could not tolerate the pressures of the straight BiPAP mode and I switched him to an AVAPS and adjusted the settings for comfort. Patient tolerated respiratory rate of 14, tidal volume 500, EPAP 4, minimal inspiratory pressure 5, maximal inspiratory pressure 25, inspiratory time 0.8, rise of 5 which is machines slowest. I will check an overnight oximetry on room air and an ABG in the morning prior to removal. Later in the day patient had a sniff study demonstrating bilateral small lung volumes with symmetrical decreased mobility of the diaphragms. 02/01 Patient wore the hospital noninvasive ventivlator with the AVAPS mode respiratory rate of 14, tidal volume 500, EPAP 4, minimal inspiratory pressure 5, maximal inspiratory pressure 25, inspiratory time 0.8, rise of 5 which is machines slowest on room air last night and said that he slept very well. He had no issues with the mask or the machine. He has no cough, minimal phlegm and no hemoptysis and has been out of bed walking in the room. Patient had an overnight oximetry on the above-mentioned settings with a baseline saturation 95%, lowest saturation 90%, time with saturation less than or equal to 88% was 0.0 minutes. Patient had a blood gas prior to removal of the machine with a pH of 7.45/47/60. The current settings offer adequate ventilation and oxygenation. I have sent a letter of medical necessity to [facility] his insurance company, through the [employer] requesting a noninvasive ventilator with the AVAPS mode for home use. Approval may take 3-5 days. Will follow with you. (2) Chronic obstructive pulmonary disease: Code(s): J44.9 - Chronic obstructive pulmonary disease, unspecified Status: Acute Assessment and Plan: patient does have mild apical predominant centrilobular emphysema on his CT scan and a mild obstructive abnormality on his PFTs.? I will increase his nebulized albuterol and ipratropium from q.6 hours to q.4 hours.? I will place him on nebulized budesonide for now. He has no wheezing. ? He has no change in his phlegm and I do not think he has a COPD exacerbation.? do not feel a need for systemic corticosteroids. Patient had an elevated IgE on 08/20/2021 at 6232 and I will repeat this.? He had no eosinophils on admission with a white blood cell count of 6.7 and 2.8% eosinophils = 188/uL. 01/31: Patient has no wheezing on exam is and I will place him on trelegy 100 inhaler and discontinue hi
[2022-02-01] MEDS: ALBUTEROL SULFATE (*SP) AEROSOL 1 PUFF 2 PUFF INHALATION (11:11)
[2022-02-01] MEDS: ALBUTEROL SULFATE NEB 2.5 MG/3 ML INH INHALATION (11:16)
[2022-02-01] MEDS: hydrOXYzine HCL 10 MG TABLET PO (13:11)
[2022-02-01] MEDS: TAMSULOSIN HCL 0.4 MG CAPSULE PO (20:56)
[2022-02-02] VITALS (12 sets, daily range): BP systolic 112–135; BP diastolic 64–86; PULSE 84–119; RESP 16–24; TEMP 36.4–36.9; O2SAT 92–100
[2022-02-02 05:01] LABS: Basophils Percent Auto 0.6 % (0.2-1.2); Eosinophils Absolute Auto 0.8 K/mm3 (0-0.3); Hemoglobin 13.2 g/dL (14.0-18.0); Immature Granulocyte Absolute 0.01 K/mm3 (0.00-0.031); Immature Granulocyte Percent A 0.2 % (0-0.5); Lymphocytes Absolute Auto 1.51 K/mm3 (0.9-3.2); Lymphocytes Percent Auto 23.9 % (18.3-44.2); Mean Corpuscular HGB Conc 31.4 g/dl (32-36); Mean Corpuscular Hemoglobin 30.1 pg (26-34); Mean Corpuscular Volume 95.7 fl (80-100); Mean Platelet Volume 10.2 fl (7.4-10.4); Monocytes Absolute Auto 0.8 K/mm3 (0.1-0.6); Neutrophils Absolute Auto 3.2 K/mm3 (1.3-6.7); Neutrophils Percent Auto 51.3 % (45.5-73.1); Platelet Count Result 191 k/mm3 (150-375); Red Blood Count 4.39 M/mm3 (4.6-6.20); Red Cell Distribution Width 13.9 % (11.5-14.5); White Blood Count 6.3 K/mm3 (4.5-10.0)
[2022-02-02 05:36] LABS: Anion Gap 4 mmol/L (8-16); Blood Urea Nitrogen 9 mg/dL (9-20); Calcium 8.1 mg/dL (8.4-10.2); Carbon Dioxide 34 mmol/L (22-30); Chloride 98 mmol/L (98-107); Estimated CRCL calculation 83 ml/min; Estimated Glomerular Filt Rate > 60; Glucose 101 mg/dL (65-110); Potassium 4.1 mmol/L (3.4-5.0); Sodium 136 mmol/L (137-145)
[2022-02-02] MEDS: FLUTICASONE/UMECLIDIN/VILANTER 100-62.5-25 MCG ELLIPTA 1 PUFF INHALATION (08:36)
[2022-02-02] MEDS: ENOXAPARIN 40 MG/0.4 ML SYRINGE SUB-Q (09:12)
[2022-02-02] MEDS: THIAMINE HCL 100 MG TABLET PO (09:12)
[2022-02-02] MEDS: ATORVASTATIN 20 MG TABLET PO (09:13)
[2022-02-02] MEDS: FINASTERIDE 5 MG TABLET PO (09:13)
[2022-02-02] MEDS: FOLIC ACID 1 MG TABLET PO (09:14)
[2022-02-02] MEDS: POTASSIUM CHLORIDE 10 MEQ TABLET.ER PO (09:14)
[2022-02-02] MEDS: THERAPEUTIC MULTIVITAMINS/MINERALS TAB (*BKC) 1 TABLET PO (09:14)
--- NOTE | 2022-02-02 09:54 | PM.PNPUL ---
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 Elevated serum bicarbonate levels of greater than 32 since 09/06/2021 consistent with chronic hypercarbic respiratory failure. Patient has PFTs on 10/23/2021 with a restrictive ventilatory abnormality (TLC 4.84 L, 73%, FEV: FVC ratio of 69% and FEV1 of 1.55 L, 56% predicted).? Patient has been unable to lie flat for last three months. On 01/31 he has respiratory paradox on physical examination.? I placed him on noninvasive ventilation and he had immediate relief of his subjective rest shortness of breath. Patient has diaphragmatic paralysis and I will initiate Noninvasive ventilation to prevent further deterioration and future hospitalizations. He has no mediastinal abnormalities, no history of neck trauma, surgeries or stenosis. Patient does have a right upper lobe 11 mm lung nodule and I will send serologic markers for paraneoplastic conditions and myesthenia (SHADE-1 Ab, Anti Hu Ab and Acetylcholine receptor Ab).? the patient had a recent laparoscopic cholecystectomy on 01/18/2021 and may have diaphragmatic weakness from this operation. I have ordered a sniff test today and gave the clinical details to the radiologist. He could not tolerate the pressures of the straight BiPAP mode and I switched him to an AVAPS and adjusted the settings for comfort. Patient tolerated respiratory rate of 14, tidal volume 500, EPAP 4, minimal inspiratory pressure 5, maximal inspiratory pressure 25, inspiratory time 0.8, rise of 5 which is machines slowest. I will check an overnight oximetry on room air and an ABG in the morning prior to removal. Later in the day patient had a sniff study demonstrating bilateral small lung volumes with symmetrical decreased mobility of the diaphragms. 02/01 Patient wore the hospital noninvasive ventivlator with the AVAPS mode respiratory rate of 14, tidal volume 500, EPAP 4, minimal inspiratory pressure 5, maximal inspiratory pressure 25, inspiratory time 0.8, rise of 5 which is machines slowest on room air last night and said that he slept very well. He had no issues with the mask or the machine. He has no cough, minimal phlegm and no hemoptysis and has been out of bed walking in the room. Patient had an overnight oximetry on the above-mentioned settings with a baseline saturation 95%, lowest saturation 90%, time with saturation less than or equal to 88% was 0.0 minutes. Patient had a blood gas prior to removal of the machine with a pH of 7.45/47/60. The current settings offer adequate ventilation and oxygenation. I have sent a letter of medical necessity to [facility] his insurance company, through the [employer] requesting a noninvasive ventilator with the AVAPS mode for home use. Approval may take 3-5 days. 02/02 The patient did not wear the hospital noninvasive ventilator due to his pneumothorax and has been on 4 L nasal cannula with saturations 95%. Patient stated that he has some shortness of breath but was able to sleep. Patient denies any chest pain. Chest x-ray this morning demonstrates a small apical right pneumothorax that is unchanged. White blood cell count 6.3, eosinophils 12.0%, creatinine 0.6. The patient has a right pneumothorax that is stable post CT-guided lung biopsy on 02/01. Although the patient is short of breath he is clinically stable on 4 L nasal cannula and will avoid noninvasive ventilation at this time. Will follow with you. (2) Chronic obstructive pulmonary disease: Code(s): J44.9 - Chronic obstructive pulmonary disease, unspecified Status: Acute Assessment and Plan: patient does have mild apical predominant centrilobular e
[2022-02-02 10:24] LABS: Basophils Percent Auto 0.5 % (0.2-1.2); Eosinophils Absolute Auto 0.7 K/mm3 (0-0.3); Eosinophils Percent Auto 10.6 % (0-4.4); Hematocrit 45.2 % (42.0-52.0); Hemoglobin 14.2 g/dL (14.0-18.0); Immature Granulocyte Absolute 0.01 K/mm3 (0.00-0.031); Immature Granulocyte Percent A 0.2 % (0-0.5); Lymphocytes Absolute Auto 1.11 K/mm3 (0.9-3.2); Lymphocytes Percent Auto 17.9 % (18.3-44.2); Mean Corpuscular HGB Conc 31.4 g/dl (32-36); Mean Corpuscular Hemoglobin 30.1 pg (26-34); Mean Platelet Volume 10.1 fl (7.4-10.4); Monocytes Absolute Auto 0.5 K/mm3 (0.1-0.6); Monocytes Percent Auto 8.5 % (2.6-8.5); Neutrophils Absolute Auto 3.9 K/mm3 (1.3-6.7); Neutrophils Percent Auto 62.3 % (45.5-73.1); Platelet Count Result 192 k/mm3 (150-375); Red Blood Count 4.71 M/mm3 (4.6-6.20); Red Cell Distribution Width 13.8 % (11.5-14.5); White Blood Count 6.2 K/mm3 (4.5-10.0)
--- NOTE | 2022-02-02 10:44 | PM.IMPN ---
Progress Note: A&P Assessment and Plan (1) Hypotension: Code(s): I95.9 - Hypotension, unspecified Status: Acute Assessment and Plan: Resolved. Likely from volume depletion. Blood pressure looks good now. He is asymptomatic. Hold diuretic. Will hold midodrine and see how his blood pressure response. (2) Acute respiratory failure with hypoxia: Code(s): J96.01 - Acute respiratory failure with hypoxia Status: Acute Assessment and Plan: Diaphragmatic paralysis, bilateral appreciate Pulmonary help PFTs noted Trying to get noninvasive ventilator set up for discharge. Paraneoplastic serologic markers pending. (3) Elevated troponin: Code(s): R77.8 - Other specified abnormalities of plasma proteins Status: Acute Assessment and Plan: no further workup needed at this time. (4) Diastolic congestive heart failure: Code(s): I50.30 - Unspecified diastolic (congestive) heart failure Status: Acute Assessment and Plan: Lasix and diuretics on hold. appears compensated (5) Alcohol abuse: Code(s): F10.10 - Alcohol abuse, uncomplicated Status: Acute Assessment and Plan: Monitor (6) Urine retention: Code(s): R33.9 - Retention of urine, unspecified Status: Acute Assessment and Plan: Posey, monitor (7) Abnormal urinalysis: Code(s): R82.90 - Unspecified abnormal findings in urine Status: Acute Assessment and Plan: UTI ruled out (8) Pulmonary nodule: Code(s): R91.1 - Solitary pulmonary nodule Status: Acute Subjective Date/time seen: 02/02/22 10:44 No new complaints, off oxygen. Still has subjective shortness of breath. Exam Narrative: Gen - NARD lying semi-recumbent in bed Chest - decreased BS in the bases with bronchial breath sounds and egophony. CV - RRR S1/S2. Tele showing PVCs with bigeminy Abd -soft. Positive bowel sounds. Bladder is distended. Tender to the lower abdomen Ext -trace pedal edema Psych - Nml mood and affect Skin - Warm and dry Objective Data Vital Signs Vital Signs: Vital Signs - 24 hr 02/01/22 12:00 02/01/22 16:00 02/01/22 12:00 Temperature 98.8 F 97.9 F Pulse Rate 101 H 102 H 113 H Respiratory Rate 22 H 24 H Blood Pressure 108/85 139/72 Pulse Oximetry 100 97 Oxygen Delivery Oxygen Flow Rate Fraction of Inspired Oxygen 02/01/22 16:00 02/01/22 12:00 02/01/22 16:00 Temperature Pulse Rate 98 Respiratory Rate Blood Pressure Pulse Oximetry 99 93 Oxygen Delivery Room Air Nasal Cannula Oxygen Flow Rate 3 Fraction of Inspired Oxygen 02/01/22 18:00 02/01/22 19:53 02/01/22 20:00 Temperature 98.1 F Pulse Rate 124 H 122 H 122 H Respiratory Rate 22 H 22 H Blood Pressure 115/66 Pulse Oximetry 91 91 Oxygen Delivery Nasal Cannula Oxygen Flow Rate 4 Fraction of Inspired Oxygen 02/01/22 20:00 02/01/22 22:00 02/02/22 00:00 Temperature 97.9 F Pulse Rate 106 H 100 119 H Respiratory Rate 24 H Blood Pressure 135/65 Pulse Oximetry 92 Oxygen Delivery Oxygen Flow Rate Fraction of Inspired Oxygen 02/02/22 00:00 02/02/22 00:00 02/02/22 02:00 Temperature Pulse Rate 119 H 100 99 Respiratory Rate 24 H Blood Pressure Pulse Oximetry 92 Oxygen Delivery Nasal Cannula Oxygen Flow Rate 4 Fraction of Inspired Oxygen 30 02/02/22 04:00 02/02/22 04:00 02/02/22 04:00 Temperature 97.5 F L Pulse Rate 100 97 97 Respiratory Rate 20 20 Blood Pressure 112/66 Pulse Oximetry 95 95 Oxygen Delivery Nasal Cannula Oxygen Flow Rate 4 Fraction of Inspired Oxygen 02/02/22 06:00 02/02/22 08:00 02/02/22 08:00 Temperature 97.5 F L Pulse Rate 108 H 108 H 87 Respiratory Rate 18 Blood Pressure 127/69 Pulse Oximetry 97 Oxygen Delivery Oxygen Flow Rate Fraction of Inspired Oxygen Intake/Out
--- NOTE | 2022-02-02 11:48 | PCOTNOTE ---
Patient declined treatment x2 this date due to c/o fatigue and shortness of breath with exertion. Patient stated eating breakfast and talking with the doctor wore me out
--- NOTE | 2022-02-02 14:23 | PCPTNOTE ---
The patient treatment was not able to be completed on 02/02/22 due to patient being to tired & SOB. Will plan to continue treatment per plan of care.
[2022-02-02] MEDS: TAMSULOSIN HCL 0.4 MG CAPSULE PO (20:27)
[2022-02-03] VITALS (16 sets, daily range): BP systolic 112–141; BP diastolic 62–71; PULSE 45–112; RESP 16–26; TEMP 36.4–37.1; O2SAT 96–99
[2022-02-03] MEDS: FLUTICASONE/UMECLIDIN/VILANTER 100-62.5-25 MCG ELLIPTA 1 PUFF INHALATION (08:25)
--- NOTE | 2022-02-03 09:26 | P.PNPL_ITS ---
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 Elevated serum bicarbonate levels of greater than 32 since 09/06/2021 consistent with chronic hypercarbic respiratory failure. Patient has PFTs on 10/23/2021 with a restrictive ventilatory abnormality (TLC 4.84 L, 73%, FEV: FVC ratio of 69% and FEV1 of 1.55 L, 56% predicted).? Patient has been unable to lie flat for last three months. On 01/31 he has respiratory paradox on physical examination.? I placed him on noninvasive ventilation and he had immediate relief of his subjective rest shortness of breath. Patient has diaphragmatic paralysis and I will initiate Noninvasive ventilation to prevent further deterioration and future hospitalizations. He has no mediastinal abnormalities, no history of neck trauma, surgeries or stenosis. Patient does have a right upper lobe 11 mm lung nodule and I will send serologic markers for paraneoplastic conditions and myesthenia (SHADE-1 Ab, Anti Hu Ab and Acetylcholine receptor Ab).? the patient had a recent laparoscopic cholecystectomy on 01/18/2021 and may have diaphragmatic weakness from this operation. I have ordered a sniff test today and gave the clinical details to the radiologist. He could not tolerate the pressures of the straight BiPAP mode and I switched him to an AVAPS and adjusted the settings for comfort. Patient tolerated respiratory rate of 14, tidal volume 500, EPAP 4, minimal inspiratory pressure 5, maximal inspiratory pressure 25, inspiratory time 0.8, rise of 5 which is machines slowest. I will check an overnight oximetry on room air and an ABG in the morning prior to removal. Later in the day patient had a sniff study demonstrating bilateral small lung volumes with symmetrical decreased mobility of the diaphragms. 02/01 Patient wore the hospital noninvasive ventivlator with the AVAPS mode respiratory rate of 14, tidal volume 500, EPAP 4, minimal inspiratory pressure 5, maximal inspiratory pressure 25, inspiratory time 0.8, rise of 5 which is machines slowest on room air last night and said that he slept very well. He had no issues with the mask or the machine. He has no cough, minimal phlegm and no hemoptysis and has been out of bed walking in the room. Patient had an overnight oximetry on the above-mentioned settings with a baseline saturation 95%, lowest saturation 90%, time with saturation less than or equal to 88% was 0.0 minutes. Patient had a blood gas prior to removal of the machine with a pH of 7.45/47/60. The current settings offer adequate ventilation and oxygenation. I have sent a letter of medical necessity to [facility] his insurance company, through the [employer] requesting a noninvasive ventilator with the AVAPS mode for home use. Approval may take 3-5 days. 02/02 The patient did not wear the hospital noninvasive ventilator due to his pneumothorax and has been on 4 L nasal cannula with saturations 95%. Patient stated that he has some shortness of breath but was able to sleep. Patient denies any chest pain. Chest x-ray this morning demonstrates a small apical right pneumothorax that is unchanged. White blood cell count 6.3, eosinophils 12.0%, creatinine 0.6. The patient has a right pneumothorax that is stable post CT-guided lung biopsy on 02/01. Although the patient is short of breath he is clinically stable on 4 L nasal cannula and will avoid noninvasive ventilation at this time.
[2022-02-03] MEDS: THERAPEUTIC MULTIVITAMINS/MINERALS TAB (*BKC) 1 TABLET PO (09:41)
[2022-02-03] MEDS: hydrOXYzine HCL 10 MG TABLET PO (09:41)
[2022-02-03] MEDS: POTASSIUM CHLORIDE 10 MEQ TABLET.ER PO (09:42)
[2022-02-03] MEDS: THIAMINE HCL 100 MG TABLET PO (09:42)
[2022-02-03] MEDS: FOLIC ACID 1 MG TABLET PO (09:42)
[2022-02-03] MEDS: ATORVASTATIN 20 MG TABLET PO (09:43)
[2022-02-03] MEDS: ENOXAPARIN 40 MG/0.4 ML SYRINGE SUB-Q (09:43)
[2022-02-03] MEDS: FINASTERIDE 5 MG TABLET PO (09:43)
[2022-02-03 12:47] LABS: Vancomycin Trough < 5.0 ug/mL (10.0-20.0)
--- NOTE | 2022-02-03 15:59 | PM.IMPN ---
Progress Note: A&P Assessment and Plan (1) Hypotension: Code(s): I95.9 - Hypotension, unspecified Status: Acute Assessment and Plan: Resolved. Likely from volume depletion. Blood pressure looks good now. He is asymptomatic. Hold diuretic. Will hold midodrine and see how his blood pressure response. (2) Acute respiratory failure with hypoxia: Code(s): J96.01 - Acute respiratory failure with hypoxia Status: Acute Assessment and Plan: Diaphragmatic paralysis, bilateral appreciate Pulmonary help PFTs noted Trying to get noninvasive ventilator set up for discharge. Paraneoplastic serologic markers pending. (3) Elevated troponin: Code(s): R77.8 - Other specified abnormalities of plasma proteins Status: Acute Assessment and Plan: no further workup needed at this time. (4) Diastolic congestive heart failure: Code(s): I50.30 - Unspecified diastolic (congestive) heart failure Status: Acute Assessment and Plan: Lasix and diuretics on hold. appears compensated (5) Alcohol abuse: Code(s): F10.10 - Alcohol abuse, uncomplicated Status: Acute Assessment and Plan: Monitor (6) Urine retention: Code(s): R33.9 - Retention of urine, unspecified Status: Acute Assessment and Plan: Posey, monitor (7) Abnormal urinalysis: Code(s): R82.90 - Unspecified abnormal findings in urine Status: Acute Assessment and Plan: UTI ruled out (8) Pulmonary nodule: Code(s): R91.1 - Solitary pulmonary nodule Status: Acute Assessment and Plan: sp bx w pneumothorax - now on 4L NC cxr noted today - near resolution Subjective Date/time seen: 02/03/22 15:59 no new complaints on oxygen and tolerating ok Exam Narrative: Gen - NARD lying semi-recumbent in bed Chest - decreased BS in the bases with bronchial breath sounds and egophony. CV - RRR S1/S2. Tele showing PVCs with bigeminy Abd -soft. Positive bowel sounds. Bladder is distended. Tender to the lower abdomen Ext -trace pedal edema Psych - Nml mood and affect Skin - Warm and dry Objective Data Vital Signs Vital Signs: Vital Signs - 24 hr 02/02/22 16:00 02/02/22 18:00 02/02/22 20:00 Temperature 98 F 98.5 F Pulse Rate 96 92 92 Respiratory Rate 20 16 Blood Pressure 124/86 121/74 Pulse Oximetry 100 99 Oxygen Delivery Oxygen Flow Rate 02/02/22 20:00 02/02/22 20:00 02/02/22 22:00 Temperature Pulse Rate 92 109 H 91 Respiratory Rate 16 Blood Pressure Pulse Oximetry 99 Oxygen Delivery Nasal Cannula Oxygen Flow Rate 4 02/03/22 00:00 02/03/22 00:00 02/03/22 00:00 Temperature 98.5 F Pulse Rate 92 68 96 Respiratory Rate 16 16 Blood Pressure 112/62 Pulse Oximetry 96 99 Oxygen Delivery Nasal Cannula Oxygen Flow Rate 4 02/03/22 02:00 02/03/22 03:59 02/03/22 03:28 Temperature 97.9 F Pulse Rate 90 95 95 Respiratory Rate 16 16 Blood Pressure 141/63 H Pulse Oximetry 98 98 Oxygen Delivery Nasal Cannula Oxygen Flow Rate 4 02/03/22 04:00 02/03/22 05:22 02/03/22 08:00 Temperature 98 F Pulse Rate 92 91 91 Respiratory Rate 20 Blood Pressure 117/69 Pulse Oximetry 98 Oxygen Delivery Oxygen Flow Rate 02/03/22 08:17 02/03/22 08:26 02/03/22 08:00 Temperature 97.6 F Pulse Rate 90 99 98 Respiratory Rate 20 Blood Pressure 125/68 Pulse Oximetry 98 98 Oxygen Delivery Nasal Cannula Oxygen Flow Rate 4 02/03/22 12:00 02/03/22 10:00 02/03/22 12:00 Temperature 98.4 F Pulse Rate 103 H 45 L 104 H Respiratory Rate 26 H Blood Pressure 125/69 Pulse Oximetry 98 Oxygen Delivery Oxygen Flow Rate Intake/Output Intake/Output: Intake & Output 01/31/22 02/01/22 02/02/22 02/03/22 23:59 23:59 23:59 23:59 Intake Total 8659 456 6094 480 Output Total 1325 650 525 250 Balance -35 -50
[2022-02-03] MEDS: TAMSULOSIN HCL 0.4 MG CAPSULE PO (20:59)
[2022-02-04] VITALS (13 sets, daily range): BP systolic 113–130; BP diastolic 58–73; PULSE 82–100; RESP 18–24; TEMP 36.5–36.9; O2SAT 96–100
[2022-02-04 05:32] LABS: Basophils Percent Auto 0.5 % (0.2-1.2); Eosinophils Absolute Auto 0.8 K/mm3 (0-0.3); Eosinophils Percent Auto 12.7 % (0-4.4); Hematocrit 41.8 % (42.0-52.0); Immature Granulocyte Absolute 0.01 K/mm3 (0.00-0.031); Immature Granulocyte Percent A 0.2 % (0-0.5); Lymphocytes Absolute Auto 1.39 K/mm3 (0.9-3.2); Lymphocytes Percent Auto 23.2 % (18.3-44.2); Mean Corpuscular HGB Conc 31.1 g/dl (32-36); Mean Corpuscular Hemoglobin 30.4 pg (26-34); Mean Corpuscular Volume 97.7 fl (80-100); Mean Platelet Volume 10.7 fl (7.4-10.4); Monocytes Absolute Auto 0.6 K/mm3 (0.1-0.6); Neutrophils Absolute Auto 3.2 K/mm3 (1.3-6.7); Neutrophils Percent Auto 53.4 % (45.5-73.1); Platelet Count Result 188 k/mm3 (150-375); Red Blood Count 4.28 M/mm3 (4.6-6.20); Red Cell Distribution Width 13.9 % (11.5-14.5)
[2022-02-04 05:45] LABS: Anion Gap 2 mmol/L (8-16); Blood Urea Nitrogen 12 mg/dL (9-20); Calcium 7.8 mg/dL (8.4-10.2); Carbon Dioxide 34 mmol/L (22-30); Chloride 97 mmol/L (98-107); Estimated CRCL calculation 98 ml/min; Estimated Glomerular Filt Rate > 60; Glucose 102 mg/dL (65-110); Sodium 133 mmol/L (137-145)
[2022-02-04] MEDS: FLUTICASONE/UMECLIDIN/VILANTER 100-62.5-25 MCG ELLIPTA 1 PUFF INHALATION (08:16)
[2022-02-04] MEDS: ENOXAPARIN 40 MG/0.4 ML SYRINGE SUB-Q (08:35)
[2022-02-04] MEDS: ATORVASTATIN 20 MG TABLET PO (08:35)
[2022-02-04] MEDS: polyethylene glycoL 3350 17 GM POWD.PACK PO (08:35)
[2022-02-04] MEDS: FOLIC ACID 1 MG TABLET PO (08:35)
[2022-02-04] MEDS: THIAMINE HCL 100 MG TABLET PO (08:35)
[2022-02-04] MEDS: FINASTERIDE 5 MG TABLET PO (08:35)
[2022-02-04] MEDS: THERAPEUTIC MULTIVITAMINS/MINERALS TAB (*BKC) 1 TABLET PO (08:35)
[2022-02-04] MEDS: POTASSIUM CHLORIDE 10 MEQ TABLET.ER PO (08:35)
--- NOTE | 2022-02-04 08:36 | PCRCNOTE ---
TRILOGY SET UP PENDING WITH WADE.
--- NOTE | 2022-02-04 08:47 | PCRCNOTE ---
Addendum entered by Suzie De La Cruz, POUNCING MACHINE OPERATOR 02/04/22 08:56: UPDATED DR. ESCOBAR WITH TRILOGY STATUS. Original Note: SPOKE WITH EDYTA FROM [facility] TODAY. WAITING ON INSURANCE APPROVAL. PAPERWORK WAS SUBMITTED FRIDAY. THIS WAS SUBMITTED AN URGENT REQUEST AND WITH [facility] IT COULD TAKE 3-5 DAYS. EDYTA WILL CONTACT US SOON HE HEARS WORD FROM [facility].
--- NOTE | 2022-02-04 11:48 | PM.IMPN ---
Progress Note: A&P Assessment and Plan (1) Hypotension: Code(s): I95.9 - Hypotension, unspecified Status: Acute Assessment and Plan: Resolved. Likely from volume depletion. Blood pressure looks good now. He is asymptomatic. Hold diuretic. Blood pressures improved (2) Acute respiratory failure with hypoxia: Code(s): J96.01 - Acute respiratory failure with hypoxia Status: Acute Assessment and Plan: Diaphragmatic paralysis, bilateral appreciate Pulmonary help PFTs noted may possibly need noninvasive ventilator on discharge Paraneoplastic serologic markers pending. further workup per pulmonology (3) Elevated troponin: Code(s): R77.8 - Other specified abnormalities of plasma proteins Status: Acute Assessment and Plan: no further workup needed at this time. (4) Diastolic congestive heart failure: Code(s): I50.30 - Unspecified diastolic (congestive) heart failure Status: Acute Assessment and Plan: Lasix and diuretics on hold. appears compensated (5) Alcohol abuse: Code(s): F10.10 - Alcohol abuse, uncomplicated Status: Acute Assessment and Plan: Monitor (6) Urine retention: Code(s): R33.9 - Retention of urine, unspecified Status: Acute Assessment and Plan: Posey, monitor (7) Abnormal urinalysis: Code(s): R82.90 - Unspecified abnormal findings in urine Status: Acute Assessment and Plan: UTI ruled out (8) Pulmonary nodule: Code(s): R91.1 - Solitary pulmonary nodule Status: Acute Assessment and Plan: sp bx w pneumothorax - now on 4L NC cxr noted today - near resolution management per pulmonology Subjective Date/time seen: 02/04/22 11:48 No new complaints. Exam Narrative: Gen - NARD lying semi-recumbent in bed Chest - decreased BS in the bases with bronchial breath sounds and egophony. CV - RRR S1/S2. Tele showing PVCs with bigeminy Abd -soft. Positive bowel sounds. Bladder is distended. Tender to the lower abdomen Ext -trace pedal edema Psych - Nml mood and affect Skin - Warm and dry Objective Data Vital Signs Vital Signs: Vital Signs - 24 hr 02/03/22 12:00 02/03/22 12:00 02/03/22 14:00 Temperature 98.4 F Pulse Rate 103 H 104 H 98 Respiratory Rate 26 H Blood Pressure 125/69 Pulse Oximetry 98 Oxygen Delivery Oxygen Flow Rate 02/03/22 12:00 02/03/22 16:00 02/03/22 16:00 Temperature Pulse Rate 92 Respiratory Rate Blood Pressure Pulse Oximetry 98 96 Oxygen Delivery Nasal Cannula Nasal Cannula Oxygen Flow Rate 4 4 02/03/22 16:00 02/03/22 18:00 02/03/22 20:00 Temperature 97.8 F 98.7 F Pulse Rate 92 112 H 94 Respiratory Rate 20 20 Blood Pressure 121/71 120/66 Pulse Oximetry 97 99 Oxygen Delivery Oxygen Flow Rate 02/04/22 00:00 02/03/22 20:00 02/03/22 20:00 Temperature 97.7 F Pulse Rate 92 100 Respiratory Rate 18 Blood Pressure 118/63 Pulse Oximetry 98 99 Oxygen Delivery Nasal Cannula Oxygen Flow Rate 4 02/04/22 00:00 02/04/22 00:00 02/03/22 22:00 Temperature Pulse Rate 94 94 Respiratory Rate Blood Pressure Pulse Oximetry 98 Oxygen Delivery Nasal Cannula Oxygen Flow Rate 4 02/04/22 02:00 02/04/22 04:00 02/04/22 04:00 Temperature Pulse Rate 98 94 Respiratory Rate Blood Pressure Pulse Oximetry 97 Oxygen Delivery Nasal Cannula Oxygen Flow Rate 4 02/04/22 04:00 02/04/22 06:00 02/04/22 08:18 Temperature 98.0 F Pulse Rate 97 89 Respiratory Rate 20 Blood Pressure 113/65 Pulse Oximetry 96 97 Oxygen Delivery Nasal Cannula Oxygen Flow Rate 4 02/04/22 08:00 02/04/22 08:00 02/04/22 08:00 Temperature 98 F Pulse Rate 97 93 Respiratory Rate 18 Blood Pressure 120/61 Pulse Oximetry 96 98 Oxygen Delivery Nasal Cannula Oxygen Flow Rate 4
[2022-02-04 12:53] LABS: CRP < 0.5 mg/dL (<1.0); Creatine Kinase 25 U/L (55-170)
--- NOTE | 2022-02-04 13:02 | PM.PNPUL ---
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 Chest imaging studies have shown chronically elevated hemidiaphragms with basal atelectasis bilaterally. Patient has characteristic abdominal paradox on physical exam. Etiology of diaphragm weakness unclear at this point. I added CPK aldolase CRP for possible underlying systemic inflammatory muscle disease. Regarding the right upper lobe nodule for which he underwent CT-guided biopsy pathology is still pending. Plan patient will continue with home ventilatory support via trilogy given his chronic hypoxemic hypercapnic respiratory failure. Will consider further workup for cause of weakness including cervical spine CT to exclude radiculopathy. (2) SOB (shortness of breath): Code(s): R06.02 - Shortness of breath Status: Acute (3) Acute respiratory failure with hypoxia: Code(s): J96.01 - Acute respiratory failure with hypoxia Status: Acute (4) Chronic obstructive pulmonary disease: Code(s): J44.9 - Chronic obstructive pulmonary disease, unspecified Status: Acute (5) Pulmonary nodule: Code(s): R91.1 - Solitary pulmonary nodule Status: Acute Assessment and Plan: Right upper lobe nodule with no increased uptake on PET scan. CT-guided needle biopsy pending. (6) Elevated IgE level: Code(s): R76.8 - Other specified abnormal immunological findings in serum Status: Acute Assessment and Plan: IgE level was markedly elevated. Patient has no history of asthma or other atopic disease. repeat IgE level pending. Subjective Date/time seen: 02/04/22 13:02 This 76-year-old man presented with a chronic shortness of breath. in particular he has had orthopnea for few years. He was found to have a elevated hemidiaphragms with basal atelectasis bilaterally, Abdominal paradox all suggestive of bilateral diaphragmatic weakness. Patient also found to have a right upper lobe nodule for which he underwent CT-guided needle biopsy. Pathology pending patient developed pneumothorax post procedure. For the last few days he has been on ventilatory support via AVAPS. Currently he has no new respiratory symptoms. He denied having chest pain fever cough or sputum production. Review of Systems Review of Systems: All system review is negative except as noted in HPI and below. Exam Narrative: GENERAL APPEARANCE: Well developed, well nourished, alert and cooperative, and appears to be in mild respiratory distress while sitting up in chair SKIN: Inspection of the skin reveals no rashes, ulcerations or petechiae. HEENT: Sclerae anicteric and conjunctivae pink and moist. Extraocular movements were intact and pupils were equal, round, and reactive to light. The oral mucosa, hard and soft palate, tongue and posterior pharynx were normal. NECK: Supple. There was no thyroid enlargement, and no tenderness, or masses were felt. CHEST: Normal AP diameter and normal contour without any kyphoscoliosis. LUNGS: Auscultation of the lungs revealed normal breath sounds without any other adventitious sounds or rubs. CARDIAC: There was a regular rate and rhythm without any murmurs, gallops, rubs. ABDOMEN: Soft and nontender with normal bowel sounds. There was no organomegaly. abdominal paradox in semi recumbent position. LYMPH NODES: No lymphadenopathy was appreciated in the neck. EXTREMITIES: No cyanosis, clubbing or edema. NEUROLOGIC: Alert and oriented x 3. Normal affect. Objective Data Vital Signs Vital Signs: Vital Signs - 24 hr 02/03/22 14:00 02/03/22 16:00 02/03/22 16:00 Temperature Pulse Rate 98 92 Respiratory Rate Blood Pressure Pulse Oximetry 96 Oxygen Deliver
[2022-02-04] MEDS: TAMSULOSIN HCL 0.4 MG CAPSULE PO (21:31)
[2022-02-04] MEDS: hydrOXYzine HCL 10 MG TABLET PO (21:31)
[2022-02-05] VITALS (13 sets, daily range): BP systolic 115–132; BP diastolic 61–74; PULSE 76–103; RESP 16–20; TEMP 36.4–36.8; O2SAT 92–99
[2022-02-05 04:45] LABS: Potassium 3.7 mmol/L (3.4-5.0)
[2022-02-05] MEDS: THIAMINE HCL 100 MG TABLET PO (08:40)
[2022-02-05] MEDS: ENOXAPARIN 40 MG/0.4 ML SYRINGE SUB-Q (08:40)
[2022-02-05] MEDS: FOLIC ACID 1 MG TABLET PO (08:40)
[2022-02-05] MEDS: FINASTERIDE 5 MG TABLET PO (08:40)
[2022-02-05] MEDS: POTASSIUM CHLORIDE 10 MEQ TABLET.ER PO (08:40)
[2022-02-05] MEDS: THERAPEUTIC MULTIVITAMINS/MINERALS TAB (*BKC) 1 TABLET PO (08:40)
[2022-02-05] MEDS: ATORVASTATIN 20 MG TABLET PO (08:40)
[2022-02-05] MEDS: FLUTICASONE/UMECLIDIN/VILANTER 100-62.5-25 MCG ELLIPTA 1 PUFF INHALATION (10:02)
--- NOTE | 2022-02-05 10:50 | PM.PNPUL ---
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 Chest imaging studies have shown chronically elevated hemidiaphragms with basal atelectasis bilaterally. Patient has characteristic abdominal paradox on physical exam. Etiology of diaphragm weakness unclear at this point. There is no laboratory evidence of chronic inflammatory muscle disease as CPK and CRP not elevated. aldolase and other tests pending. Plan: Await approval of home ventilator. Await lung nodule biopsy result. Continue with current treatment for now. BiPAP support at night as ordered. Out of bed to chair. (2) SOB (shortness of breath): Code(s): R06.02 - Shortness of breath Status: Acute (3) Acute respiratory failure with hypoxia: Code(s): J96.01 - Acute respiratory failure with hypoxia Status: Acute (4) Chronic obstructive pulmonary disease: Code(s): J44.9 - Chronic obstructive pulmonary disease, unspecified Status: Acute (5) Pulmonary nodule: Code(s): R91.1 - Solitary pulmonary nodule Status: Acute Assessment and Plan: Right upper lobe nodule with no increased uptake on PET scan. CT-guided needle biopsy pending. (6) Elevated IgE level: Code(s): R76.8 - Other specified abnormal immunological findings in serum Status: Acute Assessment and Plan: IgE level was markedly elevated. Patient has no history of asthma or other atopic disease. repeat IgE level pending. Subjective Date/time seen: 02/05/22 10:50 Patient without any new respiratory symptoms. Did not use BiPAP support last night. Review of Systems Review of Systems: All system review is negative except as noted in HPI and below. Exam Narrative: GENERAL APPEARANCE: Well developed, well nourished, alert and cooperative, and appears to be in mild respiratory distress while sitting up in chair SKIN: Inspection of the skin reveals no rashes, ulcerations or petechiae. HEENT: Sclerae anicteric and conjunctivae pink and moist. Extraocular movements were intact and pupils were equal, round, and reactive to light. The oral mucosa, hard and soft palate, tongue and posterior pharynx were normal. NECK: Supple. There was no thyroid enlargement, and no tenderness, or masses were felt. CHEST: Normal AP diameter and normal contour without any kyphoscoliosis. LUNGS: Auscultation of the lungs revealed normal breath sounds without any other adventitious sounds or rubs. CARDIAC: There was a regular rate and rhythm without any murmurs, gallops, rubs. ABDOMEN: Soft and nontender with normal bowel sounds. There was no organomegaly. abdominal paradox in semi recumbent position. LYMPH NODES: No lymphadenopathy was appreciated in the neck. EXTREMITIES: No cyanosis, clubbing or edema. NEUROLOGIC: Alert and oriented x 3. Normal affect. Objective Data Vital Signs Vital Signs: Vital Signs - 24 hr 02/04/22 12:00 02/04/22 12:00 02/04/22 12:00 Temperature 36.9 C Pulse Rate 93 88 Respiratory Rate 24 H Blood Pressure 130/73 Pulse Oximetry 98 97 Oxygen Delivery Nasal Cannula Oxygen Flow Rate 4 Fraction of Inspired Oxygen 02/04/22 16:00 02/04/22 16:00 02/04/22 20:00 Temperature 36.6 C 36.6 C Pulse Rate 93 88 94 Respiratory Rate 24 H 20 Blood Pressure 130/73 114/65 Pulse Oximetry 100 100 Oxygen Delivery Oxygen Flow Rate Fraction of Inspired Oxygen 02/04/22 20:00 02/04/22 20:00 02/04/22 22:00 Temperature Pulse Rate 82 92 82 Respiratory Rate 20 Blood Pressure Pulse Oximetry 100 Oxygen Delivery Nasal Cannula Oxygen Flow Rate 4 Fraction of Inspired Oxygen 30 02/04/22 23:50 02/05/22 00:00 02/05/22 04:00 Temperature 36.5 C
--- NOTE | 2022-02-05 11:22 | PM.IMPN ---
Progress Note: A&P Assessment and Plan (1) Hypotension: Code(s): I95.9 - Hypotension, unspecified Status: Acute Assessment and Plan: Resolved. Likely from volume depletion. Blood pressure looks good now. He is asymptomatic. Hold diuretic. in holding blood pressure medications. Blood pressures improved (2) Acute respiratory failure with hypoxia: Code(s): J96.01 - Acute respiratory failure with hypoxia Status: Acute Assessment and Plan: Diaphragmatic paralysis, bilateral appreciate Pulmonary help PFTs noted may possibly need noninvasive ventilator on discharge - To be arranged by Pulmonary. Paraneoplastic serologic markers pending. Additional immunologic tests are also pending. further workup per pulmonology Question long-term plan for this gentleman. (3) Elevated troponin: Code(s): R77.8 - Other specified abnormalities of plasma proteins Status: Acute Assessment and Plan: no further workup needed at this time. (4) Diastolic congestive heart failure: Code(s): I50.30 - Unspecified diastolic (congestive) heart failure Status: Acute Assessment and Plan: Lasix and diuretics on hold. appears compensated (5) Alcohol abuse: Code(s): F10.10 - Alcohol abuse, uncomplicated Status: Acute Assessment and Plan: Monitor (6) Urine retention: Code(s): R33.9 - Retention of urine, unspecified Status: Acute Assessment and Plan: Posey, monitor Chronic (7) Abnormal urinalysis: Code(s): R82.90 - Unspecified abnormal findings in urine Status: Acute Assessment and Plan: UTI ruled out no indication for antibiotics at this time. (8) Pulmonary nodule: Code(s): R91.1 - Solitary pulmonary nodule Status: Acute Assessment and Plan: sp bx - Results pending w pneumothorax Postprocedure- on oxygen to help with resolution. cxr noted today - near resolution - Will repeat chest x-ray in the morning. management per pulmonology Subjective Date/time seen: 02/05/22 11:22 Patient reports his breathing is about the same. Exam Narrative: Gen - NARD Sitting in chair Chest - decreased BS in the bases with bronchial breath sounds and egophony. CV - RRR S1/S2. Tele showing PVCs with bigeminy Abd -soft. Positive bowel sounds. Bladder is distended. Tender to the lower abdomen Ext -trace pedal edema Psych - Nml mood and affect Skin - Warm and dry Objective Data Vital Signs Vital Signs: Vital Signs - 24 hr 02/04/22 12:00 02/04/22 12:00 02/04/22 12:00 Temperature 98.5 F Pulse Rate 93 88 Respiratory Rate 24 H Blood Pressure 130/73 Pulse Oximetry 98 97 Oxygen Delivery Nasal Cannula Oxygen Flow Rate 4 Fraction of Inspired Oxygen 02/04/22 16:00 02/04/22 16:00 02/04/22 20:00 Temperature 98 F 97.9 F Pulse Rate 93 88 94 Respiratory Rate 24 H 20 Blood Pressure 130/73 114/65 Pulse Oximetry 100 100 Oxygen Delivery Oxygen Flow Rate Fraction of Inspired Oxygen 02/04/22 20:00 02/04/22 20:00 02/04/22 22:00 Temperature Pulse Rate 82 92 82 Respiratory Rate 20 Blood Pressure Pulse Oximetry 100 Oxygen Delivery Nasal Cannula Oxygen Flow Rate 4 Fraction of Inspired Oxygen 30 02/04/22 23:50 02/05/22 00:00 02/05/22 04:00 Temperature 97.7 F Pulse Rate 100 97 98 Respiratory Rate 18 Blood Pressure 119/58 L Pulse Oximetry 99 Oxygen Delivery Oxygen Flow Rate Fraction of Inspired Oxygen 02/04/22 21:35 02/05/22 04:00 02/05/22 07:51 Temperature 97.8 F 97.6 F Pulse Rate 85 103 H Respiratory Rate 18 16 Blood Pressure 115/74 122/73 Pulse Oximetry 96 97 95 Oxygen Delivery Nasal Cannula Oxygen Flow Rate 4 Fraction of Inspired Oxygen 02/05/22 08:00 02/05/22 10:01 02/05/22 08:00 Temperature Pulse Rate 98 99 Respiratory Rate Bl
[2022-02-05] MEDS: ALBUTEROL SULFATE (*SP) AEROSOL 1 PUFF 2 PUFF INHALATION (18:26)
[2022-02-05] MEDS: hydrOXYzine HCL 10 MG TABLET PO (18:26)
[2022-02-05] MEDS: TAMSULOSIN HCL 0.4 MG CAPSULE PO (20:41)
[2022-02-06] VITALS (7 sets, daily range): BP systolic 123–144; BP diastolic 62–81; PULSE 78–111; RESP 14–32; TEMP 36.3–36.8; O2SAT 90–96
[2022-02-06] MEDS: POTASSIUM CHLORIDE 10 MEQ TABLET.ER PO (08:15)
[2022-02-06] MEDS: FLUTICASONE/UMECLIDIN/VILANTER 100-62.5-25 MCG ELLIPTA 1 PUFF INHALATION (08:16)
[2022-02-06] MEDS: FINASTERIDE 5 MG TABLET PO (08:16)
[2022-02-06] MEDS: THIAMINE HCL 100 MG TABLET PO (08:16)
[2022-02-06] MEDS: ENOXAPARIN 40 MG/0.4 ML SYRINGE SUB-Q (08:16)
[2022-02-06] MEDS: THERAPEUTIC MULTIVITAMINS/MINERALS TAB (*BKC) 1 TABLET PO (08:16)
[2022-02-06] MEDS: FOLIC ACID 1 MG TABLET PO (08:16)
[2022-02-06] MEDS: ATORVASTATIN 20 MG TABLET PO (08:16)
[2022-02-06 08:28] LABS: Alanine Aminotransferase 24 U/L (6-50); Albumin Level 3.2 g/dL (3.5-5.1); Alkaline Phosphatase 77 U/L (38-126); Anion Gap 6 mmol/L (8-16); Aspartate Amino Transferase 27 U/L (17-59); Bilirubin,Total 0.5 mg/dL (0.2-1.3); Blood Urea Nitrogen 7 mg/dL (9-20); Calcium 8.2 mg/dL (8.4-10.2); Carbon Dioxide 37 mmol/L (22-30); Chloride 92 mmol/L (98-107); Estimated CRCL calculation 83 ml/min; Estimated Glomerular Filt Rate > 60; Glucose 132 mg/dL (65-110); Hematocrit 44.3 % (42.0-52.0); Hemoglobin 13.7 g/dL (14.0-18.0); Magnesium 2.1 mg/dL (1.6-2.3); Mean Corpuscular HGB Conc 30.9 g/dl (32-36); Mean Corpuscular Hemoglobin 30.4 pg (26-34); Mean Corpuscular Volume 98.2 fl (80-100); Mean Platelet Volume 10.1 fl (7.4-10.4); Platelet Count Result 198 k/mm3 (150-375); Red Blood Count 4.51 M/mm3 (4.6-6.20); Red Cell Distribution Width 13.8 % (11.5-14.5); Sodium 135 mmol/L (137-145); White Blood Count 5.6 K/mm3 (4.5-10.0)
--- NOTE | 2022-02-06 09:00 | PCNFU ---
Nutrition Follow-Up Complete: acute malnutrition related to poor appetite, secondary to increased COPD energy needs, as evidence by 21% wt loss in 3-4 months Goal: meet 50-75% intake and drink nutritional supplement TID - goal being met Pt current nutrition is Heart healthy diet. Nutrition recommendation: Continue current diet and supplements, Heart healthy diet with Ensure Compact TID Last recorded weight is 83.2 kg. Bowel Motility: No BM charted, pt may benefit from bowel regimen if BM does not increase Labs Reviewed: Na 135, BUN 7, Creat 0.6 Meds Noted: Lipitor, Bumex, lovenox, folic acid, thiamine Skin: WNL Additional Notes: Tolerating diet, intakes are good. Mostly drinking supplements Follow up in 3 says monitor appetite, food and supplement intake, wt and labs
--- NOTE | 2022-02-06 09:34 | PCRCNOTE ---
Spoke with Blake at [facility] today. Insurance still pending. Care Coordination informed.
--- NOTE | 2022-02-06 10:32 | PM.PNPUL ---
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 Chest imaging studies have shown chronically elevated hemidiaphragms with basal atelectasis bilaterally. Patient has characteristic abdominal paradox on physical exam. Etiology of diaphragm weakness unclear at this point. There is no laboratory evidence of chronic inflammatory muscle disease as CPK and CRP not elevated. aldolase and other tests pending. Plan: Await approval of home ventilator. Will proceed with repeat apnea link on just room air as current saturation is adequate on room air. Repeat blood gases in a.m.. (2) SOB (shortness of breath): Code(s): R06.02 - Shortness of breath Status: Acute (3) Acute respiratory failure with hypoxia: Code(s): J96.01 - Acute respiratory failure with hypoxia Status: Acute (4) Chronic obstructive pulmonary disease: Code(s): J44.9 - Chronic obstructive pulmonary disease, unspecified Status: Acute (5) Pulmonary nodule: Code(s): R91.1 - Solitary pulmonary nodule Status: Acute Assessment and Plan: Right upper lobe nodule with no increased uptake on PET scan. 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 Patient had pulmonary function testing without post bronchodilator study. Judging by his FEV1 he might be a candidate for resectional surgery. However given his age, other comorbidities like congestive heart failure, respiratory disability related to diaphragm dysfunction he has a high risk for complications post surgery including increased mortality related to surgery. Discussed the option of SBRT with patient. SBRT might be a better option for this patient given his age, respiratory disability and other comorbidities. Will ask Oncology to also see the patient. (6) Elevated IgE level: Code(s): R76.8 - Other specified abnormal immunological findings in serum Status: Acute Assessment and Plan: IgE level was markedly elevated. Patient has no history of asthma or other atopic disease. repeat IgE level pending. Subjective Date/time seen: 02/06/22 10:32 Patient has no new respiratory symptoms. Has not used BiPAP support at night the last 2 days. Currently on room air. Home ventilator has not been approved as yet. CT-guided lung biopsy showed squamous carcinoma. Review of Systems Review of Systems: All system review is negative except as noted in HPI and below. Exam Narrative: GENERAL APPEARANCE: Well developed, well nourished, alert and cooperative, and appears to be in mild respiratory distress while sitting up in chair SKIN: Inspection of the skin reveals no rashes, ulcerations or petechiae. HEENT: Sclerae anicteric and conjunctivae pink and moist. Extraocular movements were intact and pupils were equal, round, and reactive to light. The oral mucosa, hard and soft palate, tongue and posterior pharynx were normal. NECK: Supple. There was no thyroid enlargement, and no tenderness, or masses were felt. CHEST: Normal AP diameter and normal contour without any kyphoscoliosis. LUNGS: Auscultation of the lungs revealed normal breath sounds without any other adventitious sounds or rubs. CARDIAC: There was a regular rate and rhythm without any murmurs, gallops, rubs. ABDOMEN: Soft and nontender with normal bowel sounds. There was no organomegaly. abdominal paradox in semi recumbent position. LYMPH NODES: No lymphadenopathy was appreciated in the neck. EXTREMITIES: No cyanosis, clubbing or edema. NEUROLOGIC: Alert and oriented x 3. Normal affect. Objective Data Vital Signs Vital Signs: Vital Signs - 24 hr
[2022-02-06] MEDS: hydrOXYzine HCL 10 MG TABLET PO (10:50)
--- NOTE | 2022-02-06 11:01 | PM.IMPN ---
Progress Note: A&P Assessment and Plan (1) Hypotension: Code(s): I95.9 - Hypotension, unspecified Status: Acute Assessment and Plan: patient developed hypotension. He given IV fluid boluses started on maintenance fluid. He was fluid responsive. Darden hypotension related to volume depletion. Antihypertensive medications were stopped. Blood pressure improved. Currently holding diuretics other antihypertensive medications. Continue to follow. (2) Acute respiratory failure with hypoxia: Code(s): J96.01 - Acute respiratory failure with hypoxia Status: Acute Assessment and Plan: Patient with bilateral diaphragmatic paralysis. Most likely the etiology of the lung findings. Appreciate Pulmonary input. Acute respiratory failure resolved. We are were awaiting a trilogy device for him. PTX post-biopsy but small. Continue Trelegy. (3) Elevated troponin: Code(s): R77.8 - Other specified abnormalities of plasma proteins Status: Acute Assessment and Plan: Elevated troponins felt related to his hypoxia. He has had a normal heart catheterization on 09/18/2021. (4) Diastolic congestive heart failure: Code(s): I50.30 - Unspecified diastolic (congestive) heart failure Status: Acute Assessment and Plan: Patient remains euvolemic. Continue to follow. (5) Alcohol abuse: Code(s): F10.10 - Alcohol abuse, uncomplicated Status: Acute Assessment and Plan: No issues with alcohol withdrawal. Continue thiamine and folate. (6) Urine retention: Code(s): R33.9 - Retention of urine, unspecified Status: Acute Assessment and Plan: Stable. Continue Flomax and Proscar. Will attempt another voiding trial since he is doing well. (7) Abnormal urinalysis: Code(s): R82.90 - Unspecified abnormal findings in urine Status: Acute Assessment and Plan: UTI ruled out. No indication for antibiotics at this time. (8) Pulmonary nodule: Code(s): R91.1 - Solitary pulmonary nodule Status: Acute Assessment and Plan: sp bx - Results showing squamous cell CA. Paraneoplastic testing in progress. Oncology consult. Postprocedure pneumothorax CXR as we small pleural effusion and atelectasis but no pneumothorax. Pneumothorax has resolved. Subjective Date/time seen: 02/06/22 11:01 Interval history: 76yo male with COPD, CHF and HTN who was recently discharged from [facility] who returns for shortness of breath. Resuming care. Chart reviewed. Patient did not use the mass last night but was only on 1 L. he was short of breath all night long . He denies cough. He still slept semi recumbent. No chest pain. Does walk in the room with therapy. Exam Narrative: AF 97.8 122/61 100 20 96% room air Gen - NARD sitting in a chair Chest - decreased breath sounds in the bases with egophony bibasilar. CV - RRR S1/S2. Tele showing one brief run of atrial tachycardia otherwise no significant dysrhythmias. Abd -soft. Positive bowel sounds. Mild diffuse tenderness. His incisions are clean, dry and intact Ext - trace pedal edema Psych - Nml mood and affect Skin - Warm and dry Objective Data Vital Signs Vital Signs: Vital Signs - 24 hr 02/05/22 12:05 02/05/22 13:45 02/05/22 15:29 Temperature 98.2 F Pulse Rate 98 Respiratory Rate 16 Blood Pressure 127/70 Pulse Oximetry 97 99 99 Oxygen Delivery Nasal Cannula Nasal Cannula Oxygen Flow Rate 2 1 Fraction of Inspired Oxygen 02/05/22 15:55 02/05/22 20:44 02/05/22 20:47 Temperature 98.2 F 98.2 F Pulse Rate 76 99 Respiratory Rate 16 20 Blood Pressure 127/66 132/64 Pulse Oximetry 97 96 96 Oxygen Delivery Nasal Cannula Oxygen Flow Rate 3 Fraction of Inspired Oxygen 02/05/22 20:00 02/05/22 23:55 02/06/22 08:00 Temperature 97.8 F Pulse Rate 99 100 Respiratory Rate 20 20 Bloo
[2022-02-06 11:07] LABS: Alveolar/Arterial O2 Gradient 33.6 mmHg; Base Excess ABG 7.7 mEq/l (+/-2.0); Fractional Inspired Oxygen 21 %; Oxygen Content ABG 18.8 %vol (16.0-22.0); Oxygen Saturation ABG 91.1 % (95.0-100.0); Oxyhemoglobin 91.9 % THb (90.0-100.0); PCO2 ABG 48.4 mmHg (35.0-45.0); PO2 ABG 58.2 mmHg (80.0-100.0); PO2 FiO2 Ratio Arterial Blood 2.77 %; Total Hemoglobin 14.6 g/dL (12.0-18.0); pH ABG 7.452 (7.350-7.450)
[2022-02-06 11:07] LABS: JO 1 Antibody <1.0
[2022-02-06 11:08] LABS: Device ROOM AIR; Modified Allen's Test Pass; Site Drawn RIGHT RADIAL
--- NOTE | 2022-02-06 14:25 | PC.NURSE ---
Pt urinated 50ml. Bladder scan performed after urination post catheter removal. Post-void residual amount on bladder scan showed 500-750. Dr. Martins notified of findings. New order to replace Posey catheter.
--- NOTE | 2022-02-06 17:09 | PC.NURSE ---
This patient, Odilon Lee, was transferred to [[id number] ] on 02/06/22 at 1709. Personal belongings sent with patient. Report given to [NYA Nelson @ 1539 ]. Appropriate documentation sent with patient. Medications sent with patient and left with charge nurse, d/t narcotics being sent
--- NOTE | 2022-02-06 17:25 | PC.NURSE ---
This patient, Odilon Lee, was received from [[facility] ] on 02/06/22 at 1720. Patient/family oriented to unit policies and routines
--- NOTE | 2022-02-06 18:50 | PDONCCN ---
HPI - Date of Consult Date/Time: 02/06/22 18:50 Requesting Physician: Tessa Esparza DO Primary Care Provider: Tiffanie Forman MD - Consult Narrative Reason for consult: Non-small cell lung cancer Narrative: Odilon Lee is a 76 year old male with history of COPD, hypertension and hyperlipidemia brought into the hospital why EMS from home with Posey catheter related severe pain. Patient recently had laparoscopic cholecystectomy for abdominal pain and postoperatively developed urinary retention. Patient has chronic shortness of breath and his O2 sat was down to 70. CT chest was performed that showed no evidence of pulmonary embolism but 11 mm pulmonary nodule. Patient had CT-guided lung biopsy of right upper lobe lung nodule performed on February 01 that showed squamous cell carcinoma. Patient also had PET-CT done on December 25 that showed 14 mm right upper lobe lung nodule with SUV of 2.4 without any evidence of metastatic disease. There was calcified left lung nodule and calcified left hilar lymphadenopathy. Patient has a history of smoking but quit 15 years ago. Review of Systems - Review of Systems All systems reviewed & are unremarkable except as noted in HPI and bel - Neurologic Reports system reviewed and no additional complaints, except as documented [facility] Medical History: Medical History (Last Updated 02/04/22 @ 13:19 by Jey Jimenez MD) Alcohol abuse Alpha 1-antitrypsin PiMS phenotype Benign prostate hyperplasia Chronic obstructive pulmonary disease Diastolic congestive heart failure Elevated IgE level Former smoker Hyperlipidemia Hypertension Myocardial infarction Prediabetes Pulmonary nodule Surgical History: Surgical History (Last Updated 01/27/22 @ 13:23 by Oma Reed PA-C) History of colonoscopy with polypectomy History of incisional hernia repair With mesh. History of right hemicolectomy For cecal polyp. History of total right knee replacement Family History: Family History (Last Reviewed 01/27/22 @ 20:30 by Oma Reed PA-C) Mother Carcinoma of colon Family history of malignant neoplasm of breast in first degree relative Breast cancer Sibling Malignant neoplasm of prostate - Social History Social History: Social History (Last Reviewed 01/27/22 @ 20:30 by Oma Reed PA-C) Others: Spiritual care concerns: No Agree to blood products: Yes Smoking Status: Approximate Smoking End Date: 2007 Exam - Vital Signs Vital Signs - 24 hr 02/05/22 20:44 02/05/22 20:47 02/05/22 20:00 Temperature 36.8 C Pulse Rate 99 99 Respiratory Rate 20 20 Blood Pressure 132/64 Pulse Oximetry 96 96 96 Oxygen Delivery Nasal Cannula Nasal Cannula Oxygen Flow Rate 3 1 Fraction of Inspired Oxygen 30 02/05/22 23:55 02/06/22 08:00 02/06/22 08:00 Temperature 36.6 C 36.3 C L Pulse Rate 100 87 Respiratory Rate 20 22 H Blood Pressure 122/61 134/80 Pulse Oximetry 92 96 96 Oxygen Delivery Room Air Oxygen Flow Rate Fraction of Inspired Oxygen 02/06/22 12:00 02/06/22 17:30 02/06/22 16:45 Temperature 36.6 C 36.8 C 36.6 C Pulse Rate 95 90 97 Respiratory Rate 24 H 24 H 18 Blood Pressure 123/62 144/77 H 129/75 Pulse Oximetry 96 96 Oxygen Delivery Oxygen Flow Rate Fraction of Inspired Oxygen - Exam HEENT: EOMI, PERRLA Neck: supple. No: JVD Lungs: clear to auscultation, normal air movement Heart: no murmurs, gallops, or rubs, regular rhythm, regular rate Abdomen: abdomen soft, non-distended, normal bowel sounds Extremities: normal pulses Integumentary: no abnormalities Neurological: normal speech Psychological: mental status NL, mood NL - Lab Results Laboratory Last Values WBC 5.6 K/mm3 (4.5-10.0) 02/06/22 08:10 RBC 4.51 M/mm3 (4.6-6.20) L 02/06/22 08:10 Hgb 13.7 g/dL (14.0-18.0) L 02/06/22 08:10 Hct 44.3 % (42.0-52.0) 02/06/22 08:10 MCV 98.2
[2022-02-06] MEDS: TAMSULOSIN HCL 0.4 MG CAPSULE PO (20:37)
--- NOTE | 2022-02-06 23:27 | PCRCNOTE ---
Pt has been sob with increased work of breathing since early evening (1800). Pt attempts to PLB and use energy conservation techiniques and this does not alleviate sob. No wheezes appreciated. Spo2 levels above 90% and pt continue to be sob with increased work of breathing. Pt placed on AVAPS and MD notified of pt's status change. Unable to perform room air apnea link tonight.
[2022-02-07] VITALS (15 sets, daily range): BP systolic 126–135; BP diastolic 75–82; PULSE 80–110; RESP 14–38; TEMP 36.3–36.7; O2SAT 91–98
[2022-02-07 04:53] LABS: Alveolar/Arterial O2 Gradient 32.7 mmHg; Base Excess ABG 11.4 mEq/l (+/-2.0); Fractional Inspired Oxygen 21 %; HCO3 ABG 37.6 mEq/l (22.0-26.0); Oxygen Content ABG 18.2 %vol (16.0-22.0); Oxyhemoglobin 89.5 % THb (90.0-100.0); PCO2 ABG 54.7 mmHg (35.0-45.0); PO2 ABG 51.5 mmHg (80.0-100.0); PO2 FiO2 Ratio Arterial Blood 2.45 %; Total Hemoglobin 14.5 g/dL (12.0-18.0); pH ABG 7.455 (7.350-7.450)
[2022-02-07 04:54] LABS: Oxygen Saturation ABG 87.4 % (95.0-100.0)
[2022-02-07 04:55] LABS: Device ROOM AIR; Modified Allen's Test Pass; Site Drawn RIGHT RADIAL
--- NOTE | 2022-02-07 05:05 | PC.NURSE ---
Pt unable to do Apnea link. Pt reports shortness of breath. Pt placed on BiPap and telemetry. Pt takes BiPap off periodically throughout the night. Pt placed back on multiple times. Pt had critical ABG reported by charge nurse to Dr. Demarco. Nothing to be done at this time. Pt currently wearing BiPap and up in chair with chair alarm. Will continue to monitor pt.
[2022-02-07 06:00] LABS: Estimated CRCL calculation 72 ml/min; Estimated Glomerular Filt Rate > 60
[2022-02-07] MEDS: FLUTICASONE/UMECLIDIN/VILANTER 100-62.5-25 MCG ELLIPTA 1 PUFF INHALATION (08:37)
[2022-02-07] MEDS: ALBUTEROL SULFATE (*SP) AEROSOL 1 PUFF 2 PUFF INHALATION (08:37)
[2022-02-07] MEDS: hydrOXYzine HCL 10 MG TABLET PO (08:39)
[2022-02-07] MEDS: THIAMINE HCL 100 MG TABLET PO (08:40)
[2022-02-07] MEDS: THERAPEUTIC MULTIVITAMINS/MINERALS TAB (*BKC) 1 TABLET PO (08:40)
[2022-02-07] MEDS: FOLIC ACID 1 MG TABLET PO (08:40)
[2022-02-07] MEDS: FINASTERIDE 5 MG TABLET PO (08:40)
[2022-02-07] MEDS: ATORVASTATIN 20 MG TABLET PO (08:40)
[2022-02-07] MEDS: ENOXAPARIN 40 MG/0.4 ML SYRINGE SUB-Q (08:41)
[2022-02-07] MEDS: METOPROLOL TARTRATE 6.25 MG TABLET PO ×2 (10:26→20:59)
--- NOTE | 2022-02-07 11:29 | PM.PNPUL ---
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 Elevated serum bicarbonate levels of greater than 32 since 09/06/2021 consistent with chronic hypercarbic respiratory failure. Patient has PFTs on 10/23/2021 with a restrictive ventilatory abnormality (TLC 4.84 L, 73%, FEV: FVC ratio of 69% and FEV1 of 1.55 L, 56% predicted).? Patient has been unable to lie flat for last three months. On 01/31 he has respiratory paradox on physical examination.? I placed him on noninvasive ventilation and he had immediate relief of his subjective rest shortness of breath. Patient has diaphragmatic paralysis and I will initiate Noninvasive ventilation to prevent further deterioration and future hospitalizations. He has no mediastinal abnormalities, no history of neck trauma, surgeries or stenosis. Patient does have a right upper lobe 11 mm lung nodule and I will send serologic markers for paraneoplastic conditions and myesthenia (SHADE-1 Ab, Anti Hu Ab and Acetylcholine receptor Ab).? the patient had a recent laparoscopic cholecystectomy on 01/18/2021 and may have diaphragmatic weakness from this operation. I have ordered a sniff test today and gave the clinical details to the radiologist. He could not tolerate the pressures of the straight BiPAP mode and I switched him to an AVAPS and adjusted the settings for comfort. Patient tolerated respiratory rate of 14, tidal volume 500, EPAP 4, minimal inspiratory pressure 5, maximal inspiratory pressure 25, inspiratory time 0.8, rise of 5 which is machines slowest. I will check an overnight oximetry on room air and an ABG in the morning prior to removal. Later in the day patient had a sniff study demonstrating bilateral small lung volumes with symmetrical decreased mobility of the diaphragms. 02/01 Patient wore the hospital noninvasive ventivlator with the AVAPS mode respiratory rate of 14, tidal volume 500, EPAP 4, minimal inspiratory pressure 5, maximal inspiratory pressure 25, inspiratory time 0.8, rise of 5 which is machines slowest on room air last night and said that he slept very well. He had no issues with the mask or the machine. He has no cough, minimal phlegm and no hemoptysis and has been out of bed walking in the room. Patient had an overnight oximetry on the above-mentioned settings with a baseline saturation 95%, lowest saturation 90%, time with saturation less than or equal to 88% was 0.0 minutes. Patient had a blood gas prior to removal of the machine with a pH of 7.45/47/60. The current settings offer adequate ventilation and oxygenation. I have sent a letter of medical necessity to [facility] his insurance company, through the [employer] requesting a noninvasive ventilator with the AVAPS mode for home use. Approval may take 3-5 days. 02/02 The patient did not wear the hospital noninvasive ventilator due to his pneumothorax and has been on 4 L nasal cannula with saturations 95%. Patient stated that he has some shortness of breath but was able to sleep. Patient denies any chest pain. Chest x-ray this morning demonstrates a small apical right pneumothorax that is unchanged. White blood cell count 6.3, eosinophils 12.0%, creatinine 0.6. The patient has a right pneumothorax that is stable post CT-guided lung biopsy on 02/01. Although the patient is short of breath he is clinically stable on 4 L nasal cannula and will avoid noninvasive ventilation at this time. 02/03 the patient did not wear than hospital noninvasive ventilator due to his pneumothorax and has been on 4 L nasal cannula with saturations this morning 98%. Patient had no pain and then started physical therapy and is complaining of right back
[2022-02-07 12:49] LABS: Glucose Point of Care 116 mg/dl (65-105)
--- NOTE | 2022-02-07 13:11 | PCRCNOTE ---
Blake from [facility] has been updated on pt discharge to SNF. [facility] is in contract with [facility] and will be able to provide a trilogy unit when he discharges to facility. [facility] insurance is still pending for home trilogy unit. Please call Blake at [facility] at when he leaves.
--- NOTE | 2022-02-07 16:19 | PDRADONCCN ---
Recommendations Recommendations: I reviewed the imaging and pathology results demonstrating a stage I NSCLC. I had a detailed discussion with him and his family regarding the treatment options for his lung cancer including lobectomy, wedge resection, external beam radiation delivered 5 days/week M-F for 6-7 weeks, stereotactic body radiation therapy (SBRT) typically delivered 2-3 times/week over approximately 2 weeks, and best supportive care. He has been told by his other treating physicians that he is not a medical candidate for surgery. Regarding the radiation options, SBRT has a superior cancer control rate and typically less toxicity than traditional 3D-REHAB AIDE. I discussed the SBRT treatment technique in detail including the 4D-CT simulation and treatment planning process, as well as the potential acute-toxicities and long-term risks. He would be premedicated with 4 mg Decadron to decrease to possibility of acute toxicity due to inflammation. All of his and his family's questions were addressed to their apparent satisfaction. He is interested in undergoing SBRT. He will call to schedule a CT planning session after he is discharged from the hospital. It is a pleasure participating in the care of your patients. Should you have any questions please do not hesitate to contact me. 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 He is felt not to be a good surgical candidate based on his age and other medical comorbidities. 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 He is seen in consultation at the request of Dr Javed for a radiation oncology opinion. He is accompanied by his and [id number]. HPI Presentation / Summary He saw her PCP in last November 2021 with complaints of shortness of breath. Chest CT on 12/10/2021 compared to imaging from 01/10/2019 demonstrated a new 12 x 8 mm nodule at the right apex. On 12/25/2021, PET/CT was performed demonstrating a 14 mm nodule in right lung upper lobe with maximum SUV of 2.4. This finding is indeterminate for primary bronchogenic carcinoma. CT-guided biopsy is recommended. Biopsy was delayed due to subsequent presentation with postprandial right upper quadrant abdominal pain associated with nausea and vomiting, diagnosis of cholecystitis, and subsequent laparoscopic cholecystectomy on 01/16/2022. On 01/27/2022, he was brought into the hospital by EMS from home with sudden onset shortness of breath and Posey catheter-related severe pain. He recently had a laparoscopic cholecystectomy for abdominal pain and postoperatively developed urinary retention. He is a prior smoker 1 ppd for nearly 50 years having quit approximately 2007, and has a history of COPD, hypertension, and hyperlipidemia. His O2 sat was down to 70% on RA, and increased to 96% on 2F NC. Chest CTA was performed demonstrating no evidence of pulmonary embolism, pleural effusion or adenopathy, but there was a 11 mm pulmonary nodule in the right upper lobe suspicious for primary bronchogenic carcinoma. LE Venous Dopplers were negative for DVTs. On 02/01/2022, he underwent a CT-guided lung biopsy of the right upper lobe lung nodule. Pathology demonstrated squamous cell carcinoma. He has been consulted on by Pulmonology. He described a 1 year history of worsening dyspnea on exertion from 1-2 blocks to now a quarter of a block, 3 month history of shortness of breath with the inability to lay flat requiring him to sleep in a recliner. The etiology of patient's shortness of
--- NOTE | 2022-02-07 17:29 | PM.IMPN ---
Progress Note: A&P Assessment and Plan (1) Acute respiratory failure with hypoxia: Code(s): J96.01 - Acute respiratory failure with hypoxia Status: Acute Assessment and Plan: Patient with bilateral diaphragmatic paralysis. Most likely the etiology of the lung exam findings. Symptoms worse today with requiring Trilogy most of the day. ABG noted. His post-procedure PTX has resolved. Continue Trelegy. Appreciate Pulmonary input. Bumex x 1 today. (2) Elevated troponin: Code(s): R77.8 - Other specified abnormalities of plasma proteins Status: Acute Assessment and Plan: Elevated troponins felt related to his hypoxia. He has had a normal heart catheterization on 09/18/2021. (3) Diastolic congestive heart failure: Code(s): I50.30 - Unspecified diastolic (congestive) heart failure Status: Acute Assessment and Plan: Patient with more pedal edema. He has been off his Bumex since early in his hospital course. Will treat with intermittent Bumex. Monitor BP closely. (4) Hypotension: Code(s): I95.9 - Hypotension, unspecified Status: Acute Assessment and Plan: Patient developed hypotension. He was given IV fluid boluses and started on maintenance fluid. He was fluid responsive. [place] hypotension related to volume depletion. Antihypertensive medications and diuretics were stopped. Blood pressure improved. Metoprolol low dose added back this morning and he has tolerated this well. Follow (5) Non-small cell cancer of right lung: Code(s): C34.91 - Malignant neoplasm of unspecified part of right bronchus or lung Status: Acute Assessment and Plan: CT showing right upper lobe mass suspicious for neoplasm. PET scan in December 2021 showing 14mm RUL nodule with indeterminate findings but no other suspicious lesions. Bx results showing squamous cell CA. Paraneoplastic testing in progress. Oncology consulted who recommended patient be evaluated by radiation oncology. He is not a surgical candidate. (6) Pneumothorax after biopsy: Code(s): J95.811 - Postprocedural pneumothorax Status: Acute Assessment and Plan: Postprocedure pneumothorax after lung biopsy. the PTX was small. Most recent CXR showing no pneumothorax. Pneumothorax has resolved. Follow (7) Alcohol abuse: Code(s): F10.10 - Alcohol abuse, uncomplicated Status: Acute Assessment and Plan: No issues with alcohol withdrawal. Continue thiamine and folate. (8) Urine retention: Code(s): R33.9 - Retention of urine, unspecified Status: Acute Assessment and Plan: Stable. Failed 2 voiding trials. Continue Flomax and Proscar. He was on Flomax 0.8mg but this was held due to HoTN. Flomax 0.4 daily resumed and he is toelrating this. Follow up with Urology after discharge (9) Pulmonary nodule: Code(s): R91.1 - Solitary pulmonary nodule Status: Acute Assessment and Plan: As above (10) Abnormal urinalysis: Code(s): R82.90 - Unspecified abnormal findings in urine Status: Acute Assessment and Plan: UTI ruled out. No indication for antibiotics at this time. Subjective Date/time seen: 02/07/22 17:29 Interval history: 76yo male with COPD, CHF and HTN who was recently discharged from [place] who returns for shortness of breath. Patient approved for the trilogy. He has been SOB all day but better with the trilogy which he has been wearing this most of the day. No CP. No cough. Symptoms worse if he lays down. Exam Narrative: AF 97.3 135/82 82 14 93% currently on trilogy unit Gen - mildly tachypneic with conversation Chest - few dry bibasilar crackles. Nml rr CV - RRR S1/S2. Tele showing PVCs and bigeminy Abd -soft. +BS. NT. incisions are healing well - Posey secured draining clear yellow urine Ext - trace-1+ pedal edema Psych - Nml mood and affect Skin - Warm a
[2022-02-07] MEDS: BUMETANIDE INJ 1 MG/4 ML VIAL IV PUSH (18:13)
[2022-02-07] MEDS: TAMSULOSIN HCL 0.4 MG CAPSULE PO (20:59)
[2022-02-08] VITALS (15 sets, daily range): BP systolic 127–128; BP diastolic 75–94; PULSE 65–101; RESP 19–36; TEMP 36.4–36.7; O2SAT 90–98
--- NOTE | 2022-02-08 03:46 | PC.NURSE ---
Pt struggled to leave BiPap on again tonight. Pt desats quickly when not on BiPap. Pt had a few runs of vent bigeminy. Charge nurse notified and stated that we should just monitor the pt at this time due to history of that during this admission. Pt educated several times on the purpose of the BiPap machine and how it works. Will continue to monitor pt.
[2022-02-08 05:00] LABS: Immunoglobulin E 4136 kU/L (<=114)
[2022-02-08 07:09] LABS: Basophils Percent Auto 0.5 % (0.2-1.2); Eosinophils Absolute Auto 0.3 K/mm3 (0-0.3); Eosinophils Percent Auto 5.5 % (0-4.4); Hematocrit 39.7 % (42.0-52.0); Hemoglobin 12.8 g/dL (14.0-18.0); Immature Granulocyte Absolute 0.01 K/mm3 (0.00-0.031); Immature Granulocyte Percent A 0.2 % (0-0.5); Lymphocytes Absolute Auto 1.87 K/mm3 (0.9-3.2); Lymphocytes Percent Auto 34.2 % (18.3-44.2); Mean Corpuscular HGB Conc 32.2 g/dl (32-36); Mean Corpuscular Hemoglobin 30.6 pg (26-34); Mean Platelet Volume 10.7 fl (7.4-10.4); Monocytes Absolute Auto 0.7 K/mm3 (0.1-0.6); Monocytes Percent Auto 12.8 % (2.6-8.5); Neutrophils Absolute Auto 2.6 K/mm3 (1.3-6.7); Neutrophils Percent Auto 46.8 % (45.5-73.1); Platelet Count Result 195 k/mm3 (150-375); Red Blood Count 4.18 M/mm3 (4.6-6.20); Red Cell Distribution Width 14.1 % (11.5-14.5); White Blood Count 5.5 K/mm3 (4.5-10.0)
[2022-02-08 07:20] LABS: Albumin Level 2.8 g/dL (3.5-5.1); Anion Gap 7 mmol/L (8-16); Blood Urea Nitrogen 8 mg/dL (9-20); Calcium 8.3 mg/dL (8.4-10.2); Carbon Dioxide 37 mmol/L (22-30); Chloride 95 mmol/L (98-107); Estimated CRCL calculation 72 ml/min; Estimated Glomerular Filt Rate > 60; Glucose 94 mg/dL (65-110); Magnesium 2.1 mg/dL (1.6-2.3); Phosphorus 3.5 mg/dL (2.5-4.5); Potassium 3.6 mmol/L (3.4-5.0); Sodium 139 mmol/L (137-145)
[2022-02-08] MEDS: METOPROLOL TARTRATE 6.25 MG TABLET PO ×2 (08:14→20:15)
[2022-02-08] MEDS: THIAMINE HCL 100 MG TABLET PO (08:14)
[2022-02-08] MEDS: FOLIC ACID 1 MG TABLET PO (08:14)
[2022-02-08] MEDS: THERAPEUTIC MULTIVITAMINS/MINERALS TAB (*BKC) 1 TABLET PO (08:14)
[2022-02-08] MEDS: polyethylene glycoL 3350 17 GM POWD.PACK PO (08:14)
[2022-02-08] MEDS: ATORVASTATIN 20 MG TABLET PO (08:14)
[2022-02-08] MEDS: ENOXAPARIN 40 MG/0.4 ML SYRINGE SUB-Q (08:14)
[2022-02-08] MEDS: FINASTERIDE 5 MG TABLET PO (08:14)
[2022-02-08] MEDS: FLUTICASONE/UMECLIDIN/VILANTER 100-62.5-25 MCG ELLIPTA 1 PUFF INHALATION (08:35)
[2022-02-08] MEDS: ALBUTEROL SULFATE (*SP) AEROSOL 1 PUFF 2 PUFF INHALATION (08:36)
--- NOTE | 2022-02-08 13:36 | PCOTNOTE ---
Attempted to see patient twice this date. Pt on continual Bi-pap due to patient having difficulty breathing and feeling anxious. RN reported patient was pretty worked up. Pt resting peacefully in bed and did not disturb for this reason.
--- NOTE | 2022-02-08 14:45 | PCPTNOTE ---
Attempted to see patient for PT this afternoon, however patient declined. Patient very anxious and short of breath sitting up in bed and reported he does not feel up for it today.
--- NOTE | 2022-02-08 15:33 | PM.IMPN ---
Progress Note: A&P Assessment and Plan (1) Acute respiratory failure with hypoxia: Code(s): J96.01 - Acute respiratory failure with hypoxia Status: Acute Assessment and Plan: Patient with bilateral diaphragmatic paralysis. Most likely the etiology of the lung exam findings. Symptoms worse with requiring Trilogy most of the day but mostly related to feeling of dyspnea. He is currently on 21% Fio2 on the trilogy. He becomes very tachypneic off the mask. CXR showing no change today. His post-procedure PTX has resolved. Continue Trelegy and wean off while awake as he toelrates. He did not qualify for rehab so plan is discharge home but not until Friday. Appreciate Pulmonary input. (2) Diastolic congestive heart failure: Code(s): I50.30 - Unspecified diastolic (congestive) heart failure Status: Acute Assessment and Plan: Patient's pedal edema better. He has been off his Bumex since early in his hospital course. Bumex once yesterday but without significant change in condition or excessive UOP. Continue to monitor. (3) Hypotension: Code(s): I95.9 - Hypotension, unspecified Status: Acute Assessment and Plan: Patient developed hypotension early in his hospital course. He was given IV fluid boluses and started on maintenance fluid. He was fluid responsive. [place] hypotension related to volume depletion. Antihypertensive medications and diuretics were stopped. Blood pressure improved. Metoprolol low dose added back and he has tolerated this well. Follow (4) Non-small cell cancer of right lung: Code(s): C34.91 - Malignant neoplasm of unspecified part of right bronchus or lung Status: Acute Assessment and Plan: CT showing right upper lobe mass suspicious for neoplasm. PET scan in December 2021 showing 14mm RUL nodule with indeterminate findings but no other suspicious lesions. Bx results showing squamous cell CA. Paraneoplastic testing in progress. Oncology consulted who recommended patient be evaluated by radiation oncology. He is not a surgical candidate. appreciate oncology input. (5) Elevated troponin: Code(s): R77.8 - Other specified abnormalities of plasma proteins Status: Acute Assessment and Plan: Elevated troponins felt related to his hypoxia. He has had a normal heart catheterization on 09/18/2021. (6) Pneumothorax after biopsy: Code(s): J95.811 - Postprocedural pneumothorax Status: Acute Assessment and Plan: Postprocedure pneumothorax after lung biopsy. the PTX was small. Most recent CXR showing no pneumothorax. Pneumothorax has resolved. Follow (7) Alcohol abuse: Code(s): F10.10 - Alcohol abuse, uncomplicated Status: Acute Assessment and Plan: No issues with alcohol withdrawal. Continue thiamine and folate. (8) Urine retention: Code(s): R33.9 - Retention of urine, unspecified Status: Acute Assessment and Plan: Stable. Failed 2 voiding trials. Continue Flomax and Proscar. He was on Flomax 0.8mg but this was held due to HoTN. Flomax 0.4 daily resumed and he is toelrating this. Follow up with Urology after discharge (9) Pulmonary nodule: Code(s): R91.1 - Solitary pulmonary nodule Status: Acute Assessment and Plan: As above (10) Abnormal urinalysis: Code(s): R82.90 - Unspecified abnormal findings in urine Status: Acute Assessment and Plan: UTI ruled out. No indication for antibiotics at this time. Subjective Date/time seen: 02/08/22 15:33 Interval history: 76yo male with COPD, CHF and HTN who was recently discharged from [place] who returns for shortness of breath. Patient states he has been wearing the trilogy most of the day today. He did wear it all night last night. He states he came off about 40 minutes this morning but became very short of breath. He remained on room air while he w
[2022-02-08] MEDS: TAMSULOSIN HCL 0.4 MG CAPSULE PO (20:15)
[2022-02-08] MEDS: busPIRone HCL 5 MG TABLET PO (20:15)
[2022-02-09] VITALS (18 sets, daily range): BP systolic 106–137; BP diastolic 62–76; PULSE 74–100; RESP 18–31; TEMP 36.3–36.9; O2SAT 91–100
[2022-02-09 04:08] LABS: Aldolase 5.9 U/L (<=8.1)
[2022-02-09] MEDS: FINASTERIDE 5 MG TABLET PO (08:01)
[2022-02-09] MEDS: METOPROLOL TARTRATE 6.25 MG TABLET PO ×2 (08:01→21:09)
[2022-02-09] MEDS: THIAMINE HCL 100 MG TABLET PO (08:01)
[2022-02-09] MEDS: THERAPEUTIC MULTIVITAMINS/MINERALS TAB (*BKC) 1 TABLET PO (08:01)
[2022-02-09] MEDS: busPIRone HCL 5 MG TABLET PO ×2 (08:01→21:09)
[2022-02-09] MEDS: FOLIC ACID 1 MG TABLET PO (08:01)
[2022-02-09] MEDS: ATORVASTATIN 20 MG TABLET PO (08:01)
[2022-02-09] MEDS: ENOXAPARIN 40 MG/0.4 ML SYRINGE SUB-Q (08:01)
[2022-02-09] MEDS: FLUTICASONE/UMECLIDIN/VILANTER 100-62.5-25 MCG ELLIPTA 1 PUFF INHALATION (09:53)
[2022-02-09] MEDS: ALBUTEROL SULFATE (*SP) AEROSOL 1 PUFF 2 PUFF INHALATION ×2 (09:53→23:22)
--- NOTE | 2022-02-09 12:06 | PM.IMPN ---
Progress Note: A&P Assessment and Plan (1) Acute respiratory failure with hypoxia: Code(s): J96.01 - Acute respiratory failure with hypoxia Status: Acute Assessment and Plan: Patient with bilateral diaphragmatic paralysis. Symptoms improving again. [facility] CXR showing no change yesterday. His post-procedure PTX has resolved. Continue Trelegy and wean off while awake as he tolerates. Buspar added for anxiety. He did not qualify for rehab so plan is discharge home but not until Friday. Appreciate Pulmonary input. (2) Diastolic congestive heart failure: Code(s): I50.30 - Unspecified diastolic (congestive) heart failure Status: Acute Assessment and Plan: Patient's pedal edema better. He has been off his Bumex since early in his hospital course. Continue intermittent Bumex. Continue to monitor. (3) Hypotension: Code(s): I95.9 - Hypotension, unspecified Status: Acute Assessment and Plan: Patient developed hypotension early in his hospital course. He was given IV fluid boluses and started on maintenance fluid. He was fluid responsive. [place] hypotension related to volume depletion. Antihypertensive medications and diuretics were stopped. Blood pressure improved. Metoprolol low dose added back and he has tolerated this well. No wheezing. Follow (4) Non-small cell cancer of right lung: Code(s): C34.91 - Malignant neoplasm of unspecified part of right bronchus or lung Status: Acute Assessment and Plan: CT showing right upper lobe mass suspicious for neoplasm. PET scan in December 2021 showing 14mm RUL nodule with indeterminate findings but no other suspicious lesions. Bx results showing squamous cell CA. Paraneoplastic testing in progress. Oncology consulted who recommended patient be evaluated by radiation oncology which was done. Plan for stereotactic body radiation therapy (SBRT). Appreciate oncology input. (5) Elevated troponin: Code(s): R77.8 - Other specified abnormalities of plasma proteins Status: Acute Assessment and Plan: Elevated troponins felt related to his hypoxia. He has had a normal heart catheterization on 09/18/2021. (6) Pneumothorax after biopsy: Code(s): J95.811 - Postprocedural pneumothorax Status: Acute Assessment and Plan: Postprocedure pneumothorax after lung biopsy. the PTX was small. Most recent CXR showing no pneumothorax. Pneumothorax has resolved. Follow (7) Alcohol abuse: Code(s): F10.10 - Alcohol abuse, uncomplicated Status: Acute Assessment and Plan: No issues with alcohol withdrawal. Continue thiamine and folate. (8) Urine retention: Code(s): R33.9 - Retention of urine, unspecified Status: Acute Assessment and Plan: Stable. Failed 2 voiding trials. Continue Flomax and Proscar. He was on Flomax 0.8mg but this was held due to HoTN. Flomax 0.4 daily resumed and he is toelrating this. Follow up with Urology after discharge (9) Pulmonary nodule: Code(s): R91.1 - Solitary pulmonary nodule Status: Acute Assessment and Plan: As above (10) Abnormal urinalysis: Code(s): R82.90 - Unspecified abnormal findings in urine Status: Acute Assessment and Plan: UTI ruled out. No indication for antibiotics at this time. Subjective Date/time seen: 02/09/22 12:06 Interval history: 76yo male with COPD, CHF and HTN who was recently discharged from [place] who returns for shortness of breath. patient was able to come off the trilogy yesterday afternoon and did well most of the rest of the day. No chest pain. Still has shortness of breath with minimal activity. Eating well. He did have some difficulty with the mask fitting well last night but that has resolved. Exam Narrative: AF 97.3 137/76 89 31 91% currently on trilogy unit Gen Elisa gonzalez
--- NOTE | 2022-02-09 12:39 | PCPTNOTE ---
The patient treatment was not able to be completed on this date due to patient stating that he was too wore out and did not think that he could do therapy today. Patient stated that he did not sleep well last night and that every time he tries to sleep he is interrupted. Patient stated that it was hard to eat his lunch due to being so tired/wore out. Will plan to continue treatment per plan of care. RN notified.
--- NOTE | 2022-02-09 14:46 | PCOTNOTE ---
Attempted to see pt for occupational therapy tx this PM. Pt refused due to not sleeping well last night and needing to rest today. Pt was educated on the importance of continued therapy participation however, pt still declined. Will continue per poc duration/frequency tomorrow.
[2022-02-09] MEDS: ACETAMINOPHEN 325 MG TABLET 650 MG PO (15:16)
[2022-02-09] MEDS: TAMSULOSIN HCL 0.4 MG CAPSULE PO (21:09)
[2022-02-10] VITALS (11 sets, daily range): BP systolic 112–120; BP diastolic 53–81; PULSE 70–105; RESP 20–42; TEMP 36.8–37; O2SAT 93–100
[2022-02-10 05:54] LABS: Hematocrit 39.5 % (42.0-52.0); Hemoglobin 12.8 g/dL (14.0-18.0); Mean Corpuscular HGB Conc 32.4 g/dl (32-36); Mean Corpuscular Hemoglobin 29.7 pg (26-34); Mean Corpuscular Volume 91.6 fl (80-100); Mean Platelet Volume 10.3 fl (7.4-10.4); Platelet Count Result 205 k/mm3 (150-375); Red Blood Count 4.31 M/mm3 (4.6-6.20); Red Cell Distribution Width 14.1 % (11.5-14.5); White Blood Count 8.1 K/mm3 (4.5-10.0)
[2022-02-10 06:40] LABS: Anion Gap 5 mmol/L (8-16); Blood Urea Nitrogen 14 mg/dL (9-20); Calcium 8.1 mg/dL (8.4-10.2); Carbon Dioxide 28 mmol/L (22-30); Chloride 101 mmol/L (98-107); Estimated CRCL calculation 72 ml/min; Estimated Glomerular Filt Rate > 60; Glucose 94 mg/dL (65-110); Potassium 3.7 mmol/L (3.4-5.0); Sodium 134 mmol/L (137-145)
[2022-02-10] MEDS: METOPROLOL TARTRATE 6.25 MG TABLET PO ×2 (08:21→20:39)
[2022-02-10] MEDS: THERAPEUTIC MULTIVITAMINS/MINERALS TAB (*BKC) 1 TABLET PO (08:21)
[2022-02-10] MEDS: THIAMINE HCL 100 MG TABLET PO (08:21)
[2022-02-10] MEDS: FOLIC ACID 1 MG TABLET PO (08:21)
[2022-02-10] MEDS: busPIRone HCL 5 MG TABLET PO ×2 (08:21→20:39)
[2022-02-10] MEDS: ATORVASTATIN 20 MG TABLET PO (08:21)
[2022-02-10] MEDS: FINASTERIDE 5 MG TABLET PO (08:21)
[2022-02-10] MEDS: ENOXAPARIN 40 MG/0.4 ML SYRINGE SUB-Q (08:21)
[2022-02-10] MEDS: FLUTICASONE/UMECLIDIN/VILANTER 100-62.5-25 MCG ELLIPTA 1 PUFF INHALATION (10:36)
--- NOTE | 2022-02-10 13:27 | PCOTNOTE ---
Attempted to see pt for occupational therapy tx. Pt refused stating I don't want to get out of breath and have to be put on the machine again. Pt is referring to the trilogy unit. Pt was educated on the importance of continued therapy to increase activity tolerance to decrease SOB, however, pt still declines to participate in therapy. Pt states I will do it tomorrow. . Will continue per poc duration/frequency tomorrow.
--- NOTE | 2022-02-10 16:24 | PM.IMPN ---
Progress Note: A&P Assessment and Plan (1) Acute respiratory failure with hypoxia: Code(s): J96.01 - Acute respiratory failure with hypoxia Status: Acute Assessment and Plan: Patient with bilateral diaphragmatic paralysis. Symptoms improving again. He is currently on 21% Fio2 on the trilogy and 2L up to the chair. His post-procedure PTX has resolved. Continue Trelegy at night, with naps and prn SOB. Buspar added for anxiety. He did not qualify for rehab so plan is discharge home tomorrow. Appreciate Pulmonary input. (2) Diastolic congestive heart failure: Code(s): I50.30 - Unspecified diastolic (congestive) heart failure Status: Acute Assessment and Plan: Patient's pedal edema better. He has been off his Bumex since early in his hospital course. Continue intermittent Bumex. Continue to monitor. (3) Hypotension: Code(s): I95.9 - Hypotension, unspecified Status: Acute Assessment and Plan: Patient developed hypotension early in his hospital course. He was given IV fluid boluses and started on maintenance fluid. He was fluid responsive. [place] hypotension related to volume depletion. Antihypertensive medications and diuretics were stopped. Blood pressure improved. Metoprolol low dose added back and he has tolerated this well. No wheezing. Follow (4) Non-small cell cancer of right lung: Code(s): C34.91 - Malignant neoplasm of unspecified part of right bronchus or lung Status: Acute Assessment and Plan: CT showing right upper lobe mass suspicious for neoplasm. PET scan in December 2021 showing 14mm RUL nodule with indeterminate findings but no other suspicious lesions. Lung Bx this admission with results showing squamous cell CA. Paraneoplastic testing in progress. Oncology consulted who recommended patient be evaluated by radiation oncology which was done. Plan for stereotactic body radiation therapy (SBRT). Appreciate oncology input. (5) Elevated troponin: Code(s): R77.8 - Other specified abnormalities of plasma proteins Status: Acute Assessment and Plan: Elevated troponins felt related to his hypoxia. He has had a normal heart catheterization on 09/18/2021. (6) Pneumothorax after biopsy: Code(s): J95.811 - Postprocedural pneumothorax Status: Acute Assessment and Plan: Postprocedure pneumothorax after lung biopsy. the PTX was small. Most recent CXR showing no pneumothorax. Pneumothorax has resolved. Follow (7) Alcohol abuse: Code(s): F10.10 - Alcohol abuse, uncomplicated Status: Acute Assessment and Plan: No issues with alcohol withdrawal. Eating okay. Will stop thiamine and folate. (8) Urine retention: Code(s): R33.9 - Retention of urine, unspecified Status: Acute Assessment and Plan: Stable. Failed 2 voiding trials. Continue Flomax and Proscar. He was on Flomax 0.8mg but this was held due to HoTN. Flomax 0.4 daily resumed and he is tolerating this. Follow up with Urology after discharge (9) Pulmonary nodule: Code(s): R91.1 - Solitary pulmonary nodule Status: Acute Assessment and Plan: As above (10) Abnormal urinalysis: Code(s): R82.90 - Unspecified abnormal findings in urine Status: Acute Assessment and Plan: UTI ruled out. No indication for antibiotics at this time. Subjective Date/time seen: 02/10/22 16:24 Interval history: 76yo male with COPD, CHF and HTN who was recently discharged from [place] who returns for shortness of breath. Patient feeling better. Able to come off the trilogy today. He is sitting up in a chair. No problems overnight. No shortness of breath. He still has a dyspnea on exertion when he was getting up to the chair. Eating okay. Positive bowel movements. Exam Narrative: 98.6 120/73 92 20 98% on 2L Gen - NARD Chest - decreased BS o/w clear. nml RR CV
[2022-02-10] MEDS: TAMSULOSIN HCL 0.4 MG CAPSULE PO (20:39)
[2022-02-11] VITALS (9 sets, daily range): BP systolic 112–127; BP diastolic 46–71; PULSE 62–107; RESP 20–30; TEMP 36.3–36.4; O2SAT 93–98
[2022-02-11 06:58] LABS: Estimated CRCL calculation 72 ml/min; Estimated Glomerular Filt Rate > 60
[2022-02-11] MEDS: FLUTICASONE/UMECLIDIN/VILANTER 100-62.5-25 MCG ELLIPTA 1 PUFF INHALATION (09:06)
[2022-02-11] MEDS: ALBUTEROL SULFATE (*SP) AEROSOL 1 PUFF 2 PUFF INHALATION (09:09)
[2022-02-11] MEDS: THERAPEUTIC MULTIVITAMINS/MINERALS TAB (*BKC) 1 TABLET PO (09:27)
[2022-02-11] MEDS: busPIRone HCL 5 MG TABLET PO ×2 (09:27→21:14)
[2022-02-11] MEDS: ENOXAPARIN 40 MG/0.4 ML SYRINGE SUB-Q (09:27)
[2022-02-11] MEDS: METOPROLOL SUCCINATE EXT REL 12.5 MG TABCR PO (09:27)
[2022-02-11] MEDS: FINASTERIDE 5 MG TABLET PO (09:27)
[2022-02-11] MEDS: ATORVASTATIN 20 MG TABLET PO (09:28)
--- NOTE | 2022-02-11 15:54 | PM.IMPN ---
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 Symptoms improving. He is currently on 21% Fio2 on the trilogy and 2L when off the NIV. His post-procedure PTX has resolved. Continue Trelegy at night, with naps and prn SOB. Buspar added for anxiety. He did not qualify for rehab so plan is discharge home but now he has decided to appeal. Appreciate Pulmonary input. (2) Diastolic congestive heart failure: Code(s): I50.30 - Unspecified diastolic (congestive) heart failure Status: Acute Assessment and Plan: Patient's pedal edema better. He has been off his Bumex since early in his hospital course. He has complaints of UE edema. Could be related to the positive pressure. Add low dose Bumex. Continue to monitor. Check Doppler since he does have CA. (3) Hypotension: Code(s): I95.9 - Hypotension, unspecified Status: Acute Assessment and Plan: Patient developed hypotension early in his hospital course. He was given IV fluid boluses and started on maintenance fluid. He was fluid responsive. [place] hypotension related to volume depletion. Antihypertensive medications and diuretics were stopped. Blood pressure improved. Low dose Metoprolol added back and he has tolerated this well. No wheezing. Follow (4) Non-small cell cancer of right lung: Code(s): C34.91 - Malignant neoplasm of unspecified part of right bronchus or lung Status: Acute Assessment and Plan: CT showing right upper lobe mass suspicious for neoplasm. PET scan in December 2021 showing 14mm RUL nodule with indeterminate findings but no other suspicious lesions. Lung Bx this admission with results showing squamous cell CA. Paraneoplastic testing negative thus far. Oncology consulted who recommended patient be evaluated by radiation oncology which was done. Plan for stereotactic body radiation therapy (SBRT). Appreciate oncology input. (5) Elevated troponin: Code(s): R77.8 - Other specified abnormalities of plasma proteins Status: Acute Assessment and Plan: Elevated troponins felt related to his hypoxia. He has had a normal heart catheterization on 09/18/2021. (6) Pneumothorax after biopsy: Code(s): J95.811 - Postprocedural pneumothorax Status: Acute Assessment and Plan: Postprocedure pneumothorax after lung biopsy. The PTX was small. Most recent CXR showing no pneumothorax. Pneumothorax has resolved. Follow (7) Alcohol abuse: Code(s): F10.10 - Alcohol abuse, uncomplicated Status: Acute Assessment and Plan: No issues with alcohol withdrawal. (8) Urine retention: Code(s): R33.9 - Retention of urine, unspecified Status: Acute Assessment and Plan: Stable. Failed 2 voiding trials. Continue Flomax and Proscar. He was on Flomax 0.8mg but this was held due to HoTN. Flomax 0.4 daily resumed and he is tolerating this. Follow up with Urology after discharge (9) Pulmonary nodule: Code(s): R91.1 - Solitary pulmonary nodule Status: Acute Assessment and Plan: As above (10) Abnormal urinalysis: Code(s): R82.90 - Unspecified abnormal findings in urine Status: Acute Assessment and Plan: UTI ruled out. No indication for antibiotics at this time. Subjective Date/time seen: 02/11/22 15:54 Interval history: 76yo male with COPD, CHF and HTN who was recently discharged from [place] who returns for shortness of breath. Had increasing edema to the upper extremities but better now. Wore the NIV all night. Up to the chair this morning and has been in eleni most of the day. Having loose stools but just one per day. No melena or hematochez
[2022-02-11] MEDS: BUMETANIDE 0.5 MG TABLET PO (17:55)
[2022-02-11] MEDS: TAMSULOSIN HCL 0.4 MG CAPSULE PO (21:14)
[2022-02-11] MEDS: hydrOXYzine HCL 10 MG TABLET PO (21:14)
[2022-02-12] VITALS (8 sets, daily range): BP systolic 118–121; BP diastolic 59–71; PULSE 80–109; RESP 14–24; TEMP 36.5; O2SAT 92–96
[2022-02-12 06:12] LABS: Hematocrit 38.2 % (42.0-52.0); Hemoglobin 12.4 g/dL (14.0-18.0); Mean Corpuscular HGB Conc 32.5 g/dl (32-36); Mean Corpuscular Hemoglobin 29.7 pg (26-34); Mean Corpuscular Volume 91.6 fl (80-100); Mean Platelet Volume 10.9 fl (7.4-10.4); Platelet Count Result 189 k/mm3 (150-375); Red Blood Count 4.17 M/mm3 (4.6-6.20); Red Cell Distribution Width 14.3 % (11.5-14.5); White Blood Count 6.2 K/mm3 (4.5-10.0)
[2022-02-12 06:44] LABS: Alanine Aminotransferase 20 U/L (6-50); Albumin Level 2.8 g/dL (3.5-5.1); Alkaline Phosphatase 73 U/L (38-126); Anion Gap 7 mmol/L (8-16); Aspartate Amino Transferase 26 U/L (17-59); Bilirubin,Total 0.6 mg/dL (0.2-1.3); Blood Urea Nitrogen 10 mg/dL (9-20); Calcium 8.2 mg/dL (8.4-10.2); Carbon Dioxide 34 mmol/L (22-30); Chloride 97 mmol/L (98-107); Estimated CRCL calculation 72 ml/min; Estimated Glomerular Filt Rate > 60; Glucose 97 mg/dL (65-110); Phosphorus 3.2 mg/dL (2.5-4.5); Sodium 138 mmol/L (137-145)
[2022-02-12] MEDS: ALBUTEROL SULFATE (*SP) AEROSOL 1 PUFF 2 PUFF INHALATION (08:29)
[2022-02-12] MEDS: FLUTICASONE/UMECLIDIN/VILANTER 100-62.5-25 MCG ELLIPTA 1 PUFF INHALATION (08:29)
[2022-02-12] MEDS: busPIRone HCL 5 MG TABLET PO (08:48)
[2022-02-12] MEDS: FINASTERIDE 5 MG TABLET PO (08:48)
[2022-02-12] MEDS: ENOXAPARIN 40 MG/0.4 ML SYRINGE SUB-Q (08:48)
[2022-02-12] MEDS: THERAPEUTIC MULTIVITAMINS/MINERALS TAB (*BKC) 1 TABLET PO (08:48)
[2022-02-12] MEDS: BUMETANIDE 0.5 MG TABLET PO (08:48)
[2022-02-12] MEDS: METOPROLOL SUCCINATE EXT REL 12.5 MG TABCR PO (08:49)
[2022-02-12] MEDS: ATORVASTATIN 20 MG TABLET PO (08:49)
--- NOTE | 2022-02-12 14:26 | PM.DS ---
DS: Admitting Diagnosis Discharge Date 02/12/22 Admitting Diagnosis Short of breath DS: Discharge Diagnosis Discharge Diagnosis (1) Acute respiratory failure with hypoxia: Code(s): J96.01 - Acute respiratory failure with hypoxia Status: Acute (2) Diastolic congestive heart failure: Code(s): I50.30 - Unspecified diastolic (congestive) heart failure Status: Acute (3) Hypotension: Code(s): I95.9 - Hypotension, unspecified Status: Acute (4) Non-small cell cancer of right lung: Code(s): C34.91 - Malignant neoplasm of unspecified part of right bronchus or lung Status: Acute (5) Elevated troponin: Code(s): R77.8 - Other specified abnormalities of plasma proteins Status: Acute (6) Pneumothorax after biopsy: Code(s): J95.811 - Postprocedural pneumothorax Status: Acute (7) Alcohol abuse: Code(s): F10.10 - Alcohol abuse, uncomplicated Status: Acute (8) Urine retention: Code(s): R33.9 - Retention of urine, unspecified Status: Acute DS: Summary Hospital Course Reason for hospitalization: 76yo male with COPD, CHF and HTN who was recently discharged from [place] who returns for shortness of breath. Please see H&P for details. Hospital Course: Patient presents with shortness of breath and found to have acute respiratory failure. He was treated with nebulizers and inhalers. Also discovered to have bilateral diaphragmatic paralysis. Symptoms improved. He was transtioned to a trilogy unit and did well with this. He was weaned to O2 at 2L when off the NIV. CT showing right upper lobe mass suspicious for neoplasm. PET scan in December 2021 showing 14mm RUL nodule with indeterminate findings but no other suspicious lesions. Lung Bx this admission with results showing squamous cell CA.? Paraneoplastic testing negative thus far. Oncology consulted who recommended patient be evaluated by radiation oncology which was done. Plan for stereotactic body radiation therapy (SBRT). Postprocedure pneumothorax occurred after lung biopsy. The PTX was small. Most recent CXR showing resolution of the PTX. Patient's pedal edema better overall. He has been off his Bumex since early in his hospital course due to HoTN. He had complaints of UE edema but doppler engative for DVT. Could be related to the positive pressure. We resumed low dose Bumex.? Patient developed hypotension early in his hospital course.? He was given IV fluid boluses and started on maintenance fluid.? He was fluid responsive.? [place] hypotension related to volume depletion.? Antihypertensive medications and diuretics were stopped. Blood pressure improved. Low dose Metoprolol and then Bumex able to be added back Patient presents with chronic Posey. He failed 2 voiding trials. We continue Flomax and Proscar. He was on Flomax 0.8mg but this was held due to HoTN. Flomax 0.4 daily resumed and he toelrated this. Follow up with Urology after discharge. Patient was accepted to rehab. We did to be discharge to rehab on 02/12/2022 Status at Discharge Cognitive/behavioral status at discharge: stable Time Spent with Patient Time attestation: Total time spent providing and/or coordinating discharge services: 38 minutes Time spent: Greater than 30 minutes Exam Narrative: AF 97.7 121/71 80 14 96% on 2L Gen - NARD Chest - clear, distant BS. nml RR CV - RRR S1/S2. Tele showing occasional PVCs Abd - Soft. Nontender. Nondistended. Positive bowel sounds. - Posey secured draining clear yellow urine Ext - trace pedal edema Psych - Nml mood and affect Skin - Warm and dry DS: Data Data Completed and Pending Labs on day of discharge: Labs from last 24 hours 02/12/22 02/12/22 05:30 05:30 WBC 6.2 RBC 4.17 L Hgb 12.4 L Hct 38.2 L MCV 91.6 MCH 29.7 MCHC 32.5 RDW 14.3 Plt Count 189 MPV 10.9 H Sodium 138 Potassium 3.0 L Chloride 97 L Carbon Dioxide 3
[2022-02-12] MEDS: POTASSIUM CHLORIDE 20 MEQ TABLET 40 MEQ PO (15:45)
[2022-02-12 16:14] LABS: EDCOVIDSCREEN Negative (Negative)
[2022-02-12 19:36] LABS: Acetylchol Receptor Binding Ab <0.30 nmol/L
--- NOTE | 2022-02-14 12:41 | PC.NURSE ---
Acet receptor Ab is WNL at <0.30
== END 2022-02-12 17:22 | DRG 180 ==
LOC: ANHED 08:14 → ANHIMU 10:48 → ANH3MEDSUR 02-06 17:20
PROVIDERS: Chiropractor; Emergency Medicine; Internal Medicine Pulmonary Disease; Physician Assistant; Admitting Provider Student in an Organized Health Care Education/Training Program; Emergency Provider General Practice; PCP Family Medicine; Visit Provider Internal Medicine
DX: C34.91 Malignant neoplasm of unspecified part of right bronchus or lung (principal); J96.01 Acute respiratory failure with hypoxia; I50.32 Chronic diastolic (congestive) heart failure; J95.811 Postprocedural pneumothorax; I11.0 Hypertensive heart disease with heart failure; J43.2 Centrilobular emphysema; I95.9 Hypotension, unspecified; J98.6 Disorders of diaphragm; R77.8 Other specified abnormalities of plasma proteins; R82.90 Unspecified abnormal findings in urine; F10.10 Alcohol abuse, uncomplicated; R33.9 Retention of urine, unspecified; Z20.822 Contact with and (suspected) exposure to COVID-19; I25.2 Old myocardial infarction; Z87.891 Personal history of nicotine dependence; Z79.899 Other long term (current) drug therapy
CPT/HCPCS: 32408; 36415; 36600; 71045; 71046; 71275; 76000; 80048; 80053; 80069; 80202; 81001; 82085; 82375; 82533; 82550; 82565; 82785; 82805; 82948; 83050; 83735; 83880; 84100; 84132; 84145; 84238; 84484; 85025; 85027; 85610; 85730; 86140; 86235; 87040; 87086; 87426; 88305; 88342; 93005; 93308; 93970; 94002; 94003; 94640; 94762; 96374; 97110; 97116; 97161; 97165; 97530; 97535; 99285; A9270; C8924; C9803; J0692; J0696; J1650; J1940; J3370; J7030; J7040; Q9957; Q9967; U0003; U0005

== ENCOUNTER 2022-02-12 22:56 | Emergency (ER) | payer MEDICARE, SELFPAY ==
--- NOTE | ~2022-02-12 | XR_ITS ---
EXAMINATION: XR chest 1V portable DATE: 02/13/2022 01:54 INDICATION: Shortness of breath TECHNIQUE: frontal view of the chest was obtained. COMPARISON: Chest radiograph dated 02/08/22 FINDINGS: Lung volumes remain mildly decreased with persistent airspace opacities in the bilateral lower lung z ones. Blunting at the inferior phrenic and right costophrenic angles consistent with small bilateral pleural effusions. No pneumothorax. The cardiomediastinal silhouette is normal. IMPRESSION: 1. Unchanged small bilateral pleural effusions with associated basilar atelectasis and/or pneumonia. Reviewed, dictated and finalized at location A. IMPRESSION: 1. Unchanged small bilateral pleural effusions with associated basilar atelecta sis and/or pneumonia.
[2022-02-12 23:04] VITALS: BP 106/88; PULSE 99; RESP 24; O2SAT 100
[2022-02-13] VITALS (17 sets, daily range): BP systolic 113–139; BP diastolic 67–91; PULSE 67–95; RESP 16–32; O2SAT 95–100
--- NOTE | 2022-02-13 00:50 | ED.GENADULT ---
HPI - General Adult General Chief complaint: Shortness of Breath/Dyspnea Stated complaint: RESP DISTRESS Time Seen by Provider: 02/12/22 23:39 History of Present Illness HPI narrative: 76-year-old male presenting the emergency department for evaluation of worsening shortness of breath. Patient was recently admitted and was discharged to the rehab facility. Patient was diagnosed with some diaphragm paralysis and does require BiPAP/ AVAPS at nighttime. When patient was discharged to the rehab facility did not have the proper oxygen set up for him and he started to have worsening shortness of breath. Related Data Home Medications Medication Instructions Recorded Confirmed finasteride 5 mg tablet 5 mg PO DAILY 07/06/20 02/01/22 atorvastatin 20 mg tablet 20 mg PO DAILY 11/23/21 01/27/22 Allergies Allergy/AdvReac Type Severity Reaction Status Date / Time No Known Allergies Allergy Unknown Verified 02/13/22 05:42 Review of Systems Review of Systems: CONSTITUTIONAL: Denies fever, chills, or sweats. EYES: Denies visual changes, redness, or discharge. ENT: Denies rhinorrhea, congestion, sore throat, or otalgia. CARDIOVASCULAR: Denies chest pain, palpitations, or edema. RESPIRATORY: Shortness of breath GASTROINTESTINAL: Denies abdominal pain, nausea, vomiting, or diarrhea. GENITOURINARY: Denies dysuria or hematuria. SKIN: Denies rash or itching. MUSCULOSKELETAL: Denies back pain, joint pain, or myalgia. NEUROLOGIC: Denies headache, numbness, or weakness. PSYCHIATRIC: Denies anxiety or depression. [facility] Past Medical History Medical History (Updated 02/14/22 @ 00:01 by Justin Bright) Alcohol abuse Alpha 1-antitrypsin PiMS phenotype Benign prostate hyperplasia Chronic obstructive pulmonary disease Diastolic congestive heart failure Elevated IgE level Former smoker Hyperlipidemia Hypertension Myocardial infarction Prediabetes Pulmonary nodule Surgical History Surgical History (Updated 02/06/22 @ 18:55 by Rene Javed MD) History of colonoscopy with polypectomy History of incisional hernia repair With mesh. History of right hemicolectomy For cecal polyp. History of total right knee replacement Family History Family History Mother Carcinoma of colon Family history of malignant neoplasm of breast in first degree relative Breast cancer Sibling Malignant neoplasm of prostate Social History Social History Social History: The patient lives in [place] with his and 1 cat. 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 He smoked a pack cigarettes a day for nearly 50 years and quit in 2005. He drinks about 5 beers a day. No illicit substance use. Surrogate medical decision maker: Kae Lee, spouse. Code status: Full code. Spiritual care concerns: No Agree to blood products: Yes Exam Narrative: APPEARANCE: Well appearing, no pain, no distress, well-nourished. HEAD: normocephalic, atraumatic. EYES: PERRLA/EOMI, conjunctivae clear. NOSE: Normal no drainage NECK: Supple. No adenopathy, no masses. RESPIRATORY: Airway patent, respirations nonlabored. Lungs are clear to auscultation. Patient is dyspneic CARDIOVASCULAR: Regular rate and rhythm without murmurs rubs or gallops. ABDOMINAL: Soft, nontender, nondistended, normal bowel sounds MUSCULOSKELETAL: Moves all extremities. Strength/ROM intact, No edema, No calf tenderness. NEURO: Alert. Cranial nerves II through XII intact. Good gait. Good coordination SKIN: Warm, dry. Normal Color Course Course Emergency Course: Care coordination consult as pending to assist with detention placement. Patient care signed out to Dr Guerra Vital Signs Vital signs: Vital Signs Pulse Rate 99 02/12/22 23:04 Respiratory Rate 24 H 02/12/22 23:04 Blood Pressure 106/88 02/12/22 23:04 Pulse Oximetry 100 02/12/22 23:04 Oxygen Se[place]
[2022-02-13 01:47] LABS: Basophils Percent Auto 0.1 % (0.2-1.2); Eosinophils Absolute Auto 0.2 K/mm3 (0-0.3); Eosinophils Percent Auto 2.3 % (0-4.4); Hematocrit 42.3 % (42.0-52.0); Hemoglobin 13.8 g/dL (14.0-18.0); Immature Granulocyte Absolute 0.02 K/mm3 (0.00-0.031); Immature Granulocyte Percent A 0.3 % (0-0.5); Lymphocytes Percent Auto 27.7 % (18.3-44.2); Mean Corpuscular HGB Conc 32.6 g/dl (32-36); Mean Corpuscular Hemoglobin 30.3 pg (26-34); Mean Corpuscular Volume 92.8 fl (80-100); Mean Platelet Volume 10.8 fl (7.4-10.4); Monocytes Percent Auto 12.7 % (2.6-8.5); Neutrophils Absolute Auto 4.5 K/mm3 (1.3-6.7); Neutrophils Percent Auto 56.9 % (45.5-73.1); Platelet Count Result 190 k/mm3 (150-375); Red Blood Count 4.56 M/mm3 (4.6-6.20); White Blood Count 7.9 K/mm3 (4.5-10.0)
[2022-02-13 01:57] LABS: Alanine Aminotransferase 25 U/L (6-50); Albumin Level 3.3 g/dL (3.5-5.1); Alkaline Phosphatase 88 U/L (38-126); Anion Gap 7 mmol/L (8-16); Aspartate Amino Transferase 30 U/L (17-59); Bilirubin,Total 0.6 mg/dL (0.2-1.3); Blood Urea Nitrogen 11 mg/dL (9-20); Calcium 8.6 mg/dL (8.4-10.2); Carbon Dioxide 36 mmol/L (22-30); Chloride 97 mmol/L (98-107); Estimated CRCL calculation 64 ml/min; Estimated Glomerular Filt Rate > 60; Glucose 104 mg/dL (65-110); Potassium 3.8 mmol/L (3.4-5.0); Sodium 140 mmol/L (137-145)
--- NOTE | 2022-02-13 06:02 | PC.NURSE ---
0600 Pt daughter called for an update. Update was given and will continue to update as needed.
--- NOTE | 2022-02-13 08:26 | PCCCNOTE ---
Addendum entered by Lay Benson RN 02/13/22 13:02: Spoke with Marisol okay to accept back but need to make sure RT can come back out with the trilogy machine. Called to Blake at [facility], he will reach out to the RT Christina and will return call. Phone call received from Blake who states that Christina set up the trilogy but the oxygen was on the portable concentrator, as the stable unit was not working, the RT advised staff over at the facility that they would need to get the stable unit working or change portable w/in 2 hours. It seems that when the portable concentrator nearly ran out, and was changed over but patient was anxious and SOB so sent to ED. Blake states that Christina the RT will go out there again before 4pm or after 6pm and the facility can notify her when he gets there [phone]. Called to Marisol, provided update, provided phone number for Christina RT. Per [facility]isol requests that ER nurse call DON at facility. Spoke w/ patient he requests that a family member drive him on a portable tank and will be returned by family. Okay by Antonietta Raya in RT as long as family knows to bring the tank back. ED Provider Dr. Guerra notified, bedside RN Tabby and patient. Patient has his cell phone and has been updating his . Agrees to call his and update and he is returning to [facility] today. Addendum entered by Lay Benson RN 02/13/22 10:23: Spoke with patient in Rm 1, ER. States that he admitted to [facility] but they could not get his trilogy machine to wall oxygen and they couldn't change the concentrator so they sent him out to the ER. Explained to patient that we are awaiting update from [facility] and then he will discharge back there. Patient verbalized understanding. Called to Marisol at [facility], requesting update-awaiting call back. ER charger operator helper updated. Addendum entered by Lay Benson RN 02/13/22 09:44: Spoke with Marisol at 0945, she isn't sure what happened last night, as it shows that he was admitted, and the Trilogy was at the facility, plus they have oxygen concentrators. She will talk with recruiting administrator and will check that all equipment is the facility to support respiratory needs and will call child care education coordinator back promptly. Original Note: Phone call received from charger operator helper Linda needing care coordination consult, Patient has been in ER through night as was discharged to [facility] last night but when he arrived to facility they did not have the oxygen that he needed. [phone] Phone call to Marisol at [facility], no answer left vm message requesting a call back. Provided contact details for a return call.
--- NOTE | 2022-02-13 12:54 | PC.NURSE ---
Attempted to call the DON of [facility] per their request with no answer.
--- NOTE | 2022-02-13 12:59 | PC.NURSE ---
attempted report to a nurse at the facility with no answer.
--- NOTE | 2022-02-13 13:08 | PC.NURSE ---
Called facility again and left message for nurse to call back. Patient has portable O2 tank to take to facility with him. Patient son to take patient back.
--- NOTE | 2022-02-13 13:14 | PC.NURSE ---
Spoke with NYA Rodriguez for report
== END 2022-02-13 13:27 ==
PROVIDERS: Emergency Medicine; Emergency Provider Emergency Medicine; PCP Family Medicine
DX: R06.02 Shortness of breath (principal); N40.0 Benign prostatic hyperplasia without lower urinary tract symptoms; J44.9 Chronic obstructive pulmonary disease, unspecified; I50.32 Chronic diastolic (congestive) heart failure; I11.0 Hypertensive heart disease with heart failure; E78.5 Hyperlipidemia, unspecified; I25.2 Old myocardial infarction; R73.03 Prediabetes; Z87.891 Personal history of nicotine dependence; Z86.010 Personal history of colon polyps; Z90.49 Acquired absence of other specified parts of digestive tract; Z96.651 Presence of right artificial knee joint
CPT/HCPCS: 36415; 71045; 80053; 85025; 94002; 99283

== ENCOUNTER 2022-03-29 12:47 | Inpatient (IN) | payer MEDICARE, SELFPAY ==
[2022-03-15 15:48] VITALS: BMI 25.9
--- NOTE | 2022-03-15 16:02 | PC.NURSE ---
Report to the Outpatient Waiting Room, entrance under the green pavilion located off [facility], at time __1 PM on date ___03/28/22____. Planned Procedure Time: ___3 PM . Time changes happen often and if your time is changed the preop area will call you the afternoon before. - You and your visitor will be asked to self-screen and do not enter if you have any COVID symptoms. - We encourage only one visitor and NO visitors under age 16 are allowed at this time. Your visitor will receive communication by the phone number that is given day of service. - The patient visitor is requested to social distance or may leave the building when not with patient due to restrictions. - A mask is required within the hospital. Patients may have clear liquids (water, carbonated beverages, clear teas, apple juice) until 3 hours prior to surgery (1200 PM)with a maximum of 20 ounces. - No food from midnight until time of surgery - Infants may have breast milk until 4 hours before surgery, infant formula 6 hours prior to surgery. - Children will be allowed to drink immediately following surgery. If applicable, please bring a bottle or sippy cup to assist with drinking. Juice, water, soda, and popsicles are readily available. For infants on formula, please bring formula the day of surgery. Pacifiers are allowed. Take the following medications with a SIP of water the morning of surgery: __METOPROLOL, BREZTRI INHALER, ALBUTEROL INHALER IF NEEDED__ Medications to discontinue per physician N/A Date to take last dose Please no make-up, nail estonian, hairspray, perfume, deodorant, or body powder the day of surgery. No jewelry (including any body piercings) or valuables the day of surgery, leave them at home. Please take a shower or bath the night before, or the morning of, surgery with an antibacterial soap. Wear comfortable, loose fitting clothing. Children are encouraged to wear pajamas. - Jewelry must be removed prior to entering the operating room. Rings and piercings that are not removed may be cut off. - The hospital will not accept responsibility for valuables. - Please leave all valuables, including medications, at home the day of surgery. If you are going home after surgery, a licensed local company hazmat driver must drive you home. - NO public transportation without another adult. - We recommend that an adult stay with you for 24 hours following discharge. - We also recommend that you do not drive, make important decision, drink alcoholic beverages, or take any drugs that were not prescribed by your health care provider for at least 24 hours after your discharge time. For Pediatric surgeries, we recommend two adults accompany the child home. Follow any additional instructions given to you from your surgeon. If you or anyone in your household have experienced Covid symptoms in the past week, please notify your surgeon or the nurse liaison at the phone number below for possible testing. Telephone instructions given to ____PT and asked if any additional questions and then verbalized understanding. Patient advised to call surgeon office or pre surgery nurse liaison [phone] if any additional questions.
--- NOTE | 2022-03-21 07:24 | PM.IMHP ---
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 He is completing therapy for that. He has had persistent urinary retention despite combination therapy for BPH. Urodynamics show findings consistent with outlet obstruction. After discussion of therapeutic options including minimally invasive procedures for BPH and a TURP he is elected for the latter. He is aware the risk including, but not limited to, adverse cardiopulmonary events, postoperative hematuria, persistent difficulty voiding and transient urinary incontinence. 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 History of right hemicolectomy For cecal polyp. History of total right knee replacement Family History Family History Mother Carcinoma of colon Family history of malignant neoplasm of breast in first degree relative Breast cancer Sibling Malignant neoplasm of prostate Social History Social History Social History: The patient lives in [place] with his and 1 cat. 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 He smoked a pack cigarettes a day for nearly 50 years and quit in 2005. He drinks about 5 beers a day. No illicit substance use. Surrogate medical decision maker: Kae Lee, spouse. Code status: Full code. Smoking packs per day: 1.5 Smoking cigarettes per day: 30.0 Years smoked: 55 Smoking pack-years: 82.50 Smoking status: Former smoker Tobacco type: cigarettes Additional smoking assessment comments: QUIT 2007 Alcohol intake: current Drinks per week: 21 Substance use: never Substance use type: does not use Spiritual care concerns: No Agree to blood products: Yes Meds Home Medications and Allergies Home Medications Medication Instructions Recorded Confirmed Type finasteride 5 mg tablet 5 mg PO DAILY 07/06/20 03/19/22 History bumetanide 1 mg tablet 0.5 mg PO DAILY #60 tabs 02/12/22 03/19/22 Rx tamsulosin 0.4 mg capsule 0.4 mg PO HS #1 cap 02/12/22 03/19/22 Rx dexamethasone 4 mg tablet 4 mg PO DAILY #6 tabs 02/28/22 03/19/22 Rx losartan 100 mg tablet 100 mg PO DAILY 03/05/22 03/19/22 History atorvastatin 20 mg tablet 20 mg PO DAILY 03/06/22 03/19/22 History metoprolol succinate 25 mg 25 mg PO DAILY 03/06/22 03/19/22 History tablet,extended release 24 hr albuterol sulfate 90 mcg/actuation 2 puff inhalation Q4-6H PRN 03/11/22 03/19/22 Rx aerosol inhaler shortness of breath or wheezing #8.5 grams budesonide 160 mcg-glycopyr 9 2 inh inhalation BID #10.7 grams 03/11/22 03/19/22 Rx mcg-formot 4.8 mcg/actuation HFA inhaler (Breztri Aerosphere) potassium chloride 10 mEq 10 meq PO DAILY 03/15/22 03/19/22 History capsule,extended release Allergies Allergy/AdvReac Type Severity Reaction Status Date / Time No Known Allergies Allergy Unkno
[2022-03-28] VITALS (10 sets, daily range): BP systolic 124–139; BP diastolic 55–90; PULSE 53–100; RESP 15–20; TEMP 36.5–37.1; O2SAT 99–100; BMI 26.9
--- NOTE | 2022-03-28 12:06 | WPDHPUPDATE1 ---
History and Physical Update Update Date/Time: 03/28/22 12:06 History and Physical has been reviewed, including an updated exam of the patient. There are NO changes in the patient's condition. Risks, benefits, and alternatives have been discussed and questions answered. Patient agrees to proceed with procedure.
[2022-03-28] MEDS: LACTATED RINGERS 1,000 ML 30 ML IV CONT (14:15)
--- NOTE | 2022-03-28 14:28 | WPDANESEPPF ---
Anes - Initial Pre Proc Eval Procedure: Operation Date: 03/28/22 15:30 Proposed Procedures p Cystoscopy, - Santana Cam MD s Trans Urethral Resection Prostate - Santana Cam MD Date/Time: 03/28/22 14:28 Surgeon: Santana Cam MD Pre Op Diagnosis: BPH Patient Data Age: 76 Gender: M Height: 1.73 m Weight: 77.27 kg Allergies Allergy/AdvReac Type Severity Reaction Status Date / Time No Known Allergies Allergy Unknown Verified 03/28/22 14:06 Home Medications Medication Instructions Recorded Confirmed Type finasteride 5 mg tablet 5 mg PO DAILY 07/06/20 03/21/22 History bumetanide 1 mg tablet 0.5 mg PO DAILY #60 tabs 02/12/22 03/21/22 Rx tamsulosin 0.4 mg capsule 0.4 mg PO HS #1 cap 02/12/22 03/21/22 Rx dexamethasone 4 mg tablet 4 mg PO DAILY #6 tabs 02/28/22 03/19/22 Rx losartan 100 mg tablet 100 mg PO DAILY 03/05/22 03/19/22 History atorvastatin 20 mg tablet 20 mg PO DAILY 03/06/22 03/19/22 History metoprolol succinate 25 mg 25 mg PO DAILY 03/06/22 03/19/22 History tablet,extended release 24 hr albuterol sulfate 90 mcg/actuation 2 puff inhalation Q4-6H PRN 03/11/22 03/19/22 Rx aerosol inhaler shortness of breath or wheezing #8.5 grams budesonide 160 mcg-glycopyr 9 2 inh inhalation BID #10.7 grams 03/11/22 03/19/22 Rx mcg-formot 4.8 mcg/actuation HFA inhaler (Breztri Aerosphere) potassium chloride 10 mEq 10 meq PO DAILY 03/15/22 03/21/22 History capsule,extended release Patient hx anesthesia problems: none Family hx anesthesia problems: none Results Review: All pre-operative results and documents have been reviewed as part of the pre-operative evaluation. 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 History of right hemicolectomy For cecal polyp. History of total right knee replacement Family History Family History Mother Carcinoma of colon Family history of malignant neoplasm of breast in first degree relative Breast cancer Sibling Malignant neoplasm of prostate Social History Social History Social History: The patient lives in [place] with his and 1 cat. 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 He smoked a pack cigarettes a day for nearly 50 years and quit in 2005. He drinks about 5 beers a day. No illicit substance use. Surrogate medical decision maker: Kaeleann Lee, spouse. Code status: Full code. Smoking packs per day: 1.5 Smoking cigarettes per day: 30.0 Years smoked: 55 Smoking pack-years: 82.50 Smoking status: Former smoker Tobacco type: cigarettes Additional smoking assessment comments: QUIT 2007 Alcohol intake: current Drinks per week: 21 Substance use: never Substance use type: does not use Living arrangements: with family Spiritual care concerns: No Agree to blood products: Yes Anes - Eval Final PreProcedure Day of Procedure 03/28/22 14:28 Patient weight: overweight Heart: regular rate and rhythm Lungs: clear to auscultation Airway: Mallampati scale class II Neurological: alert and oriented Last oral intake: >/= 8 hours ASA classification: IV Emergent: no Anesthetic plan: proceed Anesthesia type and monitoring: general LMA and standard monitoring Results Review: All pre-operative results and documents have been reviewed as part of the pre-operative evaluation. Informed Consent: The jay
[2022-03-28] MEDS: ceFAZolin 2 GM/D5W 50 ML 2 GM/50 ML BAG IVPB (14:48)
--- NOTE | 2022-03-28 15:46 | W.PM.PROC2 ---
Procedure Note - Detailed Date of Procedure 03/28/22 Pre-op Diagnosis BPH Post-op Diagnosis Same Procedure Performed TURP Surgeon Santana Cam MD Anesthesia General Description of Procedure The patient was brought to the operative suite where he is prepped and draped in routine sterile fashion while in the dorsal lithotomy position after the uneventful induction of a general LMA anesthetic. A 24 Dominican resectoscope sheath was placed into his bladder. He had no urethral strictures. The patient had trilobarhyperplasia with a large median lobe. The bladder itself was endoscopically normal, showing no mucosal hyperemia, intravesical neoplasm or foreign bodies. There was a single, orthotopic ureteral orifice bilaterally. These orifices were identified and preserved throughout the remainder of the procedure. Attention was first turned to resection of the median lobe. This resection was undertaken from the bladder neck to the verumontanum and carried out until the transverse fibers of the bladder neck were identified. The left lateral lobe was then resected starting at the 6 o'clock position, working counter clockwise to the 12 o'clock position. Again, resection was carried out from the bladder neck to the verumontanum until the capsular fibers of the prostate were identified. The right lateral lobe was resected in a similar fashion starting at the 6 o'clock position working clockwise to the 12 o'clock position and carried out until the capsular fibers of the prostate were identified. Apical tissue was then circumferentially resected. All chips were evacuated from the bladder using an [employer] evacuator. Hemostasis was obtained with electric cautery. The ureteral orifices were again inspected and found to be without injury. Estimated blood loss throughout this procedure was 200cc. The patient was taken to recovery room having tolerated this well. Estimated Blood Loss 200 Drains Yes Packing No Pathology Yes Complications No immediate complications Condition Stable
[2022-03-28] MEDS: fentaNYL CITRATE INJ (*CRX) 100 MCG/2 ML VIAL 25 MCG IV PUSH ×4 (16:12→16:50)
--- NOTE | 2022-03-28 17:59 | ADMGEN ---
This patient, Odilon Lee, was admitted to Medical Room 346-01. Patient/family oriented to hospital policies and general routines including ID bracelet, bed and alarms, visiting hours, pain management, procedures, bathroom and other care routines, personal items, smoking policy, room service/diet, and visiting hours. Information on how to activate the Rapid Response Team has been discussed. Patient/Family are encouraged to report perceived risks to care and to ask questions if they do not understand what they are told or what they should do.
[2022-03-28] MEDS: HYOSCYAMINE SULFATE 0.125 MG TABLET SUBLINGUAL (21:29)
[2022-03-28] MEDS: HYDROcodone/acetaminophen (*CRX) 5-325 MG TABLET 1 TAB PO (22:27)
[2022-03-28] MEDS: WATER FOR IRRIGATION, STERILE 1,000 ML BOTTLE 1000 ML (22:53)
[2022-03-29] VITALS (9 sets, daily range): BP systolic 98–117; BP diastolic 54–81; PULSE 84–104; RESP 14–22; TEMP 36.4–36.8; O2SAT 94–100
[2022-03-29] MEDS: ONDANSETRON INJ 4 MG/2 ML VIAL IV PUSH (01:45)
[2022-03-29 06:14] LABS: Hematocrit 31.3 % (42.0-52.0); Hemoglobin 10.2 g/dL (14.0-18.0)
[2022-03-29 06:43] LABS: Anion Gap 7 mmol/L (8-16); Blood Urea Nitrogen 17 mg/dL (9-20); Calcium 8.2 mg/dL (8.4-10.2); Carbon Dioxide 26 mmol/L (22-30); Chloride 99 mmol/L (98-107); Estimated CRCL calculation 64 ml/min; Estimated Glomerular Filt Rate > 60; Glucose 186 mg/dL (65-110); Potassium 4.2 mmol/L (3.4-5.0); Sodium 132 mmol/L (137-145)
[2022-03-29] MEDS: ATORVASTATIN 20 MG TABLET PO (08:38)
[2022-03-29] MEDS: METOPROLOL SUCCINATE EXT REL 25 MG TABCR PO (08:38)
[2022-03-29] MEDS: POTASSIUM CHLORIDE 10 MEQ TABLET.ER PO (08:38)
[2022-03-29] MEDS: LOSARTAN POTASSIUM 100 MG TABLET PO (08:38)
[2022-03-29] MEDS: BUMETANIDE 0.5 MG TABLET PO (08:38)
--- NOTE | 2022-03-29 08:46 | WPDANESPN ---
Anes - Prog Note Post-Op Date/Time: 03/29/22 08:46 Cardiovascular status: normal Respiratory status: normal Airway patency: baseline Mental status: baseline Post-Op hydration status: normal Vital Signs: Last Vital Signs Temp 36.6 C 03/29/22 05:24 Pulse 84 03/29/22 08:38 Resp 18 03/29/22 05:24 BP 98/62 L 03/29/22 05:24 Pulse Ox 100 03/29/22 05:24 O2 Del Method Nasal Cannula 03/28/22 16:45 O2 Flow Rate 2 03/28/22 16:45 Pain Score (VAS): 05/21 I/O: Intake & Output 03/28/22 03/29/22 03/29/22 23:59 07:59 15:59 Intake Total 350 400 Output Total 5600 2650 Balance -5250 -2250 Laboratory Tests 03/29/22 05:43 03/29/22 05:43 03/29/22 03/29/22 05:43 05:43 Hgb 10.2 L D Hct 31.3 L Sodium 132 L Potassium 4.2 Chloride 99 Carbon Dioxide 26 Anion Gap 7 L BUN 17 Creatinine 0.80 Estim Creat Clear Calc 64 Estimated GFR > 60 Glucose 186 H Calcium 8.2 L Post-procedural complaints: none Patient Feedback: Patient satisfied with anesthetic care.
[2022-03-29] MEDS: FLUTICASONE/UMECLIDIN/VILANTER 100-62.5-25 MCG ELLIPTA 1 PUFF INHALATION (09:43)
--- NOTE | 2022-03-29 10:00 | WPDUROPN2 ---
Progress Note: A&P Assessment and Plan (1) BPH loc w urin obs/LUTS: Code(s): N40.1 - Benign prostatic hyperplasia with lower urinary tract symptoms Status: Acute Assessment and Plan: POD #1 TURP - ongoing hematuria requiring continuation of CBI but without significant clot retention. Continue CBI for now. Subjective Subjective Date/Time Seen: 03/29/22 10:00 Hematuria overnight, clots that irrigated easily 0400 and 0630. Urine clears with light traction on catheter. Pt. comfortable and tolerating diet. Review of Systems Cardiovascular: Cardiovascular: Denies chest pain, Denies lightheadedness, Denies palpitations and Denies dyspnea Respiratory: Respiratory: Denies dyspnea Gastrointestinal: Gastrointestinal: Denies diarrhea, Denies nausea and Denies vomiting Genitourinary: Genitourinary: Denies hematuria and Denies dysuria Endocrine: Endocrine: Denies palpitations Exam Const: General: no acute distress Resp: Effort & Inspection: normal respiratory effort GI: Inspection: non-distended GI Palp: No abdominal tenderness and No Guarding due to palpation present (GI) Auscultation: normal bowel sounds Urinary Catheter: Urinary Catheter: urine red Objective Data Vital Signs Vital Signs: Vital Signs - 24 hr 03/28/22 13:30 03/28/22 15:45 03/28/22 16:00 Temperature 98.8 F 98.1 F Pulse Rate 87 63 53 L Respiratory Rate 18 15 20 Blood Pressure 139/61 127/60 125/88 Pulse Oximetry 99 100 100 Oxygen Delivery Nasal Cannula Simple Face Mask Simple Face Mask Oxygen Flow Rate 2 8 8 03/28/22 16:15 03/28/22 16:30 03/28/22 16:45 Temperature Pulse Rate 68 56 L 56 L Respiratory Rate 20 20 16 Blood Pressure 129/67 132/65 130/65 Pulse Oximetry 100 100 100 Oxygen Delivery Simple Face Mask Nasal Cannula Nasal Cannula Oxygen Flow Rate 8 2 2 03/28/22 17:20 03/28/22 17:35 03/28/22 18:05 Temperature 97.7 F 97.8 F 97.8 F Pulse Rate 82 81 80 Respiratory Rate 16 16 18 Blood Pressure 137/55 L 128/90 128/67 Pulse Oximetry 100 100 99 Oxygen Delivery Oxygen Flow Rate 03/28/22 20:50 03/29/22 00:17 03/29/22 05:24 Temperature 97.9 F 98 F 97.8 F Pulse Rate 100 89 104 H Respiratory Rate 18 Blood Pressure 124/84 100/65 98/62 L Pulse Oximetry 99 98 100 Oxygen Delivery Oxygen Flow Rate 03/29/22 08:38 Temperature Pulse Rate 84 Respiratory Rate Blood Pressure Pulse Oximetry Oxygen Delivery Oxygen Flow Rate Intake/Output Intake/Output: Intake & Output 03/26/22 03/27/22 03/28/22 03/29/22 23:59 23:59 23:59 23:59 Intake Total 1000 400 Output Total 5600 2650 Balance -4600 -2250 Meds/Results Medications: Active Medications Generic Name Dose Route Start Last Admin Trade Name Freq PRN Reason Stop Dose Admin Hydrocodone Bitart/Acetaminophen 1 tab 03/28/22 17:07 03/28/22 22:27 Hydrocodone/Acetaminophen (*Crx) 5-325 Mg Tablet PO 1 tab Q4H PRN Administration Pain Rated 1-6 Albuterol 2 puff 03/28/22 17:07 Albuterol Sulfate (*Sp) Aerosol 1 Puff INHALATION Q4-6H PRN shortness of breath or wheezing Atorvastatin Calcium 20 mg 03/29/22 09:00 03/29/22 08:38 Atorvastatin 20 Mg Tablet PO 20 mg DAILY ROBERT Administration Bumetanide 0.5 mg 03/29/22 09:00 03/29/22 08:38 Bumetanide 0.5 Mg Tablet PO 0.5 mg DAILY ROBERT Administration Cephalexin HCl 500 mg 03/29/22 13:00 Cephalexin 500 Mg Capsule PO QID ROBERT Dexamethasone 4 mg 03/29/22 09:00 03/29/22 08:44 Dexamethasone 4 Mg Tablet PO Not Given DAILY ROBERT Docusate Sodium 100 mg 03/28/22 17:07 03/29/22 08:53 Docusate Sodium 100 Mg Capsule PO Not Given BID ROBERT Fentanyl Citrate 25 mcg 03/28/22 14:36 03/28/22 16:50 Fentanyl Citrate Inj (*Crx) 100 Mcg/2 Ml Vial IV PUSH 25 mcg Q2M PRN Administration Pain Fluticasone/Umeclidinium/Vilanterol 1 puff 03/29/22 08:00 03/29/22 09:43 Fluticasone/Umeclidin/Manju
[2022-03-29] MEDS: HYOSCYAMINE SULFATE 0.125 MG TABLET SUBLINGUAL ×2 (10:21→16:21)
[2022-03-29] MEDS: WATER FOR IRRIGATION, STERILE 1,000 ML BOTTLE 1000 ML (13:30)
[2022-03-29] MEDS: CEPHALEXIN 500 MG CAPSULE PO ×3 (13:30→20:50)
[2022-03-30] VITALS (9 sets, daily range): BP systolic 93–107; BP diastolic 50–60; PULSE 69–92; RESP 16–28; TEMP 36.6–36.9; O2SAT 95–100
[2022-03-30] MEDS: HYOSCYAMINE SULFATE 0.125 MG TABLET SUBLINGUAL ×2 (05:29→19:27)
[2022-03-30] MEDS: WATER FOR IRRIGATION, STERILE 1,000 ML BOTTLE 1000 ML (06:52)
--- NOTE | 2022-03-30 06:52 | PC.NURSE ---
1990 ml of sterile water irrigation bladder was done via bustamante (cbi). There was out put of small to medium clots with pink to red color of the out put. CBI started to become more paten and flow of output became much more clear.
[2022-03-30 08:24] LABS: Hematocrit 28.3 % (42.0-52.0); Mean Corpuscular HGB Conc 31.8 g/dl (32-36); Mean Corpuscular Hemoglobin 30.9 pg (26-34); Mean Corpuscular Volume 97.3 fl (80-100); Mean Platelet Volume 10.5 fl (7.4-10.4); Platelet Count Result 174 k/mm3 (150-375); Red Blood Count 2.91 M/mm3 (4.6-6.20); Red Cell Distribution Width 14.1 % (11.5-14.5)
[2022-03-30] MEDS: BUMETANIDE 0.5 MG TABLET PO (08:29)
[2022-03-30] MEDS: CEPHALEXIN 500 MG CAPSULE PO ×4 (08:29→20:53)
[2022-03-30] MEDS: DEXAMETHASONE 4 MG TABLET PO (08:29)
[2022-03-30] MEDS: ATORVASTATIN 20 MG TABLET PO (08:29)
[2022-03-30] MEDS: LOSARTAN POTASSIUM 100 MG TABLET PO (08:29)
[2022-03-30] MEDS: METOPROLOL SUCCINATE EXT REL 25 MG TABCR PO (08:29)
[2022-03-30] MEDS: POTASSIUM CHLORIDE 10 MEQ TABLET.ER PO (08:29)
[2022-03-30] MEDS: FLUTICASONE/UMECLIDIN/VILANTER 100-62.5-25 MCG ELLIPTA 1 PUFF INHALATION (08:54)
--- NOTE | 2022-03-30 11:15 | WPDUROPN2 ---
Progress Note: A&P Assessment and Plan (1) BPH loc w urin obs/LUTS: Code(s): N40.1 - Benign prostatic hyperplasia with lower urinary tract symptoms Status: Acute Plan POD #2 TURP - ongoing hematuria without significant clot retention.? Irrigation at bedside without clots bladder. CBI turned off this morning. Will reassess later today.? Mild drop in H/H. Continue to monitor daily labs Subjective Subjective Date/Time Seen: 03/30/22 11:15 Review of Systems Review of Systems: Patient with some suprapubic pain overnight. Nursing staff states they did irrigate a few clots from his bladder earlier today. Exam Narrative: The patient is awake and alert. He is in no acute distress. His abdomen is soft and nontender. Patient's Posey catheter is in place there is dark urine in the tubing. Irrigation was performed and there were no significant clots and urine then drained clear. Objective Data Vital Signs Vital Signs: Vital Signs - 24 hr 03/29/22 14:00 03/29/22 19:51 03/29/22 22:46 Temperature 36.8 C Pulse Rate 94 98 Respiratory Rate 14 18 18 Blood Pressure 117/81 98/54 L Pulse Oximetry 96 94 03/30/22 01:52 03/30/22 03:36 03/30/22 08:29 Temperature 36.6 C Pulse Rate 80 92 92 Respiratory Rate 18 Blood Pressure 100/57 L Pulse Oximetry 95 99 Intake/Output Intake/Output: Intake & Output 03/27/22 03/28/22 03/29/22 03/30/22 23:59 23:59 23:59 23:59 Intake Total 1000 1120 340 Output Total 5600 40243 910 Balance -4600 -26686 -570 Meds/Results Medications: Active Medications Generic Name Dose Route Start Last Admin Trade Name Freq PRN Reason Stop Dose Admin Hydrocodone Bitart/Acetaminophen 1 tab 03/28/22 17:07 03/28/22 22:27 Hydrocodone/Acetaminophen (*Crx) 5-325 Mg Tablet PO 1 tab Q4H PRN Administration Pain Rated 1-6 Albuterol 2 puff 03/28/22 17:07 Albuterol Sulfate (*Sp) Aerosol 1 Puff INHALATION Q4-6H PRN shortness of breath or wheezing Atorvastatin Calcium 20 mg 03/29/22 09:00 03/30/22 08:29 Atorvastatin 20 Mg Tablet PO 20 mg DAILY [facility] Administration Bumetanide 0.5 mg 03/29/22 09:00 03/30/22 08:29 Bumetanide 0.5 Mg Tablet PO 0.5 mg DAILY [facility] Administration Cephalexin HCl 500 mg 03/29/22 13:00 03/30/22 08:29 Cephalexin 500 Mg Capsule PO 500 mg QID [facility] Administration Dexamethasone 4 mg 03/29/22 09:00 03/30/22 08:29 Dexamethasone 4 Mg Tablet PO 4 mg DAILY [facility] Administration Docusate Sodium 100 mg 03/28/22 17:07 03/30/22 08:31 Docusate Sodium 100 Mg Capsule PO Not Given BID [facility] Fentanyl Citrate 25 mcg 03/28/22 14:36 03/28/22 16:50 Fentanyl Citrate Inj (*Crx) 100 Mcg/2 Ml Vial IV PUSH 25 mcg Q2M PRN Administration Pain Fluticasone/Umeclidinium/Vilanterol 1 puff 03/29/22 08:00 03/29/22 09:43 Fluticasone/Umeclidin/Vilanter 100-62.5-25 [facility]g [facility] Hyoscyamine 0.125 mg 03/28/22 17:07 03/30/22 05:29 Hyoscyamine Sulfate 0.125 Mg Tablet SUBLINGUAL 0.125 mg Q6H PRN Administration Bladder Spasm Losartan Potassium 100 mg 03/29/22 09:00 03/30/22 08:29 Losartan Potassium 100 Mg Tablet PO 100 mg DAILY [facility] Administration Metoprolol Succinate 25 mg 03/29/22 09:00 03/30/22 08:29 Metoprolol Succinate Ext Rel 25 Mg Tabcr PO 25 mg DAILY [facility] Administration Miconazole Nitrate 1 applic 03/29/22 21:00 03/30/22 08:28 Miconazole 2% Antifungal Ointment 56 Gm TOPICAL 1 applic Q12HR [facility] Administration Morphine Sulfate 2 mg 03/28/22 17:07 Morphine Sulfate (*Crx) 2 Mg/Ml Inj IV PUSH Q2H PRN Pain Rated 7-10 Naloxone HCl 0.1 mg 03/28/22 17:07 Naloxone Hcl 0.4 Mg/Ml Vial IV PUSH Q2M PRN Opiate Reversal Ondansetron HCl 4 mg 03/28/22 14:36 Ondansetron Inj 4 Mg/2 Ml Vial IV PUSH ONCE PRN Nausea Ondansetron HCl 4 mg 03/28/22 17:0
[2022-03-30 11:47] LABS: Anion Gap 6 mmol/L (8-16); Blood Urea Nitrogen 25 mg/dL (9-20); Calcium 7.8 mg/dL (8.4-10.2); Carbon Dioxide 26 mmol/L (22-30); Chloride 101 mmol/L (98-107); Estimated CRCL calculation 64 ml/min; Estimated Glomerular Filt Rate > 60; Glucose 121 mg/dL (65-110); Potassium 3.9 mmol/L (3.4-5.0); Sodium 133 mmol/L (137-145)
[2022-03-30] MEDS: HYDROcodone/acetaminophen (*CRX) 5-325 MG TABLET 1 TAB PO (13:26)
[2022-03-31] VITALS (7 sets, daily range): BP systolic 92–104; BP diastolic 48–77; PULSE 73–105; RESP 14–20; TEMP 36.5–36.9; O2SAT 96–100
[2022-03-31] MEDS: FLUTICASONE/UMECLIDIN/VILANTER 100-62.5-25 MCG ELLIPTA 1 PUFF INHALATION (07:52)
[2022-03-31] MEDS: ATORVASTATIN 20 MG TABLET PO (09:47)
[2022-03-31] MEDS: POTASSIUM CHLORIDE 10 MEQ TABLET.ER PO (09:47)
[2022-03-31] MEDS: LOSARTAN POTASSIUM 100 MG TABLET PO (09:47)
[2022-03-31] MEDS: CEPHALEXIN 500 MG CAPSULE PO ×4 (09:47→20:50)
[2022-03-31] MEDS: METOPROLOL SUCCINATE EXT REL 25 MG TABCR PO (09:47)
[2022-03-31] MEDS: BUMETANIDE 0.5 MG TABLET PO (09:48)
[2022-03-31] MEDS: DEXAMETHASONE 4 MG TABLET PO (09:48)
[2022-03-31] MEDS: HYDROcodone/acetaminophen (*CRX) 5-325 MG TABLET 1 TAB PO (11:01)
[2022-03-31] MEDS: HYOSCYAMINE SULFATE 0.125 MG TABLET SUBLINGUAL (11:03)
--- NOTE | 2022-03-31 11:03 | WPDUROPN2 ---
Progress Note: A&P Assessment and Plan (1) BPH loc w urin obs/LUTS: Code(s): N40.1 - Benign prostatic hyperplasia with lower urinary tract symptoms Status: Acute Plan POD #3 TURP - hematuria improved. CBI turned off this morning.? ? Likely void trial tomorrow as long as urine stays clear overnight. Subjective Subjective Date/Time Seen: 03/31/22 11:03 Review of Systems Review of Systems: Patient states some shortness of breath last night. Overall feeling well. CBI was maintained overnight Exam Narrative: The patient is awake alert no acute distress. His breathing is unlabored abdomen soft nontender nondistended. The Posey catheter is in place with slow CBI draining blood-tinged urine Objective Data Vital Signs Vital Signs: Vital Signs - 24 hr 03/30/22 13:50 03/30/22 21:43 03/30/22 21:00 Temperature 36.6 C Pulse Rate 84 82 Respiratory Rate 16 28 H 20 Blood Pressure 93/50 L Pulse Oximetry 99 100 Oxygen Delivery BiPAP 03/30/22 22:00 03/31/22 06:00 03/31/22 09:43 Temperature 36.9 C 36.8 C Pulse Rate 82 88 105 H Respiratory Rate 20 18 20 Blood Pressure 107/60 102/57 L 104/58 L Pulse Oximetry 100 100 100 Oxygen Delivery 03/31/22 09:47 Temperature Pulse Rate 105 H Respiratory Rate Blood Pressure Pulse Oximetry Oxygen Delivery Intake/Output Intake/Output: Intake & Output 03/28/22 03/29/22 03/30/22 03/31/22 23:59 23:59 23:59 23:59 Intake Total 1000 1120 09334 Output Total 4940 33345 [id number] [place] [id number] Meds/Results Medications: Active Medications Generic Name Dose Route Start Last Admin Trade Name Freq PRN Reason Stop Dose Admin Hydrocodone Bitart/Acetaminophen 1 tab 03/28/22 17:07 03/30/22 13:26 Hydrocodone/Acetaminophen (*Crx) 5-325 Mg Tablet PO 1 tab Q4H PRN Administration Pain Rated 1-6 Albuterol 2 puff 03/28/22 17:07 Albuterol Sulfate (*Sp) Aerosol 1 Puff INHALATION Q4-6H PRN shortness of breath or wheezing Atorvastatin Calcium 20 mg 03/29/22 09:00 03/31/22 09:47 Atorvastatin 20 Mg Tablet PO 20 mg DAILY [facility] Administration Bumetanide 0.5 mg 03/29/22 09:00 03/31/22 09:48 Bumetanide 0.5 Mg Tablet PO 0.5 mg DAILY [facility] Administration Cephalexin HCl 500 mg 03/29/22 13:00 03/31/22 09:47 Cephalexin 500 Mg Capsule PO 500 mg QID [facility] Administration Dexamethasone 4 mg 03/29/22 09:00 03/31/22 09:48 Dexamethasone 4 Mg Tablet PO 4 mg DAILY [facility] Administration Docusate Sodium 100 mg 03/28/22 17:07 03/31/22 09:48 Docusate Sodium 100 Mg Capsule PO Not Given BID [facility] Fentanyl Citrate 25 mcg 03/28/22 14:36 03/28/22 16:50 Fentanyl Citrate Inj (*Crx) 100 Mcg/2 Ml Vial IV PUSH 25 mcg Q2M PRN Administration Pain Fluticasone/Umeclidinium/Vilanterol 1 puff 03/29/22 08:00 03/31/22 07:52 Fluticasone/Umeclidin/Vilanter 100-62.5-25 Mcg Ellipta INHALATION 1 puff DAILYRT [facility] Administration Hyoscyamine 0.125 mg 03/28/22 17:07 03/30/22 19:27 Hyoscyamine Sulfate 0.125 Mg Tablet SUBLINGUAL 0.125 mg Q6H PRN Administration Bladder Spasm Losartan Potassium 100 mg 03/29/22 09:00 03/31/22 09:47 Losartan Potassium 100 Mg Tablet PO 100 mg DAILY [facility] Administration Metoprolol Succinate 25 mg 03/29/22 09:00 03/31/22 09:47 Metoprolol Succinate Ext Rel 25 Mg Tabcr PO 25 mg DAILY [facility] Administration Miconazole Nitrate 1 applic 03/29/22 21:00 03/31/22 09:48 Miconazole 2% Antifungal Ointment 56 Gm TOPICAL 1 applic Q12HR [facility] Administration Morphine Sulfate 2 mg 03/28/22 17:07 Morphine Sulfate (*Crx) 2 Mg/Ml Inj IV PUSH Q2H PRN Pain Rated 7-10 Naloxone HCl 0.1 mg 03/28/22 17:07 Naloxone Hcl 0.4 Mg/Ml Vial IV PUSH Q2M PRN Opiate Reversal Ondansetron HCl 4 mg 03/28/22 14:36 Ondansetron Inj 4 Mg/2 Ml Vial IV PUSH ONCE PRN Nausea Ondansetron HCl 4 m
[2022-04-01] MEDS: HYOSCYAMINE SULFATE 0.125 MG TABLET SUBLINGUAL (02:58)
[2022-04-01 03:16] VITALS: PULSE 84; RESP 16; O2SAT 94
[2022-04-01 04:56] VITALS: BP 106/60; PULSE 58; RESP 20; TEMP 36.4; O2SAT 97
--- NOTE | 2022-04-01 06:35 | WPDUROPN2 ---
Progress Note: A&P Assessment and Plan (1) BPH loc w urin obs/LUTS: Code(s): N40.1 - Benign prostatic hyperplasia with lower urinary tract symptoms Status: Acute Assessment and Plan: Catheter out for voiding trial this morning. Subjective Subjective Date/Time Seen: 04/01/22 06:35 Comfortable, no complaints Exam Const: General: no acute distress Resp: Effort & Inspection: normal respiratory effort GI: Inspection: non-distended GI Palp: No abdominal tenderness and No Guarding due to palpation present (GI) Auscultation: normal bowel sounds Urinary Catheter: Urinary Catheter: patent and draining and urine clear Objective Data Vital Signs Vital Signs: Vital Signs - 24 hr 03/31/22 09:43 03/31/22 09:47 03/31/22 08:00 Temperature Pulse Rate 105 H 105 H Respiratory Rate 20 Blood Pressure 104/58 L Pulse Oximetry 100 Oxygen Delivery Room Air 03/31/22 14:10 03/31/22 20:48 03/31/22 20:50 Temperature 97.7 F 98.5 F Pulse Rate 95 73 73 Respiratory Rate 18 18 18 Blood Pressure 92/48 L 95/77 L Pulse Oximetry 97 99 99 Oxygen Delivery BiPAP 03/31/22 11:30 04/01/22 03:16 04/01/22 04:56 Temperature 97.6 F Pulse Rate 87 84 58 L Respiratory Rate 14 16 20 Blood Pressure 106/60 Pulse Oximetry 96 94 97 Oxygen Delivery Intake/Output Intake/Output: Intake & Output 03/29/22 03/30/22 03/31/22 04/01/22 23:59 23:59 23:59 23:59 Intake Total 1120 59100 960 250 Output Total 54511 [phone] 275 [facility] [phone] Meds/Results Medications: Active Medications Generic Name Dose Route Start Last Admin Trade Name Freq PRN Reason Stop Dose Admin Hydrocodone Bitart/Acetaminophen 1 tab 03/28/22 17:07 03/31/22 11:01 Hydrocodone/Acetaminophen (*Crx) 5-325 Mg Tablet PO 1 tab Q4H PRN Administration Pain Rated 1-6 Albuterol 2 puff 03/28/22 17:07 Albuterol Sulfate (*Sp) Aerosol 1 Puff INHALATION Q4-6H PRN shortness of breath or wheezing Atorvastatin Calcium 20 mg 03/29/22 09:00 03/31/22 09:47 Atorvastatin 20 Mg Tablet PO 20 mg DAILY [facility] Administration Bumetanide 0.5 mg 03/29/22 09:00 03/31/22 09:48 Bumetanide 0.5 Mg Tablet PO 0.5 mg DAILY [facility] Administration Cephalexin HCl 500 mg 03/29/22 13:00 03/31/22 20:50 Cephalexin 500 Mg Capsule PO 500 mg QID [facility] Administration Dexamethasone 4 mg 03/29/22 09:00 03/31/22 09:48 Dexamethasone 4 Mg Tablet PO 4 mg DAILY [facility] Administration Docusate Sodium 100 mg 03/28/22 17:07 03/31/22 16:15 Docusate Sodium 100 Mg Capsule PO Not Given BID [facility] Fentanyl Citrate 25 mcg 03/28/22 14:36 03/28/22 16:50 Fentanyl Citrate Inj (*Crx) 100 Mcg/2 Ml Vial IV PUSH 25 mcg Q2M PRN Administration Pain Fluticasone/Umeclidinium/Vilanterol 1 puff 03/29/22 08:00 03/31/22 07:52 Fluticasone/Umeclidin/Vilanter 100-62.5-25 Mcg Ellipta INHALATION 1 puff DAILYRT [facility] Administration Hyoscyamine 0.125 mg 03/28/22 17:07 04/01/22 02:58 Hyoscyamine Sulfate 0.125 Mg Tablet SUBLINGUAL 0.125 mg Q6H PRN Administration Bladder Spasm Losartan Potassium 100 mg 03/29/22 09:00 03/31/22 09:47 Losartan Potassium 100 Mg Tablet PO 100 mg DAILY [facility] Administration Metoprolol Succinate 25 mg 03/29/22 09:00 03/31/22 09:47 Metoprolol Succinate Ext Rel 25 Mg Tabcr PO 25 mg DAILY [facility] Administration Miconazole Nitrate 1 applic 03/29/22 21:00 03/31/22 20:49 Miconazole 2% Antifungal Ointment 56 Gm TOPICAL 1 applic Q12HR [facility] Administration Morphine Sulfate 2 mg 03/28/22 17:07 Morphine Sulfate (*Crx) 2 Mg/Ml Inj IV PUSH Q2H PRN Pain Rated 7-10 Naloxone HCl 0.1 mg 03/28/22 17:07 Naloxone Hcl 0.4 Mg/Ml Vial IV PUSH Q2M PRN Opiate Reversal Ondansetron HCl 4 mg 03/28/22 14:36 Ondansetron Inj 4 Mg/2 Ml Vial IV PUSH ONCE PRN Nausea Ondansetron HCl 4 mg 03/28/22 17:07
[2022-04-01] MEDS: ATORVASTATIN 20 MG TABLET PO (08:59)
[2022-04-01] MEDS: CEPHALEXIN 500 MG CAPSULE PO (09:00)
[2022-04-01] MEDS: DEXAMETHASONE 4 MG TABLET PO (09:00)
[2022-04-01] MEDS: BUMETANIDE 0.5 MG TABLET PO (09:00)
[2022-04-01 09:01] VITALS: PULSE 98
[2022-04-01] MEDS: POTASSIUM CHLORIDE 10 MEQ TABLET.ER PO (09:01)
[2022-04-01] MEDS: METOPROLOL SUCCINATE EXT REL 25 MG TABCR PO (09:01)
[2022-04-01 09:03] VITALS: PULSE 101; O2SAT 98
[2022-04-01 09:04] VITALS: BP 106/60
[2022-04-01] MEDS: FLUTICASONE/UMECLIDIN/VILANTER 100-62.5-25 MCG ELLIPTA 1 PUFF INHALATION (10:15)
--- NOTE | 2022-04-01 12:09 | P.DS_ITS ---
DS: Admitting Diagnosis Discharge Date 04/01/22 Admitting Diagnosis BPH DS: Summary Hospital Course Hospital Course: This patient with longstanding prostatism with urinary retention refractory for medical management was admitted on the morning of his planned TURP. The procedure was undertaken on that same day in an uneventful fashion. His post- operative course was, likewise, uneventful. On the evening of the procedure he was tolerating a diet. It took several days for hematuria to resolve but, finally, on POD #4 his catheter was removed. The patient was observed for several hours, until he demonstrated he could void effectively without significant hematuria. He was discharged with careful instruction on limiting physical activity x2 weeks and plans to f/ in 2-3 weeks. At discharge he was comfortable and tolerating a diet. Time Spent with Patient Time attestation: Total time spent providing and/or coordinating discharge services: DS: Data Data Completed and Pending Completed studies during hospitalization: Pending at discharge 03/28/22 15:05 Surgical [PTH] Routine Discharge Plan Discharge Attending physician on discharge: Santana Cam Discharging Clinician: Santana Cam Anticipated Discharge Date/Time: 04/01/22 11:56 Patient Disposition: Home, Self-Care Activity: other - see discharge instructions Diet: other - see discharge instructions Discharge Instructions: Per Care Coordination Patient is current with [facility] for RN, PT, [phone] RN please fax completed discharge instructions to [phone] 1) Activity: No lifting/straining >15lbs. x2 weeks. 2) Diet: Resume normal pre-admission diet. 3) Follow-up: 2-3 weeks / call office for appointment ([phone]). Patient Instructions: Antibiotic Form Stand Alone Forms: General Discharge Information Follow-up/Referrals: Santana Cam MD [Physician] - Discharge Medications: New cephalexin 500 mg capsule 500 mg PO Q8H Qty: 9 0RF docusate sodium [Colace] 100 mg capsule 100 mg PO DAILY Qty: 30 0RF hydrocodone-acetaminophen 5-325 mg tablet 1 - 2 tablet PO Q6H PRN (Reason: pain) Qty: 20 0RF Continued dexamethasone 4 mg tablet 4 mg PO DAILY Qty: 6 0RF Label Comments: TAKES ON DAYS OF RADATION Rx Instructions: Take 4 mg (1 tablet) by mouth with food 60 minutes prior to each radiation treatment to decrease inflammatory response. losartan 100 mg tablet 100 mg PO DAILY atorvastatin 20 mg tablet 20 mg PO DAILY metoprolol succinate 25 mg tablet extended release 24 hr 25 mg PO DAILY Label Comments: QAM bumetanide 1 mg Tablet 0.5 mg PO DAILY Qty: 60 0RF potassium chloride 10 mEq Capsule, Extended Release 10 meq PO DAILY Breztri Aerosphere 160-9-4.8 mcg/actuation HFA aerosol inhaler 2 inh inhalation BID Qty: 10.7 5RF Rx Instructions: Rinse mouth and spit after each use. Use with spacer. albuterol sulfate 90 mcg/actuation HFA aerosol inhaler 2 puff inhalation Q4-6H PRN (Reason: shortness of breath or wheezing) Qty: 8.5 4RF Discontinued finasteride 5 mg tablet 5 mg PO DAILY tamsulosin 0.4 mg Capsule 0.4 mg PO HS Qty: 1 0RF Date of admission: 03/31/22 15:33 Primary Care Provider: Tiffanie Forman Admitting Provider: Santana Cam Attending physician on admission: Santana Cam Condition: Stable
== END 2022-04-01 13:58 | disposition home health service (06) | DRG 713 ==
LOC: ANHSURGERY 18:44 → ANH3MED 18:44
PROVIDERS: Urology; Admitting Provider Urology; PCP Family Medicine; Visit Provider Urology
PROC: 0TJB8ZZ Inspection of Bladder, Via Natural or Artificial Opening Endoscopic (ICD-10-PCS; CPT 52000; principal; 2022-03-28 15:30)
PROC: 0VT08ZZ Resection of Prostate, Via Natural or Artificial Opening Endoscopic (ICD-10-PCS; CPT 52601; 2022-03-28 15:30)
DX: N40.1 Benign prostatic hyperplasia with lower urinary tract symptoms (principal); I50.32 Chronic diastolic (congestive) heart failure; I11.0 Hypertensive heart disease with heart failure; R31.9 Hematuria, unspecified; R33.8 Other retention of urine; F10.10 Alcohol abuse, uncomplicated; E78.5 Hyperlipidemia, unspecified; J44.9 Chronic obstructive pulmonary disease, unspecified; I25.2 Old myocardial infarction; Z87.891 Personal history of nicotine dependence
CPT/HCPCS: 36415; 80048; 85014; 85018; 85027; 88305; 94640; A9270; C1758; G0378; G0379; J0690; J2405; J2704; J3010; J7120; J8540

== ENCOUNTER 2022-07-04 10:46 | Outpatient (CLI) | payer MEDICARE, SELFPAY ==
--- NOTE | ~2022-07-04 | CT_ITS ---
CT Scan of the Chest without Contrast: Clinical Indication: Lung cancer Technique: Contiguous sections were acquired throughout the chest without intravenous contrast. Dose reduction technique was used on this scan by utilizing automated exposure control and iterative recon struction technique. The dose-length product (DLP) was 199.09 mGy-cm. COMPARISON: 01/27/2022 Findings: There is no evidence of any significant mediastinal, hilar or axillary lymphadenopathy. Coronary siddharth ry calcium cages are present. No aortic aneurysm. Minimal right pleural fluid present. No left pleural effusion. No pericardial effusion. The previously identified right apical pulmonary nodule is markedly decreased in size, with a residua l 7 mm spiculated opacity present (axial image 22). There are however several new irregular nodule op acities of the right lung apex region, with surrounding adjacent streaky opacities. There is discoid atelectasis or scarring at the left lung base. Images through the upper abdomen reveal no abnormalities. Impression: Marked interval decrease of the previously biopsied right apical pulmonary nodule, with interval deve lopment of several new irregular nodular opacities and streaky opacities in the right lung apex. Find ings could reflect interval response to radiation therapy of the primary lesion with associated postr adiation changes in the right lung apex. New neoplastic lesions are felt to be less likely. Other pos tinflammatory change or scarring is also possible. Correlation with treatment history, and follow-up exam are advised. Consider more aggressive workup/further evaluation of the new pulmonary lesions at this time, as clinically indicated. Minimal right pleural effusion. Reviewed, dictated and finalized at location . [employer] Impression: Marked interval decrease of the previously biopsied right apical pulmonary nodu le, with interval development of several new irregular nodular opacities and st reaky opacities in the right lung apex. Findings could reflect interval respons e to radiation therapy of the primary lesion with associated postradiation aceves ges in the right lung apex. New neoplastic lesions are felt to be less likely. Other postinflammatory change or scarring is also possible. Correlation with tr eatment history, and follow-up exam are advised. Consider more aggressive otilio p/further evaluation of the new pulmonary lesions at this time, as clinically i ndicated. Minimal right pleural effusion.
== END 2022-07-04 10:47 | disposition home or self-care (01) ==
PROVIDERS: PCP Family Medicine; Visit Provider Radiology Radiation Oncology
DX: C34.91 Malignant neoplasm of unspecified part of right bronchus or lung (principal)
CPT/HCPCS: 71250

== ENCOUNTER 2022-08-02 12:12 | Outpatient (CLI) | payer MEDICARE, SELFPAY ==
[2022-08-02 13:00] VITALS: PULSE 78; O2SAT 98
[2022-08-02 13:05] VITALS: PULSE 99; O2SAT 94
[2022-08-02 13:15] VITALS: PULSE 85; O2SAT 96
--- NOTE | 2022-08-02 13:35 | HOMEO2EVAL ---
Evaluation was performed at [facility] Home Oxygen Evaluation RC: Home Oxygen (O2) Evaluation Start: 08/02/22 13:33 Freq: Status: Active Protocol: RPE Activity Type Activity Date Activity User E-sign Co-sign Detail Recorded Client Recorded Date Recorded By Document 08/02/22 13:00 VALDO [email or web address] 08/02/22 13:35 VALDO Document 08/02/22 13:05 VALDO [email or web address] 08/02/22 13:35 VALDO Document 08/02/22 13:15 VALDO [email or web address] 08/02/22 13:35 VALDO 08/02/22 08/02/22 08/02/22 13:00 13:05 13:15 Home O2 Evaluation [Oxygen] -Test Phase Resting Exercise Resting -Oxygen Delivery Room Air Room Air Room Air [Pulse Oximetry] -Pulse Oximetry (90-100 %) 98 94 96 [Pulse Rate] -Pulse Rate (60-100 beats/min) 78 99 85 [Exercise] -Ambulation Distance (feet) 600 -Ambulation Distance (meters) 182.87 [Comments] -Home Oxygen Evaluation Comments No home O2 needed at this time. [Charges] -Treatment Charges O2 Evaluation - Outpatient
--- NOTE | 2022-08-02 13:36 | PCRCNOTE ---
Faxed home O2 eval to Dr Willis office staff
== END 2022-08-02 12:13 | disposition home or self-care (01) ==
LOC: ANHPFT 12:13
PROVIDERS: PCP Family Medicine; Visit Provider Internal Medicine Pulmonary Disease
DX: J98.6 Disorders of diaphragm (principal)
CPT/HCPCS: 94618

== ENCOUNTER 2022-10-14 09:23 | Outpatient (CLI) | payer MEDICARE, SELFPAY ==
--- NOTE | ~2022-10-14 | CT_ITS ---
CT Scan of the Chest without Contrast: Clinical Indication: Non-small cell lung carcinoma Technique: Contiguous sections were acquired throughout the chest without intravenous contrast. Dose reduction technique was used on this scan by utilizing automated exposure control and iterative recon struction technique. The dose-length product (DLP) was 179.71 mGy-cm. COMPARISON: 07/04/2022 Findings: There is no evidence of any significant mediastinal, hilar or axillary lymphadenopathy. There are ath erosclerotic calcifications of the aorta and coronary arteries. There is no evidence of pleural or pericardial effusion. Small spiculated nodules/opacities the right lung apex are similar to minimally decreased from prior exam. Left lung is essentially clear. Images through the upper abdomen reveal no abnormalities. Impression: Several small spiculated nodules/opacities the right lung apex are similar to minimally decreased fro m prior exam. Findings could reflect treated disease and/or post therapy/post radiation change. Melissa nued follow-up should be considered given history of malignancy. Reviewed, dictated and finalized at location M. Impression: Several small spiculated nodules/opacities the right lung apex are similar to m inimally decreased from prior exam. Findings could reflect treated disease and/ or post therapy/post radiation change. Continued follow-up should be considered given history of malignancy.
== END 2022-10-14 09:24 | disposition home or self-care (01) ==
PROVIDERS: PCP Family Medicine; Visit Provider Radiology Radiation Oncology
DX: C34.91 Malignant neoplasm of unspecified part of right bronchus or lung (principal); R91.8 Other nonspecific abnormal finding of lung field
CPT/HCPCS: 71250

== ENCOUNTER 2023-01-27 12:42 | Outpatient (CLI) | payer MEDICARE, SELFPAY ==
--- NOTE | ~2023-01-27 | CT_ITS ---
CT Scan of the Chest without Contrast: Clinical Indication: Lung cancer Technique: Contiguous sections were acquired throughout the chest without intravenous contrast. Dose reduction technique was used on this scan by utilizing automated exposure control and iterative recon struction technique. The dose-length product (DLP) was 190.34 mGy-cm. COMPARISON: 10/14/2022 Findings: There is no evidence of any significant mediastinal, hilar or axillary lymphadenopathy. Atherosclerot ic calcifications of the aorta and coronary arteries are present. There is no evidence of pleural or pericardial effusion. Several small spiculated densities the right lung apex are stable from prior exam. There is linear sc arring or atelectasis at the left lung base. Images through the upper abdomen reveal no abnormalities. Impression: Several spiculated densities at the right lung apex are stable from prior exam. Reviewed, dictated and finalized at [facility]. Impression: Several spiculated densities at the right lung apex are stable from prior exam.
== END 2023-01-27 12:43 | disposition home or self-care (01) ==
LOC: ANHIMG 12:48
PROVIDERS: PCP Family Medicine; Visit Provider Radiology Radiation Oncology
DX: C34.91 Malignant neoplasm of unspecified part of right bronchus or lung (principal)
CPT/HCPCS: 71250

== ENCOUNTER 2023-05-06 13:42 | Outpatient (CLI) | payer MEDICARE, SELFPAY ==
--- NOTE | ~2023-05-06 | CT_ITS ---
EXAMINATION:CT diagnostic chest wo con DATE: 05/06/2023 14:42 INDICATION: Non-small cell cancer of right lung. TECHNIQUE: Computed tomography (CT) of the chest was performed without intravenous contrast. Automate d exposure control and iterative reconstruction technique were employed. The dose-length product (DLP ) was 167.75 mGy-cm. COMPARISON: Chest CT 01/27/2023, 01/27/22 FINDINGS: There is mild emphysema. There are mild airspace opacities in right upper lobe. There is mi ld atelectasis bilaterally. Calcified pulmonary nodules and calcified hilar and mediastinal lymph nod es are consistent with old granulomatous disease. No pleural effusion. Aortic atherosclerosis is note d. There is ectasia of ascending aorta measuring 4.0 cm. There is bilateral gynecomastia. The heart s ize is normal. There are coronary artery calcifications. No pericardial effusion. Calcifications in t he spleen are consistent with old granulomatous disease. There are changes of cholecystectomy. There is severe cervical spondylosis and mild thoracic spondylosis. IMPRESSION: 1. Stable mild airspace opacities in right upper lobe, consistent with radiation pneumonitis. 2. Mild emphysema. Reviewed, dictated and finalized at location E. O PROGRAM CHECKER IMPRESSION: 1. Stable mild airspace opacities in right upper lobe, consistent with radiatio n pneumonitis. 2. Mild emphysema.
== END 2023-05-06 13:43 | disposition home or self-care (01) ==
PROVIDERS: PCP Family Medicine; Visit Provider Radiology Radiation Oncology
DX: C34.91 Malignant neoplasm of unspecified part of right bronchus or lung (principal); J43.9 Emphysema, unspecified; R91.8 Other nonspecific abnormal finding of lung field
CPT/HCPCS: 71250

== ENCOUNTER 2023-09-08 12:30 | Outpatient (CLI) | payer MEDICARE, SELFPAY ==
--- NOTE | ~2023-09-08 | CT_ITS ---
CT Scan of the Chest without Contrast: Clinical Indication: Lung cancer Technique: Contiguous sections were acquired throughout the chest without intravenous contrast. Dose reduction technique was used on this scan by utilizing automated exposure control and iterative recon struction technique. The dose-length product (DLP) was 212.07 mGy-cm. COMPARISON: 05/06/2023 Findings: There is no evidence of any significant mediastinal, hilar or axillary lymphadenopathy. The mediastin al soft tissues appear normal. There is no evidence of pleural or pericardial effusion. Stable small irregular/specular nodular opacities the right lung apex. Images through the upper abdomen reveal no abnormalities. Impression: Stable small irregular/spiculated nodular opacities in the right lung apex. Reviewed, dictated and finalized at location . Impression: Stable small irregular/spiculated nodular opacities in the right lung apex.
== END 2023-09-08 12:31 | disposition home or self-care (01) ==
LOC: ANHIMG 12:31
PROVIDERS: PCP Family Medicine; Visit Provider Radiology Radiation Oncology
DX: C34.91 Malignant neoplasm of unspecified part of right bronchus or lung (principal)
CPT/HCPCS: 71250

== ENCOUNTER 2023-12-23 14:08 | Inpatient (IN) | payer MEDICARE, SELFPAY ==
[2023-12-23] VITALS (15 sets, daily range): BP systolic 111–159; BP diastolic 66–97; PULSE 65–130; RESP 16–30; TEMP 37–37.2; O2SAT 93–100; BMI 25.7
--- NOTE | ~2023-12-23 | XR_ITS ---
EXAMINATION: XR chest 1V portable DATE: 12/24/2023 20:39 INDICATION: Endotracheal tube advancement TECHNIQUE: frontal view of the chest was obtained. COMPARISON: Chest radiograph dated 12/24/2023 FINDINGS: Endotracheal tube tip 6.6 cm above the bernard. Nasogastric tube extends into the stomach with distal tip collimated beyond the caudal margin of the [id number]. Right upper extremity peripherally inse rted central venous catheter (PICC) tip at the cephalad superior vena cava. No focal airspace opacities, pulmonary edema, pleural effusion or pneumothorax. The cardiomediastinal silhouette is normal. Again seen are gas distended loops of likely colon extending across the upper abdomen. IMPRESSION: 1. No acute cardiopulmonary disease. Reviewed, dictated and finalized at location A.
--- NOTE | ~2023-12-23 | XR_ITS ---
EXAM: XR abdomen gastric tube insert DATE: 12/23/2023 21:46 HISTORY: OG placement . COMPARISON: Same date 9:10 PM. FINDINGS/IMPRESSION: The NG tube takes a curved course in the stomach, with the tip and side port ter minating over the gastric fundus. Persistent large bowel dilation. Reviewed, dictated and finalized at location K.
--- NOTE | ~2023-12-23 | XR_ITS ---
EXAMINATION: XR chest ET placement Exam Date/Time: 12/23/2023 21:30 CDT HISTORY: ET placement Comparison: X-ray chest and CT cap 12/23/2023. RESULT: Lines, tubes, and devices: Endotracheal tube, tip terminating 4.5 cm above the bernard. Subdiaphragma tic NG tube. Cholecystectomy clips. Lungs and pleura: Low volumes with crowding. Known left lower lobe acinar opacities not well seen ra diographically. Cardiomediastinal silhouette: Stable. Other: Dilated large bowel in the upper abdomen. IMPRESSION: Endotracheal tube in good position. Subdiaphragmatic NG tube. Reviewed, dictated and finalized at location K.
--- NOTE | ~2023-12-23 | XR_ITS ---
XR chest PICC line Ordering provider: Jose Randall MD History: 78 years Male with . PICC line placement . Comparison: December 24, 2023 FINDINGS: MEDIASTINUM: The cardiac silhouette is not enlarged. Endotracheal tube and nasogastric tube are uncha nged. Right central line is placed with the tip overlying the superior vena cava. LUNGS: No effusions or pneumothorax. Minimal opacification the right and left lung base suggestive of atelectasis versus pneumonia. OTHER: Bowel is seen under both hemidiaphragm with distended loops. No free air under the diaphragm. IMPRESSION: Highly suggestive bibasilar atelectasis versus pneumonia. Reviewed, dictated and finalized at location A.
--- NOTE | ~2023-12-23 | XR_ITS ---
EXAMINATION: XR abdomen obstructive series DATE: 12/25/2023 05:51 INDICATION: Large bowel obstruction. TECHNIQUE: Upright and supine views of the abdomen on 3 radiographs were obtained. COMPARISON: CT abdomen and pelvis 12/23/2023 FINDINGS: There is gaseous distention of the colon. The small bowel is normal in caliber. A catheter overlies the bladder. No free intraperitoneal gas. The nasogastric tube tip is in the stomach. IMPRESSION: 1. Gaseous distention of the colon, consistent with adynamic ileus versus obstruction. Reviewed, dictated and finalized at location A. IMPRESSION: 1. Gaseous distention of the colon, consistent with adynamic ileus versus obstr uction.
--- NOTE | ~2023-12-23 | XR_ITS ---
EXAMINATION: XR chest 1V portable DATE: 12/24/2023 05:45 INDICATION: Respiratory failure. Intubated. TECHNIQUE: A single frontal view of the chest was obtained. COMPARISON: Chest single view 12/23/2023, chest CT 12/23/2023 FINDINGS: There are airspace opacities at left lung base. No pleural effusion or pneumothorax. The he art size is normal. The endotracheal tube tip is 5.5 cm above the bernard. The nasogastric tube tip is in the stomach. IMPRESSION: 1. Mild airspace opacities at left lung base, consistent with pneumonia. Reviewed, dictated and finalized at location A.
--- NOTE | ~2023-12-23 | CT_ITS ---
EXAMINATION: CT chest abdomen pelvis w con DATE: 12/23/2023 18:18 INDICATION: Increased dyspnea and distended abdomen . TECHNIQUE: Computed tomography (CT) of the chest, abdomen, and pelvis was performed with 100 mL Omnip aque-350 intravenous contrast. Automated exposure control and iterative reconstruction technique were employed. The dose-length product was 527.87 mGy-cm. COMPARISON: CT chest 09/08/2023; CTPA with abdomen pelvis 01/07/2022 FINDINGS: CHEST: Thoracic aorta: No significant dilation. No dissection. Mild arch calcification. Lung parenchyma and airways: Segmental acinar opacities in the medial and dependent left lower lobe. Mild subpleural reticulation in the right medial lower lobe. Mild bibasilar scarring. Right apical pl eural scarring. Aerated secretions in the trachea. Thoracic inlet, axillae and chest wall: No thyroid or soft tissue mass. No axillary lymphadenopathy. Mediastinum: No mass or lymphadenopathy. Heart and pericardium: Normal heart size. Mitral annulus calcification. No pericardial effusion. Coronary artery calcifications: Mild. Pleura: No effusion or mass. Thoracic bones: No acute osseous finding in the chest. ABDOMEN/PELVIS: Liver: Normal. Biliary/Gallbladder: Gallbladder is absent. No bile duct dilation. Pancreas: No mass or duct dilation. Spleen: Normal. Adrenals:No mass. Kidneys: No suspicious mass, obstructing stone, or hydronephrosis. GI tract: Prior partial right colonic resection with uncomplicated appearing anastomosis. Dilated pro ximal and transverse colon. Transition point at the splenic flexure. No obstructing mass detected. Th e distal large bowel remains distended and air-filled but not overtly dilated. No small bowel dilatio n. Appendix not confidently visualized. Mesentery/Peritoneum: No ascites, mass, or free air. Retroperitoneum: No mass Atherosclerotic abdominal aortic and/or arterial calcifications. Pelvis: Mildly distended urinary bladder with wall thickening, likely secondary to outlet compromise from prostatomegaly. Soft Tissues: Soft tissues and body wall unremarkable. Abdominopelvic bones: No acute osseous finding in the abdomen/pelvis. IMPRESSION: Segmental left lower lobe aspiration. Findings concerning for large bowel obstruction, transition point at the splenic flexure, with dilati on of the transverse colon and more proximal colon. Reviewed, dictated and finalized at location K. IMPRESSION: Segmental left lower lobe aspiration. Findings concerning for large bowel obstruction, transition point at the spleni c flexure, with dilation of the transverse colon and more proximal colon.
--- NOTE | ~2023-12-23 | XR_ITS ---
EXAMINATION: XR chest 1V portable DATE: 12/25/2023 05:51 INDICATION: Respiratory failure. TECHNIQUE: A single frontal view of the chest was obtained. COMPARISON: Chest single view 12/24/2023 FINDINGS: There is no pneumonia, pleural effusion, or pneumothorax. The heart size is normal. The end otracheal tube tip is 7.1 cm above the bernard. A right upper extremity peripherally inserted central venous catheter (PICC) is seen with tip in the superior vena cava. The nasogastric tube tip is in the stomach. IMPRESSION: 1. No acute cardiopulmonary disease. Reviewed, dictated and finalized at location A.
--- NOTE | ~2023-12-23 | XR_ITS ---
EXAMINATION: XR chest 1V portable DATE: 12/26/2023 06:00 INDICATION: Respiratory failure. TECHNIQUE: A single frontal view of the chest was obtained. COMPARISON: Chest single view 12/25/2023 FINDINGS: There is no pneumonia, pleural effusion, or pneumothorax. The heart size is normal. The ed ogastric tube tip is in the stomach. The endotracheal tube tip is 6.7 cm above the bernard. A right up per extremity peripherally inserted central venous catheter (PICC) is seen with tip in the right inte rnal jugular vein. IMPRESSION: 1. PICC tip in the right internal jugular vein. Reviewed, dictated and finalized at location A.
--- NOTE | ~2023-12-23 | XR_ITS ---
XR chest 1V portable Ordering provider: Gerber Roldan MD History: 78 years Male with . SOB . Comparison: February 13, 2022 FINDINGS: MEDIASTINUM: The cardiac silhouette is not enlarged. LUNGS: No infiltrates, effusions or pneumothorax. OTHER: No free air under the diaphragm. Degenerative changes of the spine. Distended Bowel is seen under both hemidiaphragms. IMPRESSION: No acute cardiopulmonary pathology. Distended bowel loops under both hemidiaphragms. Clinical evaluation advised. Reviewed, dictated and finalized at location A.
--- NOTE | ~2023-12-23 | XR_ITS ---
EXAM: XR abdomen gastric tube insert DATE: 12/23/2023 21:16 HISTORY: ng insert . COMPARISON: CT cap, same date. FINDINGS: Clear lung bases, known left basilar acinar opacities not well visualized radiographically . Dilated large bowel in the upper abdomen. Cholecystectomy clips. NG tube, tip terminates in the sto mach, side port overlying the distal esophagus. IMPRESSION: Shallow positioned NG tube, consider advancing by 7 cm. Reviewed, dictated and finalized at location K.
--- NOTE | 2023-12-23 14:12 | ECG_ITS ---
Test Date: 2023-12-23 14:17:26 Measurements Intervals [place] Rate: 116 P: 70 NJ: 156 QRS: -23 QRSD: 96 T: 80 QT: 313 QTc: 435 Interpretive Statements SINUS TACHYCARDIA WITH FREQUENT VENTRICULAR PREMATURE COMPLEXES BORDERLINE LEFT AXIS DEVIATION [QRS AXIS < -20] NONSPECIFIC ST & T-WAVE ABNORMALITY No previous ECG available for comparison Electronically Signed On 12-23-2023 14:42:47 CDT by Margoth Zaragoza M.D.
[2023-12-23 16:15] LABS: Basophils Percent Auto 0.3 % (0.2-1.2); Hematocrit 50.8 % (42.0-52.0); Hemoglobin 17.1 g/dL (14.0-18.0); Immature Granulocyte Absolute 0.03 K/mm3 (0.00-0.031); Immature Granulocyte Percent A 0.4 % (0-0.5); Lymphocytes Percent Auto 14.3 % (18.3-44.2); Mean Corpuscular HGB Conc 33.7 g/dl (32-36); Mean Corpuscular Hemoglobin 31.8 pg (26-34); Mean Corpuscular Volume 94.4 fl (80-100); Mean Platelet Volume 10.3 fl (7.4-10.4); Monocytes Absolute Auto 0.5 K/mm3 (0.1-0.6); Monocytes Percent Auto 7.3 % (2.6-8.5); Neutrophils Absolute Auto 5.5 K/mm3 (1.3-6.7); Neutrophils Percent Auto 77.7 % (45.5-73.1); Platelet Count Result 182 k/mm3 (150-375); Red Blood Count 5.38 M/mm3 (4.6-6.20); Red Cell Distribution Width 13.2 % (11.5-14.5)
[2023-12-23 16:28] LABS: Lactic Acid Reflex 1.9 mmol/L (0.7-2.0)
[2023-12-23 16:29] LABS: Alanine Aminotransferase 17 U/L (6-50); Albumin Level 4.4 g/dL (3.5-5.1); Alkaline Phosphatase 89 U/L (38-126); Anion Gap 19 mmol/L (4-12); Aspartate Amino Transferase 29 U/L (17-59); Bilirubin,Total 2.2 mg/dL (0.2-1.3); Blood Urea Nitrogen 14 mg/dL (9-20); Calcium 9.3 mg/dL (8.4-10.2); Carbon Dioxide 20 mmol/L (22-30); Chloride 97 mmol/L (98-107); Estimated CRCL calculation 62 ml/min; Estimated Glomerular Filt Rate > 60; Glucose 75 mg/dL (65-110); Magnesium 2.2 mg/dL (1.6-2.3); Phosphorus 2.8 mg/dL (2.5-4.5); Potassium 4.4 mmol/L (3.4-5.0); Sodium 136 mmol/L (137-145)
[2023-12-23 16:41] LABS: Troponin I < 0.012 ng/mL (0.000-0.034)
[2023-12-23 16:52] LABS: Influenza A QL RT-PCR Negative (Negative); Influenza B QL RT-PCR Negative (Negative); RSV RNA, RT-PCR Negative (Negative); SARS-CoV-2 RNA PCR Negative (Negative)
[2023-12-23] MEDS: IPRATROPIUM 0.5 MG/ALBUTEROL SULFATE 2.5 MG AMPUL.NEB 3 ML 12 ML INHALATION (17:53)
[2023-12-23] MEDS: methylPREDNISolone SOD SUCC 125 MG VIAL IV PUSH (18:17)
--- NOTE | 2023-12-23 19:03 | ED.GENADULT ---
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 Patient started having difficulty breathing 2-3 weeks ago. He has had a productive cough. He he denies fevers. He went saw his primary care physician earlier today who sent the hospital to be evaluated for pneumonia. The patient notes that his abdomen is significantly distended. He had a bowel movement yesterday that was diarrhea. He is still passing gas. No nausea or vomiting. He has had multiple abdominal surgeries including umbilical hernia repair, a laparoscopic cholecystectomy and a right hemicolectomy. Related Data Home Medications Medication Instructions Recorded Confirmed losartan 100 mg tablet 100 mg PO DAILY 03/05/22 11/05/23 atorvastatin 20 mg tablet 20 mg PO DAILY 03/06/22 11/05/23 metoprolol succinate 25 mg 25 mg PO DAILY 03/06/22 11/05/23 tablet,extended release 24 hr potassium chloride 10 mEq 10 meq PO DAILY 11/05/23 11/05/23 tablet,extended release Allergies Allergy/AdvReac Type Severity Reaction Status Date / Time No Known Allergies Allergy Unknown Verified 12/23/23 13:26 [facility] Past Medical History Medical History Alcohol abuse Alpha 1-antitrypsin PiMS phenotype Benign prostate hyperplasia Chronic obstructive pulmonary disease Diastolic congestive heart failure Elevated IgE level Former smoker Hyperlipidemia Hypertension Myocardial infarction Prediabetes Pulmonary nodule Surgical History Surgical History H/O prostatectomy History of cholecystectomy History of colonoscopy with polypectomy History of incisional hernia repair With mesh. History of right hemicolectomy For cecal polyp. 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 He smoked a pack cigarettes a day for nearly 50 years and quit in 2005. He drinks about 5 beers a day. No illicit substance use. Surrogate medical decision maker: Maria Luisa Lee, daughter. Code status: Full code. Smoking packs per day: 1.5 Smoking cigarettes per day: 30.0 Years smoked: 55 Smoking pack-years: 82.50 Smoking status: Former smoker Tobacco type: cigarettes Second hand tobacco smoke exposure: Yes Additional smoking assessment comments: QUIT 2007 Alcohol intake: current Drinks per week: 21 Substance use: never Substance use type: does not use Lack of Transportation: No Lack of Food: Never True Current Housing: I Have Housing Concerned About Future Housing: No Difficulty Paying Gas/Electric Bills: No Difficulty Paying for Meds: No Currently Unemployed: No Education: Trade/Vocational Certificate Difficulty w/ Childcare or Family Care: No Living arrangements: alone Additional living arrangements comments: Occupation/Education: retired Gender identity (if verbalized by the patient): Male Spiritual care concerns: No Agree to blood products: Yes Exam Narrative: APPEARANCE: Patient appears chronically unwell Head: atraumatic. EYES: EOMI, NOSE: Atraumatic NECK: Trachea midline RESPIRATORY: Tachypneic, scattered crackles, positive pressure mask in place CARDIOVASCULAR: RRR, no peripheral edema A
--- NOTE | 2023-12-23 19:26 | ECG_ITS ---
Test Date: 2023-12-23 19:52:55 Measurements Intervals Holden Rate: 81 P: 73 CA: 156 QRS: -6 QRSD: 98 T: 49 QT: 362 QTc: 421 Interpretive Statements SINUS RHYTHM WITH OCCASIONAL VENTRICULAR PREMATURE COMPLEXES Compared to ECG 12/23/2023 14:17:26 Sinus tachycardia no longer present Electronically Signed On 12-24-2023 09:26:41 CDT by Margoth Zaragoza M.D.
--- NOTE | 2023-12-23 20:26 | PM.IMHP ---
H&P: HPI History of Present Illness Date/Time: 12/23/23 20:26 Chief Complaint: shortness of breath Narrative: This is an 78-year-old male with past medical history significant for lung cancer, tobacco dependence, diaphragm paralysis, patient on home vent. Presents to the emergency room with shortness of breath, nausea ,vomiting ,abdominal distention constipation abdominal pain. Patient found to have small-bowel obstruction. Patient was having significant difficulty with vomiting and home vent a was decided to place in on ventilator support. Patient is now on ventilator support and admitted to intensive care unit. XR chest 1V portable Ordering provider: Gerber Roldan MD History: 78 years Male with . SOB . Comparison: February 13, 2022 FINDINGS: MEDIASTINUM: The cardiac silhouette is not enlarged. LUNGS: No infiltrates, effusions or pneumothorax. OTHER: No free air under the diaphragm. Degenerative changes of the spine. Distended Bowel is seen under both hemidiaphragms. IMPRESSION: No acute cardiopulmonary pathology. Distended bowel loops under both hemidiaphragms. Clinical evaluation advised. EXAMINATION: CT chest abdomen pelvis w con DATE: 12/23/2023 18:18 INDICATION: Increased dyspnea and distended abdomen . TECHNIQUE: Computed tomography (CT) of the chest, abdomen, and pelvis was performed with 100 mL Omnipaque-350 intravenous contrast. Automated exposure control and iterative reconstruction technique were employed. The dose-length product was 527.87 mGy-cm. COMPARISON: CT chest 09/08/2023; CTPA with abdomen pelvis 01/07/2022 FINDINGS: CHEST: Thoracic aorta: No significant dilation. No dissection. Mild arch calcification. Lung parenchyma and airways: Segmental acinar opacities in the medial and dependent left lower lobe. Mild subpleural reticulation in the right medial lower lobe. Mild bibasilar scarring. Right apical pleural scarring. Aerated secretions in the trachea. Thoracic inlet, axillae and chest wall: No thyroid or soft tissue mass. No axillary lymphadenopathy. Mediastinum: No mass or lymphadenopathy. Heart and pericardium: Normal heart size. Mitral annulus calcification. No pericardial effusion. Coronary artery calcifications: Mild. Pleura: No effusion or mass. Thoracic bones: No acute osseous finding in the chest. ABDOMEN/PELVIS: Liver: Normal. Biliary/Gallbladder: Gallbladder is absent. No bile duct dilation. Pancreas: No mass or duct dilation. Spleen: Normal. Adrenals:No mass. Kidneys: No suspicious mass, obstructing stone, or hydronephrosis. GI tract: Prior partial right colonic resection with uncomplicated appearing anastomosis. Dilated proximal and transverse colon. Transition point at the splenic flexure. No obstructing mass detected. The distal large bowel remains distended and air-filled but not overtly dilated. No small bowel dilation. Appendix not confidently visualized. Mesentery/Peritoneum: No ascites, mass, or free air. Retroperitoneum: No mass Atherosclerotic abdominal aortic and/or arterial calcifications. Pelvis: Mildly distended urinary bladder with wall thickening, likely secondary to outlet compromise from prostatomegaly. Soft Tissues: Soft tissues and body wall unremarkable. Abdominopelvic bones: No acute osseous finding in the abdomen/pelvis. IMPRESSION: Segmental left lower lobe aspiration. Findings concerning for large bowel obstruction, transition point at the splenic flexure, with dilation of the transverse colon and more proximal colon. Review of Systems Review of Systems: presented to ED due to abdominal distention, n/v. ROS unobtainable: Yes unobtainable due to medical condition (on ventilator support) [facility] Past Medical History Medical History Alcohol abuse Alpha 1-antitrypsin PiMS phenotype Benign prostate hyperplasia Chronic obstructive pulmonary disease Diastolic congestive hea
[2023-12-23 20:28] LABS: Troponin I 0.013 ng/mL (0.000-0.034)
[2023-12-23 21:00] LABS: Base Excess ABG -10.5 mEq/l (+/-2.0); Fractional Inspired Oxygen 21 %; HCO3 ABG 14.5 mEq/l (22.0-26.0); Oxygen Content ABG 21.7 %vol (16.0-22.0); Oxygen Saturation ABG 93.2 % (95.0-100.0); Oxyhemoglobin 92.6 % THb (90.0-100.0); PO2 ABG 72.6 mmHg (80.0-100.0); PO2 FiO2 Ratio Arterial Blood 3.46 %; Total Hemoglobin 16.7 g/dL (12.0-18.0)
[2023-12-23 21:01] LABS: Modified Allen's Test Pass; Site Drawn RIGHT RADIAL; pH ABG 7.289 (7.350-7.450)
[2023-12-23 21:02] LABS: Device OTHER DEVICE
[2023-12-23 21:11] LABS: Add Urine Microscopic? YES; Appearance Urine Clear (Clear); Bacteria Urine None Seen /hpf; Bilirubin Urine 2+ (Negative); Blood Urine Negative (Negative); Color Urine Dark Yellow (Yellow); Glucose Urine UA Negative (Negative); Ketones Urine 4+ mg/dL (Negative); Leukocyte Esterase Ur Negative LEU/UL (Negative); Need Manual Microscopic Reviewed; Nitrate Urine Negative (Negative); Non Pathogenic Casts 0-2; Protein Urine 1+ mg/dL (Negative); RBC Urine 0-2 /hpf (0-2); Specific Grav Ur 1.027 (1.001-1.035); Squamous Epithelial Cell Urine None Seen /hpf (Few); WBC Urine 0-5 /hpf (0-3); pH Urine 5.5 (5.0-9.0)
[2023-12-23 21:19] LABS: MRSA (PCR) NOT DETECTED (NOT DETECTE)
--- NOTE | 2023-12-23 21:27 | PC.NURSE ---
2127 etomidate 20mg 2127 maisha 100mg intubated at 2129 7.5 ETT 21 at the lip NG placed at 2130 2131 1mg diladid 2132 2 ativan
[2023-12-23] MEDS: FENTANYL 2,500MCG/NS250ML(*CRX 2,500 MCG/250 ML BAG 10 MCG IV CONT (22:00)
[2023-12-23] MEDS: MIDAZOLAM 100MG/NS 100ML(*CRX) 100 MG/100 ML BAG IV CONT (22:05)
[2023-12-23] MEDS: PIPERACILLN/TAZ 3.375GM/NS50ML 3.375 GM/50 ML BAG IVPB (22:25)
[2023-12-23 22:31] LABS: Alveolar/Arterial O2 Gradient 167.6 mmHg; Base Excess ABG -10.5 mEq/l (+/-2.0); Fractional Inspired Oxygen 50 %; HCO3 ABG 14.6 mEq/l (22.0-26.0); Oxygen Content ABG 22.5 %vol (16.0-22.0); Oxygen Saturation ABG 98.8 % (95.0-100.0); Oxyhemoglobin 98.2 % THb (90.0-100.0); PCO2 ABG 30.8 mmHg (35.0-45.0); PO2 ABG 154.3 mmHg (80.0-100.0); PO2 FiO2 Ratio Arterial Blood 3.09 %; Total Hemoglobin 16.1 g/dL (12.0-18.0)
[2023-12-23 22:32] LABS: Device VENTILATOR; Modified Allen's Test Pass; Site Drawn RIGHT RADIAL; pH ABG 7.293 (7.350-7.450)
[2023-12-23 22:33] LABS: Arterial Blood Gas PEEP 5 cmH2O; Arterial Blood Gas Tidal Volume 450 ml; Arterial Blood Gas Vent Mode CMV; Arterial Blood Gas Ventilator rate 16 /MIN
[2023-12-23] MEDS: LACTATED RINGERS 1,000 ML 125 ML IV CONT (22:35)
--- NOTE | 2023-12-23 22:53 | ADMGEN ---
This patient, Odilon Lee, was admitted to Intensive Care Unit-5. Patient/family oriented to hospital policies and general routines including ID bracelet, bed and alarms, visiting hours, pain management, procedures, bathroom and other care routines, personal items, smoking policy, room service/diet, and visiting hours. Information on how to activate the Rapid Response Team has been discussed. Patient/Family are encouraged to report perceived risks to care and to ask questions if they do not understand what they are told or what they should do.
[2023-12-23] MEDS: VANCOMYCIN 1,750 MG/NS 500 ML 1,750 MG/500 ML BAG 250 MG IVPB (23:08)
[2023-12-24] VITALS (26 sets, daily range): BP systolic 95–143; BP diastolic 56–73; PULSE 50–82; RESP 14–24; TEMP 36.1–36.8; O2SAT 94–100; BMI 25.7
[2023-12-24 00:08] LABS: Glucose Point of Care 90 mg/dl (65-105)
[2023-12-24] MEDS: SODIUM BICARBONATE 8.4% 50 MEQ/50 ML SYRINGE IV PUSH (00:11)
[2023-12-24] MEDS: SODIUM BICARBONATE 8.4% 150 MEQ in DEXTROSE 5% 1,000 ML 950 ML 125 MEQ IV CONT ×2 (01:15→09:50)
[2023-12-24 01:26] LABS: MRSA (PCR) NOT DETECTED (NOT DETECTE)
[2023-12-24 04:59] LABS: Eosinophils Percent Auto 0.2 % (0-4.4); Hematocrit 41.4 % (42.0-52.0); Hemoglobin 15.5 g/dL (14.0-18.0); Immature Granulocyte Absolute 0.03 K/mm3 (0.00-0.031); Immature Granulocyte Percent A 0.5 % (0-0.5); Lymphocytes Absolute Auto 0.72 K/mm3 (0.9-3.2); Lymphocytes Percent Auto 11.8 % (18.3-44.2); Mean Corpuscular HGB Conc 37.4 g/dl (32-36); Mean Corpuscular Hemoglobin 37.5 pg (26-34); Mean Corpuscular Volume 100.2 fl (80-100); Mean Platelet Volume 10.6 fl (7.4-10.4); Monocytes Absolute Auto 0.2 K/mm3 (0.1-0.6); Monocytes Percent Auto 2.5 % (2.6-8.5); Neutrophils Absolute Auto 5.2 K/mm3 (1.3-6.7); Platelet Count Result 145 k/mm3 (150-375); Red Blood Count 4.13 M/mm3 (4.6-6.20); Red Cell Distribution Width 13.3 % (11.5-14.5); White Blood Count 6.1 K/mm3 (4.5-10.0)
[2023-12-24 05:03] LABS: Alveolar/Arterial O2 Gradient 120.1 mmHg; Base Excess ABG -3.7 mEq/l (+/-2.0); Carboxyhemoglobin 0.2 % THb (0-2.0); Fractional Inspired Oxygen 40 %; HCO3 ABG 20.2 mEq/l (22.0-26.0); Methemoglobin ABG 0.3 %THb (0-1.5); Oxygen Content ABG 21.4 %vol (16.0-22.0); Oxygen Saturation ABG 98.5 % (95.0-100.0); Oxyhemoglobin 98.3 % THb (90.0-100.0); PCO2 ABG 33.6 mmHg (35.0-45.0); PO2 ABG 126.5 mmHg (80.0-100.0); PO2 FiO2 Ratio Arterial Blood 3.16 %; Reduced Hemoglobin 1.2 %THb (0-5.0); Total Hemoglobin 15.4 g/dL (12.0-18.0); pH ABG 7.397 (7.350-7.450)
[2023-12-24 05:06] LABS: Alanine Aminotransferase 12 U/L (6-50); Albumin Level 3.4 g/dL (3.5-5.1); Alkaline Phosphatase 61 U/L (38-126); Anion Gap 16 mmol/L (4-12); Aspartate Amino Transferase 28 U/L (17-59); Bilirubin,Total 1.8 mg/dL (0.2-1.3); Blood Urea Nitrogen 11 mg/dL (9-20); Carbon Dioxide 16 mmol/L (22-30); Chloride 103 mmol/L (98-107); Estimated CRCL calculation 78 ml/min; Estimated Glomerular Filt Rate > 60; Glucose 141 mg/dL (65-110); Magnesium 2.3 mg/dL (1.6-2.3); Phosphorus 3.1 mg/dL (2.5-4.5); Potassium 4.7 mmol/L (3.4-5.0); Sodium 135 mmol/L (137-145)
[2023-12-24] MEDS: PIPERACILLN/TAZ 3.375GM/NS50ML 3.375 GM/50 ML BAG IVPB ×3 (05:45→17:01)
[2023-12-24 06:02] LABS: Device VENTILATOR; Modified Allen's Test Pass; Site Drawn RIGHT RADIAL
[2023-12-24 06:04] LABS: Arterial Blood Gas PEEP 5 cmH2O; Arterial Blood Gas Tidal Volume 450 ml; Arterial Blood Gas Vent Mode CMV; Arterial Blood Gas Ventilator rate 16 /MIN
[2023-12-24 08:00] LABS: Glucose Point of Care 185 mg/dl (65-105)
[2023-12-24] MEDS: ENOXAPARIN 40 MG/0.4 ML SYRINGE SUB-Q (08:54)
[2023-12-24] MEDS: PANTOPRAZOLE SODIUM IV 40 MG VIAL IV PUSH (08:54)
[2023-12-24] MEDS: LIDOCAINE HCL 1% PF INJ 5 ML VIAL INFILTRATE (09:10)
--- NOTE | 2023-12-24 09:49 | WPDGICN ---
Assessment and Plan Assessment and plan (1) Large bowel obstruction: Code(s): K56.609 - Unspecified intestinal obstruction, unspecified as to partial versus complete obstruction Status: Acute (2) Aspiration pneumonia: Code(s): J69.0 - Pneumonitis due to inhalation of food and vomit Status: Acute (3) Acute and chronic respiratory failure: Code(s): J96.20 - Acute and chronic respiratory failure, unspecified whether with hypoxia or hypercapnia Status: Acute Plan 1. Large bowel obstruction/ Hx of right hemicolectomy/Hx of adenomatous colon polyps: CT abdomen pelvis shows findings concerning for large bowel obstruction, transition point at the splenic flexure, with dilation of the transverse colon and more proximal colon. Per nurse, he has had no bowel movements since been up to the ICU. Last colonoscopy 08/02/[address] Wolfe for occult stool with ileocolonic anastomosis in the right colon showed three medium sessile polyps at the hepatic flexure that were removed (tubular adenomas x3). Hx of right hemicolectomy in 2011 due to a large villous adenomatous polyp. He is currently sedated and vented and being treated for aspiration pneumonia. His abdomen is distended but soft and non tender with high-pitched tinkling bowel sounds consistent with continued bowel obstruction currently and has an OG in place to suction. Surgery has been consulted as well. Could be acute pseudo-obstruction other differentials including adhesions, malignancy, or large colon polyps. - Due to current respiratory status and DNR, would like to avoid any colonic decompression at this time. - Continue NG tube decompression to see if will resolve without intervention - Supportive care recommended - Serial abdominal X-rays. Order placed for obstructive series in AM. - Appreciate surgery recommendations as well. This report may have been done utilizing a voice recognition system. Attempts have been made to correct errors. However, there may be uncorrected grammatical, spelling, and recognition errors present. 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 At home, he is on non invasive ventilator. Asked to be seen at the request of hospitalist for large bowel obstruction. He was seen by his PCP, Dr. Forman on 12/23/23 for difficulty breathing and was advised to be seen in ER for pneumonia. HPI is obtained from medical records as he is sedated and currently vented. Had increased difficulty breathing x2-3 weeks with productive cough. He also notes that his abdomen has been significantly distended with last bowel movement 12/21 the day prior that was diarrhea per ER note that he had reported to them. He is currently intubated with respiratory failure and has an NG in place. Per RN, Esteban, no BM since admission. Plan for PICC line. His sister his is POA at this time and currently DNR. ENDOSCOPY HISTORY: COLONOSCOPY: 08/02/2021 Dr. Wolfe (for occult stool with ileocolonic anastomosis in the right colon) Three medium sessile polyps observed at the hepatic flexure that were removed and completely excised and medium-sized uncomplicated internal hemorrhoids Repeat colonoscopy was recommended in 5 years COLON POLYPS x3 AT HEPATIC FLEXURE, ENDOSCOPIC HOT SNARE POLYPECTOMY: - TUBULAR ADENOMAS x3 IMAGING: CT chest abdomen pelvis w con 12/23/2023 Indication: Increased dyspnea and distended abdomen Prior partial right colonic resectio
--- NOTE | 2023-12-24 09:58 | WPDCNINT ---
Assessment and Plan Assessment and plan (1) Acute and chronic respiratory failure: Code(s): J96.20 - Acute and chronic respiratory failure, unspecified whether with hypoxia or hypercapnia Status: Acute Assessment and Plan: Acute on chronic Respiratory failure secondary to baseline severe COPD, lung cancer, diaphragmatic paralysis and now acutely worsened with aspiration pneumonia and bowel obstruction patient now intubated and on mechanical ventilation Continue full mechanical ventilation support to prevent hypoxemia/hypercarbia and end organ damage. ABG and PCXR done this morning reviewed reviewed and will repeat in am. Decrease tidal volume to 420 Bronchodilators ordered empiric Zosyn for aspiration pneumonia cultures have been sent and pending (2) Diaphragm paralysis: Code(s): J98.6 - Disorders of diaphragm Status: Acute Assessment and Plan: patient had phrenic nerve EMG done at 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 patient is on AVAPS most of the day and only takes breaks to eat food per daughter management is going to be difficult in light of bowel obstruction as he would not be a candidate for NIPPV unless bowel obstruction resolves or he may need a tracheostomy down the line (3) Large bowel obstruction: Code(s): K56.609 - Unspecified intestinal obstruction, unspecified as to partial versus complete obstruction Status: Acute Assessment and Plan: npo gastric tube is in place and low intermittent suction GI and surgery consulted (4) Non-small cell cancer of right lung: Code(s): C34.91 - Malignant neoplasm of unspecified part of right bronchus or lung Status: Acute Assessment and Plan: inoperable and patient receiving radiation treatment (5) Chronic obstructive pulmonary disease: Code(s): J44.9 - Chronic obstructive pulmonary disease, unspecified Status: Acute Assessment and Plan: see above (6) Aspiration pneumonia: Code(s): J69.0 - Pneumonitis due to inhalation of food and vomit Status: Acute Assessment and Plan: see above Plan DVT prophylaxis - Lovenox Stress ulcer prophylaxis - Protonix Nutrition - npo Code Status - patient is DNR which I have confirmed with patient's daughter Total Critical Care Time - 35 minutes Due to a high probability of clinically significant, life threatening deterioration, the patient required my highest level of preparedness to intervene emergently and I personally spent this critical care time directly and personally managing the patient. This critical care time included obtaining a history; examining the patient; pulse oximetry; ordering and review of studies; arranging urgent treatment with development of a management plan; evaluation of patient's response to treatment; frequent reassessment; and discussions with other providers. It was exclusive of separately billable procedures and treating other patients and teaching time. Please see Assessment and Plan section and the rest of the note for further information on patient assessment and treatment Catering Administrative Assistant Consult Note Consult date: 12/24/23 Reason for consult: acute respiratory failure HPI: Odilon Lee is a 78 year old male with past medical history of GOLD grade 2 group B COPD, diaphragm paralysis and inoperable squamous cell lung cancer stage IA2 receiving radiation therapy who is on AVAPS at home most part of the day presented yesterday to ER with chief complaint off difficulty breathing cough but no fever abdomen distension and abdominal pain. No nausea vomiting. Workup in the ER showed following CT chest abdomen pelvis: Segmental left lower lobe aspiration. Findings concerning for large bowel obstruction, transition point at the splenic flexure, with dilation of the transverse colon and more proximal colon. A NG-tube was placed but as patient was on positive p
[2023-12-24 11:59] LABS: Glucose Point of Care 248 mg/dl (65-105)
[2023-12-24] MEDS: INSULIN ASPART (*BKC) 100 UNITS/ML SUB-Q (12:29)
[2023-12-24] MEDS: SODIUM BICARBONATE 8.4% 150 MEQ in WATER, STERILE FOR INJECTION 950 ML 125 MEQ IV CONT ×2 (13:26→21:51)
[2023-12-24] MEDS: CENTRAL LINE FLUSH 10 ML IV PUSH ×3 (13:27→20:46)
--- NOTE | 2023-12-24 16:22 | WPDCN ---
Assessment and Plan Assessment and plan (1) Aspiration pneumonia: Code(s): J69.0 - Pneumonitis due to inhalation of food and vomit Status: Acute Assessment and Plan: patient appears to have pneumonia and is intubated and sedated. Continue ventilator support as per office director. Continue IV antibiotics as per office director. (2) Large bowel obstruction: Code(s): K56.609 - Unspecified intestinal obstruction, unspecified as to partial versus complete obstruction Status: Acute Assessment and Plan: The colonic obstruction could be functional or mechanical. Given his pneumonia he could have an ileus causing the dilated colon and have a functional ileus. However cannot rule out a mechanical obstruction such as a stricture or mass. He is not stable enough to get a colonoscopy performed. After speaking with the patient's family who is his POA she does not wish to proceed with any operative management at this time to give him a palliative the ostomy. I feel any surgical management of this patient requiring any bowel resection or placement in ostomy would likely result in the patient being ventilator dependent the rest of his life with need for tracheostomy. Patient's family does not seem to think that he would want this to be done. For now wall continue supportive management. There is no evidence that he has ischemic or necrotic bowel that would necessitate any emergent surgical resection. (3) Acute and chronic respiratory failure: Code(s): J96.20 - Acute and chronic respiratory failure, unspecified whether with hypoxia or hypercapnia Status: Acute Assessment and Plan: Continue aggressive ventilatory support. 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 Most likely results will probably be the patient will get a tracheostomy and the long-term weaning off of the ventilator if he can be weaned at all. This was briefly discussed with the patient's family at the bedside and for now they seem to feel that the patient would not want to have a tracheostomy in be on long-term vent support. Then inquired about the possibility of hospice care and comfort measures and at this time I think continued supportive management is indicated but if there is no improvement or he has a deteriorating clinical status then I feel hospice and comfort measures would be appropriate. (5) Non-small cell cancer of right lung: Code(s): C34.91 - Malignant neoplasm of unspecified part of right bronchus or lung Status: Acute Assessment and Plan: Treated with radiation and apparently is disease free at this point. HPI Data of Consult Date/Time: 12/24/23 16:22 Requesting Physician: Sony Demarco MD Primary Care Provider: Tiffanie Forman MD Consult Narrative Reason for consult: Colonic distension, possible colonic obstruction Narrative: Odilon Lee is a 78 year old male admitted to the hospital with pneumonia and now was a ventilator in the ICU. He has a prior history of lung cancer is treated with radiation therapy and apparently is now free of disease. However he has bilateral paralyzed diaphragms and so he is on constant positive pressure ventilation with BiPAP at home. His family who is at the bedside states that over the past couple years this has progressively gotten worse to the point that he is now continuously on the BiPAP. He did undergo a laparoscopic cholecystectomy about [address] Izquierdo but at that time his pulmonary condition was not as bad. His abdomen was distended and so a CT scan abdomen pelvis was performed and this shows colonic distension with a possible obstruction at the splenic flexure. He had a prior right hemicolectomy in the past and there appears to be no evidence of a small-bowel obstruction. He
[2023-12-24 16:31] LABS: Glucose Point of Care 168 mg/dl (65-105)
[2023-12-24 20:32] LABS: Glucose Point of Care 143 mg/dl (65-105)
[2023-12-24] MEDS: MINERAL OIL/WHITE PETROLATUM OINTMENT 1 APPLIC EACH EYE (20:55)
[2023-12-25] VITALS (22 sets, daily range): BP systolic 93–118; BP diastolic 50–65; PULSE 50–81; RESP 13–18; TEMP 36.1–36.8; O2SAT 95–99
[2023-12-25] MEDS: PIPERACILLN/TAZ 3.375GM/NS50ML 3.375 GM/50 ML BAG IVPB ×5 (00:07→23:15)
[2023-12-25 00:24] LABS: Glucose Point of Care 92 mg/dl (65-105)
[2023-12-25 04:18] LABS: Glucose Point of Care 84 mg/dl (65-105)
[2023-12-25 04:21] LABS: Hematocrit 39.4 % (42.0-52.0); Hemoglobin 13.4 g/dL (14.0-18.0); Immature Platelet Fraction Pct 4.1 % (0.9-11.2); Mean Corpuscular Hemoglobin 32.1 pg (26-34); Mean Corpuscular Volume 94.3 fl (80-100); Mean Platelet Volume 10.4 fl (7.4-10.4); Platelet Count Result 118 k/mm3 (150-375); Red Blood Count 4.18 M/mm3 (4.6-6.20); Red Cell Distribution Width 13.2 % (11.5-14.5); White Blood Count 7.8 K/mm3 (4.5-10.0)
[2023-12-25 04:36] LABS: Alanine Aminotransferase 12 U/L (6-50); Albumin Level 2.6 g/dL (3.5-5.1); Alkaline Phosphatase 55 U/L (38-126); Aspartate Amino Transferase 22 U/L (17-59); Bilirubin,Total 1.1 mg/dL (0.2-1.3); Blood Urea Nitrogen 12 mg/dL (9-20); Calcium 7.6 mg/dL (8.4-10.2); Carbon Dioxide > 40 mmol/L (22-30); Chloride 92 mmol/L (98-107); Estimated CRCL calculation 68 ml/min; Estimated Glomerular Filt Rate > 60; Glucose 83 mg/dL (65-110); Magnesium 1.9 mg/dL (1.6-2.3); Phosphorus 1.7 mg/dL (2.5-4.5); Potassium 2.7 mmol/L (3.4-5.0); Sodium 135 mmol/L (137-145)
[2023-12-25 04:57] LABS: Base Excess ABG 10.1 mEq/l (+/-2.0); Carboxyhemoglobin 0.2 % THb (0-2.0); Fractional Inspired Oxygen 30 %; HCO3 ABG 33.8 mEq/l (22.0-26.0); Methemoglobin ABG 0.1 %THb (0-1.5); Oxygen Content ABG 19.5 %vol (16.0-22.0); Oxygen Saturation ABG 97.4 % (95.0-100.0); Oxyhemoglobin 97.2 % THb (90.0-100.0); PCO2 ABG 41.5 mmHg (35.0-45.0); PO2 ABG 87.1 mmHg (80.0-100.0); Reduced Hemoglobin 2.5 %THb (0-5.0); Total Hemoglobin 14.2 g/dL (12.0-18.0); pH ABG 7.529 (7.350-7.450)
[2023-12-25 04:58] LABS: Arterial Blood Gas PEEP 5 cmH2O; Arterial Blood Gas Vent Mode CMV; Arterial Blood Gas Ventilator rate 16 /MIN; Device VENTILATOR; Modified Allen's Test Pass; Site Drawn RIGHT RADIAL
[2023-12-25 04:59] LABS: Arterial Blood Gas Tidal Volume 420 ml
[2023-12-25] MEDS: KCL 40 MEQ/WATER 100 ML 100 ML 25 ML IVPB (05:26)
[2023-12-25] MEDS: SODIUM BICARBONATE 8.4% 150 MEQ in WATER, STERILE FOR INJECTION 950 ML 125 MEQ IV CONT (06:16)
[2023-12-25] MEDS: CENTRAL LINE FLUSH 10 ML IV PUSH ×3 (06:16→20:20)
[2023-12-25 07:44] LABS: Glucose Point of Care 68 mg/dl (65-105)
[2023-12-25] MEDS: DEXTROSE 50% 25 GM/50 ML SYRINGE IV PUSH ×2 (07:58→19:20)
[2023-12-25] MEDS: PANTOPRAZOLE SODIUM IV 40 MG VIAL IV PUSH (07:59)
[2023-12-25] MEDS: ENOXAPARIN 40 MG/0.4 ML SYRINGE SUB-Q (07:59)
[2023-12-25] MEDS: MINERAL OIL/WHITE PETROLATUM OINTMENT 1 APPLIC EACH EYE ×2 (08:00→20:20)
[2023-12-25] MEDS: CALCIUM GLUC 2,000 MG/NS 100ML 2,000 MG/100 ML BAG 100 MG IVPB (09:04)
[2023-12-25] MEDS: POTASSIUM PHOS,M-BASIC-D-BASIC 40 MMOL in SODIUM CHLORIDE 0.9% IV 250 ML 43.89 MMOL IVPB (09:04)
--- NOTE | 2023-12-25 09:15 | WPDINTPN ---
Progress Note: A&P Assessment and Plan (1) Acute and chronic respiratory failure: Code(s): J96.20 - Acute and chronic respiratory failure, unspecified whether with hypoxia or hypercapnia Status: Acute Assessment and Plan: Acute on chronic Respiratory failure secondary to baseline severe COPD, lung cancer, diaphragmatic paralysis and now acutely worsened with aspiration pneumonia and bowel obstruction patient now intubated and on mechanical ventilation Continue full mechanical ventilation support to prevent hypoxemia/hypercarbia and end organ damage. ABG and PCXR done this morning reviewed reviewed and will repeat in am. 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 Patient's family does not believe the patient would want tracheostomy. (3) Large bowel obstruction: Code(s): K56.609 - Unspecified intestinal obstruction, unspecified as to partial versus complete obstruction Status: Acute Assessment and Plan: 12/24 K UB- Gaseous distention of the colon, consistent with adynamic ileus versus obstruction. continue npo gastric tube is in place and low intermittent suction GI and surgery have evaluated the patient. patient's daughter has decided not to pursue any surgical operative therapy at this time and want to continue with conservative treatment. (4) Non-small cell cancer of right lung: Code(s): C34.91 - Malignant neoplasm of unspecified part of right bronchus or lung Status: Acute Assessment and Plan: inoperable and patient r received radiation treatment (5) Chronic obstructive pulmonary disease: Code(s): J44.9 - Chronic obstructive pulmonary disease, unspecified Status: Acute Assessment and Plan: see above (6) Aspiration pneumonia: Code(s): J69.0 - Pneumonitis due to inhalation of food and vomit Status: Acute Assessment and Plan: see above (7) Acidosis: Code(s): E87.20 - Acidosis, unspecified Status: Acute Assessment and Plan: on presentation patient had metabolic acidosis secondary to sepsis which was treated with IV fluids with a bicarb. Acidosis resolved and patient is now in fact little alkalotic. IV fluids have been discontinued and vent changes as above (8) Electrolyte abnormality: Code(s): E87.8 - Other disorders of electrolyte and fluid balance, not elsewhere classified Status: Acute Assessment and Plan: low potassium replacement ordered Plan DVT prophylaxis - Lovenox Stress ulcer prophylaxis - Protonix Nutrition - npo at this time. May need TPN Code Status - patient is DNR which I have confirmed with patient's daughter Total Critical Care Time - 32 minutes Due to a high probability of clinically significant, life threatening deterioration, the patient required my highest level of preparedness to intervene emergently and I personally spent this critical care time directly and personally managing the patient. This critical care time included obtaining a history; examining the patient; pulse oximetry; ordering and review of studies; arranging urgent treatment with development of a management plan; evaluation of patient's response to treatment; frequent reassessment; and discussions with other providers. It was exclusive of separately billable procedures and treating other pa
[2023-12-25 09:16] LABS: Glucose Point of Care 82 mg/dl (65-105)
[2023-12-25] MEDS: DEXTROSE 5%/0.9% SOD CHL 1,000 ML 50 ML IV CONT (10:34)
--- NOTE | 2023-12-25 10:37 | PM.EVENT ---
Event Note Event Note Event Note: Spoke to patient's daughter and had detailed discussion with with her regarding patient's current status, current treatment plan, prognosis and goals of care. She states that she has thought about current situation after discussion with surgeon GI and also discussed among family members. She feels the patient had a very poor quality life even before which he got sick with being on a BiPAP throughout the day. She does not believe the patient wants tracheostomy or prolonged stay on the ventilator. she feels the patient would not want to continue living like this considering his age and medical problems. She has decided, in accordance with pt's wishes, to discontinue all medical therapy and institute comfort measures only. I have explained to her that I will use opioids, anxiolytics and other agents on as needed basis to promote comfort and discontinue all medical therapy, lab testing and invasive monitoring. patient will palliatively extubated and eventually he will pass away. Patient's daughter verbalized understanding and wants to proceed once all other family members have visited patient which will be later in the day or tonight. we have decided not to further escalate care at this point and continue supportive care the patient currently on until family is ready to proceed with palliative extubation and comfort care. I requested nurse to notify patient's primary physician regarding the plan
[2023-12-25 10:52] LABS: Glucose Point of Care 94 mg/dl (65-105)
--- NOTE | 2023-12-25 11:01 | PCFNICU ---
ICU Rounding Note: Pt current nutrition is NPO. Nutrition recommendation: No recommendations. Last recorded weight is 75 kg, up from 74.4 kg on admit. Bowel Motility: Last reported BM 12/21 Labs Reviewed:Na 135, K 2.7 Meds Noted:Versed,Fentanyl, Protonix Skin: WNL Additional Notes: Patient remains on a mechanical vent. No plans for nutrition as per S[employer] es family has decided on comfort care today. No further nutritional interventions. Following daily in ICU rounds.
[2023-12-25 11:55] LABS: Glucose Point of Care 82 mg/dl (65-105)
--- NOTE | 2023-12-25 12:44 | PM.IMPN ---
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 Family does want palliative extubation but is waiting on family. DNR. Subjective Date/time seen: 12/25/23 12:44 Interval history: Patient remains sedated and vented Review of Systems Review of Systems: ROS unobtainable: Yes unobtainable due to medical condition Exam Const: General: comfortable Neck: Neck: supple Resp: Other: Coarse breath sounds Cardio: Rate: regular rate Rhythm: regular rhythm GI: Inspection: distended GI Palp: Yes Soft to palpation and No Tenderness to palpation present (GI) Extrem: General: no edema Objective Data Vital Signs Vital Signs: Vital Signs - 24 hr 12/24/23 14:00 12/24/23 14:30 12/24/23 16:00 Temperature 97.6 F 97.5 F L Pulse Rate 57 L 57 L 57 L Respiratory Rate 16 16 Blood Pressure 95/58 L 113/59 L Pulse Oximetry 98 95 98 Oxygen Delivery Mechanical Ventilation Fraction of Inspired Oxygen 40 12/24/23 14:00 12/24/23 14:00 12/24/23 16:00 Temperature Pulse Rate 58 L 56 L 58 L Respiratory Rate 16 16 Blood Pressure Pulse Oximetry Oxygen Delivery Fraction of Inspired Oxygen 12/24/23 14:00 12/24/23 16:00 12/24/23 16:00 Temperature Pulse Rate 56 L 58 L Respiratory Rate 16 16 17 Blood Pressure Pulse Oximetry 98 Oxygen Delivery Mechanical Ventilation Fraction of Inspired Oxygen 40 12/24/23 16:00 12/24/23 16:00 12/24/23 17:30 Temperature Pulse Rate 57 L 59 L Respiratory Rate Blood Pressure Pulse Oximetry 94 Oxygen Delivery Mechanical Ventilation Fraction of Inspired Oxygen 40 30 12/24/23 18:00 12/24/23 18:00 12/24/23 18:00 Temperature 97.6 F Pulse Rate 54 L 55 L 55 L Respiratory Rate 16 16 Blood Pressure 99/58 L Pulse Oximetry 98 Oxygen Delivery Fraction of Inspired Oxygen 12/24/23 18:00 12/24/23 20:20 12/24/23 20:15 Temperature Pulse Rate 55 L 82 78 Respiratory Rate 16 24 H 20 Blood Pressure Pulse Oximetry Oxygen Delivery Fraction of Inspired Oxygen 12/24/23 20:00 12/24/23 20:00 12/24/23 20:00 Temperature 97.7 F Pulse Rate 50 L 50 L Respiratory Rate 16 16 Blood Pressure 100/60 Pulse Oximetry 98 98 Oxygen Delivery Mechanical Ventilation Fraction of Inspired Oxygen 30 30 12/24/23 20:00 12/24/23 22:00 12/24/23 22:00 Temperature 97.8 F Pulse Rate 50 L 57 L 57 L Respiratory Rate 16 Blood Pressure 104/59 L Pulse Oximetry 99 Oxygen Delivery Fraction of Inspired Oxygen 12/24/23 22:00 12/24/23 22:00 12/24/23 20:30 Temperature Pulse Rate 57 L 57 L 62 Respiratory Rate 16 16 Blood Pressure Pulse Oximetry 96 Oxygen Delivery Mechanical Ventilation Fraction of Inspired Oxygen 30 12/24/23 23:13 12/25/23 00:00 12/25/23 00:00 Temperature Pulse Rate 52 L 55 L 54 L Respiratory Rate 16 16 Blood Pressure Pulse Oximetry 99 Oxygen Delivery Mechanical Ventilation Fraction of Inspired Oxygen 30 12/25/23 00:00 12/25/23 00:00 12/25/23 00:00 Temperature 97.5 F L Pulse Rate 55 L 55 L Respiratory Rate 16 16 Blood Pressure 111/65 Pulse Oximetry 99 99 Oxygen Delivery Mechanical Ventilation Fraction of Inspired Oxygen 30 30 12/25/23 00:00 12/25/23 01:48 12/25/23 02:00 Temperature Pulse Rate 55 L 50 L 53 L Respiratory Rate Blood Pressure Pulse Oximetry 99 Oxygen Delivery Mechanical Ventilation Fraction of Inspired Oxygen 30 12/25/23 02:00 12/25/23 02:00 12/25/23 02:00 Temperature 97.3 F L Pulse Rate 50 L 50 L 50 L Respiratory Rate 16 16 16 Blood Pressure 102/52 L Pulse Oximetry 99 Oxygen Delivery Fra
--- NOTE | 2023-12-25 12:45 | WPDGIPROGNO ---
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 Cardiac: RRR. Normal S1 S2. No murmurs Circulation: Pedal pulses are intact and symmetrical. Abdomen: Decreased but present bowel sounds. Obese. Soft. belly is distended but does not appear to be tender Extremities: No clubbing, cyanosis or edema. Warm : Posey in place Neurologic: Unable to assess due to sedation. Tries to open her his eyes on calling his name and follows commands with extremities PERRL Objective Data Vital Signs Vital Signs: Vital Signs - 24 hr 12/24/23 14:00 12/24/23 14:30 12/24/23 16:00 Temperature 97.6 F 97.5 F L Pulse Rate 57 L 57 L 57 L Respiratory Rate 16 16 Blood Pressure 95/58 L 113/59 L Pulse Oximetry 98 95 98 Oxygen Delivery Mechanical Ventilation Fraction of Inspired Oxygen 40 12/24/23 14:00 12/24/23 14:00 12/24/23 16:00 Temperature Pulse Rate 58 L 56 L 58 L Respiratory Rate 16 16 Blood Pressure Pulse Oximetry Oxygen Delivery Fraction of Inspired Oxygen 12/24/23 14:00 12/24/23 16:00 12/24/23 16:00 Temperature Pulse Rate 56 L 58 L Respiratory Rate 16 16 17 Blood Pressure Pulse Oximetry 98 Oxygen Delivery Mechanical Ventilation Fraction of Inspired Oxygen 40 12/24/23 16:00 12/24/23 16:00 12/24/23 17:30 Temperature Pulse Rate 57 L 59 L Respiratory Rate Blood Pressure Pulse Oximetry 94 Oxygen Delivery Mechanical Ventilation Fraction of Inspired Oxygen 40 30 12/24/23 18:00 12/24/23 18:00 12/24/23 18:00 Temperature 97.6 F Pulse Rate 54 L 55 L 55 L Respiratory Rate 16 16 Blood Pressure 99/58 L Pulse Oximetry 98 Oxygen Delivery Fraction of Inspired Oxygen 12/24/23 18:00 12/24/23 20:20 12/24/23 20:15 Temperature Pulse Rate 55 L 82 78 Respiratory Rate 16 24 H 20 Blood Pressure Pulse Oximetry Oxygen Delivery Fraction of Inspired Oxygen 12/24/23 20:00 12/24/23 20:00 12/24/23 20:00 Temperature 97.7 F Pulse Rate 50 L 50 L Respiratory Rate 16 16 Blood Pressure 100/60 Pulse Oximetry 98 98 Oxygen Delivery Mechanical Ventilation Fraction of Inspired Oxygen 30 30 12/24/23 20:00 12/24/23 22:00 12/24/23 22:00 Temperature 97.8 F Pulse Rate 50 L 57 L 57 L Respiratory Rate 16 Blood Pressure 104/59 L Pulse Oximetry 99 Oxygen Delivery Fraction of Inspired Oxygen 12/24/23 22:00 12/24/23 22:00 12/24/23 20:30 Temperature Pulse Rate 57 L 57 L 62 Respiratory Rate 16 16 Blood Pressure Pulse Oximetry 96 Oxygen Delivery Mechanical Ventilation Fraction of Inspired Oxygen 30 12/24/23 23:13 12/25/23 00:00 12/25/23 00:00 Temperature Pulse Rate 52 L 55 L 54 L Respiratory Rate
[2023-12-25 15:25] LABS: Anion Gap 2 mmol/L (4-12); Blood Urea Nitrogen 11 mg/dL (9-20); Calcium 7.9 mg/dL (8.4-10.2); Carbon Dioxide 39 mmol/L (22-30); Chloride 93 mmol/L (98-107); Estimated CRCL calculation 68 ml/min; Estimated Glomerular Filt Rate > 60; Glucose 70 mg/dL (65-110); Phosphorus 4.8 mg/dL (2.5-4.5); Potassium 3.9 mmol/L (3.4-5.0); Sodium 134 mmol/L (137-145)
[2023-12-25] MEDS: MIDAZOLAM 100MG/NS 100ML(*CRX) 100 MG/100 ML BAG IV CONT (15:54)
[2023-12-25] MEDS: FENTANYL 2,500MCG/NS250ML(*CRX 2,500 MCG/250 ML BAG IV CONT (15:58)
--- NOTE | 2023-12-25 17:11 | WPDPN ---
Progress Note: A&P Assessment and Plan (1) Large bowel obstruction: Code(s): K56.609 - Unspecified intestinal obstruction, unspecified as to partial versus complete obstruction Status: Acute Assessment and Plan: Clinically the patient is about the same regards to his colonic obstruction. Family has decided on comfort measures now and had plans for extubation and terminal wean tomorrow after he has had a chance to come to the hospital. With this in mind, there is obviously no need for further surgical management. Subjective Date/time seen: 12/25/23 17:11 Interval history: Patient is clinically stable. He is still intubated and sedated. Nurses have informed me that the family has decided to adopt comfort measures for now and will likely terminally extubate tomorrow after all family members have had a chance to come to the hospital. Exam GI: Other: Abdomen is soft and moderately distended. Objective Data Vital Signs Vital Signs: Vital Signs - 24 hr 12/24/23 17:30 12/24/23 18:00 12/24/23 18:00 Temperature 36.4 C Pulse Rate 59 L 54 L 55 L Respiratory Rate 16 Blood Pressure 99/58 L Pulse Oximetry 94 98 Oxygen Delivery Mechanical Ventilation Fraction of Inspired Oxygen 30 12/24/23 18:00 12/24/23 18:00 12/24/23 20:20 Temperature Pulse Rate 55 L 55 L 82 Respiratory Rate 16 16 24 H Blood Pressure Pulse Oximetry Oxygen Delivery Fraction of Inspired Oxygen 12/24/23 20:15 12/24/23 20:00 12/24/23 20:00 Temperature Pulse Rate 78 50 L Respiratory Rate 20 16 Blood Pressure Pulse Oximetry 98 Oxygen Delivery Mechanical Ventilation Fraction of Inspired Oxygen 30 30 12/24/23 20:00 12/24/23 20:00 12/24/23 22:00 Temperature 36.5 C Pulse Rate 50 L 50 L 57 L Respiratory Rate 16 Blood Pressure 100/60 Pulse Oximetry 98 Oxygen Delivery Fraction of Inspired Oxygen 12/24/23 22:00 12/24/23 22:00 12/24/23 22:00 Temperature 36.6 C Pulse Rate 57 L 57 L 57 L Respiratory Rate 16 16 16 Blood Pressure 104/59 L Pulse Oximetry 99 Oxygen Delivery Fraction of Inspired Oxygen 12/24/23 20:30 12/24/23 23:13 12/25/23 00:00 Temperature Pulse Rate 62 52 L 55 L Respiratory Rate 16 Blood Pressure Pulse Oximetry 96 99 Oxygen Delivery Mechanical Ventilation Mechanical Ventilation Fraction of Inspired Oxygen 30 30 12/25/23 00:00 12/25/23 00:00 12/25/23 00:00 Temperature Pulse Rate 54 L 55 L Respiratory Rate 16 16 Blood Pressure Pulse Oximetry 99 Oxygen Delivery Mechanical Ventilation Fraction of Inspired Oxygen 30 30 12/25/23 00:00 12/25/23 00:00 12/25/23 01:48 Temperature 36.4 C L Pulse Rate 55 L 55 L 50 L Respiratory Rate 16 Blood Pressure 111/65 Pulse Oximetry 99 99 Oxygen Delivery Mechanical Ventilation Fraction of Inspired Oxygen 30 12/25/23 02:00 12/25/23 02:00 12/25/23 02:00 Temperature 36.3 C L Pulse Rate 53 L 50 L 50 L Respiratory Rate 16 16 Blood Pressure 102/52 L Pulse Oximetry 99 Oxygen Delivery Fraction of Inspired Oxygen 12/25/23 02:00 12/25/23 04:00 12/25/23 04:00 Temperature Pulse Rate 50 L 55 L Respiratory Rate 16 16 Blood Pressure Pulse Oximetry 97 Oxygen Delivery Mechanical Ventilation Fraction of Inspired Oxygen 30 30 12/25/23 04:00 12/25/23 04:00 12/25/23 04:00 Temperature 36.1 C L Pulse Rate 55 L 55 L 55 L Respiratory Rate 16 16 Blood Pressure 101/50 L Pulse Oximetry 97 Oxygen Delivery Fraction of Inspired Oxygen 12/25/23 04:00 12/25/23 05:30 12/25/23 06:00 Temperature Pulse Rate 55 L 56 L 55 L Respiratory Rate 16 17 Blood Pressure Pulse Oximetry 98 Oxygen Delivery Mechanical Ventilation Fraction of Inspired Oxygen 30 12/25/23 06:00 12/25/23 06:00 12/25/23 06:00 Temperature 36.4 C L Pulse Rate 55 L 54 L 53 L Respiratory Rate 18 16 Blood Pressure
[2023-12-25 20:06] LABS: Glucose Point of Care 80 mg/dl (65-105)
[2023-12-25 20:06] LABS: Glucose Point of Care 62 mg/dl (65-105)
[2023-12-25 21:14] LABS: Glucose Point of Care 78 mg/dl (65-105)
[2023-12-25] MEDS: DEXTROSE 10% 1,000 ML 50 ML IV CONT (22:11)
[2023-12-26] VITALS (13 sets, daily range): BP systolic 0–133; BP diastolic 0–75; PULSE 0–103; RESP 0–23; TEMP 36.5–36.8; O2SAT 0–98
[2023-12-26] LABS: Glucose Point of Care 72 mg/dl (65-105)
[2023-12-26 03:29] LABS: Glucose Point of Care 79 mg/dl (65-105)
[2023-12-26 05:35] LABS: Alveolar/Arterial O2 Gradient 60.6 mmHg; Base Excess ABG 8.4 mEq/l (+/-2.0); Carboxyhemoglobin 0.4 % THb (0-2.0); Fractional Inspired Oxygen 30 %; HCO3 ABG 34.5 mEq/l (22.0-26.0); Methemoglobin ABG 0.1 %THb (0-1.5); Oxygen Content ABG 20.1 %vol (16.0-22.0); Oxyhemoglobin 96.8 % THb (90.0-100.0); PCO2 ABG 53.1 mmHg (35.0-45.0); PO2 ABG 90.9 mmHg (80.0-100.0); PO2 FiO2 Ratio Arterial Blood 3.03 %; Reduced Hemoglobin 2.7 %THb (0-5.0); Total Hemoglobin 14.7 g/dL (12.0-18.0); pH ABG 7.431 (7.350-7.450)
[2023-12-26 05:36] LABS: Device VENTILATOR; Modified Allen's Test Pass; Site Drawn LEFT RADIAL
[2023-12-26 05:37] LABS: Arterial Blood Gas PEEP 5 cmH2O; Arterial Blood Gas Tidal Volume 380 ml; Arterial Blood Gas Vent Mode CMV; Arterial Blood Gas Ventilator rate 14 /MIN
[2023-12-26] MEDS: PIPERACILLN/TAZ 3.375GM/NS50ML 3.375 GM/50 ML BAG IVPB (05:57)
[2023-12-26] MEDS: CENTRAL LINE FLUSH 10 ML IV PUSH (05:57)
[2023-12-26 06:17] LABS: Glucose Point of Care 85 mg/dl (65-105)
[2023-12-26 06:26] LABS: Hematocrit 42.2 % (42.0-52.0); Hemoglobin 13.9 g/dL (14.0-18.0); Immature Platelet Fraction Pct 5.5 % (0.9-11.2); Mean Corpuscular HGB Conc 32.9 g/dl (32-36); Mean Corpuscular Hemoglobin 32.7 pg (26-34); Mean Corpuscular Volume 99.3 fl (80-100); Mean Platelet Volume 10.7 fl (7.4-10.4); Platelet Count Result 106 k/mm3 (150-375); Red Blood Count 4.25 M/mm3 (4.6-6.20); Red Cell Distribution Width 13.3 % (11.5-14.5); White Blood Count 7.4 K/mm3 (4.5-10.0)
[2023-12-26 06:43] LABS: Alanine Aminotransferase 13 U/L (6-50); Albumin Level 2.7 g/dL (3.5-5.1); Alkaline Phosphatase 54 U/L (38-126); Anion Gap 4 mmol/L (4-12); Aspartate Amino Transferase 24 U/L (17-59); Blood Urea Nitrogen 10 mg/dL (9-20); Calcium 7.4 mg/dL (8.4-10.2); Carbon Dioxide 33 mmol/L (22-30); Chloride 96 mmol/L (98-107); Estimated CRCL calculation 68 ml/min; Estimated Glomerular Filt Rate > 60; Glucose 99 mg/dL (65-110); Phosphorus 3.3 mg/dL (2.5-4.5); Potassium 3.5 mmol/L (3.4-5.0); Sodium 133 mmol/L (137-145)
--- NOTE | 2023-12-26 08:40 | PC.NURSE ---
Anabel called back from [facility] and said ok to withdraw care when family is ready and to call them back with time of .
--- NOTE | 2023-12-26 08:46 | WPDINTPN ---
Progress Note: A&P Assessment and Plan (1) Acute and chronic respiratory failure: Code(s): J96.20 - Acute and chronic respiratory failure, unspecified whether with hypoxia or hypercapnia Status: Acute Assessment and Plan: Acute on chronic Respiratory failure secondary to baseline severe COPD, lung cancer, diaphragmatic paralysis and now acutely worsened with aspiration pneumonia and bowel obstruction patient now intubated and on mechanical ventilation Continue full mechanical ventilation support to prevent hypoxemia/hypercarbia and end organ damage. ABG and PCXR done this morning reviewed reviewed and will repeat in am. 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 Patient's family does not believe the patient would want tracheostomy. (3) Large bowel obstruction: Code(s): K56.609 - Unspecified intestinal obstruction, unspecified as to partial versus complete obstruction Status: Acute Assessment and Plan: 12/24 K UB- Gaseous distention of the colon, consistent with adynamic ileus versus obstruction. continue npo gastric tube is in place and low intermittent suction GI and surgery have evaluated the patient. patient's daughter has decided not to pursue any surgical operative therapy at this time and want to continue with conservative treatment and eventually proceed with comfort care (4) Non-small cell cancer of right lung: Code(s): C34.91 - Malignant neoplasm of unspecified part of right bronchus or lung Status: Acute Assessment and Plan: inoperable and patient r received radiation treatment (5) Chronic obstructive pulmonary disease: Code(s): J44.9 - Chronic obstructive pulmonary disease, unspecified Status: Acute Assessment and Plan: see above (6) Aspiration pneumonia: Code(s): J69.0 - Pneumonitis due to inhalation of food and vomit Status: Acute Assessment and Plan: see above (7) Acidosis: Code(s): E87.20 - Acidosis, unspecified Status: Acute Assessment and Plan: on presentation patient had metabolic acidosis secondary to sepsis which was treated with IV fluids with a bicarb. Acidosis resolved and patient is now in fact little alkalotic. IV fluids have been discontinued and vent changes as above (8) Electrolyte abnormality: Code(s): E87.8 - Other disorders of electrolyte and fluid balance, not elsewhere classified Status: Acute Assessment and Plan: low potassium replacement ordered (9) Hypoglycemia: Code(s): E16.2 - Hypoglycemia, unspecified Status: Acute Assessment and Plan: patient was hypoglycemic yesterday and started on D10 at 50 mL/hour which will be continued for now Plan DVT prophylaxis - Lovenox Stress ulcer prophylaxis - Protonix Nutrition - npo at this time. Code Status - patient is DNR with no further escalation in care. family plans to proceed with palliative extubation and comfort care measures when ready Total Critical Care Time - 30 minutes Due to a high probability of clinically significant, life threatening deterioration, the patient required my highest level of preparedness to intervene emergently and I personally spent this critical care time directly and personally managing the patient. This critical care time included obtaining a histo
[2023-12-26] MEDS: POTASSIUM CHLORIDE 20 MEQ PACKET (FOR LIQUID) 40 MEQ FEED TUBE (08:57)
[2023-12-26] MEDS: ENOXAPARIN 40 MG/0.4 ML SYRINGE SUB-Q (08:57)
[2023-12-26] MEDS: PANTOPRAZOLE SODIUM IV 40 MG VIAL IV PUSH (08:57)
[2023-12-26] MEDS: MINERAL OIL/WHITE PETROLATUM OINTMENT 1 APPLIC EACH EYE (08:57)
[2023-12-26 08:58] LABS: Glucose Point of Care 89 mg/dl (65-105)
[2023-12-26] MEDS: LORazepam INJ (*CRX) 2 MG/ML VIAL IV PUSH (09:51)
[2023-12-26] MEDS: MORPHINE SULFATE INJ (*CRX) 10 MG/ML AMP 5 MG IV PUSH (09:52)
--- NOTE | 2023-12-26 13:59 | P.DN_ITS ---
Discharge Summary Date and Time Date of : 12/26/23 Time of : 11:30 Provider Pronounced By: 2 RNs Name of First RN That Pronounced: Jade Flynn RN Name of Second RN That Pronounced: Elizabeth Keller RN Probable Cause of Probable Cause of : Pneumonia Summary Hospital Course: Mr. 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 Presented to [facility] with a complaint of difficulty breathing and cough and abdominal distension and pain. ER workup of CT chest abdomen pelvis demonstrated a left lower lobe aspiration pneumonia, and findings concerning for large bowel obstruction. NG tube was placed. Patient was intubated due to acute on chronic respiratory failure. After consultation by preparation supervisor and General surgery the family considered his current and chronic respiratory status and options regarding management of bowel obstruction. They decided to withdrawal measures and placed the patient on comfort care. He was extubated on 12/26/2023 and shortly after the time documented above. Additional Data Confirmation of as documented by pronouncing clinician: Pupillary Reflex, Palpable Pulses, Response to Stimuli, Heart Tones and Breath Sounds Name of Provider Notified: dr. roy, dr. arteaga Time Provider Notified: 11:35 Family Requests Autopsy: No Pot Operator Notified: Yes Date [facility] Notified of : 12/26/23 Time [facility] Notified of : 11:32
--- NOTE | 2023-12-29 09:41 | P.CDI_ITS ---
severe sepsis without shock CDI Query Clarification Request Sepsis was documented on 12/24 by care support representative, using the CDC definitions below, please clarify the appropriate diagnosis for your patients clinical presentation and severity of illness. * Septicemia: Systemic disease (sepsis) associated with positive blood cultures. * Sepsis: An infection-induced syndrome without organ dysfunction. * Severe Sepsis: Sepsis with associated acute organ dysfunction. * Septic Shock: Severe sepsis in which the cardiovascular system begins to fail, blood pressure drops, and vital organs are deprived of adequate blood supply.
--- NOTE | 2023-12-29 09:41 | WPDCDIQUERY2 ---
CDI Query Clarification Request Sepsis was documented on 12/24 by machinist class b, using the CDC definitions below, please clarify the appropriate diagnosis for your patients clinical presentation and severity of illness. Septicemia: Systemic disease (sepsis) associated with positive blood cultures. Sepsis: An infection-induced syndrome without organ dysfunction. Severe Sepsis: Sepsis with associated acute organ dysfunction. Septic Shock: Severe sepsis in which the cardiovascular system begins to fail, blood pressure drops, and vital organs are deprived of adequate blood supply.
== END 2023-12-26 11:30 | disposition expired | DRG 871 ==
LOC: ANHED 20:41 → ANHICU 22:22
PROVIDERS: Internal Medicine; Admitting Provider Internal Medicine; Emergency Provider Emergency Medicine; PCP Family Medicine; Visit Provider General Practice
DX: A41.9 Sepsis, unspecified organism (principal); J69.0 Pneumonitis due to inhalation of food and vomit; J96.20 Acute and chronic respiratory failure, unspecified whether with hypoxia or hypercapnia; C34.90 Malignant neoplasm of unspecified part of unspecified bronchus or lung; K56.609 Unspecified intestinal obstruction, unspecified as to partial versus complete obstruction; I50.32 Chronic diastolic (congestive) heart failure; C34.91 Malignant neoplasm of unspecified part of right bronchus or lung; R65.20 Severe sepsis without septic shock; E16.2 Hypoglycemia, unspecified; E78.5 Hyperlipidemia, unspecified; I11.0 Hypertensive heart disease with heart failure; I25.2 Old myocardial infarction; J44.9 Chronic obstructive pulmonary disease, unspecified; J98.6 Disorders of diaphragm; K21.9 Gastro-esophageal reflux disease without esophagitis; N40.0 Benign prostatic hyperplasia without lower urinary tract symptoms; Z87.891 Personal history of nicotine dependence; Z90.79 Acquired absence of other genital organ(s); Z90.49 Acquired absence of other specified parts of digestive tract; Z96.651 Presence of right artificial knee joint; Z66 Do not resuscitate; Z20.822 Contact with and (suspected) exposure to COVID-19
CPT/HCPCS: 31500; 36415; 36569; 36600; 71045; 71260; 74019; 74177; 80048; 80053; 81001; 82375; 82805; 82948; 83050; 83605; 83735; 84100; 84484; 85025; 85027; 85055; 87040; 87637; 87641; 93005; 94002; 94003; 94640; 96361; 96374; 99291; A9270; J0613; J1170; J1650; J1815; J2060; J2250; J2270; J2470; J2543; J2919; J3010; J3370; J3480; J7030; J7042; J7050; J7070; J7120; Q9967